=== PATIENT | male | born 1935 | race Caucasian/White ===

== ENCOUNTER 2016-07-22 18:12 | Inpatient (IN) | payer MEDICARE, OTHER ==
--- NOTE | 2016-07-22 18:18 | ED ---
Chest Pain HPI - General Stated Complaint: Stemi Time Seen by Provider: 07/22/16 18:15 Source: patient, EMS Limitations: no limitations - History of Present Illness Initial Comments: This patient is an 80-year-old man who presents to be evaluated for chest pain. The patient states a bit over an hour ago he was sitting and watching television when he started getting pain at the left substernal area. He describes it as heavy, constant, and severe. This was accompanied by dyspnea, diaphoresis, and feeling like he was going to pass out. Patient's family phoned EMS and they bring him here for arrival. The patient has had an IV, oxygen, and was given aspirin. EMS reports that initially his heart rate was in the 30s and he was hypotensive they gave a dose of atropine and report that his heart rate and blood pressure did improve. The patient states that the pain is a little better but continues. MD Complaint: chest pain Onset/Timin -: hour(s) Onset: during rest Pain Location: substernal Pain Radiation: none Severity: severe Quality: heaviness Consistency: constant Improves With: nothing Worsens With: nothing Anginal Symptoms: dyspnea Treatments Prior to Arrival: aspirin, other (Atropine) - Related Data Home Medications Medication Instructions Recorded Confirmed No Known Home Medications [No 07/22/16 07/22/16 Known Home Medications] Allergies Allergy/AdvReac Type Severity Reaction Status Date / Time No Known Allergies Allergy Verified 07/22/16 20:39 Review of Systems ROS Statement: Those systems with pertinent positive or pertinent negative responses have been documented in the HPI. ROS Other: All systems not noted in ROS Statement are negative. Constitutional: Denies: fever, chills Respiratory: Reports: dyspnea. Denies: cough, wheezes Cardiovascular: Reports: chest pain. Denies: palpitations, edema, syncope Gastrointestinal: Reports: nausea. Denies: abdominal pain, vomiting, melena, hematochezia Genitourinary: Denies: dysuria, hematuria Musculoskeletal: Denies: back pain Skin: Denies: rash Neurological: Denies: headache, weakness, numbness EKG Findings - EKG Comments: EKG Findings:: EKG shows a regular rhythm with a rate of 49 bpm the underlying rhythm appears to be atrial fibrillation. There are ST elevations in leads II, III, and aVF and V6, with reciprocal changes in 1, aVL, V1 through V4. - TX, Pacemaker, Normal: Myocardial infarction: inferior TX (acute or recent) Past Medical History - Past Family History Mother Family Medical History: Cancer Additional Family Medical History / Comment(s): from Lung CA, was a smoker Father Additional Family Medical History / Comment(s): from alcoholism General Exam General appearance: alert, in distress Head exam: Present: atraumatic, normocephalic Eye exam: Present: normal appearance. Absent: scleral icterus, conjunctival injection Neck exam: Present: normal inspection, full ROM Respiratory exam: Present: normal lung sounds bilaterally. Absent: respiratory distress, wheezes, rales, rhonchi, stridor Cardiovascular Exam: Present: normal rhythm, tachycardia, systolic murmur. Absent: diastolic murmur, rubs, gallop GI/Abdominal exam: Present: soft. Absent: distended, tenderness, guarding, rebound, mass Extremities exam: Present: normal inspection, normal capillary refill. Absent: pedal edema, calf tenderness Back exam: Present: normal inspection. Absent: CVA tenderness (R), CVA tenderness (L) Neurological exam: Present: alert Skin exam: Present: dry, intact, cyanosis. Absent: rash, diaphoretic, erythema , petechiae, pallor, mottled Course Vital Signs 07/22/16 07/22/16 07/22/16 18:12 18:30 18:36 Temperature 95.5 F L Pulse Rate 128 H 48 L 130 H Respiratory 24 22 22 Rate Blood Pressure 147/92 107/60 O2 Sat by Pulse 87 L 78 L Oximetry 07/22/16 18:38 Temperature Pulse Rate 89 Respiratory 22 Rate Blood Pressure 218/136 O2 Sat by Pulse 78 L Oximetry Critical Care Time Critical Care Time: Yes (25 minutes) Disposition Clinical Impression: ST elevation myocardial infarction (STEMI) Disposition: ADMITTED IP TO THIS HOSP Condition: Critical
[2016-07-22 18:26] LABS: CHCM 32.4; HCT 37.3 % (39.0-53.0); HDW 2.45; HGB 11.9 gm/dL (13.0-17.5); MCH 30.8 pg (25.0-35.0); MCV 96.1 fL (80.0-100.0); Mean Platelet Volume 7.7; RBC 3.88 m/uL (4.30-5.90); RDW 13.1 % (11.5-15.5); WBC 11.9 k/uL (3.8-10.6)
[2016-07-22] MEDS ORDERED: HEPARIN SODIUM,PORCINE 5,000 UNIT/ML 1 ML VIAL IV PRN (18:28)
[2016-07-22] MEDS ORDERED: HEPARIN SODIUM,PORCINE 5,000 UNIT/ML 1 ML VIAL IV ONE (18:28)
[2016-07-22] MEDS ORDERED: HEPARIN SODIUM,PORCINE/D5W PMX 25,000 UNIT in DEXTROSE/WATER 1 500ML.BAG IV SCH (18:30)
--- NOTE | 2016-07-22 18:30 | XR ---
EXAMINATION TYPE: XR chest 1V portable DATE OF EXAM: 07/22/2016 6:26 PM COMPARISON: NONE HISTORY: Chest pain TECHNIQUE: Single frontal view of the chest is obtained. FINDINGS: There is coarsening of interstitial markings. There are no hilar masses. Costophrenic angl es are clear. There are chest leads. Thoracic aorta is atheromatous. IMPRESSION: No active cardiac pulmonary disease. Normal heart.
[2016-07-22] MEDS ORDERED: MORPHINE SULFATE 4 MG/ML SYRINGE IV STA (18:32)
[2016-07-22 18:34] LABS: ALT 35 U/L (21-72); AST 52 U/L (17-59); Alkaline Phosphatase 74 U/L (38-126); Anion Gap 14 mmol/L; Blood Urea Nitrogen 19 mg/dL (9-20); Calcium 8.8 mg/dL (8.4-10.2); Carbon Dioxide 20 mmol/L (22-30); Chloride 106 mmol/L (98-107); Glucose 176 mg/dL (74-99); Non-African American GFR(MDRD) 51 (>60 ml/min/1.73 sqM); Potassium 4.6 mmol/L (3.5-5.1); Sodium 140 mmol/L (137-145); Total Bilirubin 0.7 mg/dL (0.2-1.3); Total Protein 7.1 g/dL (6.3-8.2)
[2016-07-22] MEDS: DILTIAZEM 5 MG/ML 5 ML VIAL IVP STA ×2 (18:36→18:39)
[2016-07-22] MEDS ORDERED: LIDOCAINE 2% INJ 20 MG/ML SQ ONE (18:53)
[2016-07-22 18:57] LABS: Prothrombin Time 10.4 sec (9.0-12.0)
[2016-07-22] MEDS ORDERED: DOPamine DRIP 800 MG in DEXTROSE/WATER 1 500ML.BAG IV ONE (18:58)
[2016-07-22] MEDS ORDERED: NOREPINEPHRINE 4 MG in SODIUM CHLORIDE 0.9% 250 ML IV ONE (18:58)
[2016-07-22] MEDS ORDERED: IV FLUID CONTINUATION 1,000 ML IV ONE (18:58)
[2016-07-22 19:00] LABS: Creatine Kinase MB 4.8 ng/mL (0.0-2.4); Partial Thromboplastin Time 21.1 sec (22.0-30.0); Troponin I 2.49 ng/mL (0.000-0.034)
[2016-07-22] MEDS ORDERED: ONDANSETRON 4 MG/2 ML VIAL IVP ONE (19:00)
[2016-07-22] MEDS ORDERED: ONDANSETRON 4 MG/2 ML VIAL ONE (19:01)
[2016-07-22] MEDS ORDERED: BIVALIRUDIN 250 MG in SODIUM CHLORIDE 0.9% 50 ML IV ONE (19:16)
[2016-07-22] MEDS ORDERED: DEXTROSE 5% IN WATER 100 ML with AMIODARONE 150 MG IV ONE (19:17)
[2016-07-22] MEDS ORDERED: NITROGLYCERIN 1000MCG/10ML SYRINGE INTRACORON ONE (19:18)
[2016-07-22] MEDS ORDERED: CLOPIDOGREL 75 MG TAB ONE (19:24)
[2016-07-22] MEDS ORDERED: CLOPIDOGREL 75 MG TAB PO ONE (19:33)
[2016-07-22] MEDS ORDERED: IODIXANOL 320 MG/ML 100 ML INTRAARTER ONE (19:44)
[2016-07-22] MEDS ORDERED: RX INFO: IV CONTRAST WAS GIVEN 1 EACH MISC MISCELLANE PRN (19:47)
[2016-07-22] MEDS ORDERED: ATROPINE SULFATE 0.1 MG/ML 10ML SYRINGE IV PRN (19:47)
[2016-07-22] MEDS ORDERED: NITROGLYCERIN SL TABS 0.4 MG TAB SUBLINGUAL PRN (19:47)
[2016-07-22] MEDS ORDERED: ZOLPIDEM 5 MG TAB PO PRN (19:47)
[2016-07-22] MEDS ORDERED: MAG HYDROX/AL HYDROX/SIMETH 30 ML CUP PO PRN (19:47)
--- NOTE | 2016-07-22 19:56 | P.CRDCN ---
History of Present Illness Consult date: 07/22/16 Chief complaint: Chest discomfort History of present illness: This is a pleasant 80-year-old gentleman with a past medical history significant for history of TIA/CVA without any history of coronary artery disease or hypertension or dyslipidemia or diabetes but significant history of smoking presented to the emergency room complaining of chest discomfort. The patient was in his usual state of health until earlier today when he started experiencing chest discomfort as a pressure across the chest. In the emergency room the EKG showed sinus rhythm with ST elevation inferiorly. The patient at that point was hemodynamically stable. He underwent an emergent heart catheterization which showed the occlusion of the mid right coronary artery which was a large caliber vessel and a dominant vessel. The left coronary system angiogram showed an intermediate disease in the proximal LAD and severe disease in the mid to distal LAD but the LAD at that point becomes small to medium caliber vessel. The patient underwent successful angioplasty and stenting of the mid right coronary artery using drug-eluting stent with a good angiographic results. During the procedure he was unstable and I started the patient on Levophed. Also he was bradycardic and I started him on dopamine then his heart rate got better and I stopped the dobutamine. Also during the procedure he developed multiple episodes of nonsustained VT with long episodes and I started the patient on amiodarone with a bolus and drip. Currently the patient continues to be hemodynamically unstable and requires Levophed. Also he continues to be on amiodarone IV. I am going to start him on dual antiplatelet therapy with aspirin and Plavix and also with a statin and hold any beta pawan or SHIVANI inhibitor in view of the hemodynamic instability. Also I will obtain an echocardiogram was Doppler. Past Medical History Past Medical History: Coronary Artery Disease (CAD), CVA/TIA, Myocardial Infarction (AR) History of Any Multi-Drug Resistant Organisms: None Reported Past Surgical History: Unable to Obtain Past Psychological History: No Psychological Hx Reported Smoking Status: Current every day smoker Past Alcohol Use History: None Reported Past Drug Use History: None Reported Medications and Allergies Allergies Allergy/AdvReac Type Severity Reaction Status Date / Time No Known Allergies Allergy Verified 07/22/16 18:23 Physical Exam Vitals: Intake and Output 07/22/16 07/22/16 07/22/16 06:59 14:59 22:59 Intake Total 103 Balance 103 Intake: IV 103 - Constitutional General appearance: mild distress - Respiratory Respiratory: bilateral: diminished - Cardiovascular Rhythm: regular Heart sounds: normal: S1, S2 Abnormal Heart Sounds: systolic murmur Results 07/22/16 18:15 07/22/16 18:15 Current Medications Generic Name Dose Route Start Last Admin Trade Name Freq PRN Reason Stop Dose Admin Al Hydroxide/Mg Hydroxide 30 ml 07/22/16 19:47 Maalox PO Q4HR PRN Heartburn Aspirin 325 mg 07/23/16 09:00 Aspirin PO DAILY [facility] Atorvastatin Calcium 80 mg 07/22/16 21:00 Lipitor PO HS [facility] Atropine Sulfate 0.5 mg 07/22/16 19:47 Atropine IV ONCE PRN Symptomatic Bradycardia Clopidogrel Bisulfate 75 mg 07/23/16 19:49 Plavix PO DAILY [facility] Heparin Sodium (Porcine) 0 unit 07/22/16 18:28 Heparin IV PER PROTOCOL PRN Low PTT Protocol Heparin Sodium/Dextrose 25,000 500 mls @ 13.93 mls/hr 07/22/16 18:30 18:30 unit/ IV Solution IV 12 units/kg/hr .Q24H BRODERICK 13.93 mls/hr Protocol Administration 12 UNITS/KG/HR Amiodarone HCl 450 mg/ 259 mls @ 34.53 mls/hr 07/22/16 19:30 Dextrose/Water IV 07/23/16 19:27 .Q7H31M [facility] Protocol 1 MG/MIN Sodium Chloride 1,000 mls @ 100 mls/hr 07/22/16 20:00 Saline 0.9% IV 07/23/16 02:01 .Q10H [facility] Miscellaneous Information 1 each 07/22/16 19:47 Rx Info: Iv Contrast Was Given MISCELLANE 07/24/16 19:47 DAILY PRN Per Protocol Nitroglycerin 0.4 mg 07/22/16 19:47 Nitrostat SUBLINGUAL Q5M PRN Chest Pain Zolpidem Tartrate 5 mg 07/22/16 19:47 Ambien PO HS PRN Insomnia Intake and Output 07/22/16 07/22/16 07/22/16 06:59 14:59 22:59 Intake Total 103 Balance 103 Intake: IV 103 Assessment and Plan Plan: Assessment #[address] elevation myocardial infarction #2 status post a stenting of the mid RCA #3 cardiogenic shock #4 cardiac arrhythmia in terms off nonsustained VT #5 significant history of smoking Plan #1 dual antiplatelet therapy and statin #2 continue hemodynamic support with Levophed #3 continue the amiodarone IV #4 obtain an echocardiogram was Doppler #5 follow-up with the patient
[2016-07-22] MEDS ORDERED: AMIODARONE 450 MG in DEXTROSE 5% IN WATER 250 ML IV ONE ×2 (19:59)
[2016-07-22] MEDS: AMIODARONE 450 MG in DEXTROSE 5% IN WATER 250 ML IV SCH ×2 (20:00)
[2016-07-22] MEDS ORDERED: SODIUM CHLORIDE 0.9% 1,000 ML IV SCH (20:00)
[2016-07-22] MEDS: NOREPINEPHRINE 4 MG in SODIUM CHLORIDE 0.9% 250 ML IV SCH (20:00)
[2016-07-22 20:18] LABS: Glucose,Whole Blood 204 mg/dL (75-99)
[2016-07-22] MEDS: ATORVASTATIN 80 MG TAB PO SCH (20:33)
[2016-07-22 21:34] LABS: Glucose,Whole Blood 180 mg/dL (75-99)
[2016-07-22] MEDS: INSULIN LISPRO (humaLOG) 300 UNIT/3 ML VIAL SQ SCH (21:34)
[2016-07-22] MEDS ORDERED: NALOXONE 0.4 MG/ML 1 ML VIAL IV PRN (22:23)
[2016-07-22] MEDS ORDERED: Magnesium Replacement Protocol 1 EACH MISC MISCELLANE PRN (22:26)
[2016-07-22] MEDS ORDERED: Potassium Replacement Protocol 1 EACH MISC MISCELLANE PRN (22:26)
[2016-07-22] MEDS ORDERED: Phosphorus Replacement Protoco 1 EACH MISC MISCELLANE PRN (22:26)
[2016-07-23 00:15] LABS: Magnesium 1.9 mg/dL (1.6-2.3); Phosphorous 3.6 mg/dL (2.5-4.5); Potassium 4.7 mmol/L (3.5-5.1)
[2016-07-23 00:27] LABS: Hemoglobin A1C 5.7 % (4.2-6.1)
[2016-07-23] MEDS: MAGNESIUM SULFATE-D5W PMX 1 GM in DEXTROSE/WATER 1 100ML.BAG IVPB SCH ×2 (01:05→02:06)
[2016-07-23 04:51] LABS: Appearance,Urine Clear (Clear); Bilirubin,Urine Negative (Negative); Glucose,Urine (UA) Negative (Negative); Ketones,Urine Negative (Negative); Leukocyte Esterase,Urine Negative (Negative); Nitrite,Urine Negative (Negative); PH, Urine 5.5 (5.0-8.0); Particle Count 6524; Protein,Urine 1+ (Negative); RBC,Urine 4 /hpf (0-5); Squamous Epithelial Cell,Urine <1 /hpf (0-4); UA Billing (MACRO vs. MICRO) MICRO; Urobilinogen,Urine <2.0 mg/dL (<2.0); WBC,Urine 3 /hpf (0-5)
[2016-07-23 04:54] LABS: Specific Gravity,Urine >1.050 (1.001-1.035)
[2016-07-23] MEDS: AMIODARONE 450 MG in DEXTROSE 5% IN WATER 250 ML IV SCH ×2 (05:02)
[2016-07-23 05:04] LABS: Basophils % (A) 0 %; CH 30.9; CHCM 32.8; Eosinophils % (A) 0 %; HCT 38.1 % (39.0-53.0); HGB 12.4 gm/dL (13.0-17.5); Luc # (Auto) 0.13; Luc % (Auto) 1; Lymphocytes % (A) 7 %; MCH 30.7 pg (25.0-35.0); MCHC 32.5 g/dL (31.0-37.0); MCV 94.7 fL (80.0-100.0); Mean Platelet Volume 6.8; Monocytes # (A) 0.6 k/uL (0-1.0); Monocytes % (A) 4 %; Neutrophils # (A) 12.4 k/uL (1.3-7.7); Neutrophils % (A) 88 %; RBC 4.03 m/uL (4.30-5.90); RDW 13.2 % (11.5-15.5); WBC 14.2 k/uL (3.8-10.6); WBC (Perox) 14.49
[2016-07-23 05:14] LABS: Anion Gap 10 mmol/L; Blood Urea Nitrogen 19 mg/dL (9-20); Calcium 8.4 mg/dL (8.4-10.2); Carbon Dioxide 22 mmol/L (22-30); Chloride 104 mmol/L (98-107); Glucose 169 mg/dL (74-99); Magnesium 2.5 mg/dL (1.6-2.3); Non-African American GFR(MDRD) 53 (>60 ml/min/1.73 sqM); Potassium 4.5 mmol/L (3.5-5.1); Sodium 136 mmol/L (137-145)
[2016-07-23] MEDS: INSULIN LISPRO (humaLOG) 300 UNIT/3 ML VIAL SQ SCH ×4 (08:48→21:05)
[2016-07-23] MEDS: PANTOPRAZOLE 40 MG TABLET PO SCH (08:50)
[2016-07-23] MEDS: ASPIRIN 325 MG TAB PO SCH (08:50)
[2016-07-23] MEDS: SODIUM CHLORIDE 0.9% 1,000 ML IV SCH ×2 (11:50→19:15)
[2016-07-23 11:54] LABS: Glucose,Whole Blood 113 mg/dL (75-99)
--- NOTE | 2016-07-23 12:05 | CC ---
DATE OF SERVICE: 07/22/2016 PERFORMING PHYSICIAN: Jose Juan Brock M.D., commercial finance manager. PROCEDURE PERFORMED: 1. Selective right and left coronary angiogram. 2. Successful stenting of the mid RCA using 3.25 x 15 mm Xience SHERYL which was postdilated using 3.5 noncompliant balloon with a good angiographic results. INDICATION: This is a pleasant 80-year-old gentleman with significant history of smoking who presented to the hospital with chest discomfort and was diagnosed with acute inferior ST elevation MN. The decision was made toward an emergent heart catheterization with possible coronary intervention. APPROACH: Right common femoral artery. COMPLICATIONS: None. LEVEL OF SEDATION: Moderate. PROCEDURE DESCRIPTION: After obtaining informed consent, the patient was brought to the cardiac laborer brush clearing. Right common femoral artery was cannulated using micropuncture technique under ultrasound guidance. The micropuncture wire passed easily, then I placed a 6 Kinyarwanda sheath in the right common femoral artery. Subsequently, I did selective right and left coronary angiogram using JR 3.5 and JL 3.5 catheters. After that, I did intervene on the right coronary artery. Please see separate paragraph for that. SELECTIVE CORONARY ANGIOGRAM: 1. The right coronary artery is a large-caliber vessel and it is a dominant vessel. The proximal RCA right after the ostium has a plaque that appeared to be in the range 40%. The mid RCA besides being calcified seems to be subtotally occluded during diagnostic injection and it was occluded when I engaged the RCA the guiding catheter. The RCA distally appeared to be angiographically normal and bifurcates into PDA and PLV branches; both are angiographically normal. 2. The left main is a medium caliber vessel and seems to be angiographically normal. It bifurcates into the left circumflex, ramus intermedius, and left anterior descending artery. 3. The left circumflex is a medium caliber vessel. It is a nondominant vessel. The proximal left circumflex appeared to have disease in the range of 20% to 30%. The mid left circumflex is normal and the left circumflex distally is normal as well. 4. The ramus intermedius is a medium caliber vessel with mild disease in the proximal portion. 5. Left anterior descending artery: The proximal LAD appeared to have a long tubular lesion in the range of 30 to 40%. The mid LAD is a medium caliber vessel and seems to be angiographically normal and gives rises into 2 diagonal branches; both are angiographically normally. The LAD after the second diagonal appeared to have a long tubular lesion in the range of 70% to 80% but the LAD becomes small caliber vessel by that segment. PCI OF THE RCA: Anticoagulation was initiated using Angiomax. Subsequently, I did engage the RCA using a Kemal right guiding catheter. The RCA was wired using a whisper wire. Subsequently, I did PTCA ballooning of the lesion in the mid RCA using 2.0 x 12 mm balloon and after that, I did deploy 3.25 x 15 mm Xience SHERYL, where the stent was positioned under fluoroscopy guidance and deployed under 12 atmospheres for 20 seconds. After that, I post dilate using 3.5 x 12 mm NC balloon which was inflated under 14 atmospheres for 20 seconds. The following angiogram showed good angiographic result without perforation and without dissection with a good flow. There was a plaque in the proximal RCA and seems to be in the range of 30% to 40% and seems to be stable and non- flow-limiting. CONCLUSION: 1. Acute inferior ST elevation myocardial infarction. 2. Plaque rupture and thrombus formation in the mid right coronary artery. 3. Intermediate disease involving the proximal LAD. 4. Severe disease involving the mid to distal LAD but the LAD becomes small caliber vessel by that segment. 5. Successful stenting of the mid RCA using 3.25 x 15 mm Xience SHERYL with a good angiographic results. 6. Cardiogenic shock, where the patient is on Levophed at this point. 7. Cardiac arrhythmia in the term of nonsustained VT and the patient is on amiodarone as well. POSTPROCEDURE MANAGEMENT: 1. Dual antiplatelet therapy and statin. 2. Try to wean the patient from the Levophed. 3. Obtain an echocardiogram to assess the LV function. 4. Follow up with the patient.
[2016-07-23] MEDS ORDERED: SODIUM CHLORIDE 0.9% 250 ML IV ONE (12:27)
--- NOTE | 2016-07-23 12:31 | ECHOF ---
Referral Reason:stemi MEASUREMENTS -------- HEIGHT: 152.4 cm WEIGHT: 57.1 kg BP: 98/46 RVIDd: 4.9 cm (< 3.3) IVSd: 1.2 cm (0.6 - 1.1) LVIDd: 4.5 cm (3.9 - 5.3) LVPWd: 1.3 cm (0.6 - 1.1) IVSs: 1.6 cm LVIDs: 3.6 cm LVPWs: 1.1 cm LA Diam: 3.8 cm (2.7 - 3.8) LAESV Index (A-L): 31.90 ml/m Ao Diam: 3.7 cm (2.0 - 3.7) AV Cusp: 1.4 cm (1.5 - 2.6) LA Diam: 2.6 cm (2.7 - 3.8) MV EXCURSION: 17.918 mm (> 18.000) MV EF SLOPE: 97 mm/s (70 - 150) EPSS: 1.5 cm MV E Tima: 0.75 m/s MV DecT: 172 ms MV A Tima: 0.63 m/s MV E/A Ratio: 1.19 RAP: 5.00 mmHg RVSP: 28.65 mmHg FINDINGS -------- Sinus rhythm. This was a technically adequate study. There is mild concentric left ventricular hypertrophy. Overall left ventricular systolic function is severely impaired with, an EF between 25 - 30 %. Mitral Doppler inflow pattern suggests diastolic filling abnormality 20.60. Anterseptal Hypokinesis Inferior Hypokinesis Anterior is hypokinetic [place] Hypokinesis. Basal inferolateral hypokinesis. The right ventricle is moderate to severely enlarged. LA is midly dilated 29-33ml/m2. The right atrial size is normal. There is mild aortic valve sclerosis. There is no evidence of aortic regurgitation. Mild mitral annular calcification present. Mild mitral regurgitation is present. Mild tricuspid regurgitation present. There is no evidence of pulmonary hypertension. The right ventricular systolic pressure, as measured by Doppler, is 28.65mmHg. There is no pulmonic regurgitation present. The aortic root size is normal. There is no pericardial effusion. CONCLUSIONS -------- 1. There is mild concentric left ventricular hypertrophy. 2. LA is midly dilated 29-33ml/m2. 3. There is mild aortic valve sclerosis. 4. Mild mitral annular calcification present. 5. Mild mitral regurgitation is present. 6. Mild tricuspid regurgitation present. 7. There is no evidence of pulmonary hypertension. 8. The right ventricular systolic pressure, as measured by Doppler, is 28.65mmHg. 9. Overall left ventricular systolic function is severely impaired with, an EF between 25 - 30 %. 10. Mitral Doppler inflow pattern suggest diastolic filling abnormality 20.60. 11. Anterseptal Hypokinesis 12. Inferior Hypokinesis 13. Anterior is hypokinetic 14. [place] Hypokinesis. 15. Basal inferolateral hypokinesis. 16. The right ventricle is moderate to severely enlarged. RESIDENTIAL REAL ESTATE ASSISTANT: Audrey Mcginnis RDCS
--- NOTE | 2016-07-23 12:55 | PN ---
Mr. Zapata is an 80-year-old male who presented with no prior documented cardiac history, who presented to the emergency room with an acute inferior myocardial infarction complicated by ventricular fibrillation. He underwent stenting of his right coronary artery. He is doing well this morning. He denies chest pain. Denies any dizziness or palpitation. Denies any nausea. He off the Levophed. His medications includes aspirin, Lipitor 80 mg daily, Plavix 75 mg daily. PHYSICAL EXAMINATION: Blood pressure running in the 90s with the heart rate in the 60s. LUNGS: Clear. HEART: Regular rate rhythm. S1, S2, no S3, no rub with a systolic murmur. ABDOMEN: Soft, nontender. EXTREMITIES: No edema. RIGHT GROIN: No hematoma. Lab data revealed a BUN and creatinine 19 and 1.3. Potassium 4.5. Hemoglobin of 12.4. His troponin yesterday was 2.49. IMPRESSION: 1. Status post inferior myocardial infarction with stenting of the right coronary artery. 2. Episode of cardiogenic shock with hypotension and ventricular fibrillation. 3. Abnormal renal function. RECOMMENDATIONS: From the cardiac standpoint at this time, I will stop the IV and amiodarone. I will give him IV fluids. We will review his echocardiogram, follow his renal function. Depending on his blood pressure, then a decision can be made regarding the addition of beta pawan. Will follow his urine output. The prognosis remains guarded.
[2016-07-23] MEDS: NICOTINE 14MG/24HR PATCH TRANSDERM SCH (15:22)
--- NOTE | 2016-07-23 17:45 | HP ---
DATE OF ADMISSION: 07/23/2016 PRESENTING COMPLAINT: Chest pain. HISTORY OF PRESENTING ILLNESS: This is a very pleasant 80-year-old patient who [facility], had a previous MA in and a stroke. Patient does smoke about 10 cigars a day, but does not inhale. Yesterday developed central chest pressure started shaking like to leaf, sweating, short of breath, pain did radiate to the neck and arms. Patient's found to have an acute ST elevation myocardial infarction and taken to the cardiac builder's labourer. Emergent stent was placed to the RCA. Patient in the ICU. Daughter and son-in-law at the bedside. Does feel very tired. REVIEW OF SYSTEMS: CONSTITUTIONAL: Tired. HEENT: Decreased hearing. RESPIRATORY: As above. CARDIOVASCULAR: As above. GASTROINTESTINAL: None. GENITOURINARY: None. MUSCULOSKELETAL: None. DERMATOLOGIC: None. HEMATOLOGIC: None. LYMPHATICS: None. PSYCHIATRY: None. NEUROLOGICAL: None. PAST MEDICAL HISTORY: MA in 1978, stroke in 1998. Skin cancer. PAST SURGICAL HISTORY: Left cataract surgery. SOCIAL HISTORY: Smoking about 10 cigars a day. Living with his daughter. Retired. Family history of lung cancer. HOME MEDICATIONS: None. ALLERGIES: None. On examination vital signs on presentation: Temperature 98.5, pulse 128, repeat 48, respirations 22, blood pressure 107/60, pulse ox 87% on nonrebreather. GENERAL APPEARANCE: Thin build, lying in bed, awake. EYES: Pupils equal. Conjunctiva pale. HEENT: Oral cavity normal. NECK: JVD not raised. Mass not palpable. RESPIRATORY: Effort normal. LUNGS: Diminished breath sounds. CARDIOVASCULAR: First and second sounds normal. No edema. ABDOMEN: Soft, nontender. Liver and spleen not palpable. LYMPHATIC: No lymph nodes palpable in neck or axillae. PSYCHIATRY: Alert and oriented x3. Mood and affect normal. NEUROLOGICAL: Pupils equal. Cranial nerves grossly intact. Power and sensation grossly intact. INVESTIGATIONS: Admission labs of white count 11.9, hemoglobin 11.9. Potassium 4.6, BUN 19, creatinine 1.33. Troponin 2.4. EKG shows ST elevation in inferior leads. Repeat troponin went up to 1.192. 2-D echo shows EF of 25 to 30% multiple wall hypokinetic. ASSESSMENT: 1. Acute ST elevation myocardial infarction, present on admission affecting the inferior wall. 2. Emergent cardiac cath with stent to the right coronary artery. 3. Acute ischemic cardiomyopathy with an ejection fraction around 30%. 4. Chronic nicotine dependence. Patient is a smoker. 5. Emphysema on clinical examination, is a smoker. PLAN: Care was discussed with the patient and family at the bedside. Patient is on aspirin, Lipitor, Plavix, nicotine patch, Protonix. Will add Spiriva and patient was given a nicotine patch. Care was discussed with the patient's family. Blood pressure is running on the lower side. Will keep a close eye. The patient is to be established with family doctor when he gets discharged.
[2016-07-23] MEDS: ATORVASTATIN 80 MG TAB PO SCH (20:09)
[2016-07-23] MEDS: CLOPIDOGREL 75 MG TAB PO SCH (20:10)
[2016-07-23 20:14] LABS: Glucose,Whole Blood 97 mg/dL (75-99)
[2016-07-24 04:37] LABS: Basophils % (A) 0 %; CH 31.4; Eosinophils % (A) 0 %; HCT 33.3 % (39.0-53.0); Luc % (Auto) 1; Lymphocytes # (A) 0.8 k/uL (1.0-4.8); Lymphocytes % (A) 6 %; MCH 31.7 pg (25.0-35.0); MCHC 33.2 g/dL (31.0-37.0); MCV 95.5 fL (80.0-100.0); Mean Platelet Volume 8.1; Monocytes # (A) 0.5 k/uL (0-1.0); Monocytes % (A) 4 %; Neutrophils # (A) 10.7 k/uL (1.3-7.7); Neutrophils % (A) 88 %; RBC 3.48 m/uL (4.30-5.90); RDW 13.6 % (11.5-15.5); WBC 12.1 k/uL (3.8-10.6); WBC (Perox) 12.54
[2016-07-24 04:50] LABS: Anion Gap 7 mmol/L; Blood Urea Nitrogen 19 mg/dL (9-20); Calcium 8.1 mg/dL (8.4-10.2); Carbon Dioxide 20 mmol/L (22-30); Chloride 110 mmol/L (98-107); Glucose 110 mg/dL (74-99); Magnesium 2.2 mg/dL (1.6-2.3); Non-African American GFR(MDRD) 53 (>60 ml/min/1.73 sqM); Phosphorous 2.8 mg/dL (2.5-4.5); Potassium 4.3 mmol/L (3.5-5.1); Sodium 137 mmol/L (137-145)
[2016-07-24] MEDS: SODIUM CHLORIDE 0.9% 1,000 ML IV SCH ×2 (07:13→15:07)
[2016-07-24 07:36] LABS: Glucose,Whole Blood 117 mg/dL (75-99)
[2016-07-24] MEDS: INSULIN LISPRO (humaLOG) 300 UNIT/3 ML VIAL SQ SCH ×4 (08:07→21:15)
[2016-07-24] MEDS: ASPIRIN 325 MG TAB PO SCH (08:08)
[2016-07-24] MEDS: PANTOPRAZOLE 40 MG TABLET PO SCH (08:08)
[2016-07-24] MEDS: NICOTINE 14MG/24HR PATCH TRANSDERM SCH (08:08)
[2016-07-24] MEDS: TIOTROPIUM 18 MCG/PUFF INHALER INHALATION SCH ×2 (10:10→11:11)
--- NOTE | 2016-07-24 10:23 | CDI ---
In responding to this query, please exercise your independent professional judgment. The [facility] Coding Staff and Clinical Documentation Specialists appreciate your assistance in clarifying documentation, maintaining compliance with coding guidelines, accurately documenting patients condition and capturing severity of illness. The fact that a question is asked does not imply that any particular answer is desired or expected. Communication forms are a method of clarifying documentation and are not made part of the Legal Health Record. Thank you in advance for your clarification. Last Revision, August 2015 Milad Kwon [address] [place] [address] Documentation Clarification Form Date: 07/24/2016 10:08:00 AM From: Radha Saba RN, CCDS Admit Date: 07/22/2016 6:47:00 PM Patient Name: Emigdio Zapata Visit Number: [id number] Dr. Patricia History/Risk Factors: Emphysema, Acute inferior wall TN, Acute ischemic cardiomyopathy, cardiogenic shock per cardiology, Tobacco use: Current smoker Clinical Indicators: Chief C/O: CP with dyspnea, diaphoresis and feeling like pt was going to pass out - HR 30's w hypotension upon EMS arrival Vital signs/Pulse oximetry: Temp 95.5, HR 128, RR 22-24, B/P147/92, Spo2 87% 100 % NRB, 78% NRB Lung/Breathing assessment: bilateral diminished per cardiology consult Treatment: Breathing tx: non ordered Continuous Pulse ox:78-86, improved to 96% s/p cath O2: 100% NRB weaned to 4l NC NO Pulmonary Consult In your professional opinion, can you please clarify if these findings signify one of the following conditions? Acuity: o Acute o Chronic o Acute on Chronic Respiratory Status: o Respiratory failure o Respiratory failure with hypercapnia o Respiratory failure with hypoxia o Acute Respiratory Distress o Other Diagnosis, please specify o Unable to determine Please document in your progress notes and discharge summary in order to capture severity of illness and risk of mortality. Include clinical findings that support your diagnosis. FYI: Press F11 to launch patient chart. Place X here if this finding has no clinical significance, is not applicable or if you are not able to provide any additional documentation. MARQUEZ
[2016-07-24 10:26] LABS: CH 30.8; CHCM 32.6; HCT 32.9 % (39.0-53.0); HDW 2.35; HGB 10.7 gm/dL (13.0-17.5); MCH 30.9 pg (25.0-35.0); MCHC 32.5 g/dL (31.0-37.0); MCV 95.1 fL (80.0-100.0); Mean Platelet Volume 7.3; RBC 3.45 m/uL (4.30-5.90); RDW 13.3 % (11.5-15.5); WBC 12.5 k/uL (3.8-10.6)
[2016-07-24 12:23] LABS: Glucose,Whole Blood 84 mg/dL (75-99)
--- NOTE | 2016-07-24 13:05 | PN ---
Mr. Zapata is an 80-year-old male who presented with an acute inferior myocardial infarction, complicated by atrial fibrillation and ventricular tachycardia. He underwent stenting of the right coronary artery. He is doing well this morning. He has no symptoms of chest pain. He still has episode of low blood pressure, but no evidence of tachy or bradyarrhythmia. He is feeling well. His breathing is stable. He denies any dizziness. No palpitation. He denies any nausea. He continues on aspirin once a day, Plavix 75 mg daily, Lipitor 80 mg daily. PHYSICAL EXAMINATION: His blood pressure is running in the low 100 and high 90s with a heart rate in the 60s and 70s. LUNGS: Mild decrease in breath sounds. No wheezes. HEART: Regular rate and rhythm. S1, S2, no S3, no rub. ABDOMEN: Soft, nontender. EXTREMITIES: No edema. Lab data revealed BUN and creatinine of 19 and 1.3. His peak troponin is 192. His hemoglobin is 10.7. His echocardiogram showed a severely impaired left ventricle systolic function. Ejection fraction of 25% to 30%. IMPRESSION: 1. Status post inferior myocardial infarction complicated by ventricle tachycardia and atrial fibrillation, status post stenting. 2. Hypotension, probably with an element of right ventricle infarct. 3. Severely impaired left ventricular systolic function with ischemic cardiomyopathy. 4. Prior history of smoking. RECOMMENDATION: Will continue on the present therapy. Patient should be transferred to the telemetry floor. His level of activity will be increased if his pressure stabilizes, then will start adding beta pawan and subsequently SHIVANI inhibitor to his regimen. In the meantime, will continue present therapy. Depending on his progress, further recommendation will be made.
[2016-07-24] MEDS ORDERED: NICOTINE POLACRILEX 2 MG GUM BUCCAL PRN (13:18)
[2016-07-24] MEDS: PRAMIPEXOLE 0.25 MG TAB PO SCH ×2 (15:06→21:15)
[2016-07-24 17:17] LABS: Glucose,Whole Blood 114 mg/dL (75-99)
[2016-07-24] MEDS: CLOPIDOGREL 75 MG TAB PO SCH (19:59)
[2016-07-24] MEDS: ATORVASTATIN 80 MG TAB PO SCH (19:59)
[2016-07-24 21:16] LABS: Glucose,Whole Blood 137 mg/dL (75-99)
[2016-07-25] MEDS: SODIUM CHLORIDE 0.9% 1,000 ML IV SCH (00:23)
[2016-07-25] MEDS ORDERED: FUROSEMIDE 10 MG/ML 2 ML VIAL IV ONE (05:14)
[2016-07-25] MEDS: IPRATROPIUM-ALBUTEROL 3 ML NEB INHALATION PRN ×2 (05:37→07:35)
[2016-07-25] MEDS ORDERED: FUROSEMIDE 10 MG/ML 4 ML VIAL ONE (05:40)
[2016-07-25] MEDS: ALPRAZolam 0.25 MG TAB PO PRN ×2 (05:48→12:45)
[2016-07-25 05:56] LABS: Basophils % (A) 0 %; CH 30.2; CHCM 31.2; Eosinophils % (A) 0 %; HCT 39.2 % (39.0-53.0); HDW 2.36; HGB 12.4 gm/dL (13.0-17.5); Luc # (Auto) 0.17; Luc % (Auto) 1; Lymphocytes # (A) 1.3 k/uL (1.0-4.8); Lymphocytes % (A) 7 %; MCH 30.8 pg (25.0-35.0); MCHC 31.7 g/dL (31.0-37.0); MCV 97.4 fL (80.0-100.0); Mean Platelet Volume 7.8; Monocytes # (A) 0.8 k/uL (0-1.0); Monocytes % (A) 5 %; Neutrophils % (A) 87 %; RBC 4.03 m/uL (4.30-5.90); RDW 13.3 % (11.5-15.5); WBC 17.3 k/uL (3.8-10.6)
[2016-07-25 06:26] LABS: Anion Gap 14 mmol/L; Blood Urea Nitrogen 24 mg/dL (9-20); Calcium 8.3 mg/dL (8.4-10.2); Carbon Dioxide 16 mmol/L (22-30); Chloride 109 mmol/L (98-107); Glucose 207 mg/dL (74-99); Magnesium 2.3 mg/dL (1.6-2.3); Non-African American GFR(MDRD) 58 (>60 ml/min/1.73 sqM); Phosphorous 4.1 mg/dL (2.5-4.5); Sodium 139 mmol/L (137-145)
[2016-07-25] MEDS ORDERED: METOPROLOL TARTRATE 5 MG/5 ML VIAL IVP ONE (06:29)
[2016-07-25] MEDS ORDERED: METOPROLOL TARTRATE 5 MG/5 ML VIAL IVP STA (06:29)
[2016-07-25] MEDS ORDERED: FUROSEMIDE 10 MG/ML 4 ML VIAL IV STA ×2 (06:30→07:18)
--- NOTE | 2016-07-25 06:46 | XR ---
EXAMINATION TYPE: XR chest 1V portable DATE OF EXAM: 07/25/2016 6:36 AM HISTORY: resp distress. REFERENCE: Previous study dated 07/22/2016. FINDINGS: There has been a marked worsening in the appearance of the chest was battling edema. Heart size is normal. I suspect small, bilateral effusions. IMPRESSION: MARKED WORSENING IN THE APPEARANCE OF THE CHEST WITH BATWING EDEMA SUGGESTIVE OF CONGESTIVE HEART TORI GEOVANY.
--- NOTE | 2016-07-25 07:10 | PN ---
DATE OF SERVICE: 07/24/2016 PRESENTING COMPLAINT: Chest pain. INTERVAL HISTORY: This is a patient who presented with ST elevation myocardial infarction, doing better. Sitting up in a chair. Family is at the bedside. Saw the patient in the ICU today. Blood pressure is running a bit on the low side. The patient does state that he is always fidgety, legs always jumpy. Patient is not missing his cigarettes/cigars. Review of systems done for constitutional, cardiovascular, GI, pulmonary; relevant findings as above. Current medications are reviewed. On examination, temperature 97.2, pulse 68, respirations 21, blood pressure 88/51, pulse ox 95% on 3 L. GENERAL APPEARANCE: Sitting up in a chair, fidgety. EYES: Pupils equal. Conjunctivae pale. NECK: JVD not raised. Mass not palpable. RESPIRATORY: Effort ( ) LUNGS: Slightly decreased breath sounds. CARDIOVASCULAR: First and second sounds normal. No edema. ABDOMEN: Soft, nontender. Liver and spleen not palpable. PSYCHIATRY: Alert and oriented x3. Mood and affect slightly anxious. NEUROLOGICAL: Legs are a bit jumpy. INVESTIGATIONS: White count 12.5, hemoglobin 10.7. Accu-Cheks are noted. ASSESSMENT: 1. Acute ST elevation myocardial infarction, present on admission, affecting the inferior wall. 2. Acute hypoxic respiratory failure, present on admission. 3. Emergent cardiac catheterization with stent to the right coronary artery. 4. Acute ischemic cardiomyopathy with ejection fraction around 30%. 5. Chronic nicotine dependence. Patient is a smoker. 6. Emphysema on clinical examination in a smoker. 7. Restless leg syndrome, uncontrolled. PLAN: Care was discussed with the patient. Will follow with Cardiology. Patient will be started on Mirapex. Care was discussed with the patient and family at the bedside. Questions were answered.
[2016-07-25 07:52] LABS: Glucose,Whole Blood 183 mg/dL (75-99)
[2016-07-25] MEDS ORDERED: FUROSEMIDE 10 MG/ML 10 ML VIAL IV SCH (08:00)
[2016-07-25 08:01] LABS: Appearance,Urine Clear (Clear); Bacteria,Urine Rare /hpf; Bilirubin,Urine Negative (Negative); Glucose,Urine (UA) Negative (Negative); Ketones,Urine Negative (Negative); Leukocyte Esterase,Urine Negative (Negative); Nitrite,Urine Negative (Negative); Particle Count 6231; Protein,Urine 1+ (Negative); RBC,Urine 2 /hpf (0-5); Specific Gravity,Urine 1.015 (1.001-1.035); UA Billing (MACRO vs. MICRO) MICRO; Urobilinogen,Urine <2.0 mg/dL (<2.0); WBC,Urine 3 /hpf (0-5)
[2016-07-25] MEDS: PANTOPRAZOLE 40 MG TABLET PO SCH (08:32)
[2016-07-25] MEDS: NITROGLYCERIN OINT 1 INCH/GM PACKET TOPICAL SCH ×2 (08:33→16:10)
[2016-07-25] MEDS: NICOTINE 14MG/24HR PATCH TRANSDERM SCH (08:54)
[2016-07-25] MEDS: MORPHINE SULFATE 2 MG/ML SYRINGE IVP PRN ×3 (08:56→16:10)
--- NOTE | 2016-07-25 09:19 | PN ---
Mr. Zapata is an 80-year-old male with a known history of chronic tobacco use who presented with an acute inferior myocardial infarction, underwent emergent coronary angioplasty and stenting of the right coronary artery. His initial presentation was complicated by ventricular tachycardia and atrial fibrillation. The patient was doing well yesterday without any symptoms. A few hours ago he became dyspneic and tachycardic. On examination this morning, he is quite tachypneic. He continued to be in sinus mechanism. His rate is better at this time. He denies any chest pain. He will continue on the aspirin, Plavix and the Lipitor. PHYSICAL EXAMINATION: Blood pressure running in the 120s to 130s with the heart rate in the 90s, quite tachypneic. LUNGS: With diffuse rales bilaterally. HEART: S1, S2, no S3, I am unable to appreciate a murmur. ABDOMEN: Soft, nontender. EXTREMITIES: No edema. Chest x-ray revealed significant pulmonary edema which is new for the patient. Patient's EKG revealed the evidence of inferior myocardial infarction. IMPRESSION: 1. Acute pulmonary edema. The concern will be mechanical complication of his myocardial infarction including acute mitral regurgitation and rupture of the papillary muscle, although I cannot appreciate a heart murmur. 2. Status post recent inferior myocardial infarction. 3. Severe cardiomyopathy. RECOMMENDATIONS: Patient will receive intravenous diuretics. I will obtain echocardiogram with Doppler. The patient has elected to be NO CODE. Will give him intravenous diuretics. Depending on his progress, further recommendation will be made. The prognosis is quite guarded.
[2016-07-25] MEDS: FUROSEMIDE 250 MG in SODIUM CHLORIDE 0.9% 225 ML IVP SCH (09:28)
[2016-07-25] MEDS: PRAMIPEXOLE 0.25 MG TAB PO SCH ×3 (09:55→20:12)
[2016-07-25] MEDS: ASPIRIN 325 MG TAB PO SCH (09:55)
[2016-07-25] MEDS: INSULIN LISPRO (humaLOG) 300 UNIT/3 ML VIAL SQ SCH ×4 (10:18→21:30)
--- NOTE | 2016-07-25 10:47 | ECHOF ---
Referral Reason:shortness of breath, tachycardia MEASUREMENTS -------- HEIGHT: 152.4 cm WEIGHT: 59.0 kg BP: FINDINGS -------- Complete Echo 07/23/16: Limited Study PT became hypotensive, R/0 MV Chorad Rupture. Overall left ventricular systolic function is severely impaired with, an EF between 25 - 30 %. Large Pleural Effusion. No MV Chorad Rupture noted. CONCLUSIONS -------- 1. Complete Echo 07/23/16: Limited Study PT became hypotensive, R/0 MV Chorad Rupture. 2. Overall left ventricular systolic function is severely impaired with, an EF between 25 - 30 %. 3. Large Pleural Effusion. 4. No MV Chorad Rupture noted. POWDER BLENDER: Audrey Mcginnis RDCS
[2016-07-25] MEDS ORDERED: IPRATROPIUM-ALBUTEROL 3 ML NEB INHALATION SCH (11:00)
[2016-07-25 11:05] LABS: ABG Base Excess -9.9 mmol/L; ABG HCO3 18 mmol/L (21-25); ABG PCO2 56 mmHg (35-45); ABG PH 7.13 (7.35-7.45); ABG PO2 70 mmHg (83-108); ABG TCO2 19 mmol/L (19-24)
[2016-07-25] MEDS: IPRATROPIUM-ALBUTEROL 3 ML NEB INHALATION SCH ×2 (11:39→20:35)
[2016-07-25 12:02] LABS: Glucose,Whole Blood 168 mg/dL (75-99)
--- NOTE | 2016-07-25 15:15 | P.CNPUL ---
History of Present Illness Consult date: 07/25/16 Reason for consult: dyspnea History of present illness: This is an 80-year-old male patient who got transferred to the intensive care unit this morning and I was asked to consult on this patient because of acute respiratory distress and cardiogenic shock. This patient presented to the hospital on 07/22/2016 and apparently was in his usual state of health prior to that. He presented with chest pain and EKG in the emergency department showed ST segment elevation in the inferior leads. At that point the patient was hemodynamically stable. The patient underwent emergent cardiac catheterization that showed occlusion of the mid right coronary artery with a large caliber disease. The left coronary system angiogram showed an intermediate disease in the proximal LAD and severe disease in the mid and distal LAD. The patient underwent successful angioplasty and stenting of the right mid coronary artery disease stenosis with a drug-eluting stent with good results. During the procedure, the patient experienced hypotension and the patient was resuscitated with IV fluids and pressors and he was briefly given levo fed. Noted the patient also had an episode of a nonsustained V. tach and he was given amiodarone bolus. The patient was started on DuoNeb antiplatelet agents including aspirin and Plavix. His beta blockers and nilesh inhibitors were placed on hold. Earlier this morning the patient became acutely short of breath and his chest x-ray showed acute pulmonary edema. He was in significant respiratory distress and he did not want to get intubated and he declares himself is a DNR/DNI CODE STATUS. Nevertheless, we will put the patient on BiPAP respiratory support and currently is in a letter pressure of 10 over 5 cm of water and FiO2 of 100%. His blood gases prior to initiation of BiPAP showed a pH of 7.13 with a pCO2 of 56 and pO2 of 70. A stat echocardiogram was done to make sure there is no mechanical disruption postpneumonic and echo showed severely impaired systolic dysfunction with an ejection fraction of 25% and there was no evidence of any valvular disruption or mitral regurgitation. A pleural effusion was visualized in the left lung. The patient at a time of my evaluation was quite short of breath. He was able to tolerate the BiPAP. His extremities were cold and clammy and pulses were diminished in all 4 extremities. His urine output was minimal. The patient been given a total of 160 mg IV Lasix and following that he was switched to a Lasix drip. Discussed the case with cardiology. Discussed the case with the family at the bedside. Review of Systems Further review of system was done and the positive finds almost above the history of present illness Past Medical History Past Medical History: Coronary Artery Disease (CAD), Cancer, CVA/TIA, Myocardial Infarction (NH) Additional Past Medical History / Comment(s): Patient reports remote history of myocardial infarction back in 1978 and since then he has not seen or followed up with cardiology, CVA back in 1998, skin cancer resected, Last Myocardial Infarction Date:: 07/22/2016 History of Any Multi-Drug Resistant Organisms: None Reported Past Surgical History: Unable to Obtain Additional Past Surgical History / Comment(s): 1998 left carotid Past Anesthesia/Blood Transfusion Reactions: No Reported Reaction Past Psychological History: No Psychological Hx Reported Smoking Status: Current every day smoker Past Alcohol Use History: None Reported Past Drug Use History: None Reported - Past Family History Mother Family Medical History: Cancer Additional Family Medical History / Comment(s): from Lung CA, was a smoker Father Additional Family Medical History / Comment(s): from alcoholism Medications and Allergies Home Medications Medication Instructions Recorded Confirmed Type No Known Home Medications [No 07/22/16 07/22/16 History Known Home Medications] Allergies Allergy/AdvReac Type Severity Reaction Status Date / Time No Known Allergies Allergy Verified 07/22/16 20:39 Physical Exam Vitals: Vital Signs Temp Pulse Resp BP Pulse Ox 07/25/16 12:00 97.5 F L 85 23 100/60 90 L 07/25/16 11:55 82 07/25/16 11:41 88 07/25/16 11:00 92 24 99/64 96 07/25/16 10:00 103 H 57 H 101/67 96 07/25/16 09:00 106 H 33 H 122/83 93 L 07/25/16 08:30 110 H 36 H 122/83 84 L 07/25/16 08:00 111 H 33 H 121/76 80 L 07/25/16 07:57 104 H 07/25/16 07:38 107 H 07/25/16 07:30 118 H 36 H 121/76 86 L 07/25/16 07:00 92 34 H 115/71 83 L 07/25/16 06:30 158 H 32 H 135/71 97 07/25/16 06:00 101 H 36 H 126/100 89 L 07/25/16 05:40 106 H 07/25/16 05:30 104 H 32 H 126/100 92 L 07/25/16 05:28 118 H 07/25/16 05:00 95 24 135/77 96 07/25/16 04:00 97.9 F 112 H 26 H 99/71 98 07/25/16 02:00 84 24 115/73 93 L 07/25/16 00:00 98.5 F 71 21 102/60 95 07/24/16 22:00 78 22 142/78 94 L 07/24/16 20:00 98.5 F 78 15 91/53 92 L 07/24/16 16:00 67 22 103/64 94 L Intake and Output 07/25/16 07/25/16 07/25/16 06:59 14:59 22:59 Intake Total 300 70 Output Total 1100 605 Balance -800 -535 Intake: IV 40 0.9 NS @ 10 40 Intake, IV Titration 30 Amount Furosemide 250 mg In 30 Sodium Chloride 0.9% 225 ml @ 10 MG/HR 10 mls/hr IVP .Q24H [facility] Rx#: [id number] Oral 300 Output: Urine 1100 605 Other: Voiding Method Toilet Indwelling Catheter # Voids 1 # Bowel Movements 1 Weight 59 kg 59 kg Patient Weight 07/26/16 06:59 Weight 59 kg Patient is apprehensive. He is anxious. He is tolerating a full face BiPAP mask. He is a mild degree of respiratory distress. My normal had neck is supple. There is positive JVDs and there is no goiter or neck masses at this point. Lung sounds are diminished and there is crackles in the mid and lower lung mark bilaterally. No rhonchi and there is some few scattered expiratory wheeze. Heart sounds are distant, regular, positive S1-S2, there is an S3 gallop. No significant murmurs appreciated. Abdomen is soft nontender no organomegaly. Extremities are cold and clammy and all 4 extremities and the patient has diminished pulses typical of an underlying cardiogenic shock. Neurologically awake and following commands and answering questions appropriately. Results - Laboratory Findings CBC and BMP: 07/25/16 04:56 07/25/16 04:56 ABG ABG pH 7.13 (7.35-7.45) L* 07/25/16 07:20 ABG pCO2 56 mmHg (35-45) H 07/25/16 07:20 ABG pO2 70 mmHg (83-108) L 07/25/16 07:20 ABG O2 Saturation 87.0 % (94-97) L 07/25/16 07:20 PT/INR, D-dimer PT 10.4 sec (9.0-12.0) 07/22/16 18:15 INR 1.0 (<1.1) 07/22/16 18:15 Abnormal lab findings: Abnormal Labs 07/22/16 07/22/16 07/23/16 20:15 21:33 03:20 WBC RBC Hgb Hct Plt Count Neutrophils # Lymphocytes # ABG pH ABG pCO2 ABG pO2 ABG HCO3 ABG O2 Saturation Sodium Chloride Carbon Dioxide BUN Creatinine Glucose POC Glucose (mg/dL) 204 H 180 H Calcium Magnesium Troponin I Ur Specific [place] >1.050 H Urine Protein 1+ H Urine Blood Moderate H Urine Bacteria 07/23/16 07/23/16 07/23/16 04:31 04:31 10:33 WBC 14.2 H RBC 4.03 L Hgb 12.4 L Hct 38.1 L Plt Count Neutrophils # 12.4 H Lymphocytes # ABG pH ABG pCO2 ABG pO2 ABG HCO3 ABG O2 Saturation Sodium 136 L Chloride Carbon Dioxide BUN Creatinine 1.30 H Glucose 169 H POC Glucose (mg/dL) Calcium Magnesium 2.5 H Troponin I 192.000 H* Ur Specific [place] Urine Protein Urine Blood Urine Bacteria 07/23/16 07/23/16 07/24/16 11:52 15:56 04:03 WBC 12.1 H RBC 3.48 L Hgb 11.0 L Hct 33.3 L Plt Count 135 L Neutrophils # 10.7 H Lymphocytes # 0.8 L ABG pH ABG pCO2 ABG pO2 ABG HCO3 ABG O2 Saturation Sodium Chloride Carbon Dioxide BUN Creatinine Glucose POC Glucose (mg/dL) 113 H Calcium Magnesium Troponin I 155.000 H* Ur Specific [place] Urine Protein Urine Blood Urine Bacteria 07/24/16 07/24/16 07/24/16 04:03 07:34 10:07 WBC 12.5 H RBC 3.45 L Hgb 10.7 L Hct 32.9 L Plt Count Neutrophils # Lymphocytes # ABG pH ABG pCO2 ABG pO2 ABG HCO3 ABG O2 Saturation Sodium Chloride 110 H Carbon Dioxide 20 L BUN Creatinine 1.30 H Glucose 110 H POC Glucose (mg/dL) 117 H Calcium 8.1 L Magnesium Troponin I Ur Specific [place] Urine Protein Urine Blood Urine Bacteria 07/24/16 07/24/16 07/25/16 17:14 21:14 04:56 WBC 17.3 H RBC 4.03 L Hgb 12.4 L Hct Plt Count Neutrophils # 15.0 H Lymphocytes # ABG pH ABG pCO2 ABG pO2 ABG HCO3 ABG O2 Saturation Sodium Chloride Carbon Dioxide BUN Creatinine Glucose POC Glucose (mg/dL) 114 H 137 H Calcium Magnesium Troponin I Ur Specific [place] Urine Protein Urine Blood Urine Bacteria 07/25/16 07/25/16 07/25/16 04:56 07:10 07:20 WBC RBC Hgb Hct Plt Count Neutrophils # Lymphocytes # ABG pH 7.13 L* ABG pCO2 56 H ABG pO2 70 L ABG HCO3 18 L ABG O2 Saturation 87.0 L Sodium Chloride 109 H Carbon Dioxide 16 L BUN 24 H Creatinine Glucose 207 H POC Glucose (mg/dL) Calcium 8.3 L Magnesium Troponin I Ur Specific [place] Urine Protein 1+ H Urine Blood Small H Urine Bacteria Rare H 07/25/16 07/25/16 07:51 12:00 WBC RBC Hgb Hct Plt Count Neutrophils # Lymphocytes # ABG pH ABG pCO2 ABG pO2 ABG HCO3 ABG O2 Saturation Sodium Chloride Carbon Dioxide BUN Creatinine Glucose POC Glucose (mg/dL) 183 H 168 H Calcium Magnesium Troponin I Ur Specific [place] Urine Protein Urine Blood Urine Bacteria - Diagnostic Findings Chest x-ray: image reviewed Assessment and Plan Plan: Assessment 1 cardiogenic shock 2 acute pulmonary edema with secondary acute hypoxic respiratory failure. The patient is currently BiPAP dependent at a pressure of 10 over 5 cm of water with an FiO2 of 100% 3 acute respiratory acidosis/metabolic acidosis secondary to above [address] segment elevation myocardial infarctions involving the inferior wall and the patient is status post successful angioplasty and stenting of RCA 5 severe cardiomyopathy with ejection fraction of 25%. Most recent echocardiogram has without any mechanical disruptions of the valves 6 oligoria with diminished urine output and suspected developing an acute kidney injury secondary to cardiogenic shock, currently on Lasix drip 7 CVA, history of 8 poor medical follow-up Plan Continue BiPAP support. Unfortunately under ideal circumstances the patient will need a intubation and mechanical ventilation and a balloon pump support for his hemodynamics. The patient declines all of these and he does not want any invasive measures. As such our options are limited. Possibility of inotropes were discussed with cardiology. We'll continue the Lasix drip. Continue BiPAP support. Continue monitor urine output. Continue aspirin and Plavix. Hold beta blockers and Nilesh inhibitors. Consider comfort care if his condition deteriorates further. Condition is obviously critical.
[2016-07-25 17:52] LABS: Glucose,Whole Blood 122 mg/dL (75-99)
[2016-07-25] MEDS: ATORVASTATIN 80 MG TAB PO SCH (20:12)
[2016-07-25] MEDS: CLOPIDOGREL 75 MG TAB PO SCH (20:12)
--- NOTE | 2016-07-25 20:20 | PN ---
DATE OF SERVICE: 07/25/2016 PRESENTING COMPLAINT: Short of breath. INTERVAL HISTORY: This patient presented with acute ST elevation myocardial infarction, status post coronary intervention, became short of breath overnight and this morning. Patient declined to be intubated and was put on a BiPAP, given IV Lasix. Found to have a large pleural effusion. Stat 2-D echo ruled out mitral valve chordae tendineae rupture. Family is at the bedside. The patient is lethargic from the BiPAP. Review of systems could not be done. Patient is rather lethargic. Current medications include a Lasix drip. On examination, pulse 80, respirations 21, blood pressure 80/65, pulse ox 97% on BiPAP. GENERAL: Lying in bed, tired -appearing, BiPAP in place. EYES: Pupils equal. Conjunctivae pale. NECK: JVD unable to assess, mass not palpable. RESPIRATORY: Effort increased. LUNGS: Decreased breath sounds. CARDIOVASCULAR: Heart sounds irregular. No edema. ABDOMEN: Soft, nontender. Liver and spleen not palpable. PSYCHIATRY: Patient rather lethargic. INVESTIGATIONS: Blood gas shows pH 7.13, pCO2 of 56. Chest x-ray shows bilateral pulmonary edema. ASSESSMENT: 1. Acute ST elevation myocardial infarction, present on admission, of inferior wall. 2. Acute hypoxic respiratory failure, present on admission. 3. Emergent cardiac catheterization with stent of the right coronary artery. 4. Acute flash pulmonary edema from systolic dysfunction. 5. Acute congestive heart failure with ejection fraction of 30% from ischemic cardiomyopathy. 6. Chronic nicotine dependence in a smoker. 7. Emphysema, in a smoker. 8. Restless leg syndrome. 9. Acute metabolic encephalopathy from above. 10. Acute respiratory metabolic acidosis, multifactorial. PLAN: Care was discussed at bedside, prognosis guarded. Continue supportive care. The patient does not want to extend this admission, including intubation. Keep a close eye.
[2016-07-25 21:30] LABS: Glucose,Whole Blood 196 mg/dL (75-99)
[2016-07-25] MEDS ORDERED: HEPARIN SODIUM,PORCINE 5,000 UNIT/ML 1 ML VIAL IV ONE (22:35)
[2016-07-25] MEDS ORDERED: HEPARIN SODIUM,PORCINE 5,000 UNIT/ML 1 ML VIAL IV PRN (22:35)
[2016-07-25] MEDS ORDERED: ATENOLOL 25 MG TAB PO STA (22:37)
[2016-07-25] MEDS: HEPARIN SODIUM,PORCINE/D5W PMX 25,000 UNIT in DEXTROSE/WATER 1 500ML.BAG IV SCH (23:06)
[2016-07-25 23:52] LABS: INR 1.1 (<1.1); Partial Thromboplastin Time 24.4 sec (22.0-30.0); Prothrombin Time 10.7 sec (9.0-12.0)
[2016-07-26] MEDS: NITROGLYCERIN OINT 1 INCH/GM PACKET TOPICAL SCH (01:19)
[2016-07-26 04:22] LABS: CHCM 33.9; Lymphocytes % (A) 6 %; MCH 31.3 pg (25.0-35.0); Monocytes % (A) 5 %
[2016-07-26 04:33] LABS: Basophils % (A) 0 %; CH 31.1; Eosinophils % (A) 0 %; HCT 35.5 % (39.0-53.0); Luc # (Auto) 0.15; Luc % (Auto) 1; Lymphocytes # (A) 0.7 k/uL (1.0-4.8); Mean Platelet Volume 8.8; Monocytes # (A) 0.6 k/uL (0-1.0); Neutrophils # (A) 11.4 k/uL (1.3-7.7); Neutrophils % (A) 88 %; RBC 3.84 m/uL (4.30-5.90); RDW 13.5 % (11.5-15.5); WBC 12.9 k/uL (3.8-10.6); WBC (Perox) 14.05
[2016-07-26 04:41] LABS: MCV 92.3 fL (80.0-100.0)
[2016-07-26 05:16] LABS: Calcium 8.3 mg/dL (8.4-10.2); Potassium 3.9 mmol/L (3.5-5.1)
[2016-07-26] MEDS ORDERED: Potassium Replacement Protocol 1 EACH MISC MISCELLANE PRN ×2 (05:24→19:12)
[2016-07-26] MEDS ORDERED: POTASSIUM CHLORIDE ER 20 MEQ TAB.ER PO SCH (06:00)
[2016-07-26] MEDS: PANTOPRAZOLE 40 MG TABLET PO SCH (06:38)
[2016-07-26] MEDS: FUROSEMIDE 250 MG in SODIUM CHLORIDE 0.9% 225 ML IVP SCH (07:07)
[2016-07-26] MEDS: IPRATROPIUM-ALBUTEROL 3 ML NEB INHALATION SCH ×3 (07:12→19:46)
[2016-07-26 07:55] LABS: Glucose,Whole Blood 142 mg/dL (75-99)
--- NOTE | 2016-07-26 08:15 | XR ---
EXAMINATION TYPE: XR chest 1V portable DATE OF EXAM: 07/26/2016 6:57 AM Comparison: 07/25/2016 Clinical History: 80-year-old male with shortness of breath Findings: Heart is normal size. Atherosclerotic arch calcifications. Emphysematous cystic lucencies within the lungs and hyperinflation. Improving perihilar and multifocal airspace opacities with residual bilater al densities particularly on the right. There is interval increase in a small right pleural effusion with adjacent opacity. Impression: COPD with superimposed CHF. There is persistent but improving pulmonary edema as compared to prior ex am. Also, there is now a small right pleural effusion with adjacent atelectasis and/or consolidation.
[2016-07-26] MEDS: INSULIN LISPRO (humaLOG) 300 UNIT/3 ML VIAL SQ SCH ×4 (08:44→20:12)
[2016-07-26] MEDS: ALPRAZolam 0.25 MG TAB PO PRN (08:45)
[2016-07-26] MEDS: ASPIRIN 325 MG TAB PO SCH (08:45)
[2016-07-26] MEDS: NICOTINE 14MG/24HR PATCH TRANSDERM SCH (08:45)
[2016-07-26] MEDS: FUROSEMIDE 10 MG/ML 4 ML VIAL IV SCH ×3 (08:46→20:12)
[2016-07-26] MEDS: SPIRONOLACTONE 25 MG TAB PO SCH (08:48)
[2016-07-26] MEDS: PRAMIPEXOLE 0.25 MG TAB PO SCH ×3 (08:48→22:49)
--- NOTE | 2016-07-26 09:25 | PN ---
Mr. Zapata is an 80-year-old male who presented with an acute inferior myocardial infarction complicated by ventricular tachycardia and atrial fibrillation. He underwent stenting of his right coronary artery. Yesterday chipper he became quite unstable, went into acute pulmonary edema and hemodynamically quite unstable with severe respiratory distress. He was started on IV Lasix drip as well as BiPAP. He has responded nicely and he is feeling quite well this morning. He has no symptoms of chest pain. His breathing is much improved. He has good urine output. During the night, he had an episode of atrial fibrillation converted back to sinus mechanism. He is on no pressor. He denies any dizziness or palpitation. He denies any nausea. His appetite is good. He continues to be on aspirin once a day, Lipitor 80 mg daily, Plavix 75 mg daily. He is on the IV Lasix drip, IV heparin that was started last night. PHYSICAL EXAMINATION: His blood pressure is running in the low hundreds with heart rate in the 80s. LUNGS: Few crackles at the bases. No wheezes. HEART: Regular rate and rhythm. S1, S2, no S3, no rub. ABDOMEN: Soft, nontender. EXTREMITIES: No edema. Lab data revealed creatinine 34 and 1.38. Potassium 3.9. Hemoglobin of 12.0. His magnesium is 2.0. His chest x-ray shows improvement in the pulmonary congestion. He is negative in diuresis over the last 24 hours. IMPRESSION: 1. Severe ischemic cardiomyopathy with recent flash pulmonary edema, much improved. 2. History of coronary artery disease, status post stenting of the right coronary artery in the setting of acute myocardial infarction. 3. Paroxysmal atrial fibrillation. 4. Prior history of smoking. 5. Renal failure. RECOMMENDATION: From the cardiac standpoint, I will stop the IV Lasix drip switch him to ( ) Lasix. I will try a low dose beta pawan as well as Aldactone and follow his renal function. I will continue IV heparin for 24 hours. If he has no further episode of atrial fibrillation, then that would be stopped. Otherwise he may require triple anticoagulation. The prognosis remains guarded. Depending on his progress, further recommendation will be made.
--- NOTE | 2016-07-26 10:17 | P.PN ---
Subjective This is an 80-year-old male patient who got transferred to the intensive care unit this morning and I was asked to consult on this patient because of acute respiratory distress and cardiogenic shock. This patient presented to the hospital on 07/22/2016 and apparently was in his usual state of health prior to that. He presented with chest pain and EKG in the emergency department showed ST segment elevation in the inferior leads. At that point the patient was hemodynamically stable. The patient underwent emergent cardiac catheterization that showed occlusion of the mid right coronary artery with a large caliber disease. The left coronary system angiogram showed an intermediate disease in the proximal LAD and severe disease in the mid and distal LAD. The patient underwent successful angioplasty and stenting of the right mid coronary artery disease stenosis with a drug-eluting stent with good results. During the procedure, the patient experienced hypotension and the patient was resuscitated with IV fluids and pressors and he was briefly given levo fed. Noted the patient also had an episode of a nonsustained V. tach and he was given amiodarone bolus. The patient was started on DuoNeb antiplatelet agents including aspirin and Plavix. His beta blockers and kamala inhibitors were placed on hold. Earlier this morning the patient became acutely short of breath and his chest x-ray showed acute pulmonary edema. He was in significant respiratory distress and he did not want to get intubated and he declares himself is a DNR/DNI CODE STATUS. Nevertheless, we will put the patient on BiPAP respiratory support and currently is in a letter pressure of 10 over 5 cm of water and FiO2 of 100%. His blood gases prior to initiation of BiPAP showed a pH of 7.13 with a pCO2 of 56 and pO2 of 70. A stat echocardiogram was done to make sure there is no mechanical disruption postpneumonic and echo showed severely impaired systolic dysfunction with an ejection fraction of 25% and there was no evidence of any valvular disruption or mitral regurgitation. A pleural effusion was visualized in the left lung. The patient at a time of my evaluation was quite short of breath. He was able to tolerate the BiPAP. His extremities were cold and clammy and pulses were diminished in all 4 extremities. His urine output was minimal. The patient been given a total of 160 mg IV Lasix and following that he was switched to a Lasix drip. Discussed the case with cardiology. Discussed the case with the family at the bedside. On 07/26/2016, the patient is being seen in follow-up. Noted the patient was in acute pulmonary edema and cardiogenic shock on yesterday's evaluation. As mentioned earlier, the patient was started on a Lasix drip and he was supported with a BiPAP. Fortunately, his condition stabilized and he started producing adequate amount of urine output and diuresis appropriately. Over the past 24 hours, his fluid balance is -5 L at least and today's chest x-ray shows improvement in the pulmonary edema. In fact the patient was taken off the BiPAP last night and he was placed on high flow oxygen at 6 L per minute nasal cannula. The less, today's chest x-ray still showing heart failure/pulmonary edema picture. The patient needs to go on his BiPAP on and off during the day to support his breathing and cardiac status. He briefly went into atrial fibrillation and rapid ventricular response and he converted back to normal sinus rhythm. He is on IV heparin. Earlier this morning, I noted that the patient's systolic blood pressure dropped down to the mid 70s. I will support him with levo fed knowing that along with hypotension his urine output also dropped. Neurologically is awake and alert. He is not having any chest pain. No bleeding complications. No mental status change. No other complaints otherwise. Objective - Vital Signs Vital signs: Vital Signs Temp 97.8 F 07/26/16 08:00 Pulse 72 07/26/16 09:00 Resp 22 07/26/16 09:00 BP 74/46 07/26/16 09:00 Pulse Ox 98 07/26/16 09:00 Intake & Output 07/25/16 07/26/16 07/26/16 18:59 06:59 18:59 Intake Total 210 409.356 266.5 Output Total 3005 2800 435 Balance -2795 -2390.644 -168.5 Weight 59 kg 54.9 kg Intake: IV 110 190 50 0.9 NS @ 10 110 190 50 Intake, IV Titration 100 99.356 216.5 Amount Furosemide 250 mg In 100 216.5 Sodium Chloride 0.9% 225 ml @ 10 MG/HR 10 mls/hr IVP .Q24H [facility] Rx#: [id number] Heparin Sodium,Porcine/ 99.356 D5w Pmx 25,000 unit In Dextrose/Water 1 500ml. bag @ 12 UNITS/KG/HR 14. 16 mls/hr IV .Q24H [facility] Rx #:[id number] Oral 120 Output: Urine 3005 2800 435 Other: Voiding Method Indwelling Catheter Indwelling Catheter Indwelling Catheter ABP, PAP, CO, CI - Last Documented Arterial Blood Pressure 117/51 - Exam Head exam was generally normal. There was no scleral icterus or corneal arcus. Mucous membranes were moist. Neck is supple and there is mild JVDs is no goiter or neck masses. Lungs sounds are diminished and there is some bibasilar crackles in lung bases bilaterally. Heart sounds are regular, S3 gallop, no cervical murmurs appreciated.Abdominal exam revealed normal bowel sounds. The abdomen was soft, non-tender, and without masses, organomegaly, or appreciable enlargement of the abdominal aorta. Extremities are still cold with diminished pulses bilaterally. - Labs CBC & Chem 7: 07/26/16 04:11 07/26/16 04:11 Labs: Abnormal Lab Results - Last 24 Hours (Table) 07/25/16 07/25/16 07/25/16 Range/Units 07:20 12:00 17:50 WBC (3.8-10.6) k/uL RBC (4.30-5.90) m/uL Hgb (13.0-17.5) gm/dL Hct (39.0-53.0) % Neutrophils # (1.3-7.7) k/uL Lymphocytes # (1.0-4.8) k/uL APTT (22.0-30.0) sec ABG pH 7.13 L* (7.35-7.45) ABG pCO2 56 H (35-45) mmHg ABG pO2 70 L (83-108) mmHg ABG HCO3 18 L (21-25) mmol/L ABG O2 Saturation 87.0 L (94-97) % BUN (9-20) mg/dL Creatinine (0.66-1.25) mg/dL Glucose (74-99) mg/dL POC Glucose (mg/dL) 168 H 122 H (75-99) mg/dL Calcium (8.4-10.2) mg/dL 07/25/16 07/26/16 07/26/16 Range/Units 21:28 04:11 04:11 WBC 12.9 H (3.8-10.6) k/uL RBC 3.84 L (4.30-5.90) m/uL Hgb 12.0 L (13.0-17.5) gm/dL Hct 35.5 L (39.0-53.0) % Neutrophils # 11.4 H (1.3-7.7) k/uL Lymphocytes # 0.7 L (1.0-4.8) k/uL APTT (22.0-30.0) sec ABG pH (7.35-7.45) ABG pCO2 (35-45) mmHg ABG pO2 (83-108) mmHg ABG HCO3 (21-25) mmol/L ABG O2 Saturation (94-97) % BUN 34 H (9-20) mg/dL Creatinine 1.38 H (0.66-1.25) mg/dL Glucose 128 H (74-99) mg/dL POC Glucose (mg/dL) 196 H (75-99) mg/dL Calcium 8.3 L (8.4-10.2) mg/dL 07/26/16 07/26/16 Range/Units 04:11 07:37 WBC (3.8-10.6) k/uL RBC (4.30-5.90) m/uL Hgb (13.0-17.5) gm/dL Hct (39.0-53.0) % Neutrophils # (1.3-7.7) k/uL Lymphocytes # (1.0-4.8) k/uL APTT 35.8 H (22.0-30.0) sec ABG pH (7.35-7.45) ABG pCO2 (35-45) mmHg ABG pO2 (83-108) mmHg ABG HCO3 (21-25) mmol/L ABG O2 Saturation (94-97) % BUN (9-20) mg/dL Creatinine (0.66-1.25) mg/dL Glucose (74-99) mg/dL POC Glucose (mg/dL) 142 H (75-99) mg/dL Calcium (8.4-10.2) mg/dL Microbiology - Last 24 Hours (Table) 07/25/16 07:10 Urine Culture - Preliminary Urine,Catheterized Assessment and Plan Plan: Assessment 1 cardiogenic shock, improving. The patient responded nicely to respiratory support to BiPAP and diuresis. This morning his blood pressure dropped into the mid 70s and he'll be started on norepinephrine infusion to augment his cardiac output and blood pressure and this will hopefully help him with diuresis. 2 acute pulmonary edema with secondary acute hypoxic respiratory failure. The patient is currently BiPAP dependent at a pressure of 10 over 5 cm of water with an FiO2 of 100%. The patient will continue his BiPAP therapy on and off during the day which will reduce afterload, reduce venous return, improved his cardiac output and reduce his work of breathing. His chest x-ray still showing pulmonary edema, less worse than yesterday. 3 acute respiratory acidosis/metabolic acidosis secondary to above [address] segment elevation myocardial infarctions involving the inferior wall and the patient is status post successful angioplasty and stenting of RCA 5 severe cardiomyopathy with ejection fraction of 25%. Most recent echocardiogram has without any mechanical disruptions of the valves 6 o acute kidney injury, improving and it creatinine stable at 1.38. The patient is producing good urine output with diuresis. 7 CVA, history of 8 poor medical follow-up Plan Continue BiPAP support. Add norepinephrine infusion to bring a mean arterial pressure above 65. Monitor the urine output. Hold on the Lasix for now and restart the Lasix pushes once the patient's blood pressure stabilizes. Hold on the Lopressor for now. Repeat echocardiogram was done. Monitor the patient here in the intensive care unit. His condition remains critical and obviously the long-term prognosis poor based on the poor cardiac status
[2016-07-26] MEDS: NOREPINEPHRINE 4 MG in SODIUM CHLORIDE 0.9% 250 ML IV SCH ×2 (10:25→23:08)
[2016-07-26 12:35] LABS: Glucose,Whole Blood 94 mg/dL (75-99)
[2016-07-26] MEDS: METOPROLOL TARTRATE 25 MG TAB PO SCH ×2 (16:59→20:12)
[2016-07-26 17:35] LABS: Glucose,Whole Blood 116 mg/dL (75-99)
--- NOTE | 2016-07-26 18:26 | PN ---
DATE OF SERVICE: 07/26/2016 PRESENTING COMPLAINT: Short of breath. INTERVAL HISTORY: This is a patient who presented with acute ST-elevation myocardial infarction, status post coronary intervention. Then went into acute pulmonary edema; had to be supported on BiPAP. Patient does not want to be intubated. Given Lasix. Patient is doing somewhat better now. Sitting up on a chair on nasal cannula. Blood pressure is running on the low side. Patient did go into atrial fibrillation last night, in and out of it. Review of systems done for constitutional, cardiovascular, GI, pulmonary; relevant findings as above. Patient feels less "jumpy" today. Current medications are reviewed that include IV heparin and switched to IV bolus Lasix. On examination, temperature 97.5, pulse 56, respiration 23, blood pressure 95/61, pulse ox 100%. GENERAL APPEARANCE: Sitting up in a chair, tired-appearing. EYES: Pupils equal. Conjunctivae normal. NECK: JVD raised. Mass not palpable. RESPIRATORY: Effort increased. LUNGS: Diminished breath sounds and crackles. CARDIOVASCULAR: Heart sounds irregular. No edema. ABDOMEN: Soft, nontender. Liver and spleen not palpable. PSYCHIATRY: Awake. Answering questions. More relaxed. INVESTIGATIONS: White count 12.9, hemoglobin 12, potassium 3.9, BUN 34, creatinine 1.38. Chest x-ray shows some pulmonary edema. ASSESSMENT: 1. Acute ST-elevation myocardial infarction, present on admission, of the inferior wall. 2. Acute hypoxic respiratory failure, present on admission, from congestive heart failure. 3. Emergent cardiac catheterization with stent to the right coronary artery. 4. Acute flash pulmonary edema from systolic dysfunction, acute; ejection fraction 30%, from ischemic cardiomyopathy. 5. Chronic nicotine dependence in a smoker. 6. Paroxysmal atrial fibrillation. 7. Emphysema in a smoker. 8. Restless leg syndrome. 9. Acute metabolic encephalopathy from above, improved. 10. Acute respiratory and metabolic acidosis, multifactorial. 11. Cardiogenic shock from low ejection fraction and pulmonary edema with some clinical improvement. PLAN: Prognosis remains guarded. Patient is still hypotensive. Keep the patient on IV Lasix. Care was discussed with the patient. Prognosis guarded.
[2016-07-26 20:04] LABS: Glucose,Whole Blood 153 mg/dL (75-99)
[2016-07-26] MEDS: POTASSIUM CHLORIDE ER 20 MEQ TAB.ER PO SCH ×2 (20:12→20:55)
[2016-07-26] MEDS: CLOPIDOGREL 75 MG TAB PO SCH (20:12)
[2016-07-26] MEDS: ATORVASTATIN 80 MG TAB PO SCH (20:12)
[2016-07-27] MEDS: HEPARIN SODIUM,PORCINE/D5W PMX 25,000 UNIT in DEXTROSE/WATER 1 500ML.BAG IV SCH (00:28)
[2016-07-27 04:56] LABS: Basophils % (A) 0 %; CHCM 34.1; Eosinophils # (A) 0.3 k/uL (0-0.7); Eosinophils % (A) 3 %; HCT 33.2 % (39.0-53.0); Luc # (Auto) 0.11; Luc % (Auto) 1; Lymphocytes # (A) 1.4 k/uL (1.0-4.8); Lymphocytes % (A) 14 %; MCH 30.3 pg (25.0-35.0); MCHC 33.2 g/dL (31.0-37.0); MCV 91.2 fL (80.0-100.0); Mean Platelet Volume 8.6; Monocytes # (A) 0.5 k/uL (0-1.0); Monocytes % (A) 5 %; Neutrophils # (A) 7.3 k/uL (1.3-7.7); Neutrophils % (A) 77 %; RBC 3.64 m/uL (4.30-5.90); RDW 13.4 % (11.5-15.5); WBC 9.6 k/uL (3.8-10.6); WBC (Perox) 10.14
[2016-07-27 05:18] LABS: Anion Gap 7 mmol/L; Blood Urea Nitrogen 36 mg/dL (9-20); Calcium 8.2 mg/dL (8.4-10.2); Carbon Dioxide 33 mmol/L (22-30); Chloride 99 mmol/L (98-107); Glucose 142 mg/dL (74-99); Magnesium 2.1 mg/dL (1.6-2.3); Non-African American GFR(MDRD) 53 (>60 ml/min/1.73 sqM); Phosphorous 2.5 mg/dL (2.5-4.5); Sodium 139 mmol/L (137-145)
[2016-07-27 07:34] LABS: Glucose,Whole Blood 124 mg/dL (75-99)
[2016-07-27] MEDS: IPRATROPIUM-ALBUTEROL 3 ML NEB INHALATION SCH ×3 (07:38→19:50)
[2016-07-27] MEDS: INSULIN LISPRO (humaLOG) 300 UNIT/3 ML VIAL SQ SCH ×4 (08:14→21:09)
[2016-07-27] MEDS: PANTOPRAZOLE 40 MG TABLET PO SCH (08:18)
[2016-07-27] MEDS: NICOTINE 14MG/24HR PATCH TRANSDERM SCH (08:18)
[2016-07-27] MEDS: PRAMIPEXOLE 0.25 MG TAB PO SCH ×3 (08:19→22:01)
[2016-07-27] MEDS: ASPIRIN 325 MG TAB PO SCH (08:19)
[2016-07-27] MEDS: FUROSEMIDE 10 MG/ML 2 ML VIAL IV SCH ×2 (08:19→20:09)
--- NOTE | 2016-07-27 08:59 | PN ---
Mr. Zapata is an 80-year-old male who presented with an acute inferior myocardial infarction complicated by ventricular fibrillation and atrial fibrillation. He had an episode of pulmonary edema that improved with BiPAP and diuresis. He is feeling better today. His breathing is better. He is denying any chest pain. Hemodynamically, he is stable. He is on a low dose of Levothroid. He is in sinus mechanism. He had no further episode of atrial fibrillation. He has no dizziness or palpitation. He denies any nausea. He is tolerating oral intake without difficulty. He continues to be on Lasix 40 mg IV q.12 hours, Lipitor 80 mg daily, aspirin once a day, Plavix 75 mg daily, metoprolol tartrate 25 mg twice a day, Aldactone 25 mg daily. PHYSICAL EXAMINATION: Blood pressure running in the high 90s and low 100s with the heart rate in the 60s and 70s. LUNGS: With a few crackles and rales at the base. HEART: Regular rate and rhythm. S1, S2, no S3, with systolic murmur. No diastolic murmur. ABDOMEN: Soft, nontender. EXTREMITIES: No edema. Lab data revealed BUN and creatinine 36 and 1.3. Potassium 4.0. Hemoglobin of 11. IMPRESSION: 1. Status post inferior myocardial infarction with stenting of the right coronary artery complicated by ventricular tachycardia and atrial fibrillation. 2. Severe ischemic cardiomyopathy. 3. Pulmonary edema, improved. 4. Prior history of smoking. 5. Abnormal renal function. 6. Episode of hypotension. RECOMMENDATIONS: From the cardiac standpoint, I will stop the IV heparin. I will cut down the dose of his diuretics. Follow his blood pressure. I am hoping that we can wean his IV Levophed to off completely. Depending on his progress, further recommendation will be made.
[2016-07-27] MEDS: METOPROLOL TARTRATE 25 MG TAB PO SCH ×2 (09:52→20:10)
[2016-07-27] MEDS: SPIRONOLACTONE 25 MG TAB PO SCH (09:53)
[2016-07-27] MEDS: NOREPINEPHRINE 4 MG in SODIUM CHLORIDE 0.9% 250 ML IV SCH (10:34)
--- NOTE | 2016-07-27 10:36 | XR ---
EXAMINATION TYPE: XR chest 1V DATE OF EXAM: 07/27/2016 10:18 AM COMPARISON: 07/26/2016 HISTORY: 80-year-old male [place] 5 days ago, evaluate for CHF TECHNIQUE: Single frontal view of the chest is obtained. FINDINGS: Heart is normal size. Hyperinflation with a interstitial densities. Some improvement in airspace opac ity within the right midlung. Persistent small right pleural effusion with adjacent density area trac e left pleural effusion also noted. IMPRESSION: 1. COPD with continued improving CHF, now interstitial pulmonary edema. 2. Small right and trace left pleural effusions. Prominent adjacent atelectasis or infiltrate at the right base is unchanged.
[2016-07-27 12:01] LABS: Glucose,Whole Blood 131 mg/dL (75-99)
[2016-07-27 17:37] LABS: Glucose,Whole Blood 123 mg/dL (75-99)
--- NOTE | 2016-07-27 18:28 | PN ---
DATE OF SERVICE: 07/27/2016 PRESENTING COMPLAINT: Short of breath. INTERVAL HISTORY: This is a patient who presented with acute ST elevation myocardial infarction status post coronary artery intervention. Had been in pulmonary edema. Has been on and off BiPAP. Currently sitting up in bed. Did eat some lunch and was on nasal cannula. Still getting Lasix. Patient needed some Levophed for pressure support. Tired. FAMILY: At the bedside. The patient has been in and out of atrial fibrillation. Review systems done for constitutional, cardiovascular, GI, pulmonary; relevant findings as above. Current medications are reviewed that include IV Lasix 20 mg and a small dose of Levophed. On examination, temperature 97.9, pulse 69, respiration 13, blood pressure 96/58, pulse ox 97% on 4 liters. GENERAL APPEARANCE: Sitting up in bed, awake, tired appearing. EYES: Pupils equal, conjunctivae normal. NECK: JVD raised. Mass not palpable. RESPIRATORY: Effort increased. LUNGS: Diminished breath sounds. CARDIOVASCULAR: Heart sounds irregular. No edema. ABDOMEN: Soft, nontender. Liver and spleen not palpable. PSYCHIATRY: Alert and oriented x3. Mood and affect normal. INVESTIGATIONS: White count 9.6, hemoglobin 11, potassium 4. BUN 36, creatinine 1.30. Accu-Cheks noted. Chest x-ray showed some venous prominence. ASSESSMENT: 1. Acute ST elevation myocardial infarction present on admission of the inferior wall. 2. Acute hypoxic respiratory failure, present on admission from congestive heart failure. 3. Emergent cardiac catheterization with stent to the right coronary artery. 4. Acute flash pulmonary edema from systolic dysfunction acute; ejection fraction 30% from ischemic cardiomyopathy. 5. Chronic nicotine dependence in a smoker. 6. Paroxysmal atrial fibrillation recurrent. 7. Emphysema, in a smoker. 8. Restless leg syndrome. 9. Acute metabolic encephalopathy from above, improved. 10. Acute respiratory and metabolic acidosis, multifactorial. 11. Cardiogenic shock from low ejection fraction and pulmonary edema with clinical improvement. PLAN: Continue current medication and treatment plan. Prognosis remains guarded. Care was discussed with the patient and family at the bedside. Patient is slow to respond.
--- NOTE | 2016-07-27 18:40 | P.PN ---
Subjective This is an 80-year-old male patient who got transferred to the intensive care unit this morning and I was asked to consult on this patient because of acute respiratory distress and cardiogenic shock. This patient presented to the hospital on 07/22/2016 and apparently was in his usual state of health prior to that. He presented with chest pain and EKG in the emergency department showed ST segment elevation in the inferior leads. At that point the patient was hemodynamically stable. The patient underwent emergent cardiac catheterization that showed occlusion of the mid right coronary artery with a large caliber disease. The left coronary system angiogram showed an intermediate disease in the proximal LAD and severe disease in the mid and distal LAD. The patient underwent successful angioplasty and stenting of the right mid coronary artery disease stenosis with a drug-eluting stent with good results. During the procedure, the patient experienced hypotension and the patient was resuscitated with IV fluids and pressors and he was briefly given levo fed. Noted the patient also had an episode of a nonsustained V. tach and he was given amiodarone bolus. The patient was started on DuoNeb antiplatelet agents including aspirin and Plavix. His beta blockers and kamala inhibitors were placed on hold. Earlier this morning the patient became acutely short of breath and his chest x-ray showed acute pulmonary edema. He was in significant respiratory distress and he did not want to get intubated and he declares himself is a DNR/DNI CODE STATUS. Nevertheless, we will put the patient on BiPAP respiratory support and currently is in a letter pressure of 10 over 5 cm of water and FiO2 of 100%. His blood gases prior to initiation of BiPAP showed a pH of 7.13 with a pCO2 of 56 and pO2 of 70. A stat echocardiogram was done to make sure there is no mechanical disruption postpneumonic and echo showed severely impaired systolic dysfunction with an ejection fraction of 25% and there was no evidence of any valvular disruption or mitral regurgitation. A pleural effusion was visualized in the left lung. The patient at a time of my evaluation was quite short of breath. He was able to tolerate the BiPAP. His extremities were cold and clammy and pulses were diminished in all 4 extremities. His urine output was minimal. The patient been given a total of 160 mg IV Lasix and following that he was switched to a Lasix drip. Discussed the case with cardiology. Discussed the case with the family at the bedside. On 07/26/2016, the patient is being seen in follow-up. Noted the patient was in acute pulmonary edema and cardiogenic shock on yesterday's evaluation. As mentioned earlier, the patient was started on a Lasix drip and he was supported with a BiPAP. Fortunately, his condition stabilized and he started producing adequate amount of urine output and diuresis appropriately. Over the past 24 hours, his fluid balance is -5 L at least and today's chest x-ray shows improvement in the pulmonary edema. In fact the patient was taken off the BiPAP last night and he was placed on high flow oxygen at 6 L per minute nasal cannula. The less, today's chest x-ray still showing heart failure/pulmonary edema picture. The patient needs to go on his BiPAP on and off during the day to support his breathing and cardiac status. He briefly went into atrial fibrillation and rapid ventricular response and he converted back to normal sinus rhythm. He is on IV heparin. Earlier this morning, I noted that the patient's systolic blood pressure dropped down to the mid 70s. I will support him with levo fed knowing that along with hypotension his urine output also dropped. Neurologically is awake and alert. He is not having any chest pain. No bleeding complications. No mental status change. No other complaints otherwise. To 2016 the patient is being seen in follow-up. He is less short of breath. Still using BiPAP on and off during the day. Chest x-ray still showing pulmonary edema although it is gradually improving. As mentioned earlier the patient had developed some hypotension and based on that the patient was started on levo fed early earlier this morning the levo fed was running somewhere between 1-2 mics. The patient is still diuresing and is not fluid balance over the past 24 hours has been -2.3 L. Renal function for today is stable with a creatinine of 1.3. Hemoglobin is also stable at 11. No chest pain. No change in mental status. He is resting comfortably in bed and is able to wear the BiPAP without any major difficulties. Lasix has been cut down to 20 mg IV every 12 hours and the metoprolol is on hold as long as the patient is still pressor dependent. Objective - Vital Signs Vital signs: Vital Signs Temp 97.6 F 07/27/16 16:00 Pulse 73 07/27/16 18:00 Resp 13 07/27/16 18:00 BP 108/63 07/27/16 18:00 Pulse Ox 100 07/27/16 18:00 Intake & Output 07/26/16 07/27/16 07/27/16 18:59 06:59 18:59 Intake Total 571.912 776.494 531.122 Output Total 1090 2590 1110 Balance -518.088 -1813.506 -578.878 Weight 54.9 kg 52.9 kg Intake: IV 230 140 230 0.9 NS @ 10 230 140 230 Intake, IV Titration 341.912 636.494 301.122 Amount Furosemide 250 mg In 216.5 Sodium Chloride 0.9% 225 ml @ 10 MG/HR 10 mls/hr IVP .Q24H [facility] Rx#: [id number] Heparin Sodium,Porcine/ 507.906 56.011 D5w Pmx 25,000 unit In Dextrose/Water 1 500ml. bag @ 12 UNITS/KG/HR 14. 16 mls/hr IV .Q24H [facility] Rx #:[id number] Norepinephrine 4 mg In 125.412 128.588 245.111 Sodium Chloride 0.9% 250 ml @ Titrate IV .Q0M [facility] Rx#:[id number] Output: Urine 1090 2590 1110 Other: Voiding Method Indwelling Catheter Indwelling Catheter Indwelling Catheter # Voids 1 # Bowel Movements 1 ABP, PAP, CO, CI - Last Documented Arterial Blood Pressure 117/51 - Exam Head exam was generally normal. There was no scleral icterus or corneal arcus. Mucous membranes were moist. Neck is supple and there is mild JVDs is no goiter or neck masses. Lungs sounds are diminished and there is some bibasilar crackles in lung bases bilaterally. Heart sounds are regular, S3 gallop, no cervical murmurs appreciated.Abdominal exam revealed normal bowel sounds. The abdomen was soft, non-tender, and without masses, organomegaly, or appreciable enlargement of the abdominal aorta. Extremities are still cold with diminished pulses bilaterally. - Labs CBC & Chem 7: 07/27/16 04:36 07/27/16 04:36 Labs: Abnormal Lab Results - Last 24 Hours (Table) 07/26/16 07/27/16 07/27/16 Range/Units 20:02 04:36 04:36 RBC 3.64 L (4.30-5.90) m/uL Hgb 11.0 L (13.0-17.5) gm/dL Hct 33.2 L (39.0-53.0) % APTT (22.0-30.0) sec Carbon Dioxide 33 H (22-30) mmol/L BUN 36 H (9-20) mg/dL Creatinine 1.30 H (0.66-1.25) mg/dL Glucose 142 H (74-99) mg/dL POC Glucose (mg/dL) 153 H (75-99) mg/dL Calcium 8.2 L (8.4-10.2) mg/dL 07/27/16 07/27/16 07/27/16 Range/Units 04:36 07:33 11:14 RBC (4.30-5.90) m/uL Hgb (13.0-17.5) gm/dL Hct (39.0-53.0) % APTT 88.6 H 34.9 H (22.0-30.0) sec Carbon Dioxide (22-30) mmol/L BUN (9-20) mg/dL Creatinine (0.66-1.25) mg/dL Glucose (74-99) mg/dL POC Glucose (mg/dL) 124 H (75-99) mg/dL Calcium (8.4-10.2) mg/dL 07/27/16 07/27/16 Range/Units 11:59 17:35 RBC (4.30-5.90) m/uL Hgb (13.0-17.5) gm/dL Hct (39.0-53.0) % APTT (22.0-30.0) sec Carbon Dioxide (22-30) mmol/L BUN (9-20) mg/dL Creatinine (0.66-1.25) mg/dL Glucose (74-99) mg/dL POC Glucose (mg/dL) 131 H 123 H (75-99) mg/dL Calcium (8.4-10.2) mg/dL Assessment and Plan Plan: Assessment 1 cardiogenic shock, improving. The patient responded nicely to respiratory support to BiPAP and diuresis. This morning his blood pressure dropped into the mid 70s and he'll be started on norepinephrine infusion to augment his cardiac output and blood pressure and this will hopefully help him with diuresis. On 07/27/2016, the patient is improving. He is still on few mics of norepinephrine infusion for blood pressure support. We should be able to wean off the norepinephrine over the next 24 hours. Beta blockers has not been started yet. 2 acute pulmonary edema with secondary acute hypoxic respiratory failure. The patient is currently BiPAP dependent at a pressure of 10 over 5 cm of water with an FiO2 of 100%. The patient will continue his BiPAP therapy on and off during the day which will reduce afterload, reduce venous return, improved his cardiac output and reduce his work of breathing. His chest x-ray still showing pulmonary edema, less worse than yesterday. On 220 17, the Patient Is Tolerating Diuresis. He Is a Negative Fluid Balance. His Chest X-Ray Slowly Improving. He Still Using BiPAP on and off during the Day for Respiratory Support. 3 acute respiratory acidosis/metabolic acidosis secondary to above, improving [address] segment elevation myocardial infarctions involving the inferior wall and the patient is status post successful angioplasty and stenting of RCA 5 severe cardiomyopathy with ejection fraction of 25%. Most recent echocardiogram has without any mechanical disruptions of the valves 6 o acute kidney injury, improving and it creatinine stable at 1.38. The patient is producing good urine output with diuresis. 7 CVA, history of 8 poor medical follow-up Plan Continue BiPAP support. Enough norepinephrine infusion. Continue diuresis. Initiate beta blockers once the patient's blood pressure stabilizes. Keep the patient ICU for further monitoring. Closely monitor the renal function. We'll follow.
[2016-07-27] MEDS: ATORVASTATIN 80 MG TAB PO SCH (20:08)
[2016-07-27] MEDS: CLOPIDOGREL 75 MG TAB PO SCH (20:08)
[2016-07-27 20:20] LABS: Glucose,Whole Blood 175 mg/dL (75-99)
[2016-07-28 04:47] LABS: Basophils % (A) 0 %; CHCM 33.7; Eosinophils # (A) 0.4 k/uL (0-0.7); Eosinophils % (A) 5 %; HCT 31.5 % (39.0-53.0); HDW 2.63; HGB 10.5 gm/dL (13.0-17.5); Luc # (Auto) 0.13; Luc % (Auto) 2; Lymphocytes % (A) 13 %; MCHC 33.4 g/dL (31.0-37.0); MCV 92.7 fL (80.0-100.0); Mean Platelet Volume 8.6; Monocytes # (A) 0.5 k/uL (0-1.0); Monocytes % (A) 6 %; Neutrophils # (A) 5.7 k/uL (1.3-7.7); Neutrophils % (A) 75 %; RDW 13.4 % (11.5-15.5); WBC 7.6 k/uL (3.8-10.6); WBC (Perox) 8.57
[2016-07-28 04:58] LABS: Anion Gap 7 mmol/L; Blood Urea Nitrogen 34 mg/dL (9-20); Calcium 8.1 mg/dL (8.4-10.2); Carbon Dioxide 33 mmol/L (22-30); Chloride 99 mmol/L (98-107); Glucose 106 mg/dL (74-99); Non-African American GFR(MDRD) 58 (>60 ml/min/1.73 sqM); Potassium 3.4 mmol/L (3.5-5.1); Sodium 139 mmol/L (137-145)
[2016-07-28] MEDS ORDERED: Potassium Replacement Protocol 1 EACH MISC MISCELLANE PRN (05:26)
[2016-07-28] MEDS: POTASSIUM CHLORIDE ER 20 MEQ TAB.ER PO SCH ×2 (06:18→07:52)
--- NOTE | 2016-07-28 07:34 | XR ---
EXAMINATION TYPE: XR chest 1V portable DATE OF EXAM: 07/28/2016 6:41 AM Comparison: 07/27/2015 Clinical History: 80 year-old male shortness of breath Findings: Heart remains borderline enlarged. Aorta within normal limits. Hyperinflation with relative upper luis g lucencies with improving aeration within upper lungs though with residual interstitial lung disease . Small right greater than left pleural effusions with prominent adjacent opacities remain. Impression: 1. Persistent but continually improving CHF with interstitial pulmonary edema. 2. Continued small right greater than left pleural effusions with adjacent atelectasis and/or infiltr ate particularly at the right base.
[2016-07-28 07:38] LABS: Glucose,Whole Blood 110 mg/dL (75-99)
[2016-07-28] MEDS: INSULIN LISPRO (humaLOG) 300 UNIT/3 ML VIAL SQ SCH ×4 (07:41→21:17)
[2016-07-28] MEDS: ACETAMINOPHEN TAB 325 MG TAB PO PRN ×2 (07:46→11:04)
[2016-07-28] MEDS: PANTOPRAZOLE 40 MG TABLET PO SCH (07:52)
[2016-07-28] MEDS: NICOTINE 14MG/24HR PATCH TRANSDERM SCH (07:53)
[2016-07-28] MEDS: ASPIRIN 325 MG TAB PO SCH (07:53)
[2016-07-28] MEDS: PRAMIPEXOLE 0.25 MG TAB PO SCH ×3 (07:53→21:17)
[2016-07-28] MEDS: FUROSEMIDE 10 MG/ML 2 ML VIAL IV SCH ×2 (07:53→21:17)
[2016-07-28] MEDS: NOREPINEPHRINE 4 MG in SODIUM CHLORIDE 0.9% 250 ML IV SCH (08:47)
[2016-07-28] MEDS: METOPROLOL TARTRATE 25 MG TAB PO SCH (09:37)
[2016-07-28] MEDS: SPIRONOLACTONE 25 MG TAB PO SCH (09:50)
[2016-07-28] MEDS: IPRATROPIUM-ALBUTEROL 3 ML NEB INHALATION SCH ×3 (11:22→19:52)
[2016-07-28 12:31] LABS: Glucose,Whole Blood 142 mg/dL (75-99)
--- NOTE | 2016-07-28 12:45 | PN ---
Emigdio Zapata is an 80-year-old male who presented with an inferior wall myocardial infarction, underwent percutaneous revascularization, has a severely impaired left ventricular systolic function and post procedure had an episode of flash pulmonary edema. He is feeling much better and he continued to be on low dose Levophed. He is in sinus mechanism. He had no further episode of atrial fibrillation. He has no chest pain. No dizziness. His urine output is good. He denies any nausea, cough. He continues to be at this time on aspirin once a day, Lipitor 80 mg daily, Plavix 75 mg daily, Lasix 20 mg orally q.12 hours, metoprolol tartrate 25 mg twice a day and spironolactone 25 mg daily. PHYSICAL EXAMINATION: Blood pressure 107/59 on 3 mcg of Levophed. Heart rate in the 60s. LUNGS: With a few crackles. HEART: Regular rate rhythm, S1, S2, no S3, with a systolic murmur. No rub. ABDOMEN: Soft, nontender. EXTREMITIES: No edema. Chest x-ray revealed improvement of his congestive heart failure. Lab data revealed BUN and creatinine 34 and 1.2. His potassium 3.4. Hemoglobin 10.5. IMPRESSION: 1. Severe ischemic cardiomyopathy, status post inferior myocardial infarction. 2. ST segment elevation myocardial infarction status post stenting of right coronary artery complicated by ventricular tachycardia and atrial fibrillation. 3. Prior history of smoking. 4. Hypertension. RECOMMENDATIONS: From the cardiac standpoint, we will continue present therapy, try to increase his activity gradually, wean the Levophed. Follow his renal function and depending his progress, further recommendation will be made.
[2016-07-28] MEDS ORDERED: TERBUTALINE 1 MG/ML VIAL SQ ONE (16:22)
[2016-07-28 17:31] LABS: Glucose,Whole Blood 143 mg/dL (75-99)
--- NOTE | 2016-07-28 18:34 | P.PN ---
Subjective This is an 80-year-old male patient who got transferred to the intensive care unit this morning and I was asked to consult on this patient because of acute respiratory distress and cardiogenic shock. This patient presented to the hospital on 07/22/2016 and apparently was in his usual state of health prior to that. He presented with chest pain and EKG in the emergency department showed ST segment elevation in the inferior leads. At that point the patient was hemodynamically stable. The patient underwent emergent cardiac catheterization that showed occlusion of the mid right coronary artery with a large caliber disease. The left coronary system angiogram showed an intermediate disease in the proximal LAD and severe disease in the mid and distal LAD. The patient underwent successful angioplasty and stenting of the right mid coronary artery disease stenosis with a drug-eluting stent with good results. During the procedure, the patient experienced hypotension and the patient was resuscitated with IV fluids and pressors and he was briefly given levo fed. Noted the patient also had an episode of a nonsustained V. tach and he was given amiodarone bolus. The patient was started on DuoNeb antiplatelet agents including aspirin and Plavix. His beta blockers and kamala inhibitors were placed on hold. Earlier this morning the patient became acutely short of breath and his chest x-ray showed acute pulmonary edema. He was in significant respiratory distress and he did not want to get intubated and he declares himself is a DNR/DNI CODE STATUS. Nevertheless, we will put the patient on BiPAP respiratory support and currently is in a letter pressure of 10 over 5 cm of water and FiO2 of 100%. His blood gases prior to initiation of BiPAP showed a pH of 7.13 with a pCO2 of 56 and pO2 of 70. A stat echocardiogram was done to make sure there is no mechanical disruption postpneumonic and echo showed severely impaired systolic dysfunction with an ejection fraction of 25% and there was no evidence of any valvular disruption or mitral regurgitation. A pleural effusion was visualized in the left lung. The patient at a time of my evaluation was quite short of breath. He was able to tolerate the BiPAP. His extremities were cold and clammy and pulses were diminished in all 4 extremities. His urine output was minimal. The patient been given a total of 160 mg IV Lasix and following that he was switched to a Lasix drip. Discussed the case with cardiology. Discussed the case with the family at the bedside. On 07/26/2016, the patient is being seen in follow-up. Noted the patient was in acute pulmonary edema and cardiogenic shock on yesterday's evaluation. As mentioned earlier, the patient was started on a Lasix drip and he was supported with a BiPAP. Fortunately, his condition stabilized and he started producing adequate amount of urine output and diuresis appropriately. Over the past 24 hours, his fluid balance is -5 L at least and today's chest x-ray shows improvement in the pulmonary edema. In fact the patient was taken off the BiPAP last night and he was placed on high flow oxygen at 6 L per minute nasal cannula. The less, today's chest x-ray still showing heart failure/pulmonary edema picture. The patient needs to go on his BiPAP on and off during the day to support his breathing and cardiac status. He briefly went into atrial fibrillation and rapid ventricular response and he converted back to normal sinus rhythm. He is on IV heparin. Earlier this morning, I noted that the patient's systolic blood pressure dropped down to the mid 70s. I will support him with levo fed knowing that along with hypotension his urine output also dropped. Neurologically is awake and alert. He is not having any chest pain. No bleeding complications. No mental status change. No other complaints otherwise. 07 27 2016 the patient is being seen in follow-up. He is less short of breath. Still using BiPAP on and off during the day. Chest x-ray still showing pulmonary edema although it is gradually improving. As mentioned earlier the patient had developed some hypotension and based on that the patient was started on levo fed early earlier this morning the levo fed was running somewhere between 1-2 mics. The patient is still diuresing and is not fluid balance over the past 24 hours has been -2.3 L. Renal function for today is stable with a creatinine of 1.3. Hemoglobin is also stable at 11. No chest pain. No change in mental status. He is resting comfortably in bed and is able to wear the BiPAP without any major difficulties. Lasix has been cut down to 20 mg IV every 12 hours and the metoprolol is on hold as long as the patient is still pressor dependent. On 07/28/2016 the patient is being seen in follow-up. The patient is off BiPAP. Pulmonary edema is improving. The patient is on 2 mics of levo fed for blood pressure support. The patient is diuresing well and he remains in a negative fluid balance. No chest pain. No other complaints otherwise. There is improved perfusion in lower extremities and the patient has improved pulses. No nausea. No vomiting no chest pain. The renal function is stable with a creatinine of 1.2. Objective - Vital Signs Vital signs: Vital Signs Temp 97.9 F 07/28/16 16:00 Pulse 77 07/28/16 18:00 Resp 44 H 07/28/16 18:00 BP 112/62 07/28/16 18:00 Pulse Ox 95 07/28/16 18:00 Intake & Output 07/27/16 07/28/16 07/28/16 18:59 06:59 18:59 Intake Total 531.122 419.547 530.291 Output Total 1110 1620 915 Balance -578.878 -1200.453 -384.709 Weight 54 kg Intake: IV 230 121 230 0.9 NS @ 10 230 121 230 Intake, IV Titration 301.122 58.547 300.291 Amount Heparin Sodium,Porcine/ 56.011 D5w Pmx 25,000 unit In Dextrose/Water 1 500ml. bag @ 12 UNITS/KG/HR 14. 16 mls/hr IV .Q24H [facility] Rx #:[id number] Norepinephrine 4 mg In 245.111 58.547 300.291 Sodium Chloride 0.9% 250 ml @ Titrate IV .Q0M [facility] Rx#:[id number] Oral 240 Output: Urine 1110 1620 915 Other: Voiding Method Indwelling Catheter Indwelling Catheter Indwelling Catheter # Bowel Movements 1 0 ABP, PAP, CO, CI - Last Documented Arterial Blood Pressure 117/51 - Exam Head exam was generally normal. There was no scleral icterus or corneal arcus. Mucous membranes were moist. Neck is supple and there is mild JVDs is no goiter or neck masses. Lungs sounds are diminished and there is some bibasilar crackles in lung bases bilaterally. Heart sounds are regular, S3 gallop, no cervical murmurs appreciated.Abdominal exam revealed normal bowel sounds. The abdomen was soft, non-tender, and without masses, organomegaly, or appreciable enlargement of the abdominal aorta. Extremities are still cold with diminished pulses bilaterally. - Labs CBC & Chem 7: 07/28/16 04:26 07/28/16 04:26 Labs: Abnormal Lab Results - Last 24 Hours (Table) 07/27/16 07/28/16 07/28/16 Range/Units 20:17 04:26 04:26 RBC 3.40 L (4.30-5.90) m/uL Hgb 10.5 L (13.0-17.5) gm/dL Hct 31.5 L (39.0-53.0) % Potassium 3.4 L (3.5-5.1) mmol/L Carbon Dioxide 33 H (22-30) mmol/L BUN 34 H (9-20) mg/dL Glucose 106 H (74-99) mg/dL POC Glucose (mg/dL) 175 H (75-99) mg/dL Calcium 8.1 L (8.4-10.2) mg/dL 07/28/16 07/28/16 07/28/16 Range/Units 07:36 12:29 17:29 RBC (4.30-5.90) m/uL Hgb (13.0-17.5) gm/dL Hct (39.0-53.0) % Potassium (3.5-5.1) mmol/L Carbon Dioxide (22-30) mmol/L BUN (9-20) mg/dL Glucose (74-99) mg/dL POC Glucose (mg/dL) 110 H 142 H 143 H (75-99) mg/dL Calcium (8.4-10.2) mg/dL Assessment and Plan Plan: Assessment 1 cardiogenic shock, improving. The patient responded nicely to respiratory support to BiPAP and diuresis. This morning his blood pressure dropped into the mid 70s and he'll be started on norepinephrine infusion to augment his cardiac output and blood pressure and this will hopefully help him with diuresis. On 07/27/2016, the patient is improving. He is still on few mics of norepinephrine infusion for blood pressure support. We should be able to wean off the norepinephrine over the next 24 hours. Beta blockers has not been started yet. On 07/28/2016, the patient continues to improve. His still requiring low dose of levo fed for blood pressure support and this can be hopefully weaned off. Into gentle diuresis. Pulmonary edema is also improving. 2 acute pulmonary edema with secondary acute hypoxic respiratory failure. This is improving and the patient's chest x-ray today shows improvement in the acute pulmonary edema that resulted from cardiogenic shock. 3 acute respiratory acidosis/metabolic acidosis secondary to above, improving [address] segment elevation myocardial infarctions involving the inferior wall and the patient is status post successful angioplasty and stenting of RCA 5 severe cardiomyopathy with ejection fraction of 25%. Most recent echocardiogram has without any mechanical disruptions of the valves 6 acute kidney injury, improving. The patient is producing good urine output with diuresis. Renal function stable with a creatinine of 1.2 and the patient is producing adequate amount of urine output. 7 CVA, history of 8 poor medical follow-up Plan We'll continue the diuretics. Continue pressors. Continue monitoring renal function. Respiratory status is stable and the patient was taken off the BiPAP. Possibly reintroduce beta blockers once the patient's blood pressure stabilizes. We will continue to follow.
[2016-07-28 21:17] LABS: Glucose,Whole Blood 154 mg/dL (75-99)
[2016-07-28] MEDS: ATORVASTATIN 80 MG TAB PO SCH (21:17)
[2016-07-28] MEDS: CLOPIDOGREL 75 MG TAB PO SCH (21:17)
[2016-07-29 05:13] LABS: Basophils % (A) 0 %; CH 30.8; Eosinophils # (A) 0.6 k/uL (0-0.7); Eosinophils % (A) 7 %; HCT 34.1 % (39.0-53.0); HDW 2.62; Luc # (Auto) 0.19; Luc % (Auto) 2; Lymphocytes % (A) 10 %; MCH 30.4 pg (25.0-35.0); MCHC 32.3 g/dL (31.0-37.0); Mean Platelet Volume 8.6; Monocytes # (A) 0.5 k/uL (0-1.0); Monocytes % (A) 5 %; Neutrophils # (A) 7.1 k/uL (1.3-7.7); Neutrophils % (A) 76 %; RBC 3.63 m/uL (4.30-5.90); RDW 13.2 % (11.5-15.5); WBC 9.4 k/uL (3.8-10.6); WBC (Perox) 10.83
[2016-07-29 05:43] LABS: Anion Gap 10 mmol/L; Blood Urea Nitrogen 32 mg/dL (9-20); Calcium 8.8 mg/dL (8.4-10.2); Carbon Dioxide 31 mmol/L (22-30); Chloride 98 mmol/L (98-107); Glucose 102 mg/dL (74-99); Non-African American GFR(MDRD) >60 (>60 ml/min/1.73 sqM); Phosphorous 3.2 mg/dL (2.5-4.5); Potassium 4.1 mmol/L (3.5-5.1); Sodium 139 mmol/L (137-145)
[2016-07-29 07:28] LABS: Glucose,Whole Blood 107 mg/dL (75-99)
[2016-07-29] MEDS: INSULIN LISPRO (humaLOG) 300 UNIT/3 ML VIAL SQ SCH (07:38)
--- NOTE | 2016-07-29 07:48 | PN ---
DATE OF SERVICE: 07/28/2016 PRESENTING COMPLAINT: Short of breath. INTERVAL HISTORY: This is a patient who presented with acute ST elevation myocardial infarction status post coronary intervention, remains in pulmonary edema. Blood pressure is still running low on a small dose of Levophed and getting IV Lasix. Tolerating some diet. Tired, sitting up. Review of systems done for constitutional, cardiovascular, GI, pulmonary; relevant findings as above. Current medications are reviewed that include 20 mg IV Lasix q.12, Levophed. On examination, temperature 97.9, pulse 58, respirations 18, blood pressure 95/61, pulse ox 100% on 4 L. GENERAL APPEARANCE: Sitting up, tired appearing. EYES: Pupils equal. Conjunctivae normal. NECK: JVD raised. Mass not palpable. RESPIRATORY: Effort increased. LUNGS: Diminished breath sounds. CARDIOVASCULAR: Heart sounds irregular. No edema. ABDOMEN: Soft, nontender. Liver and spleen not palpable. PSYCHIATRY: Alert and oriented x3. Mood affect normal. INVESTIGATIONS: White count 7.6, hemoglobin 10.5. Potassium 3.4. BUN 34, creatinine 1.20. Chest x-ray shows pulmonary edema. ASSESSMENT: 1. Acute exacerbation of myocardial infarction present at admission of the inferior wall with emergent cardiac catheterization with stent to the right coronary artery. 2. Acute hypoxic respiratory failure, present on admission from congestive heart failure. 3. Acute flash pulmonary edema from systolic dysfunction acute, 30%, ischemic cardiomyopathy. 4. Chronic nicotine dependence in a smoker. 5. Paroxysmal atrial fibrillation, recurrent. 6. Emphysema, in a smoker. 7. Restless leg syndrome, controlled with new medication. 8. Acute metabolic encephalopathy from above much improved. 9. Acute respiratory and metabolic acidosis, multifactorial. 10. Cardiogenic shock from low ejection fraction and pulmonary edema with some clinical improvement though the patient is still requiring Levophed. PLAN: Overall prognosis guarded. Continue supportive care. Care was discussed with the patient. Will follow.
[2016-07-29] MEDS: METOPROLOL TARTRATE 25 MG TAB PO SCH ×2 (07:55→16:11)
[2016-07-29] MEDS: IPRATROPIUM-ALBUTEROL 3 ML NEB INHALATION SCH ×3 (07:57→20:42)
[2016-07-29] MEDS: FUROSEMIDE 10 MG/ML 2 ML VIAL IV SCH ×2 (08:23→19:56)
[2016-07-29] MEDS: PANTOPRAZOLE 40 MG TABLET PO SCH (08:23)
[2016-07-29] MEDS: ASPIRIN 325 MG TAB PO SCH (08:23)
[2016-07-29] MEDS: NICOTINE 14MG/24HR PATCH TRANSDERM SCH (08:24)
[2016-07-29] MEDS: PRAMIPEXOLE 0.25 MG TAB PO SCH ×3 (08:24→19:55)
[2016-07-29] MEDS: SPIRONOLACTONE 25 MG TAB PO SCH (08:24)
[2016-07-29] MEDS: ACETAMINOPHEN TAB 325 MG TAB PO PRN ×2 (08:27→17:41)
--- NOTE | 2016-07-29 08:32 | US ---
EXAMINATION TYPE: US chest DATE OF EXAM: 07/29/2016 7:56 AM COMPARISON: NONE CLINICAL HISTORY: rt pleural effusion. EXAM MEASUREMENTS: Right Pleural Effusion fluid pocket: 5.4 cm Right skin to fluid thickness: 2.0 cm Right side marked for possible thoracentesis outside the dept. Pulmonologists are able to review the images in the patient?s EMR. TECHNOLOGIST IMPRESSION: Right pleural effusion noted, lung persistent within all images, markings d one IMPRESSIONS: 1. Right pleural effusion
[2016-07-29 10:30] VITALS: BMI 17.6
[2016-07-29] MEDS: METOPROLOL TARTRATE 12.5 MG TAB PO SCH ×2 (10:37→19:55)
--- NOTE | 2016-07-29 14:24 | P.PN ---
Subjective Principal diagnosis: Acute congestive heart failure and cardiogenic shock This is an 80-year-old male patient who got transferred to the intensive care unit this morning and I was asked to consult on this patient because of acute respiratory distress and cardiogenic shock. This patient presented to the hospital on 07/22/2016 and apparently was in his usual state of health prior to that. He presented with chest pain and EKG in the emergency department showed ST segment elevation in the inferior leads. At that point the patient was hemodynamically stable. The patient underwent emergent cardiac catheterization that showed occlusion of the mid right coronary artery with a large caliber disease. The left coronary system angiogram showed an intermediate disease in the proximal LAD and severe disease in the mid and distal LAD. The patient underwent successful angioplasty and stenting of the right mid coronary artery disease stenosis with a drug-eluting stent with good results. During the procedure, the patient experienced hypotension and the patient was resuscitated with IV fluids and pressors and he was briefly given levo fed. Noted the patient also had an episode of a nonsustained V. tach and he was given amiodarone bolus. The patient was started on DuoNeb antiplatelet agents including aspirin and Plavix. His beta blockers and kamala inhibitors were placed on hold. Earlier this morning the patient became acutely short of breath and his chest x-ray showed acute pulmonary edema. He was in significant respiratory distress and he did not want to get intubated and he declares himself is a DNR/DNI CODE STATUS. Nevertheless, we will put the patient on BiPAP respiratory support and currently is in a letter pressure of 10 over 5 cm of water and FiO2 of 100%. His blood gases prior to initiation of BiPAP showed a pH of 7.13 with a pCO2 of 56 and pO2 of 70. A stat echocardiogram was done to make sure there is no mechanical disruption postpneumonic and echo showed severely impaired systolic dysfunction with an ejection fraction of 25% and there was no evidence of any valvular disruption or mitral regurgitation. A pleural effusion was visualized in the left lung. The patient at a time of my evaluation was quite short of breath. He was able to tolerate the BiPAP. His extremities were cold and clammy and pulses were diminished in all 4 extremities. His urine output was minimal. The patient been given a total of 160 mg IV Lasix and following that he was switched to a Lasix drip. Discussed the case with cardiology. Discussed the case with the family at the bedside. On 07/26/2016, the patient is being seen in follow-up. Noted the patient was in acute pulmonary edema and cardiogenic shock on yesterday's evaluation. As mentioned earlier, the patient was started on a Lasix drip and he was supported with a BiPAP. Fortunately, his condition stabilized and he started producing adequate amount of urine output and diuresis appropriately. Over the past 24 hours, his fluid balance is -5 L at least and today's chest x-ray shows improvement in the pulmonary edema. In fact the patient was taken off the BiPAP last night and he was placed on high flow oxygen at 6 L per minute nasal cannula. The less, today's chest x-ray still showing heart failure/pulmonary edema picture. The patient needs to go on his BiPAP on and off during the day to support his breathing and cardiac status. He briefly went into atrial fibrillation and rapid ventricular response and he converted back to normal sinus rhythm. He is on IV heparin. Earlier this morning, I noted that the patient's systolic blood pressure dropped down to the mid 70s. I will support him with levo fed knowing that along with hypotension his urine output also dropped. Neurologically is awake and alert. He is not having any chest pain. No bleeding complications. No mental status change. No other complaints otherwise. 07 27 2016 the patient is being seen in follow-up. He is less short of breath. Still using BiPAP on and off during the day. Chest x-ray still showing pulmonary edema although it is gradually improving. As mentioned earlier the patient had developed some hypotension and based on that the patient was started on levo fed early earlier this morning the levo fed was running somewhere between 1-2 mics. The patient is still diuresing and is not fluid balance over the past 24 hours has been -2.3 L. Renal function for today is stable with a creatinine of 1.3. Hemoglobin is also stable at 11. No chest pain. No change in mental status. He is resting comfortably in bed and is able to wear the BiPAP without any major difficulties. Lasix has been cut down to 20 mg IV every 12 hours and the metoprolol is on hold as long as the patient is still pressor dependent. On 07/28/2016 the patient is being seen in follow-up. The patient is off BiPAP. Pulmonary edema is improving. The patient is on 2 mics of levo fed for blood pressure support. The patient is diuresing well and he remains in a negative fluid balance. No chest pain. No other complaints otherwise. There is improved perfusion in lower extremities and the patient has improved pulses. No nausea. No vomiting no chest pain. The renal function is stable with a creatinine of 1.2. On 07/29/2016, patient continues to do well, ultrasound of the chest was reviewed , he does have a small right-sided pleural effusion, but clinically the patient is doing extremely well, hence I decided against thoracentesis at this point. Continues to diurese, and the patient is in a negative fluid balance. Labs including CBC and renal profile were reviewed. Clinically the patient is improving. Objective - Vital Signs Vital signs: Vital Signs Temp 97.9 F 07/29/16 12:00 Pulse 73 07/29/16 14:00 Resp 16 07/29/16 14:00 BP 86/53 07/29/16 14:00 Pulse Ox 100 07/29/16 14:00 Intake & Output 07/28/16 07/29/16 07/29/16 18:59 06:59 18:59 Intake Total 530.291 249.779 120 Output Total 915 1278 885 Balance -384.709 -1028.221 -765 Weight 56 kg 56 kg Intake: IV 230 240 120 0.9 NS @ 10 230 240 120 Intake, IV Titration 300.291 9.779 Amount Norepinephrine 4 mg In 300.291 9.779 Sodium Chloride 0.9% 250 ml @ Titrate IV .Q0M [facility] Rx#:[id number] Output: Urine 915 1278 885 Other: Voiding Method Indwelling Catheter Indwelling Catheter Indwelling Catheter ABP, PAP, CO, CI - Last Documented Arterial Blood Pressure 117/51 - Exam Physical Exam: Revealed an 80-year-old white male in no distress. HEENT:[Neck is supple.] [No neck masses.] [No thyromegaly.] [No JVD.] Chest: [Slightly diminished breath sounds at the bases, no rhonchi, no wheezes.] Cardiac Exam: [Normal S1 and S2, no S3 gallop, no murmur.] Abdomen: [Soft, nontender, no megaly, no rebound, no guarding, normal bowel sounds.] Extremities: [No clubbing, no edema, no cyanosis.] Neurological Exam: [No focal neurologic deficit.] - Labs CBC & Chem 7: 07/29/16 04:26 07/29/16 04:26 Labs: Abnormal Lab Results - Last 24 Hours (Table) 07/28/16 07/28/16 07/29/16 Range/Units 17:29 21:15 04:26 RBC (4.30-5.90) m/uL Hgb (13.0-17.5) gm/dL Hct (39.0-53.0) % Carbon Dioxide 31 H (22-30) mmol/L BUN 32 H (9-20) mg/dL Glucose 102 H (74-99) mg/dL POC Glucose (mg/dL) 143 H 154 H (75-99) mg/dL 07/29/16 07/29/16 Range/Units 04:26 07:26 RBC 3.63 L (4.30-5.90) m/uL Hgb 11.0 L (13.0-17.5) gm/dL Hct 34.1 L (39.0-53.0) % Carbon Dioxide (22-30) mmol/L BUN (9-20) mg/dL Glucose (74-99) mg/dL POC Glucose (mg/dL) 107 H (75-99) mg/dL Assessment and Plan Plan: 1 cardiogenic shock, improving. The patient responded nicely to respiratory support to BiPAP and diuresis. This morning his blood pressure dropped into the mid 70s and he'll be started on norepinephrine infusion to augment his cardiac output and blood pressure and this will hopefully help him with diuresis. On 07/27/2016, the patient is improving. He is still on few mics of norepinephrine infusion for blood pressure support. We should be able to wean off the norepinephrine over the next 24 hours. Beta blockers has not been started yet. On 07/28/2016, the patient continues to improve. His still requiring low dose of levo fed for blood pressure support and this can be hopefully weaned off. Into gentle diuresis. Pulmonary edema is also improving. 2 acute pulmonary edema with secondary acute hypoxic respiratory failure. This is improving and the patient's chest x-ray today shows improvement in the acute pulmonary edema that resulted from cardiogenic shock. 3 acute respiratory acidosis/metabolic acidosis secondary to above, improving [address] segment elevation myocardial infarctions involving the inferior wall and the patient is status post successful angioplasty and stenting of RCA 5 severe cardiomyopathy with ejection fraction of 25%. Most recent echocardiogram has without any mechanical disruptions of the valves 6 acute kidney injury, improving. The patient is producing good urine output with diuresis. Renal function stable with a creatinine of 1.2 and the patient is producing adequate amount of urine output. 7 CVA, history of 8 poor medical follow-up Recommendation: Continue present treatment plan, will continue to follow, consider transferring the patient out of the ICU to a cardiac floor. Again no plans to do thoracentesis at this point unless the fluid gets any larger or the patient gets more symptomatic Time with Patient: Less than 30
--- NOTE | 2016-07-29 15:31 | PN ---
Mr. Zapata is an 80-year-old male who presented with an acute inferior myocardial infarction complicated by ventricular tachycardia and atrial fibrillation. Underwent stenting of the right coronary artery. He is doing well at this morning. He is off his pressors now for 24 hours. His blood pressure is stable, he is denying any chest pain. No dizziness. No palpitation. Areas of breathing has been stable. He denies any nausea. He continues to be on intravenous diuretics 20 mg IV q.12 hours, aspirin once a day, Lipitor 80 mg daily, Aldactone 25 mg daily. He has not received his beta blockers as of yet. His blood pressure is running in the low 100s with a heart rate in the 80s. Lung mark a few crackles at the bases with decreased breath sounds at the right base. HEART: Regular rhythm, S1, S2, no S3, with a systolic murmur. ABDOMEN: Soft, nontender. EXTREMITIES: No edema. Lab data revealed BUN and creatinine 32 and 1.1. Potassium 4.1. Hemoglobin of 11. IMPRESSION: 1. Status post inferior myocardial infarction and stenting of the right coronary artery. 2. Severe ischemic cardiomyopathy. 3. Hypotension, improving. 4. Right pleural effusion. 5. Prior history of smoking. RECOMMENDATION: From the cardiac standpoint, I will try to start a beta pawan at 12.5 mg, metoprolol tartrate and if tolerated, continue. Will continue on IV diuretic for another 24 hours. If he is stable, will switch him to oral diuretics. Will monitor his blood pressure, If he is stable, I would expect he should be able to be transferred to the telemetry floor this afternoon and depending on his progress, further recommendation will be made.
[2016-07-29] MEDS: NITROGLYCERIN OINT 1 INCH/GM PACKET TOPICAL SCH (17:14)
[2016-07-29] MEDS: ATORVASTATIN 80 MG TAB PO SCH (19:54)
[2016-07-29] MEDS: CLOPIDOGREL 75 MG TAB PO SCH (19:54)
--- NOTE | 2016-07-29 21:42 | PN ---
DATE OF SERVICE: 07/29/2016 INTERVAL HISTORY: Shortness of breath. INTERVAL HISTORY: This is a patient seen in the ICU this morning, presented with acute ST elevation myocardial infarction, status post coronary intervention, then went into flash pulmonary edema. The patient has been off Levophed since last night. Getting IV Lasix bolus twice daily. Tolerating diet better. Sitting up in a chair. REVIEW OF SYSTEMS: Done for constitutional, cardiovascular, GI, pulmonary; relevant findings as above. Current medications are reviewed. On examination, temperature 97.9, pulse 69, respiration 15, blood pressure 105/63, 100% on 4 liters. GENERAL APPEARANCE: Sitting up, tired appearing. EYES: Pupils equal. Conjunctivae normal. NECK: JVD not raised. Mass not palpable. RESPIRATORY: Effort increased. LUNGS: Diminished breath sounds. CARDIOVASCULAR: Heart regular. No edema. ABDOMEN: Soft, nontender. Liver and spleen not palpable. PSYCHIATRY: Alert and oriented x3. Mood and affect normal. INVESTIGATIONS: White count 9.4, hemoglobin 11 potassium 4.1. ASSESSMENT: 1. Acute myocardial infarction present on admission, inferior wall, with emergent cardiac cath with stent of the RCA. 2. Acute hypoxic respiratory failure, present on admission from congestive heart failure. 3. Acute flash pulmonary edema from systolic dysfunction; ejection fraction 30%, from ischemic cardiomyopathy. 4. Chronic nicotine dependence, patient is a smoker. 5. Paroxysmal atrial fibrillation, recurrent, on anticoagulant as per cardiology. 6. Emphysema, in a smoker. 7. Restless leg syndrome, controlled. 8. Acute metabolic encephalopathy from above, improved. 9. Acute respiratory metabolic acidosis, multifactorial. 10. Cardiogenic shock from low ejection fraction. 11. Pulmonary edema with clinical improvement. PLAN: Overall, the patient is doing better. The prognosis remains guarded. This will be moved out of the ICU today.
[2016-07-29 21:55] LABS: Glucose,Whole Blood 139 mg/dL (75-99)
[2016-07-30] MEDS: ACETAMINOPHEN TAB 325 MG TAB PO PRN ×3 (02:14→16:44)
[2016-07-30] MEDS: PANTOPRAZOLE 40 MG TABLET PO SCH (06:24)
[2016-07-30 06:36] LABS: Anion Gap 9 mmol/L; Blood Urea Nitrogen 30 mg/dL (9-20); Calcium 8.8 mg/dL (8.4-10.2); Carbon Dioxide 31 mmol/L (22-30); Chloride 95 mmol/L (98-107); Glucose 106 mg/dL (74-99); Non-African American GFR(MDRD) 58 (>60 ml/min/1.73 sqM); Potassium 4.3 mmol/L (3.5-5.1); Sodium 135 mmol/L (137-145)
[2016-07-30] MEDS: ASPIRIN 325 MG TAB PO SCH (08:24)
[2016-07-30] MEDS: METOPROLOL TARTRATE 12.5 MG TAB PO SCH ×2 (08:24→20:37)
[2016-07-30] MEDS: SPIRONOLACTONE 25 MG TAB PO SCH (08:24)
[2016-07-30] MEDS: PRAMIPEXOLE 0.25 MG TAB PO SCH ×3 (08:30→20:37)
[2016-07-30] MEDS: NICOTINE 14MG/24HR PATCH TRANSDERM SCH (08:30)
[2016-07-30] MEDS: IPRATROPIUM-ALBUTEROL 3 ML NEB INHALATION SCH ×3 (09:02→20:03)
[2016-07-30] MEDS: FUROSEMIDE 10 MG/ML 2 ML VIAL IV SCH (11:39)
--- NOTE | 2016-07-30 11:58 | PN ---
Mr. Zapata is an 80-year-old male who presented with an inferior myocardial infarction complicated by ventricular tachycardia and atrial fibrillation. He underwent cardiac catheterization and stenting of the right coronary artery. His post procedure course was complicated with recurrent pulmonary edema and paroxysmal atrial fibrillation. He is feeling much better today. His blood pressure has been relatively stable. He is off any pressors. He denies chest pain. No dizziness. No palpitation. He denies any PND, orthopnea. No peripheral edema. He had burst of atrial fibrillation earlier. He continues to be on aspirin once a day, Plavix 75 mg daily, Lasix 20 mg IV q.12 hours, Aldactone 25 mg daily and Lipitor 80 mg daily. PHYSICAL EXAMINATION: Blood pressure 101/59 with a heart in the 60s. Lungs with mild decreased breath sounds at the right base. HEART: Regular rate and rhythm. S1, S2, no S3, no rub. ABDOMEN: Soft, nontender. EXTREMITIES: No edema. Lab data revealed a BUN and creatinine of 30 and 1.2. Potassium 4.3. IMPRESSION: 1. Status post inferior myocardial infarction and stenting of the right coronary artery. 2. Severe ischemic cardiomyopathy. 3. Paroxysmal atrial fibrillation. 4. Prior history of smoking. RECOMMENDATION: From the cardiac standpoint, I will switch him to oral diuretics. Because of the recurrent episode of atrial fibrillation, I will initiate treatment with Eliquis. Continue the rest of his medical regimen. Increase his level of activity. If he remains stable, I am hopeful that he should be able to be discharged home in the next 48 hours.
--- NOTE | 2016-07-30 14:41 | P.PN ---
Subjective Principal diagnosis: Acute congestive heart failure and cardiogenic shock This is an 80-year-old male patient who got transferred to the intensive care unit this morning and I was asked to consult on this patient because of acute respiratory distress and cardiogenic shock. This patient presented to the hospital on 07/22/2016 and apparently was in his usual state of health prior to that. He presented with chest pain and EKG in the emergency department showed ST segment elevation in the inferior leads. At that point the patient was hemodynamically stable. The patient underwent emergent cardiac catheterization that showed occlusion of the mid right coronary artery with a large caliber disease. The left coronary system angiogram showed an intermediate disease in the proximal LAD and severe disease in the mid and distal LAD. The patient underwent successful angioplasty and stenting of the right mid coronary artery disease stenosis with a drug-eluting stent with good results. During the procedure, the patient experienced hypotension and the patient was resuscitated with IV fluids and pressors and he was briefly given levo fed. Noted the patient also had an episode of a nonsustained V. tach and he was given amiodarone bolus. The patient was started on DuoNeb antiplatelet agents including aspirin and Plavix. His beta blockers and kamala inhibitors were placed on hold. Earlier this morning the patient became acutely short of breath and his chest x-ray showed acute pulmonary edema. He was in significant respiratory distress and he did not want to get intubated and he declares himself is a DNR/DNI CODE STATUS. Nevertheless, we will put the patient on BiPAP respiratory support and currently is in a letter pressure of 10 over 5 cm of water and FiO2 of 100%. His blood gases prior to initiation of BiPAP showed a pH of 7.13 with a pCO2 of 56 and pO2 of 70. A stat echocardiogram was done to make sure there is no mechanical disruption postpneumonic and echo showed severely impaired systolic dysfunction with an ejection fraction of 25% and there was no evidence of any valvular disruption or mitral regurgitation. A pleural effusion was visualized in the left lung. The patient at a time of my evaluation was quite short of breath. He was able to tolerate the BiPAP. His extremities were cold and clammy and pulses were diminished in all 4 extremities. His urine output was minimal. The patient been given a total of 160 mg IV Lasix and following that he was switched to a Lasix drip. Discussed the case with cardiology. Discussed the case with the family at the bedside. On 07/26/2016, the patient is being seen in follow-up. Noted the patient was in acute pulmonary edema and cardiogenic shock on yesterday's evaluation. As mentioned earlier, the patient was started on a Lasix drip and he was supported with a BiPAP. Fortunately, his condition stabilized and he started producing adequate amount of urine output and diuresis appropriately. Over the past 24 hours, his fluid balance is -5 L at least and today's chest x-ray shows improvement in the pulmonary edema. In fact the patient was taken off the BiPAP last night and he was placed on high flow oxygen at 6 L per minute nasal cannula. The less, today's chest x-ray still showing heart failure/pulmonary edema picture. The patient needs to go on his BiPAP on and off during the day to support his breathing and cardiac status. He briefly went into atrial fibrillation and rapid ventricular response and he converted back to normal sinus rhythm. He is on IV heparin. Earlier this morning, I noted that the patient's systolic blood pressure dropped down to the mid 70s. I will support him with levo fed knowing that along with hypotension his urine output also dropped. Neurologically is awake and alert. He is not having any chest pain. No bleeding complications. No mental status change. No other complaints otherwise. 07 27 2016 the patient is being seen in follow-up. He is less short of breath. Still using BiPAP on and off during the day. Chest x-ray still showing pulmonary edema although it is gradually improving. As mentioned earlier the patient had developed some hypotension and based on that the patient was started on levo fed early earlier this morning the levo fed was running somewhere between 1-2 mics. The patient is still diuresing and is not fluid balance over the past 24 hours has been -2.3 L. Renal function for today is stable with a creatinine of 1.3. Hemoglobin is also stable at 11. No chest pain. No change in mental status. He is resting comfortably in bed and is able to wear the BiPAP without any major difficulties. Lasix has been cut down to 20 mg IV every 12 hours and the metoprolol is on hold as long as the patient is still pressor dependent. On 07/28/2016 the patient is being seen in follow-up. The patient is off BiPAP. Pulmonary edema is improving. The patient is on 2 mics of levo fed for blood pressure support. The patient is diuresing well and he remains in a negative fluid balance. No chest pain. No other complaints otherwise. There is improved perfusion in lower extremities and the patient has improved pulses. No nausea. No vomiting no chest pain. The renal function is stable with a creatinine of 1.2. On 07/29/2016, patient continues to do well, ultrasound of the chest was reviewed , he does have a small right-sided pleural effusion, but clinically the patient is doing extremely well, hence I decided against thoracentesis at this point. Continues to diurese, and the patient is in a negative fluid balance. Labs including CBC and renal profile were reviewed. Clinically the patient is improving. On 07/30/2016, patient is feeling better, breathing a lot easier, less short of breath. No cough no wheezing no chest pain. Patient is still responding well to diuretics. Labs were reviewed, renal profile showed a BUN of 30 creatinine of 1.20. No chest x-ray was done today, Objective - Vital Signs Vital signs: Vital Signs Temp 97.0 F L 07/30/16 08:00 Pulse 68 07/30/16 14:10 Resp 16 07/30/16 11:35 BP 92/57 07/30/16 11:35 Pulse Ox 95 07/30/16 11:37 Intake & Output 07/29/16 07/30/16 07/30/16 18:59 06:59 18:59 Intake Total 366 260 120 Output Total 900 1250 500 Balance -534 -990 -380 Weight 56 kg 55.9 kg Intake: IV 130 160 0.9 NS @ 10 130 160 Oral 236 100 120 Output: Urine 900 1250 500 Other: Voiding Method Indwelling Catheter ABP, PAP, CO, CI - Last Documented Arterial Blood Pressure 117/51 - Exam Physical Exam: Revealed an 80-year-old white male in no distress. HEENT:[Neck is supple.] [No neck masses.] [No thyromegaly.] [No JVD.] Chest: [Slightly diminished breath sounds at the bases, no rhonchi, no wheezes.] Cardiac Exam: [Normal S1 and S2, no S3 gallop, no murmur.] Abdomen: [Soft, nontender, no megaly, no rebound, no guarding, normal bowel sounds.] Extremities: [No clubbing, no edema, no cyanosis.] Neurological Exam: [No focal neurologic deficit.] - Labs CBC & Chem 7: 07/29/16 04:26 07/30/16 05:30 Labs: Abnormal Lab Results - Last 24 Hours (Table) 07/29/16 07/30/16 Range/Units 21:54 05:30 Sodium 135 L (137-145) mmol/L Chloride 95 L (98-107) mmol/L Carbon Dioxide 31 H (22-30) mmol/L BUN 30 H (9-20) mg/dL Glucose 106 H (74-99) mg/dL POC Glucose (mg/dL) 139 H (75-99) mg/dL Assessment and Plan Plan: 1 cardiogenic shock, improving. The patient responded nicely to respiratory support to BiPAP and diuresis. This morning his blood pressure dropped into the mid 70s and he'll be started on norepinephrine infusion to augment his cardiac output and blood pressure and this will hopefully help him with diuresis. On 07/27/2016, the patient is improving. He is still on few mics of norepinephrine infusion for blood pressure support. We should be able to wean off the norepinephrine over the next 24 hours. Beta blockers has not been started yet. On 07/28/2016, the patient continues to improve. His still requiring low dose of levo fed for blood pressure support and this can be hopefully weaned off. Into gentle diuresis. Pulmonary edema is also improving. On 07/30/2016, patient continues to do well, responding well to diuresis. I will order a follow-up chest x-ray to be done in a.m. Again considering the size of the effusion, and considering the patient is responding well to treatment, no need for thoracentesis at this point. 2 acute pulmonary edema with secondary acute hypoxic respiratory failure. This is improving and the patient's chest x-ray today shows improvement in the acute pulmonary edema that resulted from cardiogenic shock. 3 acute respiratory acidosis/metabolic acidosis secondary to above, improving [address] segment elevation myocardial infarctions involving the inferior wall and the patient is status post successful angioplasty and stenting of RCA 5 severe cardiomyopathy with ejection fraction of 25%. Most recent echocardiogram has without any mechanical disruptions of the valves 6 acute kidney injury, improving. The patient is producing good urine output with diuresis. Renal function stable with a creatinine of 1.2 and the patient is producing adequate amount of urine output. 7 CVA, history of 8 poor medical follow-up Recommendation: Continue present treatment plan, will continue to follow, chest x-ray was ordered to be done in a.m., continue to monitor electrolytes and renal profile. Time with Patient: Less than 30
--- NOTE | 2016-07-30 20:31 | PN ---
DATE OF SERVICE: 07/30/2016 PRESENTING COMPLAINT: Tired. INTERVAL HISTORY: This patient presented with ST elevation myocardial infarction status post coronary intervention and pulmonary edema doing much better. Breathing is much better. Actually walked in the hallway. Tolerating a diet. Patient has been in sinus rhythm. Patient's family is at the bedside. Did eat his meals. Review of systems done for constitutional, cardiovascular, GI, pulmonary; relevant findings as above. Current medications are reviewed. Eliquis started by cardiology earlier today. Patient is on p.o. Lasix. On examination, temperature 97, pulse 68, respirations 16, blood pressure 95/58, pulse ox 98% on 3 liters. GENERAL APPEARANCE: Sitting up, looks more perky. EYES: Pupils equal. Conjunctivae normal. NECK: JVD not raised. Mass not palpable. RESPIRATORY: Effort increased. LUNGS: Improved air entry. CARDIOVASCULAR: Heart sounds irregular. No edema. ABDOMEN: Nontender. Liver and spleen not palpable. PSYCHIATRY: Alert and oriented x3. Mood and affect normal. INVESTIGATIONS: Potassium 4.3, BUN 30, creatinine 1.20. Telemetry sinus rhythm. ASSESSMENT: 1. Acute myocardial infarction present on admission inferior wall with emergent cardiac catheterization with stent to the RCA with acute ST elevation type. 2. Acute hypoxic respiratory failure, present on admission from congestive heart failure. 3. Acute flash pulmonary edema from systolic dysfunction; ejection fraction 30%, ischemic cardiomyopathy. 4. Chronic nicotine dependence. Patient is a smoker. 5. Paroxysmal atrial fibrillation, recurrent, started on Eliquis today. 6. Emphysema in a smoker. 7. Restless leg syndrome now controlled. 8. Acute metabolic encephalopathy from above, resolved. 9. Acute respiratory metabolic acidosis multifactorial, resolved. 10. Cardiogenic shock from low ejection fraction, improved. PLAN: Doing much better. Care was discussed with the family. Continued to ambulate looking at probably going home in the next 24 hours. Eliquis has been started per cardiology. Will follow.
[2016-07-30] MEDS: CLOPIDOGREL 75 MG TAB PO SCH (20:35)
[2016-07-30] MEDS: ATORVASTATIN 80 MG TAB PO SCH (20:36)
[2016-07-30] MEDS: FUROSEMIDE 20 MG TAB PO SCH (20:39)
[2016-07-30] MEDS: APIXABAN 2.5 MG TABLET PO SCH (20:39)
[2016-07-31] MEDS: PANTOPRAZOLE 40 MG TABLET PO SCH (06:21)
[2016-07-31 07:15] LABS: Anion Gap 11 mmol/L; Blood Urea Nitrogen 34 mg/dL (9-20); Carbon Dioxide 26 mmol/L (22-30); Chloride 98 mmol/L (98-107); Glucose 96 mg/dL (74-99); Non-African American GFR(MDRD) >60 (>60 ml/min/1.73 sqM); Phosphorous 4.4 mg/dL (2.5-4.5); Potassium 4.5 mmol/L (3.5-5.1); Sodium 135 mmol/L (137-145)
--- NOTE | 2016-07-31 08:40 | PN ---
Mr. Zapata is an 80-year-old male who presented with an acute inferior myocardial infarction complicated by ventricular tachycardia and atrial fibrillation. He had episode of pulmonary edema. He is feeling much better. He is ambulating, denying any symptoms of chest pain. He denies any dizziness or palpitation. He denies any nausea or vomiting. He continues to be in sinus mechanism. He is tolerating his beta pawan in the form of metoprolol tartrate 12.5 mg twice a day. He is on Plavix 75 mg daily, aspirin once a day, Lipitor 80 mg daily. He was started on Eliquis 2.5 mg twice a day and he is on furosemide 20 mg twice a day in addition to Aldactone 25 mg daily. PHYSICAL EXAMINATION: Blood pressure 105/48 with a heart rate in the 70s. LUNGS: No wheezes. HEART: Regular rate and rhythm. S1, S2, no S3, no rub. ABDOMEN: Soft, nontender. EXTREMITIES: No edema. Lab data revealed BUN and creatinine 34 and 1.15. Potassium 4.5. IMPRESSION: 1. Status post inferior myocardial infarction. 2. Severe ischemic cardiomyopathy. 3. Pulmonary edema, improved. 4. Paroxysmal atrial fibrillation. 5. Prior history of smoking. RECOMMENDATION: I will increase the dose of his beta pawan, increase his level of activity. If he remains stable, I would expect he should be able to be discharged home tomorrow and follow as an outpatient with Dr. Brock.
--- NOTE | 2016-07-31 08:48 | XR ---
EXAMINATION TYPE: XR chest 1V portable DATE OF EXAM: 07/31/2016 8:39 AM COMPARISON: 07/28/2016 HISTORY: Shortness of breath FINDINGS: There is persistent but improving pulmonary venous congestion as well as improve scattered infiltrate s. Persistent patchy density and small right basilar effusion. Continued mild cardiomegaly. IMPRESSION: Findings compatible with improving congestive failure. Infiltrates of other etiology are not exclude d. Clinical correlation and progress studies are recommended.
[2016-07-31] MEDS: IPRATROPIUM-ALBUTEROL 3 ML NEB INHALATION SCH ×3 (09:07→20:47)
[2016-07-31] MEDS: NICOTINE 14MG/24HR PATCH TRANSDERM SCH (09:33)
[2016-07-31] MEDS: APIXABAN 2.5 MG TABLET PO SCH ×2 (09:34→20:01)
[2016-07-31] MEDS: ASPIRIN 81 MG CHEW PO SCH (09:34)
[2016-07-31] MEDS: FUROSEMIDE 20 MG TAB PO SCH ×2 (09:34→20:01)
[2016-07-31] MEDS: PRAMIPEXOLE 0.25 MG TAB PO SCH ×3 (09:34→20:01)
[2016-07-31] MEDS: SPIRONOLACTONE 25 MG TAB PO SCH (09:35)
[2016-07-31] MEDS: METOPROLOL TARTRATE 25 MG TAB PO SCH ×2 (09:35→20:02)
[2016-07-31] MEDS: ACETAMINOPHEN TAB 325 MG TAB PO PRN (11:40)
--- NOTE | 2016-07-31 14:05 | P.PN ---
Subjective Principal diagnosis: Acute congestive heart failure and cardiogenic shock This is an 80-year-old male patient who got transferred to the intensive care unit this morning and I was asked to consult on this patient because of acute respiratory distress and cardiogenic shock. This patient presented to the hospital on 07/22/2016 and apparently was in his usual state of health prior to that. He presented with chest pain and EKG in the emergency department showed ST segment elevation in the inferior leads. At that point the patient was hemodynamically stable. The patient underwent emergent cardiac catheterization that showed occlusion of the mid right coronary artery with a large caliber disease. The left coronary system angiogram showed an intermediate disease in the proximal LAD and severe disease in the mid and distal LAD. The patient underwent successful angioplasty and stenting of the right mid coronary artery disease stenosis with a drug-eluting stent with good results. During the procedure, the patient experienced hypotension and the patient was resuscitated with IV fluids and pressors and he was briefly given levo fed. Noted the patient also had an episode of a nonsustained V. tach and he was given amiodarone bolus. The patient was started on DuoNeb antiplatelet agents including aspirin and Plavix. His beta blockers and kamala inhibitors were placed on hold. Earlier this morning the patient became acutely short of breath and his chest x-ray showed acute pulmonary edema. He was in significant respiratory distress and he did not want to get intubated and he declares himself is a DNR/DNI CODE STATUS. Nevertheless, we will put the patient on BiPAP respiratory support and currently is in a letter pressure of 10 over 5 cm of water and FiO2 of 100%. His blood gases prior to initiation of BiPAP showed a pH of 7.13 with a pCO2 of 56 and pO2 of 70. A stat echocardiogram was done to make sure there is no mechanical disruption postpneumonic and echo showed severely impaired systolic dysfunction with an ejection fraction of 25% and there was no evidence of any valvular disruption or mitral regurgitation. A pleural effusion was visualized in the left lung. The patient at a time of my evaluation was quite short of breath. He was able to tolerate the BiPAP. His extremities were cold and clammy and pulses were diminished in all 4 extremities. His urine output was minimal. The patient been given a total of 160 mg IV Lasix and following that he was switched to a Lasix drip. Discussed the case with cardiology. Discussed the case with the family at the bedside. On 07/26/2016, the patient is being seen in follow-up. Noted the patient was in acute pulmonary edema and cardiogenic shock on yesterday's evaluation. As mentioned earlier, the patient was started on a Lasix drip and he was supported with a BiPAP. Fortunately, his condition stabilized and he started producing adequate amount of urine output and diuresis appropriately. Over the past 24 hours, his fluid balance is -5 L at least and today's chest x-ray shows improvement in the pulmonary edema. In fact the patient was taken off the BiPAP last night and he was placed on high flow oxygen at 6 L per minute nasal cannula. The less, today's chest x-ray still showing heart failure/pulmonary edema picture. The patient needs to go on his BiPAP on and off during the day to support his breathing and cardiac status. He briefly went into atrial fibrillation and rapid ventricular response and he converted back to normal sinus rhythm. He is on IV heparin. Earlier this morning, I noted that the patient's systolic blood pressure dropped down to the mid 70s. I will support him with levo fed knowing that along with hypotension his urine output also dropped. Neurologically is awake and alert. He is not having any chest pain. No bleeding complications. No mental status change. No other complaints otherwise. 07 27 2016 the patient is being seen in follow-up. He is less short of breath. Still using BiPAP on and off during the day. Chest x-ray still showing pulmonary edema although it is gradually improving. As mentioned earlier the patient had developed some hypotension and based on that the patient was started on levo fed early earlier this morning the levo fed was running somewhere between 1-2 mics. The patient is still diuresing and is not fluid balance over the past 24 hours has been -2.3 L. Renal function for today is stable with a creatinine of 1.3. Hemoglobin is also stable at 11. No chest pain. No change in mental status. He is resting comfortably in bed and is able to wear the BiPAP without any major difficulties. Lasix has been cut down to 20 mg IV every 12 hours and the metoprolol is on hold as long as the patient is still pressor dependent. On 07/28/2016 the patient is being seen in follow-up. The patient is off BiPAP. Pulmonary edema is improving. The patient is on 2 mics of levo fed for blood pressure support. The patient is diuresing well and he remains in a negative fluid balance. No chest pain. No other complaints otherwise. There is improved perfusion in lower extremities and the patient has improved pulses. No nausea. No vomiting no chest pain. The renal function is stable with a creatinine of 1.2. On 07/29/2016, patient continues to do well, ultrasound of the chest was reviewed , he does have a small right-sided pleural effusion, but clinically the patient is doing extremely well, hence I decided against thoracentesis at this point. Continues to diurese, and the patient is in a negative fluid balance. Labs including CBC and renal profile were reviewed. Clinically the patient is improving. On 07/30/2016, patient is feeling better, breathing a lot easier, less short of breath. No cough no wheezing no chest pain. Patient is still responding well to diuretics. Labs were reviewed, renal profile showed a BUN of 30 creatinine of 1.20. No chest x-ray was done today, Reevaluated today on 07/31/2016, continues to do well, chest x-ray is significantly improved, continues to have a small right-sided pleural effusion. Clinically no cough no wheezing no shortness of breath. Electrolytes were reviewed, BUN is 34 creatinine is 1.15. Hence I believe the patient could be considered for discharge planning if cleared by cardiology. Objective - Vital Signs Vital signs: Vital Signs Temp 98.0 F 07/31/16 12:00 Pulse 61 07/31/16 12:00 Resp 18 07/31/16 12:00 BP 97/61 07/31/16 12:00 Pulse Ox 95 07/31/16 12:00 Intake & Output 07/30/16 07/31/16 07/31/16 18:59 06:59 18:59 Intake Total 560 165 Output Total 500 500 400 Balance 60 -335 -400 Weight 55.7 kg Intake: IV 165 0.9 NS @ 10 160 Saline Flush 5 Oral 560 Output: Urine 500 500 400 Other: Voiding Method Urinal Urinal # Voids 1 # Bowel Movements 0 ABP, PAP, CO, CI - Last Documented Arterial Blood Pressure 117/51 - Exam Physical Exam: Revealed an 80-year-old white male in no distress. HEENT:[Neck is supple.] [No neck masses.] [No thyromegaly.] [No JVD.] Chest: [Slightly diminished breath sounds at the bases, no rhonchi, no wheezes.] Cardiac Exam: [Normal S1 and S2, no S3 gallop, no murmur.] Abdomen: [Soft, nontender, no megaly, no rebound, no guarding, normal bowel sounds.] Extremities: [No clubbing, no edema, no cyanosis.] Neurological Exam: [No focal neurologic deficit.] - Labs CBC & Chem 7: 07/29/16 04:26 07/31/16 06:04 Labs: Abnormal Lab Results - Last 24 Hours (Table) 07/31/16 Range/Units 06:04 Sodium 135 L (137-145) mmol/L BUN 34 H (9-20) mg/dL Assessment and Plan Plan: 1 cardiogenic shock, improving. The patient responded nicely to respiratory support to BiPAP and diuresis. This morning his blood pressure dropped into the mid 70s and he'll be started on norepinephrine infusion to augment his cardiac output and blood pressure and this will hopefully help him with diuresis. On 07/27/2016, the patient is improving. He is still on few mics of norepinephrine infusion for blood pressure support. We should be able to wean off the norepinephrine over the next 24 hours. Beta blockers has not been started yet. On 07/28/2016, the patient continues to improve. His still requiring low dose of levo fed for blood pressure support and this can be hopefully weaned off. Into gentle diuresis. Pulmonary edema is also improving. On 07/30/2016, patient continues to do well, responding well to diuresis. I will order a follow-up chest x-ray to be done in a.m. Again considering the size of the effusion, and considering the patient is responding well to treatment, no need for thoracentesis at this point. On 07/31/2016, continues to improve, chest x-ray is showed significant improvement. Clinically the patient is better, hence consider discharge planning today or tomorrow. Patient must be cleared by cardiology for discharge planning. 2 acute pulmonary edema with secondary acute hypoxic respiratory failure. This is improving and the patient's chest x-ray today shows improvement in the acute pulmonary edema that resulted from cardiogenic shock. 3 acute respiratory acidosis/metabolic acidosis secondary to above, improving [address] segment elevation myocardial infarctions involving the inferior wall and the patient is status post successful angioplasty and stenting of RCA 5 severe cardiomyopathy with ejection fraction of 25%. Most recent echocardiogram has without any mechanical disruptions of the valves 6 acute kidney injury, improving. The patient is producing good urine output with diuresis. Renal function stable with a creatinine of 1.2 and the patient is producing adequate amount of urine output. 7 CVA, history of 8 poor medical follow-up Recommendation: Continue present treatment plan, consider discharge planning today or tomorrow. Long-term prognosis remains poor considering his severe cardiomyopathy and ejection fraction of 25%. Time with Patient: Less than 30
[2016-07-31] MEDS: CLOPIDOGREL 75 MG TAB PO SCH (20:01)
[2016-07-31] MEDS: ATORVASTATIN 80 MG TAB PO SCH (20:01)
--- NOTE | 2016-07-31 22:55 | PN ---
DATE OF SERVICE: 07/31/2016 PRESENTING COMPLAINT: Short of breath. INTERVAL HISTORY: This patient presented with ST elevation myocardial infarction, status post coronary intervention, pulmonary edema doing much better. The patient is walking better. Tolerating a diet. Review of systems done for constitutional, cardiovascular, GI, pulmonary; relevant findings as above. Current medications are reviewed. The patient is on Eliquis, p.o. Lasix and Aldactone. On examination, temperature 98.4, pulse 60, respiration 18, blood pressure 90/64, pulse ox 96% on room air. GENERAL APPEARANCE: Sitting up, comfortable. EYES: Pupils equal, conjunctivae normal. NECK: JVD not raised. Mass not palpable. RESPIRATORY: Effort normal. LUNGS: Diminished breath sounds. CARDIOVASCULAR: Heart sounds irregular. No edema. ABDOMEN: Soft, nontender. Liver and spleen not palpable. PSYCHIATRY: Alert and oriented x3. Mood and affect normal. INVESTIGATIONS: Potassium 4.5, BUN 34, creatinine 1.15. ASSESSMENT: 1. Acute myocardial infarction present on admission and inferior wall with emergent cardiac catheterization with stent to the right coronary artery/acute ST elevation type. 2. Acute hypoxic respiratory failure, present on admission, from congestive heart failure. 3. Acute flash pulmonary edema from systolic dysfunction; ejection fraction 30%, ischemic cardiomyopathy. 4. Chronic Coumadin dependence. Patient is a smoker. 5. Paroxysmal atrial fibrillation, recurrent, started on Eliquis. 6. Emphysema in a smoker. 7. Restless leg syndrome, now controlled. 8. Acute metabolic encephalopathy from above, resolved. 9. Acute respiratory metabolic acidosis multifactorial, resolved. 10. Cardiogenic shock from low ejection fraction ( ). PLAN: Patient overall doing much better. If okay with my colleagues, patient will be discharged tomorrow.
[2016-08-01] MEDS: ACETAMINOPHEN TAB 325 MG TAB PO PRN (04:54)
[2016-08-01 06:15] LABS: Anion Gap 9 mmol/L; Blood Urea Nitrogen 35 mg/dL (9-20); Calcium 9.1 mg/dL (8.4-10.2); Carbon Dioxide 30 mmol/L (22-30); Chloride 96 mmol/L (98-107); Glucose 111 mg/dL (74-99); Non-African American GFR(MDRD) 58 (>60 ml/min/1.73 sqM); Phosphorous 4.3 mg/dL (2.5-4.5); Potassium 4.5 mmol/L (3.5-5.1); Sodium 135 mmol/L (137-145)
[2016-08-01] MEDS: PANTOPRAZOLE 40 MG TABLET PO SCH (06:27)
[2016-08-01] MEDS: IPRATROPIUM-ALBUTEROL 3 ML NEB INHALATION SCH ×2 (07:42→13:18)
[2016-08-01] MEDS: FUROSEMIDE 20 MG TAB PO SCH (08:40)
[2016-08-01] MEDS: NICOTINE 14MG/24HR PATCH TRANSDERM SCH (08:40)
[2016-08-01] MEDS: ASPIRIN 81 MG CHEW PO SCH (08:40)
[2016-08-01] MEDS: APIXABAN 2.5 MG TABLET PO SCH (08:40)
[2016-08-01] MEDS: PRAMIPEXOLE 0.25 MG TAB PO SCH ×2 (08:41→15:16)
[2016-08-01] MEDS: SPIRONOLACTONE 25 MG TAB PO SCH (08:41)
[2016-08-01] MEDS: METOPROLOL TARTRATE 25 MG TAB PO SCH (08:41)
[2016-08-01 08:44] VITALS: TEMP 97.1
--- NOTE | 2016-08-01 14:50 | P.PN ---
Subjective Principal diagnosis: Acute congestive heart failure and cardiogenic shock This is an 80-year-old male patient who got transferred to the intensive care unit this morning and I was asked to consult on this patient because of acute respiratory distress and cardiogenic shock. This patient presented to the hospital on 07/22/2016 and apparently was in his usual state of health prior to that. He presented with chest pain and EKG in the emergency department showed ST segment elevation in the inferior leads. At that point the patient was hemodynamically stable. The patient underwent emergent cardiac catheterization that showed occlusion of the mid right coronary artery with a large caliber disease. The left coronary system angiogram showed an intermediate disease in the proximal LAD and severe disease in the mid and distal LAD. The patient underwent successful angioplasty and stenting of the right mid coronary artery disease stenosis with a drug-eluting stent with good results. During the procedure, the patient experienced hypotension and the patient was resuscitated with IV fluids and pressors and he was briefly given levo fed. Noted the patient also had an episode of a nonsustained V. tach and he was given amiodarone bolus. The patient was started on DuoNeb antiplatelet agents including aspirin and Plavix. His beta blockers and kamala inhibitors were placed on hold. Earlier this morning the patient became acutely short of breath and his chest x-ray showed acute pulmonary edema. He was in significant respiratory distress and he did not want to get intubated and he declares himself is a DNR/DNI CODE STATUS. Nevertheless, we will put the patient on BiPAP respiratory support and currently is in a letter pressure of 10 over 5 cm of water and FiO2 of 100%. His blood gases prior to initiation of BiPAP showed a pH of 7.13 with a pCO2 of 56 and pO2 of 70. A stat echocardiogram was done to make sure there is no mechanical disruption postpneumonic and echo showed severely impaired systolic dysfunction with an ejection fraction of 25% and there was no evidence of any valvular disruption or mitral regurgitation. A pleural effusion was visualized in the left lung. The patient at a time of my evaluation was quite short of breath. He was able to tolerate the BiPAP. His extremities were cold and clammy and pulses were diminished in all 4 extremities. His urine output was minimal. The patient been given a total of 160 mg IV Lasix and following that he was switched to a Lasix drip. Discussed the case with cardiology. Discussed the case with the family at the bedside. On 07/28/2016 the patient is being seen in follow-up. The patient is off BiPAP. Pulmonary edema is improving. The patient is on 2 mics of levo fed for blood pressure support. The patient is diuresing well and he remains in a negative fluid balance. No chest pain. No other complaints otherwise. There is improved perfusion in lower extremities and the patient has improved pulses. No nausea. No vomiting no chest pain. The renal function is stable with a creatinine of 1.2. On 07/29/2016, patient continues to do well, ultrasound of the chest was reviewed , he does have a small right-sided pleural effusion, but clinically the patient is doing extremely well, hence I decided against thoracentesis at this point. Continues to diurese, and the patient is in a negative fluid balance. Labs including CBC and renal profile were reviewed. Clinically the patient is improving. On 07/30/2016, patient is feeling better, breathing a lot easier, less short of breath. No cough no wheezing no chest pain. Patient is still responding well to diuretics. Labs were reviewed, renal profile showed a BUN of 30 creatinine of 1.20. No chest x-ray was done today, Reevaluated today on 07/31/2016, continues to do well, chest x-ray is significantly improved, continues to have a small right-sided pleural effusion. Clinically no cough no wheezing no shortness of breath. Electrolytes were reviewed, BUN is 34 creatinine is 1.15. Hence I believe the patient could be considered for discharge planning if cleared by cardiology. On 08/01/2016, patient continues to do well, and I plan to clear her for discharge today if cleared by cardiology. Labs were reviewed, renal profile was noted. Patient will be cleared for discharge planning today. Objective - Vital Signs Vital signs: Vital Signs Temp 97.1 F L 08/01/16 08:35 Pulse 68 08/01/16 13:29 Resp 16 08/01/16 12:35 BP 102/57 08/01/16 11:37 Pulse Ox 94 L 08/01/16 11:37 Intake & Output 07/31/16 08/01/16 08/01/16 18:59 06:59 18:59 Intake Total 120 10 480 Output Total 400 1000 Balance -280 -990 480 Weight 55.4 kg Intake: IV 10 Saline Flush 10 Oral 120 480 Output: Urine 400 1000 Other: Voiding Method Urinal Urinal Urinal # Voids 1 0 2 # Bowel Movements 0 ABP, PAP, CO, CI - Last Documented Arterial Blood Pressure 117/51 - Exam Physical Exam: Revealed an 80-year-old white male in no distress. HEENT:[Neck is supple.] [No neck masses.] [No thyromegaly.] [No JVD.] Chest: [Slightly diminished breath sounds at the bases, no rhonchi, no wheezes.] Cardiac Exam: [Normal S1 and S2, no S3 gallop, no murmur.] Abdomen: [Soft, nontender, no megaly, no rebound, no guarding, normal bowel sounds.] Extremities: [No clubbing, no edema, no cyanosis.] Neurological Exam: [No focal neurologic deficit.] - Labs CBC & Chem 7: 07/29/16 04:26 08/01/16 05:34 Labs: Abnormal Lab Results - Last 24 Hours (Table) 08/01/16 Range/Units 05:34 Sodium 135 L (137-145) mmol/L Chloride 96 L (98-107) mmol/L BUN 35 H (9-20) mg/dL Glucose 111 H (74-99) mg/dL Assessment and Plan Plan: 1 cardiogenic shock, improving. The patient responded nicely to respiratory support to BiPAP and diuresis. This morning his blood pressure dropped into the mid 70s and he'll be started on norepinephrine infusion to augment his cardiac output and blood pressure and this will hopefully help him with diuresis. On 07/27/2016, the patient is improving. He is still on few mics of norepinephrine infusion for blood pressure support. We should be able to wean off the norepinephrine over the next 24 hours. Beta blockers has not been started yet. On 07/28/2016, the patient continues to improve. His still requiring low dose of levo fed for blood pressure support and this can be hopefully weaned off. Into gentle diuresis. Pulmonary edema is also improving. On 07/30/2016, patient continues to do well, responding well to diuresis. I will order a follow-up chest x-ray to be done in a.m. Again considering the size of the effusion, and considering the patient is responding well to treatment, no need for thoracentesis at this point. On 07/31/2016, continues to improve, chest x-ray is showed significant improvement. Clinically the patient is better, hence consider discharge planning today or tomorrow. Patient must be cleared by cardiology for discharge planning. On 08/01/2016 continues to do well, will clear for discharge if cleared by cardiology. 2 acute pulmonary edema with secondary acute hypoxic respiratory failure. This is improving and the patient's chest x-ray today shows improvement in the acute pulmonary edema that resulted from cardiogenic shock. 3 acute respiratory acidosis/metabolic acidosis secondary to above, improving [address] segment elevation myocardial infarctions involving the inferior wall and the patient is status post successful angioplasty and stenting of RCA 5 severe cardiomyopathy with ejection fraction of 25%. Most recent echocardiogram has without any mechanical disruptions of the valves 6 acute kidney injury, improving. The patient is producing good urine output with diuresis. Renal function stable with a creatinine of 1.2 and the patient is producing adequate amount of urine output. 7 CVA, history of 8 poor medical follow-up Recommendation: Agree with discharge planning today, follow-up on outpatient basis. Time with Patient: Less than 30
[2016-08-01 15:19] VITALS: BP 105/55; PULSE 67; RESP 12
--- NOTE | 2016-08-01 15:48 | P.PN ---
Subjective Principal diagnosis: Acute inferior wall myocardial infarction This is an 80-year-old gentleman who presented to the hospital with an acute inferior wall myocardial infarction complicated by ventricular tachycardia and atrial fibrillation. He also had an episode of pulmonary edema. Patient has been progressively improving each day. He was seen and examined today, ambulating. Denies any chest discomfort dizziness or palpitations. He continues to be in a normal sinus rhythm. I pressure 106/60. Heart rate in the 60s. Sodium 135, potassium 4.5, chloride 96, CO2 30, BUN 35, creatinine 1.2. Plans are being made for the patient to be discharged home today. We will make him a follow-up appointment with Dr. Calhoun in the office post discharge. Objective - Vital Signs Vital signs: Vital Signs Temp 97.1 F L 08/01/16 08:35 Pulse 67 08/01/16 15:19 Resp 12 08/01/16 15:19 BP 105/55 08/01/16 15:18 Pulse Ox 97 08/01/16 15:18 Intake & Output 07/31/16 08/01/16 08/01/16 18:59 06:59 18:59 Intake Total 120 10 480 Output Total 400 1000 Balance -280 -990 480 Weight 55.4 kg Intake: IV 10 Saline Flush 10 Oral 120 480 Output: Urine 400 1000 Other: Voiding Method Urinal Urinal Urinal # Voids 1 0 2 # Bowel Movements 0 ABP, PAP, CO, CI - Last Documented Arterial Blood Pressure 117/51 - Exam PHYSICAL EXAMINATION: HEENT: Head is atraumatic, normocephalic. Pupils equal, round. Neck is supple. There is no elevated jugular venous pressure. HEART EXAMINATION: Heart S1, S2 normal. No murmur or gallop heard. CHEST EXAMINATION: Lungs are clear to auscultation and precussion. No chest wall tenderness is noted on palpation or with deep breathing. ABDOMEN: Soft, nontender. Bowel sounds are heard. No organomegaly noted. EXTREMITIES: 2+ peripheral pulses with no evidence of peripheral edema and no calf tenderness noted. NEUROLOGIC patient is awake, alert and oriented -3. . - Labs CBC & Chem 7: 07/29/16 04:26 08/01/16 05:34 Labs: Abnormal Lab Results - Last 24 Hours (Table) 08/01/16 Range/Units 05:34 Sodium 135 L (137-145) mmol/L Chloride 96 L (98-107) mmol/L BUN 35 H (9-20) mg/dL Glucose 111 H (74-99) mg/dL Assessment and Plan (1) ST elevation myocardial infarction (STEMI) of inferior wall Status: Acute (2) Ischemic cardiomyopathy Status: Acute (3) Systolic CHF, acute on chronic Status: Acute (4) Paroxysmal a-fib Status: Acute (5) Nicotine dependence Status: Acute Plan: From cardiology's perspective, patient may be able to be discharged home today. We will make him a follow-up appointment to see Dr. Calhoun in the office post discharge. He'll be discharged home on Eliquis 2-1/2 mg one tablet by mouth twice a day, aspirin 81 mg daily, Lipitor 80 mg daily, Plavix 75 mg daily, Lasix 20 mg by mouth twice a day, metoprolol tartrate 25 mg one tablet by mouth twice a day, nicotine patch daily, Aldactone 25 mg daily, and sublingual nitroglycerin as needed for chest pain. He has been provided prescription's and one month of medications has also been provided to him prior to discharge. DNP note has been reviewed, I agree with a documented findings and plan of care. Patient was seen and examined.
--- NOTE | 2016-08-02 10:22 | DS ---
DATE OF ADMISSION: 07/22/2016 DATE OF DISCHARGE: 08/01/2016 FINAL DIAGNOSES: 1. Acute ST elevation myocardial infarction inferior wall with emergent cardiac catheterization with stent to the right coronary artery. 2. Acute hypoxic respiratory failure, present on admission from congestive heart failure. 3. Acute flash pulmonary edema from systolic dysfunction; ejection fraction 30%/ischemic cardiomyopathy. 4. Paroxysmal atrial fibrillation. The patient is started on Eliquis. 5. Emphysema in a smoker. 6. Chronic nicotine dependence. Patient is a smoker. 7. Restless leg syndrome. 8. Acute metabolic encephalopathy from above, resolved. 9. Acute respiratory metabolic acidosis multifactorial. 10. Cardiogenic shock from acute myocardial infarction, congestive heart failure, present on admission. HOSPITAL COURSE: This patient presented with acute NC, CHF, COPD exacerbation, EF is as above. Ejection fraction is as above. Was in the ICU for quite some time. Breathing better by the time of discharge. ON EXAMINATION: LUNGS: Decreased breath sounds. CARDIOVASCULAR: First and second sounds are normal. CONSULTATIONS: Dr. Sarabia from pulmonary; Dr. Gibbons from cardiology. Care was discussed with the patient. Dr. Brock did the interventional cardiology part. DISCHARGE MEDICATIONS: 1. Xanax 0.25 p.o. t.i.d. p.r.n. 2. Eliquis 2.5 mg p.o. b.i.d. 3. Aspirin 81 mg daily. 4. Lipitor 80 mg q.h.s. 5. Plavix 75 mg p.o. daily. 6. Lasix 20 mg b.i.d. 7. DuoNeb t.i.d. 8. Lopressor 25 mg b.i.d. 9. Nicotine patch. 10. Nitrostat 0.4 sublingual q.5 p.r.n. 11. Protonix 40 mg with breakfast. 12. Mirapex 0.25 mg p.o. t.i.d. 13. Aldactone 25 mg a day. Follow up with Dr. Pruitt in one week. Follow up with Dr. Brock in one week.
== END 2016-08-01 17:17 | disposition home or self-care (01) | DRG 246 ==
LOC: EC 18:12 → 6ICU 18:47 → 6SEL 07-29 16:18
PROVIDERS: ADMIT Hospitalist; ATTEND Hospitalist
PROC: B2111ZZ Fluoroscopy of Multiple Coronary Arteries using Low Osmolar Contrast (ICD-10-PCS; 2016-07-22)
PROC: 027034Z Dilation of Coronary Artery, One Artery with Drug-eluting Intraluminal Device, Percutaneous Approach (ICD-10-PCS; principal; 2016-07-22 18:48)
PROC: 4A023N7 Measurement of Cardiac Sampling and Pressure, Left Heart, Percutaneous Approach (ICD-10-PCS; 2016-07-22 18:48)
PROC: 0T9B70Z Drainage of Bladder with Drainage Device, Via Natural or Artificial Opening (ICD-10-PCS; 2016-07-25)
DX: I21.19 ST elevation (STEMI) myocardial infarction involving other coronary artery of inferior wall (principal); G93.41 Metabolic encephalopathy; R57.0 Cardiogenic shock; J96.01 Acute respiratory failure with hypoxia; I50.23 Acute on chronic systolic (congestive) heart failure; R34 Anuria and oliguria; I47.2 Ventricular tachycardia; N17.9 Acute kidney failure, unspecified; J81.0 Acute pulmonary edema; I95.9 Hypotension, unspecified; I49.01 Ventricular fibrillation; E87.4 Mixed disorder of acid-base balance; I11.0 Hypertensive heart disease with heart failure; J44.9 Chronic obstructive pulmonary disease, unspecified; I48.0 Paroxysmal atrial fibrillation; I25.5 Ischemic cardiomyopathy; Z66 Do not resuscitate; I25.10 Atherosclerotic heart disease of native coronary artery without angina pectoris; I25.2 Old myocardial infarction; H91.90 Unspecified hearing loss, unspecified ear; F17.290 Nicotine dependence, other tobacco product, uncomplicated; G25.81 Restless legs syndrome; Z98.42 Cataract extraction status, left eye; Z86.73 Personal history of transient ischemic attack (TIA), and cerebral infarction without residual deficits; Z80.1 Family history of malignant neoplasm of trachea, bronchus and lung; Z85.828 Personal history of other malignant neoplasm of skin; Z71.3 Dietary counseling and surveillance; Z81.1 Family history of alcohol abuse and dependence
CPT/HCPCS: 36415; 36600; 71010; 76604; 80048; 80053; 81001; 82550; 82553; 82805; 83036; 83735; 84100; 84132; 84484; 85025; 85027; 85610; 85730; 87086; 93306; 93308; 93454; 94640; 94660; 94760; 96375; 96376; 99285

== ENCOUNTER 2017-03-20 14:32 | Inpatient (IN) | payer OTHER, MEDICARE ==
[2017-03-20] MEDS ORDERED: IPRATROPIUM-ALBUTEROL 3 ML NEB INHALATION STA (15:14)
[2017-03-20] MEDS ORDERED: SODIUM CHLORIDE 0.9% 1,000 ML IV STA (15:14)
--- NOTE | 2017-03-20 15:29 | ED ---
General Adult HPI - General Chief complaint: Shortness of Breath Stated complaint: SOB Time Seen by Provider: 03/20/17 14:46 Source: patient, RN notes reviewed, old records reviewed Mode of arrival: wheelchair - History of Present Illness Initial comments: This is a 81-year-old male to the ER for evaluation of severe shortness of breath. Significant fatigue and difficulty breathing with exertion. Patient has history of heart disease history of heart attack history of CHF history of COPD. Patient has not smoked since prior heart attack. Patient's last ER and hospital visit was back in July when he had a heart attack. Patient admits to increasing shortness of breath especially with exertion the last few days. Inability to laid out flat and breathe without difficulty. Patient denies fever , does have increased cough and congestion - Related Data Home Medications Medication Instructions Recorded Confirmed Calcium Carbonate/Vitamin D3 1 tab PO DAILY 03/20/17 03/20/17 [Calcium 600-Vit D3 400 Caplet] Clopidogrel [Plavix] 75 mg PO DAILY 03/20/17 03/20/17 Ferrous Sulfate [Slow Fe] 142 mg PO BID 03/20/17 03/20/17 Metoprolol Tartrate [Lopressor] 12.5 mg PO BID 03/20/17 03/20/17 Previous Rx's Medication Instructions Recorded Apixaban [Eliquis] 2.5 mg PO BID #60 tablet 08/01/16 Aspirin 81 mg PO DAILY #30 chew 08/01/16 Atorvastatin [Lipitor] 80 mg PO HS #30 tab 08/01/16 Furosemide [Lasix] 20 mg PO BID #60 tab 08/01/16 Ipratropium-Albuterol Nebulize 3 ml INHALATION RT-TID #90 08/01/16 [Duoneb 0.5 mg-3 mg/3 ml Soln] ampul.neb Nitroglycerin Sl Tabs [Nitrostat] 0.4 mg SUBLINGUAL Q5M PRN #25 tab 08/01/16 Pantoprazole [Protonix] 40 mg PO AC-BRKFST #30 tablet. 08/01/16 Spironolactone [Aldactone] 25 mg PO DAILY #30 tab 08/01/16 Allergies Allergy/AdvReac Type Severity Reaction Status Date / Time No Known Allergies Allergy Verified 03/20/17 15:53 Review of Systems ROS Statement: Those systems with pertinent positive or pertinent negative responses have been documented in the HPI. ROS Other: All systems not noted in ROS Statement are negative. Past Medical History Past Medical History: Coronary Artery Disease (CAD), Cancer, CVA/TIA, Myocardial Infarction ([place]) Additional Past Medical History / Comment(s): Patient reports remote history of myocardial infarction back in 1978 and since then he has not seen or followed up with cardiology, CVA back in 1998, skin cancer resected, Last Myocardial Infarction Date:: 07/22/2016 History of Any Multi-Drug Resistant Organisms: None Reported Past Surgical History: Unable to Obtain, Heart Catheterization With Stent Additional Past Surgical History / Comment(s): 1998 left carotid , Past Anesthesia/Blood Transfusion Reactions: No Reported Reaction Past Psychological History: No Psychological Hx Reported Smoking Status: Current every day smoker Past Alcohol Use History: None Reported Past Drug Use History: None Reported - Past Family History Mother Family Medical History: Cancer Additional Family Medical History / Comment(s): from Lung CA, was a smoker Father Additional Family Medical History / Comment(s): from alcoholism General Exam General appearance: alert, in no apparent distress, in distress, cachectic Head exam: Present: atraumatic, normocephalic, normal inspection Eye exam: Present: normal appearance, PERRL, EOMI. Absent: scleral icterus, conjunctival injection, periorbital swelling ENT exam: Present: normal exam, mucous membranes moist Neck exam: Present: normal inspection. Absent: tenderness, meningismus, lymphadenopathy Respiratory exam: Present: normal lung sounds bilaterally, wheezes, accessory muscle use, decreased breath sounds, prolonged expiratory. Absent: respiratory distress, rales, rhonchi, stridor Cardiovascular Exam: Present: regular rate, normal rhythm, normal heart sounds. Absent: systolic murmur, diastolic murmur, rubs, gallop, clicks GI/Abdominal exam: Present: soft, normal bowel sounds. Absent: distended, tenderness, guarding, rebound, rigid Extremities exam: Present: normal inspection, full ROM, normal capillary refill. Absent: tenderness, pedal edema, joint swelling, calf tenderness Back exam: Present: normal inspection Neurological exam: Present: alert, oriented X3, CN II-XII intact Psychiatric exam: Present: normal affect, normal mood Skin exam: Present: warm, dry, intact, normal color. Absent: rash Course Vital Signs 03/20/17 03/20/17 03/20/17 14:36 15:15 15:42 Temperature 97 F L Pulse Rate 68 75 66 Respiratory 20 24 16 Rate Blood Pressure 121/67 111/65 O2 Sat by Pulse 99 97 Oximetry 03/20/17 03/20/17 15:57 16:00 Temperature Pulse Rate 64 68 Respiratory 16 20 Rate Blood Pressure 103/56 O2 Sat by Pulse 99 Oximetry - Reevaluation(s) Reevaluation #1: 03/20/17 15:28 Patient is feeling better after breathing treatment, IV hydration Reevaluation #2: 03/20/17 16:17 Patient's breathing again remains significantly improved here in the emergency room, discussed the patient's findings of x-ray, CHF pneumonia COPD. Questions are answered EKG Findings - EKG Comments: EKG Findings:: EKG shows sinus rhythm at 71, CT 134, QRS 06, QTC 452 Medical Decision Making - Medical Decision Making 81 male in the ER prevarication significant shortness of breath exertional shortness of breath. Inability to lie down and breathe, waking up at night which was of breath, symptoms orthopnea or exertional dyspnea PND significant for CHF with underlying COPD. Patient be admitted for cardiology and pulmonology evaluation, cardiopulmonary support and hemodynamic monitoring - Lab Data Result diagrams: 03/20/17 15:00 03/20/17 15:00 Lab Results 03/20/17 03/20/17 03/20/17 Range/Units 15:00 15:00 15:00 WBC 7.3 (3.8-10.6) k/uL RBC 3.58 L (4.30-5.90) m/uL Hgb 10.6 L (13.0-17.5) gm/dL Hct 34.1 L (39.0-53.0) % MCV 95.3 (80.0-100.0) fL MCH 29.7 (25.0-35.0) pg MCHC 31.1 (31.0-37.0) g/dL RDW 15.1 (11.5-15.5) % Plt Count 273 (150-450) k/uL Neutrophils % 68 % Lymphocytes % 17 % Monocytes % 7 % Eosinophils % 6 % Basophils % 1 % Neutrophils # 4.9 (1.3-7.7) k/uL Lymphocytes # 1.2 (1.0-4.8) k/uL Monocytes # 0.5 (0-1.0) k/uL Eosinophils # 0.4 (0-0.7) k/uL Basophils # 0.1 (0-0.2) k/uL PT (9.0-12.0) sec INR (<1.2) APTT (22.0-30.0) sec Sodium 138 (137-145) mmol/L Potassium 4.2 (3.5-5.1) mmol/L Chloride 101 (98-107) mmol/L Carbon Dioxide 27 (22-30) mmol/L Anion Gap 10 mmol/L BUN 23 H (9-20) mg/dL Creatinine 1.09 (0.66-1.25) mg/dL Est GFR (MDRD) Af Amer >60 (>60 ml/min/1.73 sqM) Est GFR (MDRD) Non-Af >60 (>60 ml/min/1.73 sqM) Glucose 112 H (74-99) mg/dL Calcium 9.2 (8.4-10.2) mg/dL Magnesium 1.9 (1.6-2.3) mg/dL Total Bilirubin 0.5 (0.2-1.3) mg/dL AST 30 (17-59) U/L ALT 42 (21-72) U/L Alkaline Phosphatase 120 (38-126) U/L Total Creatine Kinase 49 L (55-170) U/L CK-MB (CK-2) 1.9 (0.0-2.4) ng/mL CK-MB (CK-2) Rel Index 3.9 Troponin I 0.013 (0.000-0.034) ng/mL NT-Pro-B Natriuret Pep pg/mL Total Protein 7.1 (6.3-8.2) g/dL Albumin 3.8 (3.5-5.0) g/dL 03/20/17 03/20/17 Range/Units 15:00 15:00 WBC (3.8-10.6) k/uL RBC (4.30-5.90) m/uL Hgb (13.0-17.5) gm/dL Hct (39.0-53.0) % MCV (80.0-100.0) fL MCH (25.0-35.0) pg MCHC (31.0-37.0) g/dL RDW (11.5-15.5) % Plt Count (150-450) k/uL Neutrophils % % Lymphocytes % % Monocytes % % Eosinophils % % Basophils % % Neutrophils # (1.3-7.7) k/uL Lymphocytes # (1.0-4.8) k/uL Monocytes # (0-1.0) k/uL Eosinophils # (0-0.7) k/uL Basophils # (0-0.2) k/uL PT 11.2 (9.0-12.0) sec INR 1.1 (<1.2) APTT 29.3 (22.0-30.0) sec Sodium (137-145) mmol/L Potassium (3.5-5.1) mmol/L Chloride (98-107) mmol/L Carbon Dioxide (22-30) mmol/L Anion Gap mmol/L BUN (9-20) mg/dL Creatinine (0.66-1.25) mg/dL Est GFR (MDRD) Af Amer (>60 ml/min/1.73 sqM) Est GFR (MDRD) Non-Af (>60 ml/min/1.73 sqM) Glucose (74-99) mg/dL Calcium (8.4-10.2) mg/dL Magnesium (1.6-2.3) mg/dL Total Bilirubin (0.2-1.3) mg/dL AST (17-59) U/L ALT (21-72) U/L Alkaline Phosphatase (38-126) U/L Total Creatine Kinase (55-170) U/L CK-MB (CK-2) (0.0-2.4) ng/mL CK-MB (CK-2) Rel Index Troponin I (0.000-0.034) ng/mL NT-Pro-B Natriuret Pep 7580 pg/mL Total Protein (6.3-8.2) g/dL Albumin (3.5-5.0) g/dL - Radiology Data Radiology results: report reviewed (Chest x-ray is consistent with CHF pleural effusions likely underlying pneumonia), image reviewed Disposition Clinical Impression: Acute exacerbation of chronic obstructive airways disease, Community acquired pneumonia, Acute pulmonary edema, Congestive heart failure Disposition: ADMITTED IP TO THIS HOSP Referrals: Gian Monzon DO [Primary Care Provider] - 1-2 days
[2017-03-20 15:34] LABS: Basophils # (A) 0.1 k/uL (0-0.2); Basophils % (A) 1 %; CH 30.1; CHCM 31.9; Eosinophils # (A) 0.4 k/uL (0-0.7); Eosinophils % (A) 6 %; HCT 34.1 % (39.0-53.0); HDW 2.62; HGB 10.6 gm/dL (13.0-17.5); Luc # (Auto) 0.12; Luc % (Auto) 2; Lymphocytes # (A) 1.2 k/uL (1.0-4.8); Lymphocytes % (A) 17 %; MCH 29.7 pg (25.0-35.0); MCHC 31.1 g/dL (31.0-37.0); MCV 95.3 fL (80.0-100.0); Mean Platelet Volume 6.9; Monocytes # (A) 0.5 k/uL (0-1.0); Monocytes % (A) 7 %; Neutrophils # (A) 4.9 k/uL (1.3-7.7); Neutrophils % (A) 68 %; RBC 3.58 m/uL (4.30-5.90); RDW 15.1 % (11.5-15.5); WBC 7.3 k/uL (3.8-10.6); WBC (Perox) 6.65
[2017-03-20 15:38] LABS: Partial Thromboplastin Time 29.3 sec (22.0-30.0)
[2017-03-20 15:41] LABS: ALT 42 U/L (21-72); AST 30 U/L (17-59); Alkaline Phosphatase 120 U/L (38-126); Anion Gap 10 mmol/L; Blood Urea Nitrogen 23 mg/dL (9-20); Calcium 9.2 mg/dL (8.4-10.2); Carbon Dioxide 27 mmol/L (22-30); Chloride 101 mmol/L (98-107); Glucose 112 mg/dL (74-99); INR 1.1 (<1.2); Magnesium 1.9 mg/dL (1.6-2.3); Non-African American GFR(MDRD) >60 (>60 ml/min/1.73 sqM); Potassium 4.2 mmol/L (3.5-5.1); Prothrombin Time 11.2 sec (9.0-12.0); Sodium 138 mmol/L (137-145); Total Bilirubin 0.5 mg/dL (0.2-1.3); Total Protein 7.1 g/dL (6.3-8.2)
--- NOTE | 2017-03-20 15:43 | XR ---
EXAMINATION TYPE: XR chest 2V DATE OF EXAM: 03/20/2017 COMPARISON: 07/31/2016 HISTORY: 81-year-old male difficulty breathing, shortness of breath for 3 days TECHNIQUE: PA and lateral views FINDINGS: Right heart margin obscured by adjacent pleural parenchymal disease. Mild atherosclerotic arch calcif ications. Diffuse interstitial and vascular prominence. There is a moderate right and small left pleu ral effusion with adjacent opacity, increased from prior exam. IMPRESSION: Diffuse interstitial densities with moderate right and small left pleural effusions with adjacent ate lectasis and/or consolidation. Correlate for moderate CHF.
[2017-03-20 16:08] LABS: Creatine Kinase MB 1.9 ng/mL (0.0-2.4); Troponin I 0.013 ng/mL (0.000-0.034)
[2017-03-20] MEDS ORDERED: PNEUMONIA PROTOCOL UTILIZED 1 EACH MISC PO PRN (16:13)
[2017-03-20] MEDS ORDERED: LEVOFLOXACIN 750MG-D5W PMX 750 MG in DEXTROSE/WATER 1 150ML.BAG IVPB STA (16:13)
[2017-03-20] MEDS ORDERED: FUROSEMIDE 10 MG/ML 4 ML VIAL IV SCH (16:15)
[2017-03-20] MEDS: SODIUM CHLORIDE 0.9% 1,000 ML IV SCH (16:30)
[2017-03-20] MEDS ORDERED: NITROGLYCERIN SL TABS 0.4 MG TAB SUBLINGUAL PRN (19:30)
[2017-03-20] MEDS: IPRATROPIUM-ALBUTEROL 3 ML NEB INHALATION SCH (19:42)
[2017-03-20] MEDS ORDERED: IPRATROPIUM-ALBUTEROL 3 ML NEB INHALATION SCH (20:00)
[2017-03-20] MEDS: METOPROLOL TARTRATE 12.5 MG TAB PO SCH (20:27)
[2017-03-20] MEDS: ATORVASTATIN 80 MG TAB PO SCH (20:27)
[2017-03-20] MEDS: FERROUS SULFATE 325 MG TAB PO SCH (20:28)
[2017-03-20] MEDS: APIXABAN 2.5 MG TABLET PO SCH (20:28)
--- NOTE | 2017-03-20 21:15 | US ---
EXAMINATION TYPE: US chest DATE OF EXAM: 03/20/2017 COMPARISON: Exams dating back to 07/22/2016. CLINICAL HISTORY: rt pleural effusion. EXAM MEASUREMENTS: Right Pleural Effusion fluid pocket: 12.7 cm Right skin to fluid thickness: 1.9 cm Left Pleural Effusion fluid pocket: 7.4 cm Left skin to fluid thickness: 1.7 cm Right side marked for possible thoracentesis outside the dept. Pulmonologists are able to review the images in the patient?s EMR. Bilateral pleural effusion seen right side marked for possible thoracentesis IMPRESSIONS: Recurrent pleural effusions
--- NOTE | 2017-03-20 23:06 | P.HPIM ---
History of Present Illness H&P Date: 03/20/17 Chief Complaint: shortness of breath This is a 81-year-old maleith a known history of [place] 2 initially in 1978 and recently in July 2016,cardiomyopathywith ejection fraction 30% atrial fibrillation on anticoagulation with eliquis presentedto the ER for evaluation of severe shortness of breath worsening for the past 2 days. Significant fatigue and difficulty breathing with exertion. patient does have history ofCOPDand chronic smoking quit in July 2016. Patient has not smoked since prior heart attack. Patient's last ER and hospital visit was back in July when he had a heart attack. Pt has orthopnea. Inability to laid out flat and breathe without difficulty. Patient denies fever, does have increased cough and congestion. whitish sputum production. patient is not on home oxygen. patient was givenLasix and breathing treatments while in the ERand also antibioticsin the form levofloxacin. eKG showedsinus rhythm PVCs Chest x-ray showeddiffuse interstitial densities with moderate right and small left pleural effusion.correlate for moderateCHF bNP 7580 Troponin 2negative Review of Systems Constitutional: Patient denies any fever or chills . No generalized weakness or weight loss. Abdomen: Patient denied nausea vomiting and diarrhea and abdominal pain. Cardiovascular: Patient denies any chest pain. pt does have shortness of breand orthopnea. Minimal leg swelling Respiratory: patient ad a cough with whitish sputum.. shortness of breath Neurologic: Patient denied any numbness or tingling headache. Musculoskeletal: Patient denies any complaints of joint swelling or deformity. Skin: Negative Psychiatric: Negative Endocrine: No heat or cold intolerance. No recent weight gain. Genitourinary: No dysuria or hematuria. All other 14 point ROS negative except the above Past Medical History Past Medical History: Coronary Artery Disease (CAD), Cancer, Heart Failure, COPD , CVA/TIA, Myocardial Infarction ([place]) Additional Past Medical History / Comment(s): pt is rt hand dominant. Patient reports remote history of myocardial infarction back in 1978 and since then he had not seen or followed up with cardiology. then 07-22-16.had 2nd mi -heart cath w/stent, "slight stroke 1998 no residual", skin cancer resected. Last Myocardial Infarction Date:: 07/22/2016 History of Any Multi-Drug Resistant Organisms: None Reported Past Surgical History: Heart Catheterization With Stent Additional Past Surgical History / Comment(s): 1998 left carotid , 07-22-16 heart cath w/ stent rca Past Anesthesia/Blood Transfusion Reactions: No Reported Reaction Date of Last Stent Placement:: 07-22-16 Smoking Status: Former smoker - Past Family History Mother Family Medical History: Cancer Additional Family Medical History / Comment(s): from Lung CA, was a smoker Father Additional Family Medical History / Comment(s): from alcoholism Medications and Allergies Home Medications Medication Instructions Recorded Confirmed Type Apixaban [Eliquis] 2.5 mg PO BID #60 tablet 08/01/16 03/20/17 Rx Aspirin 81 mg PO DAILY #30 chew 08/01/16 03/20/17 Rx Atorvastatin [Lipitor] 80 mg PO HS #30 tab 08/01/16 03/20/17 Rx Furosemide [Lasix] 20 mg PO BID #60 tab 08/01/16 03/20/17 Rx Ipratropium-Albuterol Nebulize 3 ml INHALATION RT-TID #90 08/01/16 03/20/17 Rx [Duoneb 0.5 mg-3 mg/3 ml Soln] ampul.neb Nitroglycerin Sl Tabs [Nitrostat] 0.4 mg SUBLINGUAL Q5M PRN #25 tab 08/01/16 Rx Pantoprazole [Protonix] 40 mg PO AC-BRKFST #30 tablet.dr 08/01/16 03/20/17 Rx Spironolactone [Aldactone] 25 mg PO DAILY #30 tab 08/01/16 03/20/17 Rx Calcium Carbonate/Vitamin D3 1 tab PO DAILY 03/20/17 03/20/17 History [Calcium 600-Vit D3 400 Caplet] Clopidogrel [Plavix] 75 mg PO DAILY 03/20/17 03/20/17 History Ferrous Sulfate [Slow Fe] 142 mg PO BID 03/20/17 03/20/17 History Metoprolol Tartrate [Lopressor] 12.5 mg PO BID 03/20/17 03/20/17 History Allergies Allergy/AdvReac Type Severity Reaction Status Date / Time No Known Allergies Allergy Verified 03/20/17 15:53 Physical Exam Vitals: Vital Signs Temp Pulse Resp BP Pulse Ox 03/20/17 19:51 88 03/20/17 19:44 84 03/20/17 16:56 98.0 F 83 20 108/56 98 03/20/17 16:30 71 20 107/60 99 03/20/17 16:00 68 20 103/56 99 03/20/17 15:57 64 16 03/20/17 15:42 66 16 03/20/17 15:15 75 24 111/65 97 03/20/17 14:36 97 F L 68 20 121/67 99 Intake and Output 03/20/17 03/20/17 03/20/17 06:59 14:59 22:59 Output Total 600 Balance -600 Output: Urine 600 Other: Weight 54.431 kg Patient Weight 03/21/17 06:59 Weight 54.431 kg PHYSICAL EXAMINATION: Patient is lying in the bed comfortably, no acute distress, awake alert and oriented.. HEENT: Normocephalic. Neck is supple. Pupils reactive. Nostrils clear. Oral cavity is moist. Ears reveal no drainage. Neck reveals no JVD, carotid bruits, or thyromegaly. CHEST EXAMINATION: Trachea is central. Symmetrical expansion.diffuse rhonchiand basilar crackles positive. CARDIAC: Normal S1, S2 with no gallops. No murmurs ABDOMEN: Soft. Bowel sounds normal. No organomegaly. No abdominal bruits. Extremities:1+ edema. No clubbing or cyanosis Neurologically awake, alert, oriented x3 with well-coordinated movements. No focal deficits noted Skin: No rash or skin lesions. Psychiatric: Operative. Nonsuicidal Musculoskeletal: No joint swelling or deformity. Normal range of motion. Results CBC & Chem 7: 03/20/17 15:00 03/20/17 15:00 Labs: Abnormal Lab Results - Last 24 Hours (Table) 03/20/17 03/20/17 03/20/17 Range/Units 15:00 15:00 15:00 RBC 3.58 L (4.30-5.90) m/uL Hgb 10.6 L (13.0-17.5) gm/dL Hct 34.1 L (39.0-53.0) % BUN 23 H (9-20) mg/dL Glucose 112 H (74-99) mg/dL Total Creatine Kinase 49 L (55-170) U/L Assessment and Plan Assessment: #1 acute on chronic CHF withsystolic dysfunction. #2 ischemic cardiomyopathy ejection fraction 30% #3 COPD with mild exacerbation #4 history of smokingquit in July 2016 #5 history of MIx2 1978 and another in July 2016 #6 paroxysmalatrial fibrillation. On anticoagulation #7coronary artery diseasestatus post stent placementrecently. plan: Patient will be continued on IV diuresis as well as breathing treatments. Breathing status improving now. Cardiology was consulted. We'll continue the telemetry monitoringand follow closely. Further recommendations based on the clinical course. Time with Patient: Greater than 30
[2017-03-21] MEDS: FUROSEMIDE 10 MG/ML 4 ML VIAL IV SCH ×3 (00:03→16:10)
[2017-03-21] MEDS: IPRATROPIUM-ALBUTEROL 3 ML NEB INHALATION SCH ×4 (06:58→19:20)
[2017-03-21] MEDS: METOPROLOL TARTRATE 12.5 MG TAB PO SCH ×2 (08:46→21:32)
[2017-03-21] MEDS: FERROUS SULFATE 325 MG TAB PO SCH ×2 (08:47→21:32)
[2017-03-21] MEDS: SPIRONOLACTONE 25 MG TAB PO SCH (08:47)
[2017-03-21] MEDS: PANTOPRAZOLE 40 MG TABLET PO SCH (08:48)
[2017-03-21] MEDS: CALCIUM CARB-VIT D 500MG-200UN 1 EACH TAB PO SCH (08:48)
[2017-03-21] MEDS: CLOPIDOGREL 75 MG TAB PO SCH (08:48)
[2017-03-21] MEDS: APIXABAN 2.5 MG TABLET PO SCH ×2 (08:48→21:32)
[2017-03-21] MEDS ORDERED: ENOXAPARIN 40 MG/0.4 ML SYRINGE SQ SCH (09:00)
--- NOTE | 2017-03-21 09:40 | XR ---
EXAMINATION TYPE: XR chest 2V DATE OF EXAM: 03/21/2017 COMPARISON: 03/20/2017 INDICATION: Pneumonia, previous abnormal chest TECHNIQUE: Frontal and lateral views of the chest are obtained. FINDINGS: The heart size is normal. The pulmonary vasculature is prominent. There is a small left pleural effusion. A moderate right pleural effusion is present.. Some thickeni ng at the right apex is not excluded. This appears less well visualized than the comparison previous day. IMPRESSION: 1. Moderate right and small left pleural effusions. 2. Prominent pulmonary vascular markings.
[2017-03-21 10:28] VITALS: BMI 16.2
--- NOTE | 2017-03-21 11:36 | ECHOF ---
Referral Reason:congestive heart failure MEASUREMENTS -------- HEIGHT: 182.9 cm WEIGHT: 51.3 kg BP: 96/58 IVSd: 1.0 cm (0.6 - 1.1) LVIDd: 5.3 cm (3.9 - 5.3) LVPWd: 0.9 cm (0.6 - 1.1) IVSs: 1.2 cm LVIDs: 5.1 cm LVPWs: 0.9 cm Ao Diam: 3.1 cm (2.0 - 3.7) AV Cusp: 1.5 cm (1.5 - 2.6) LA Diam: 3.2 cm (2.7 - 3.8) MV EXCURSION: 9.371 mm (> 18.000) MV EF SLOPE: 82 mm/s (70 - 150) EPSS: 1.5 cm MV E Tima: 0.64 m/s MV DecT: 251 ms MV A Tima: 0.42 m/s MV E/A Ratio: 1.54 RAP: 5.00 mmHg RVSP: 10.31 mmHg FINDINGS -------- Sinus rhythm. This was a technically good study. The left ventricular size is normal. Left ventricular wall thickness is normal. There is severe global hypokinesis of LV . Overall left ventricular systolic function is severely impaired with, an EF < 20%. The right ventricle is normal in size and function. The left atrium is normal in size. The right atrium is normal in size. Aortic valve is trileaflet and is mildly thickened. The mitral valve leaflets are mildly thickened. Mild mitral annular calcification present. Mild mitral regurgitation is present. Trace tricuspid regurgitation present. The right ventricular systolic pressure, as measured by Doppler, is 10.31mmHg. Pulmonic valve appears structurally normal. The aortic root size is normal. Normal inferior vena cava with normal inspiratory collapse consistent with estimated right atrial pressure of 5 mmHg. There is a trivial pericardial effusion present. CONCLUSIONS -------- 1. Sinus rhythm. 2. Aortic valve is trileaflet and is mildly thickened. 3. The mitral valve leaflets are mildly thickened. 4. Mild mitral annular calcification present. 5. Mild mitral regurgitation is present. 6. Trace tricuspid regurgitation present. 7. The right ventricular systolic pressure, as measured by Doppler, is 10.31mmHg. 8. Pulmonic valve appears structurally normal. 9. The aortic root size is normal. 10. Normal inferior vena cava with normal inspiratory collapse consistent with estimated right atrial pressure of 5 mmHg. 11. There is a trivial pericardial effusion present. 12. This was a technically good study. 13. The left ventricular size is normal. 14. Left ventricular wall thickness is normal. 15. There is severe global hypokinesis of LV . 16. Overall left ventricular systolic function is severely impaired with, an EF < 20%. 17. The right ventricle is normal in size and function. 18. The left atrium is normal in size. 19. The right atrium is normal in size. COMBINER: Vivienne Goldstein RDCS
[2017-03-21 12:59] LABS: Basophils % (A) 1 %; CH 31.3; CHCM 32.8; Eosinophils # (A) 0.1 k/uL (0-0.7); Eosinophils % (A) 2 %; HCT 34.4 % (39.0-53.0); HDW 2.57; HGB 10.6 gm/dL (13.0-17.5); Luc # (Auto) 0.13; Luc % (Auto) 2; Lymphocytes # (A) 0.7 k/uL (1.0-4.8); Lymphocytes % (A) 10 %; MCH 29.8 pg (25.0-35.0); MCHC 30.9 g/dL (31.0-37.0); MCV 96.3 fL (80.0-100.0); Mean Platelet Volume 7.5; Monocytes # (A) 0.4 k/uL (0-1.0); Monocytes % (A) 5 %; Neutrophils # (A) 5.9 k/uL (1.3-7.7); Neutrophils % (A) 81 %; RBC 3.57 m/uL (4.30-5.90); RDW 15.9 % (11.5-15.5); WBC 7.2 k/uL (3.8-10.6); WBC (Perox) 7.92
[2017-03-21 13:00] LABS: Anion Gap 11 mmol/L; Blood Urea Nitrogen 25 mg/dL (9-20); Calcium 9.5 mg/dL (8.4-10.2); Carbon Dioxide 27 mmol/L (22-30); Chloride 98 mmol/L (98-107); Glucose 97 mg/dL (74-99); Non-African American GFR(MDRD) 55 (>60 ml/min/1.73 sqM); Potassium 4.2 mmol/L (3.5-5.1); Sodium 136 mmol/L (137-145)
--- NOTE | 2017-03-21 14:16 | P.CRDCN ---
History of Present Illness Consult date: 03/21/17 History of present illness: This is a very pleasant 81-year-old male who follows regularly with Dr. Brock in the office. He presented to the hospital last night with complaints of increasing shortness of breath on exertion, weight gain and orthopnea. He has past medical history significant for known CAD with prior stenting of RCA and LAD with ischemic cardiomyopathy with ejection fraction 30%, paroxysmal a- fib and COPD. AICD has been discussed as an outpatient and he is not a candidate. His home medications include eliquis 2.5 BID, atorvastatin 80, plavix 75 mg, lasix 20 BID, aldactone 25 mg lopressor 12.5 mg BID and aspirin 81 mg. Upon exam today he is seen sitting up in bed in no acute distress. He states his breathing feels much better although he hasn't really been up out of bed much. He denies chest pain, dizziness, nausea or vomiting. EKG revealed sinus mechanism with occasional PVCs. Poor R-wave progression with evidence of old [place]. Chest x-ray reveals diffuse interstitial densities with moderate right and small left pleural effusions with adjacent atelectasis and/or consolidation. Correlate for moderate CHF. Repeat this morning shows moderate right and small left pleural effusion with prominent pulmonary vascular markings. Ultrasound of the chest reveals right pleural effusion pocket 12.7 cm left pleural effusion pocket 7.4 cm. Repeat echocardiogram today reveals severely impaired left ventricular systolic function with ejection fraction of less than 20%. Hemoglobin 10.6, platelets 273, potassium 4.2, magnesium 1.9, BUN and 25, creatinine 1.26, BNP 7580, troponin 0.013, 0.024 and 0.038. Review of Systems CONSTITUTIONAL: Denies fever. Denies chills. EYES: Denies blurred vision. Denies vision changes. Denies eye pain. EARS, NOSE, MOUTH & THROAT: Denies headache. Denies sore throat. Denies ear pain. CARDIOVASCULAR: Denies chest pain. Complains of shortness of breath with minimal exertion and orthopnea. Denies PND. Denies palpitations. RESPIRATORY: Denies cough. GASTROINTESTINAL: Denies abdominal pain. Denies diarrhea. Denies constipation. Denies nausea. Denies vomiting. MUSCULOSKELETAL: Denies myalgias. INTEGUMENTARY: Denies pruitis. Denies rash. NEUROLOGIC: Denies numbness. Denies tingling. Denies weakness. PSYCHIATRIC: Denies anxiety. Denies depression. ENDOCRINE: Denies fatigue. Denies weight change. Denies polydipsia. Denies polyurina. GENITOURINARY: Denies burning, hematuria or urgency with micturation. HEMATOLOGIC: Denies history of anemia. Denies bleeding. Past Medical History Past Medical History: Coronary Artery Disease (CAD), Cancer, Heart Failure, COPD , CVA/TIA, Myocardial Infarction ([place]) Additional Past Medical History / Comment(s): pt is rt hand dominant. Patient reports remote history of myocardial infarction back in 1978 and since then he had not seen or followed up with cardiology. then 07-22-16.had 2nd mi -heart cath w/stent, "slight stroke 1998 no residual", skin cancer resected. Last Myocardial Infarction Date:: 07/22/2016 History of Any Multi-Drug Resistant Organisms: None Reported Past Surgical History: Heart Catheterization With Stent Additional Past Surgical History / Comment(s): 1998 left carotid , 07-22-16 heart cath w/ stent rca Past Anesthesia/Blood Transfusion Reactions: No Reported Reaction Date of Last Stent Placement:: 07-22-16 Smoking Status: Former smoker - Past Family History Mother Family Medical History: Cancer Additional Family Medical History / Comment(s): from Lung CA, was a smoker Father Additional Family Medical History / Comment(s): from alcoholism Medications and Allergies Home Medications Medication Instructions Recorded Confirmed Type Apixaban [Eliquis] 2.5 mg PO BID #60 tablet 08/01/16 03/20/17 Rx Aspirin 81 mg PO DAILY #30 chew 08/01/16 03/20/17 Rx Atorvastatin [Lipitor] 80 mg PO HS #30 tab 08/01/16 03/20/17 Rx Furosemide [Lasix] 20 mg PO BID #60 tab 08/01/16 03/20/17 Rx Ipratropium-Albuterol Nebulize 3 ml INHALATION RT-TID #90 08/01/16 03/20/17 Rx [Duoneb 0.5 mg-3 mg/3 ml Soln] ampul.neb Nitroglycerin Sl Tabs [Nitrostat] 0.4 mg SUBLINGUAL Q5M PRN #25 tab 08/01/16 Rx Pantoprazole [Protonix] 40 mg PO AC-BRKFST #30 tablet. 08/01/16 03/20/17 Rx Spironolactone [Aldactone] 25 mg PO DAILY #30 tab 08/01/16 03/20/17 Rx Calcium Carbonate/Vitamin D3 1 tab PO DAILY 03/20/17 03/20/17 History [Calcium 600-Vit D3 400 Caplet] Clopidogrel [Plavix] 75 mg PO DAILY 03/20/17 03/20/17 History Ferrous Sulfate [Slow Fe] 142 mg PO BID 03/20/17 03/20/17 History Metoprolol Tartrate [Lopressor] 12.5 mg PO BID 03/20/17 03/20/17 History Allergies Allergy/AdvReac Type Severity Reaction Status Date / Time No Known Allergies Allergy Verified 03/20/17 15:53 Physical Exam Vitals: Vital Signs Temp Pulse Pulse Resp BP BP Pulse Ox 03/21/17 13:01 80 03/21/17 12:46 82 03/21/17 07:09 76 03/21/17 07:00 98.1 F 71 16 96/52 96 03/21/17 06:59 76 03/20/17 23:00 97.9 F 67 16 96/58 96 03/20/17 19:51 88 03/20/17 19:44 84 03/20/17 16:56 98.0 F 83 20 108/56 98 03/20/17 16:30 71 20 107/60 99 03/20/17 16:00 68 20 103/56 99 03/20/17 15:57 64 16 03/20/17 15:42 66 16 03/20/17 15:15 75 24 111/65 97 03/20/17 14:36 97 F L 68 20 121/67 99 Intake and Output 03/20/17 03/21/17 03/21/17 22:59 06:59 14:59 Intake Total 590 Output Total 1125 800 Balance -1125 -210 Intake: Oral 590 Output: Urine 1125 800 Other: Voiding Method Urinal Urinal Weight 51.5 kg 51.5 kg Patient Weight 03/22/17 06:59 Weight 51.5 kg GENERAL: This is a 81-year-old male in no apparent distress at the time of my examination. Cachectic. HEENT: Head is atraumatic, normocephalic. Pupils are equal, round. Sclerae anicteric. Conjunctivae are clear. Mucous membranes of the mouth are moist. Neck is supple. There is no jugular venous distention. No carotid bruit is heard. LUNGS: Fine bibasilar rales. No rhonchi or wheezing. No chest wall tenderness is noted on palpation or with deep breathing. HEART: Regular rate and rhythm without murmurs, rubs or gallops. S1 and S2 heard. ABDOMEN: Soft, nontender. Bowel sounds are heard. No organomegaly noted. EXTREMITIES: 2+ peripheral pulses with no evidence of peripheral edema and no calf tenderness noted. NEUROLOGIC: Patient is awake, alert and oriented x3. Results 03/20/17 15:00 03/21/17 12:19 Cardiac Enzymes 03/20/17 03/20/17 03/20/17 Range/Units 15:00 15:00 21:13 AST 30 (17-59) U/L CK-MB (CK-2) 1.9 (0.0-2.4) ng/mL Troponin I 0.013 0.024 (0.000-0.034) ng/mL 03/21/17 Range/Units 02:55 AST (17-59) U/L CK-MB (CK-2) (0.0-2.4) ng/mL Troponin I 0.038 H* (0.000-0.034) ng/mL Coagulation 03/20/17 Range/Units 15:00 PT 11.2 (9.0-12.0) sec APTT 29.3 (22.0-30.0) sec CBC 03/20/17 Range/Units 15:00 WBC 7.3 (3.8-10.6) k/uL RBC 3.58 L (4.30-5.90) m/uL Hgb 10.6 L (13.0-17.5) gm/dL Hct 34.1 L (39.0-53.0) % Plt Count 273 (150-450) k/uL Comprehensive Metabolic Panel 03/20/17 03/21/17 Range/Units 15:00 12:19 Sodium 138 136 L (137-145) mmol/L Potassium 4.2 4.2 (3.5-5.1) mmol/L Chloride 101 98 (98-107) mmol/L Carbon Dioxide 27 27 (22-30) mmol/L BUN 23 H 25 H (9-20) mg/dL Creatinine 1.09 1.26 H (0.66-1.25) mg/dL Glucose 112 H 97 (74-99) mg/dL Calcium 9.2 9.5 (8.4-10.2) mg/dL AST 30 (17-59) U/L ALT 42 (21-72) U/L Alkaline Phosphatase 120 (38-126) U/L Total Protein 7.1 (6.3-8.2) g/dL Albumin 3.8 (3.5-5.0) g/dL Current Medications Generic Name Dose Route Start Last Admin Trade Name Freq PRN Reason Stop Dose Admin Albuterol/Ipratropium 3 ml 03/20/17 20:00 03/21/17 12:46 Duoneb 0.5 Mg-3 Mg/3 Ml Soln INHALATION 3 ml RT-QID BRODERICK Administration Apixaban 2.5 mg 03/20/17 21:00 03/21/17 08:48 Eliquis PO 2.5 mg BID BRODERICK Administration Atorvastatin Calcium 80 mg 03/20/17 21:00 03/20/17 20:27 Lipitor PO 80 mg HS BRODERICK Administration Calcium Carbonate 1 each 03/21/17 09:00 03/21/17 08:48 Oscal 500+D PO 1 each DAILY BRODERICK Administration Clopidogrel Bisulfate 75 mg 03/21/17 09:00 03/21/17 08:48 Plavix PO 75 mg DAILY BRODERICK Administration Ferrous Sulfate 325 mg 03/20/17 21:00 03/21/17 08:47 Feosol PO 325 mg BID BRODERICK Administration Furosemide 40 mg 03/21/17 13:30 Lasix IV DAILY BRODERICK Sodium Chloride 1,000 mls @ 20 mls/hr 03/20/17 16:15 03/20/17 16:30 Saline 0.9% IV 20 mls/hr .Q24H BRODERICK Administration Levofloxacin 750 mg/ IV 150 mls @ 100 mls/hr 03/22/17 16:00 Solution IVPB 03/31/17 16:01 Q48H BRODERICK Metoprolol Tartrate 12.5 mg 03/20/17 21:00 03/21/17 08:46 Lopressor PO Not Given BID [facility] Miscellaneous Information 1 each 03/20/17 16:13 Pneumonia Protocol Utilized PO ONCE PRN Per Protocol Nitroglycerin 0.4 mg 03/20/17 19:30 Nitrostat SUBLINGUAL Q5M PRN Chest Pain Pantoprazole Sodium 40 mg 03/21/17 07:30 03/21/17 08:48 Protonix PO 40 mg AC-BRKFST BRODERICK Administration Spironolactone 25 mg 03/21/17 09:00 03/21/17 08:47 Aldactone PO 25 mg DAILY BRODERICK Administration Intake and Output 03/20/17 03/21/17 03/21/17 22:59 06:59 14:59 Intake Total 590 Output Total 1125 800 Balance -1125 -210 Intake: Oral 590 Output: Urine 1125 800 Other: Voiding Method Urinal Urinal Weight 51.5 kg 51.5 kg Patient Weight 03/22/17 06:59 Weight 51.5 kg 03/20/17 15:00 03/21/17 12:19 Assessment and Plan Assessment: ASSESSMENT 1. Acute on chronic systolic heart failure with worsening ejection fraction, less than 20% 2. Ischemic cardiomyopathy 3. Paroxysmal atrial fibrillation and chronic long-term anticoagulation 4. Coronary artery disease with recent stent to the RCA 07/19 with intermediate disease involving proximal LAD 5. Elevated troponin PLAN Decrease lasix to 40 mg IV daily, continue current medications as previously ordered. He should continue on IV lasix for another 24 hours and be re- evaluated tomorrow. He is not a candidate for AICD placement to advanced age and cachectic state. He is aware of his prognosis. Nurse Practitioner note has been reviewed, I agree with a documented findings and plan of care. Patient was seen and examined.
--- NOTE | 2017-03-21 14:38 | P.CNPUL ---
History of Present Illness Consult date: 03/21/17 Reason for consult: dyspnea, abnormal CXR/CT Chief complaint: Shortness of breath History of present illness: This is a 81-year-old white male patient who presented to the emergency department on 03/20/2017 at 2204 increased shortness of breath of 3-4 day duration with ambulation. Patient denies having any chest discomfort but he states that shortness of breath was brought on by activity after which it would take him 15-20 minutes to recover. He had a mild weight gain of 3-4 pounds since his symptoms started. He denies any fever or chills, chest congestion, chest wall pain, or hemoptysis. He has a history of myocardial infarction in 1978, and most recently he had a inferior wall GA in July 2016 with placement of 2 coronary stents to mid RCA. Echocardiogram from 03/21/2017 shows EF of less than 20%, with severe global hypokinesis of the left ventricle. Chest x-ray from 03/21/2017 was positive for moderate right and small left pleural effusions which was followed up with a chest ultrasound. Chest ultrasound showed right pleural effusion fluid pocket of 12.7 cm and a left pleural effusion of 7.4 cm. Patient has an extensive smoking history of 2 packs per day for over 70 years, quit in July 2016. He states he was never diagnosed with COPD, and his not seen a lung specialist. 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 Patient is currently on albuterol and Atrovent nebulized treatments 3 times a day at home since July of this year. No maintenance inhalers for his suspected COPD. On examination patient is calm and comfortable, resting in bed. No signs of acute respiratory distress, he denies chest discomfort or pressure. Lungs sounds are clear to auscultation with diminished sounds over posterior bases and dullness. No wheezes, no rhonchi, no signs of chest congestion. No peripheral edema noted. No JVD. Patient is on room air with O2 sat at 96%. He is being diuresed with Lasix use and -1300 fluid balance over the last 24 hours. Review of Systems All systems: negative Constitutional: Denies chills, Denies fever Eyes: denies blurred vision, denies pain Ears, nose, mouth and throat: Denies headache, Denies sore throat Cardiovascular: Denies chest pain, Denies shortness of breath Respiratory: Denies cough Gastrointestinal: Denies abdominal pain, Denies diarrhea, Denies nausea, Denies vomiting Musculoskeletal: Denies myalgias Integumentary: Denies pruritus, Denies rash Neurological: Denies numbness, Denies weakness Psychiatric: Denies anxiety, Denies depression Endocrine: Denies fatigue, Denies weight change Past Medical History Past Medical History: Coronary Artery Disease (CAD), Cancer, Heart Failure, COPD , CVA/TIA, Myocardial Infarction ([place]) Additional Past Medical History / Comment(s): pt is rt hand dominant. Patient reports remote history of myocardial infarction back in 1978 and since then he had not seen or followed up with cardiology. then 07-22-16.had 2nd mi -heart cath w/stent, "slight stroke 1998 no residual", skin cancer resected. Last Myocardial Infarction Date:: 07/22/2016 History of Any Multi-Drug Resistant Organisms: None Reported Past Surgical History: Heart Catheterization With Stent Additional Past Surgical History / Comment(s): 1998 left carotid , 07-22-16 heart cath w/ stent rca Past Anesthesia/Blood Transfusion Reactions: No Reported Reaction Date of Last Stent Placement:: 07-22-16 Smoking Status: Former smoker - Past Family History Mother Family Medical History: Cancer Additional Family Medical History / Comment(s): from Lung CA, was a smoker Father Additional Family Medical History / Comment(s): from alcoholism Medications and Allergies Home Medications Medication Instructions Recorded Confirmed Type Apixaban [Eliquis] 2.5 mg PO BID #60 tablet 08/01/16 03/20/17 Rx Aspirin 81 mg PO DAILY #30 chew 08/01/16 03/20/17 Rx Atorvastatin [Lipitor] 80 mg PO HS #30 tab 08/01/16 03/20/17 Rx Furosemide [Lasix] 20 mg PO BID #60 tab 08/01/16 03/20/17 Rx Ipratropium-Albuterol Nebulize 3 ml INHALATION RT-TID #90 08/01/16 03/20/17 Rx [Duoneb 0.5 mg-3 mg/3 ml Soln] ampul.neb Nitroglycerin Sl Tabs [Nitrostat] 0.4 mg SUBLINGUAL Q5M PRN #25 tab 08/01/16 Rx Pantoprazole [Protonix] 40 mg PO AC-NIDIAFST #30 tablet. 08/01/16 03/20/17 Rx Spironolactone [Aldactone] 25 mg PO DAILY #30 tab 08/01/16 03/20/17 Rx Calcium Carbonate/Vitamin D3 1 tab PO DAILY 03/20/17 03/20/17 History [Calcium 600-Vit D3 400 Caplet] Clopidogrel [Plavix] 75 mg PO DAILY 03/20/17 03/20/17 History Ferrous Sulfate [Slow Fe] 142 mg PO BID 03/20/17 03/20/17 History Metoprolol Tartrate [Lopressor] 12.5 mg PO BID 03/20/17 03/20/17 History Allergies Allergy/AdvReac Type Severity Reaction Status Date / Time No Known Allergies Allergy Verified 03/20/17 15:53 Physical Exam Vitals: Vital Signs Temp Pulse Pulse Resp BP BP Pulse Ox 03/21/17 13:01 80 03/21/17 12:46 82 03/21/17 07:09 76 03/21/17 07:00 98.1 F 71 16 96/52 96 03/21/17 06:59 76 03/20/17 23:00 97.9 F 67 16 96/58 96 03/20/17 19:51 88 03/20/17 19:44 84 03/20/17 16:56 98.0 F 83 20 108/56 98 03/20/17 16:30 71 20 107/60 99 03/20/17 16:00 68 20 103/56 99 03/20/17 15:57 64 16 03/20/17 15:42 66 16 03/20/17 15:15 75 24 111/65 97 03/20/17 14:36 97 F L 68 20 121/67 99 Intake and Output 03/20/17 03/21/17 03/21/17 22:59 06:59 14:59 Intake Total 590 Output Total 1125 800 Balance -1125 -210 Intake: Oral 590 Output: Urine 1125 800 Other: Voiding Method Urinal Urinal Weight 51.5 kg 51.5 kg Patient Weight 03/22/17 06:59 Weight 51.5 kg - Constitutional General appearance: thin - EENT Eyes: PERRLA ENT: NA/AT Ears: bilateral: normal - Neck Neck: no lymphadenopathy, normal ROM Thyroid: bilateral: normal size - Respiratory Respiratory: bilateral: diminished, dullness - Cardiovascular Rhythm: regular Heart sounds: normal: S1, S2 ankle Peripheral Edema: bilateral: None dorsalis pedis Peripheral Pulses: bilateral: Normal radial pulse Peripheral Pulses: bilateral: Normal - Gastrointestinal General gastrointestinal: no organomegaly, soft, no tenderness - Integumentary Integumentary: normal turgor - Neurologic Neurologic: CNII-XII intact - Psychiatric Psychiatric: A&O x's 3, appropriate affect, intact judgment & insight Results Assessment: #1. Acute on chronic systolic CHF with EF less than 20% #2. Ischemic cardiomyopathy #3. History of myocardial infarction 2, in 1978 and in July 2016 #4. Bilateral pleural effusion of systolic congestive heart failure unless otherwise proven #5. COPD #6. Nicotine dependence, in remission #7. Paroxysmal atrial fibrillation on Eliquis #8. Coronary artery disease, stent placement 2 to RCA in July 2016 #9. Carotid artery disease, status post left carotid endarterectomy in 1998 #10. 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 History of skin cancer with resection Plan: We will continue with IV Lasix at 40 every 8 hours. Chest x-rays from 2016 and 03/21/2017 have been reviewed. Chest ultrasound shows moderate size right pleural effusion and small left pleural effusion. Patient is on Plavix for coronary stents and Eliquis with a history of paroxysmal A. fib. For that reason we will continue medical treatments with IV diuretics. Continue IV Levaquin and DuoNeb nebulizer treatments. Patient will have to be off Plavix for 5 days for the thoracentesis. Closely follow with you. I performed a history & physical examination of the patient and discussed their management with my nurse practitioner, Chrissy Brown. I reviewed the nurse practitioner's note and agree with the documented findings and plan of care. Patient's lung sounds are diminished at the bases with dullness. Remains on room air, does not appear to be in any significant amount of distress. Continue medical treatments with IV diuretics for the pleural effusions of congestive heart failure. I attest the documentation by the nurse practitioner - Laboratory Findings CBC and BMP: 03/21/17 12:19 03/21/17 12:19 PT/INR, D-dimer PT 11.2 sec (9.0-12.0) 03/20/17 15:00 INR 1.1 (<1.2) 03/20/17 15:00 Abnormal lab findings: Abnormal Labs 03/20/17 03/20/17 03/20/17 15:00 15:00 15:00 RBC 3.58 L Hgb 10.6 L Hct 34.1 L MCHC RDW Lymphocytes # Sodium BUN 23 H Creatinine Glucose 112 H Total Creatine Kinase 49 L Troponin I 03/21/17 03/21/17 03/21/17 02:55 12:19 12:19 RBC 3.57 L Hgb 10.6 L Hct 34.4 L MCHC 30.9 L RDW 15.9 H Lymphocytes # 0.7 L Sodium 136 L BUN 25 H Creatinine 1.26 H Glucose Total Creatine Kinase Troponin I 0.038 H* - Diagnostic Findings Chest x-ray: report reviewed
[2017-03-21] MEDS ORDERED: LEVOFLOXACIN 750MG-D5W PMX 750 MG in DEXTROSE/WATER 1 150ML.BAG IVPB SCH (16:00)
[2017-03-21] MEDS: ATORVASTATIN 80 MG TAB PO SCH (21:32)
--- NOTE | 2017-03-22 00:54 | P.PN ---
Subjective Progress Note Date: 03/21/17 Principal diagnosis: CHF exacerbation This is a 81-year-old maleith a known history of MS 2 initially in 1978 and recently in July 2016,cardiomyopathywith ejection fraction 30% atrial fibrillation on anticoagulation with eliquis presentedto the ER for evaluation of severe shortness of breath worsening for the past 2 days. Significant fatigue and difficulty breathing with exertion. patient does have history ofCOPDand chronic smoking quit in July 2016. Patient has not smoked since prior heart attack. Patient's last ER and hospital visit was back in July when he had a heart attack. Pt has orthopnea. Inability to laid out flat and breathe without difficulty. Patient denies fever, does have increased cough and congestion. whitish sputum production. patient is not on home oxygen. patient was givenLasix and breathing treatments while in the ERand also antibioticsin the form levofloxacin. eKG showedsinus rhythm PVCs Chest x-ray showeddiffuse interstitial densities with moderate right and small left pleural effusion.correlate for moderateCHF bNP 7580 Troponin 2negative TTE showed severely impaired left ventricular systolic function with ejection fraction of less than 20%. 03/21/2017 Patient says that his breathing is better. No complaints of chest pain. No other acute overnight issues. All other review of systems negative except the above Current medications reviewed. Objective - Vital Signs Vital signs: Vital Signs Temp 98.0 F 03/21/17 15:00 Pulse 76 03/21/17 19:32 Resp 18 03/21/17 15:00 BP 105/63 03/21/17 15:00 Pulse Ox 98 03/21/17 16:13 Intake & Output 03/21/17 03/21/17 03/22/17 06:59 18:59 06:59 Intake Total 590 160 Output Total 1925 400 400 Balance -3725 -240 400 Weight 52 kg Intake: Intake, IV Titration 160 Amount Sodium Chloride 0.9% 1, 160 000 ml @ 20 mls/hr IV . Q24H [facility] Rx#:[id number] Oral 590 Output: Urine 1925 400 400 Other: Voiding Method Urinal Urinal - Exam PHYSICAL EXAMINATION: Patient is lying in the bed comfortably, no acute distress, awake alert and oriented.. HEENT: Normocephalic. Neck is supple. Pupils reactive. Nostrils clear. Oral cavity is moist. Ears reveal no drainage. Neck reveals no JVD, carotid bruits, or thyromegaly. CHEST EXAMINATION: Trachea is central. Symmetrical expansion. Lung mark clear to auscultation and percussion. CARDIAC: Normal S1, S2 with no gallops. No murmurs ABDOMEN: Soft. Bowel sounds normal. No organomegaly. No abdominal bruits. Extremities: reveal no edema. No clubbing or cyanosis Neurologically awake, alert, oriented x3 with well-coordinated movements. No focal deficits noted Skin: No rash or skin lesions. Psychiatric: Operative. Nonsuicidal Musculoskeletal: No joint swelling or deformity. Normal range of motion. - Labs CBC & Chem 7: 03/21/17 12:19 03/21/17 12:19 Labs: Abnormal Lab Results - Last 24 Hours (Table) 03/21/17 03/21/17 03/21/17 Range/Units 02:55 12:19 12:19 RBC 3.57 L (4.30-5.90) m/uL Hgb 10.6 L (13.0-17.5) gm/dL Hct 34.4 L (39.0-53.0) % MCHC 30.9 L (31.0-37.0) g/dL RDW 15.9 H (11.5-15.5) % Lymphocytes # 0.7 L (1.0-4.8) k/uL Sodium 136 L (137-145) mmol/L BUN 25 H (9-20) mg/dL Creatinine 1.26 H (0.66-1.25) mg/dL Troponin I 0.038 H* (0.000-0.034) ng/mL Microbiology - Last 24 Hours (Table) 03/20/17 15:00 Blood Culture - Preliminary Blood No Growth after 24 hours Assessment and Plan Assessment: #1 acute on chronic CHF with systolic dysfunction. Ejection fraction 20% #2 ischemic cardiomyopathy ejection fraction 30%. Reduced to 20% this admission #3 COPD with mild exacerbation #4 history of smoking quit in July 2016 #5 history of MIx2 1978 and another in July 2016 #6 paroxysmal atrial fibrillation. On anticoagulation #7coronary artery disease status post stent placement recently. #8 mild protein calorie malnutrition #9 acute kidney injury likely due to diuresis plan: Patient will be continued on IV diuresis as well as breathing treatments. Lasix dose decreased to 40 mg IV daily. Breathing status improving now. Cardiology and pulmonary is following. Will follow renal function. We'll continue the telemetry monitoringand follow closely. Further recommendations based on the clinical course. Time with Patient: Greater than 30
[2017-03-22] MEDS: SODIUM CHLORIDE 0.9% 1,000 ML IV SCH (04:07)
[2017-03-22 07:15] LABS: Basophils # (A) 0.1 k/uL (0-0.2); Basophils % (A) 1 %; CH 31.1; CHCM 33.1; Eosinophils # (A) 0.4 k/uL (0-0.7); Eosinophils % (A) 6 %; HCT 33.3 % (39.0-53.0); HDW 2.56; HGB 10.7 gm/dL (13.0-17.5); Luc # (Auto) 0.16; Luc % (Auto) 3; Lymphocytes # (A) 1.1 k/uL (1.0-4.8); Lymphocytes % (A) 18 %; MCH 30.6 pg (25.0-35.0); MCHC 32.2 g/dL (31.0-37.0); MCV 94.9 fL (80.0-100.0); Mean Platelet Volume 7.4; Monocytes # (A) 0.5 k/uL (0-1.0); Monocytes % (A) 7 %; Neutrophils # (A) 4.1 k/uL (1.3-7.7); Neutrophils % (A) 66 %; RBC 3.51 m/uL (4.30-5.90); RDW 15.9 % (11.5-15.5); WBC 6.2 k/uL (3.8-10.6); WBC (Perox) 5.68
[2017-03-22 07:27] LABS: Anion Gap 12 mmol/L; Blood Urea Nitrogen 29 mg/dL (9-20); Calcium 9.3 mg/dL (8.4-10.2); Carbon Dioxide 24 mmol/L (22-30); Chloride 101 mmol/L (98-107); Glucose 99 mg/dL (74-99); Non-African American GFR(MDRD) >60 (>60 ml/min/1.73 sqM); Potassium 4.1 mmol/L (3.5-5.1); Sodium 137 mmol/L (137-145)
[2017-03-22] MEDS: IPRATROPIUM-ALBUTEROL 3 ML NEB INHALATION SCH ×3 (07:32→16:06)
[2017-03-22] MEDS: PANTOPRAZOLE 40 MG TABLET PO SCH (08:26)
[2017-03-22] MEDS: SPIRONOLACTONE 25 MG TAB PO SCH (08:51)
[2017-03-22] MEDS: FUROSEMIDE 10 MG/ML 4 ML VIAL IV SCH (08:51)
[2017-03-22] MEDS: APIXABAN 2.5 MG TABLET PO SCH (08:52)
[2017-03-22] MEDS: METOPROLOL TARTRATE 12.5 MG TAB PO SCH (08:52)
[2017-03-22] MEDS: FERROUS SULFATE 325 MG TAB PO SCH (08:52)
[2017-03-22] MEDS: CLOPIDOGREL 75 MG TAB PO SCH (08:52)
[2017-03-22] MEDS: CALCIUM CARB-VIT D 500MG-200UN 1 EACH TAB PO SCH (08:53)
--- NOTE | 2017-03-22 12:51 | P.PN ---
Subjective Progress Note Date: 03/22/17 Principal diagnosis: Acute on chronic systolic CHF with EF less than 20% This is a 81-year-old white male patient who presented to the emergency department on 03/20/2017 at 2204 increased shortness of breath of 3-4 day duration with ambulation. Patient denies having any chest discomfort but he states that shortness of breath was brought on by activity after which it would take him 15-20 minutes to recover. He had a mild weight gain of 3-4 pounds since his symptoms started. He denies any fever or chills, chest congestion, chest wall pain, or hemoptysis. He has a history of myocardial infarction in 1978, and most recently he had a inferior wall LA in July 2016 with placement of 2 coronary stents to mid RCA. Echocardiogram from 03/21/2017 shows EF of less than 20%, with severe global hypokinesis of the left ventricle. Chest x-ray from 03/21/2017 was positive for moderate right and small left pleural effusions which was followed up with a chest ultrasound. Chest ultrasound showed right pleural effusion fluid pocket of 12.7 cm and a left pleural effusion of 7.4 cm. Patient has an extensive smoking history of 2 packs per day for over 70 years, quit in July 2016. He states he was never diagnosed with COPD, and his not seen a lung specialist. 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 Patient is currently on albuterol and Atrovent nebulized treatments 3 times a day at home since July of this year. No maintenance inhalers for his suspected COPD. On examination patient is calm and comfortable, resting in bed. No signs of acute respiratory distress, he denies chest discomfort or pressure. Lungs sounds are clear to auscultation with diminished sounds over posterior bases and dullness. No wheezes, no rhonchi, no signs of chest congestion. No peripheral edema noted. No JVD. Patient is on room air with O2 sat at 96%. He is being diuresed with Lasix use and -1300 fluid balance over the last 24 hours. On 03/22/2017 patient states his dyspnea is improved, he is able to tolerate ambulation in the room without significant respiratory distress. He is diuresing well, he is in -1350 mL fluid balance over the last 24 hours. He is on room air with O2 sat at 98%, he is afebrile, no significant sputum production. No signs of chest congestion, no wheezing no rales. Lung sounds are clear with diminished sounds over posterior bases and dullness to percussion right base greater than the left. Objective - Vital Signs Vital signs: Vital Signs Temp 96.1 F L 03/22/17 08:16 Pulse 76 03/22/17 11:25 Resp 16 03/22/17 09:19 BP 115/55 03/22/17 08:16 Pulse Ox 98 03/21/17 21:35 Intake & Output 03/21/17 03/22/17 03/22/17 18:59 06:59 18:59 Intake Total 160 590 Output Total 400 1700 Balance -240 -1110 Weight 52 kg Intake: Intake, IV Titration 160 Amount Sodium Chloride 0.9% 1, 160 000 ml @ 20 mls/hr IV . Q24H [facility] Rx#:[id number] Oral 590 Output: Urine 400 1700 Other: Voiding Method Urinal Urinal Urinal - Exam Constitutional General appearance: thin - EENT Eyes: PERRLA ENT: NA/AT Ears: bilateral: normal - Neck Neck: no lymphadenopathy, normal ROM Thyroid: bilateral: normal size - Respiratory Respiratory: bilateral: diminished, dullness to percussion greater on the right - Cardiovascular Rhythm: regular Heart sounds: normal: S1, S2 ankle Peripheral Edema: bilateral: None dorsalis pedis Peripheral Pulses: bilateral: Normal radial pulse Peripheral Pulses: bilateral: Normal - Gastrointestinal General gastrointestinal: no organomegaly, soft, no tenderness - Integumentary Integumentary: normal turgor - Neurologic Neurologic: CNII-XII intact - Psychiatric Psychiatric: A&O x's 3, appropriate affect, intact judgment & insight - Labs CBC & Chem 7: 03/22/17 06:26 03/22/17 06:26 Labs: Abnormal Lab Results - Last 24 Hours (Table) 03/21/17 03/21/17 03/22/17 Range/Units 12:19 12:19 06:26 RBC 3.57 L 3.51 L (4.30-5.90) m/uL Hgb 10.6 L 10.7 L (13.0-17.5) gm/dL Hct 34.4 L 33.3 L (39.0-53.0) % MCHC 30.9 L (31.0-37.0) g/dL RDW 15.9 H 15.9 H (11.5-15.5) % Lymphocytes # 0.7 L (1.0-4.8) k/uL Sodium 136 L (137-145) mmol/L BUN 25 H (9-20) mg/dL Creatinine 1.26 H (0.66-1.25) mg/dL 03/22/17 Range/Units 06:26 RBC (4.30-5.90) m/uL Hgb (13.0-17.5) gm/dL Hct (39.0-53.0) % MCHC (31.0-37.0) g/dL RDW (11.5-15.5) % Lymphocytes # (1.0-4.8) k/uL Sodium (137-145) mmol/L BUN 29 H (9-20) mg/dL Creatinine (0.66-1.25) mg/dL Microbiology - Last 24 Hours (Table) 03/20/17 15:00 Blood Culture - Preliminary Blood No Growth after 24 hours Assessment and Plan Plan: Assessment: #1. Acute on chronic systolic CHF with EF less than 20% #2. Ischemic cardiomyopathy #3. History of myocardial infarction 2, in 1978 and in July 2016 #4. Bilateral pleural effusion of systolic congestive heart failure unless otherwise proven #5. COPD #6. Nicotine dependence, in remission #7. Paroxysmal atrial fibrillation on Eliquis #8. Coronary artery disease, stent placement 2 to RCA in July 2016 #9. Carotid artery disease, status post left carotid endarterectomy in 1998 #10. 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 History of skin cancer with resection Plan: We will continue with IV Lasix, patient responded well to diuretics. His dyspnea has significantly improved. This was decreased to Lasix 40 mg once daily per cardiology. Continue treating bilateral pleural effusions medically as the patient is on Eliquis for paroxysmal A. fib and Plavix for coronary artery disease. Seems to responding well to diuretics. I performed a history & physical examination of the patient and discussed their management with my nurse practitioner, Chrissy Brown. I reviewed the nurse practitioner's note and agree with the documented findings and plan of care. Patient's lung sounds are diminished at the bases with dullness to percussion greater on the right. Remains on room air, does not appear to be in any significant amount of distress. Continue medical treatments with IV diuretics for the pleural effusions of congestive heart failure. I attest the documentation by the nurse practitioner
[2017-03-22] MEDS ORDERED: LEVOFLOXACIN 750MG-D5W PMX 750 MG in DEXTROSE/WATER 1 150ML.BAG IVPB SCH (16:00)
[2017-03-22 16:49] VITALS: BP 105/68; PULSE 91; RESP 18; TEMP 98.8
--- NOTE | 2017-03-23 01:44 | P.DS ---
Providers Date of admission: 03/20/17 16:13 Expected date of discharge: 03/22/17 Attending physician: Emily Werner Consults: 03/20/17 16:13 Consult Physician Routine Consulting Provider: Fatoumata Betancourt Consult Reason/Comments: known Do you want consulting provider notified?: Yes Consult Physician Routine Consulting Provider: Jose Juan Brock Consult Reason/Comments: chf Do you want consulting provider notified?: Yes [facility] Course: Discharge diagnosis #1 acute on chronic CHF with systolic dysfunction. Ejection fraction 20%. Improved with IV Lasix #2 ischemic cardiomyopathy ejection fraction 30%. Reduced to 20% this admission #3 COPD with mild exacerbation #4 history of smoking quit in July 2016 #5 history of MIx2 1978 and another in July 2016 #6 paroxysmal atrial fibrillation. On anticoagulation #7coronary artery disease status post stent placement recently. #8 mild protein calorie malnutrition #9 acute kidney injury likely due to diuresis Hospital course This is a 81-year-old maleith a known history of [place] 2 initially in 1978 and recently in July 2016,cardiomyopathywith ejection fraction 30% atrial fibrillation on anticoagulation with eliquis presentedto the ER for evaluation of severe shortness of breath worsening for the past 2 days. Significant fatigue and difficulty breathing with exertion. patient does have history ofCOPDand chronic smoking quit in July 2016. Patient has not smoked since prior heart attack. Patient's last ER and hospital visit was back in July when he had a heart attack. Pt has orthopnea. Inability to laid out flat and breathe without difficulty. Patient denies fever, does have increased cough and congestion. whitish sputum production. patient is not on home oxygen. patient was givenLasix and breathing treatments while in the ERand also antibioticsin the form levofloxacin. eKG showedsinus rhythm PVCs Chest x-ray showeddiffuse interstitial densities with moderate right and small left pleural effusion.correlate for moderateCHF bNP 7580 Troponin 2negative TTE showed severely impaired left ventricular systolic function with ejection fraction of less than 20%. 03/21/2017 Patient says that his breathing is better. No complaints of chest pain. No other acute overnight issues. All other review of systems negative except the above Current medications reviewed. 03/22/2017 Patient did improve clinically. Denied any shortness of breath with ambulation. Patient wants to be discharged home today. Otherwise no acute overnight issues. Pulmonary recommends continue diuresis per pleural effusion. Lasix dose will be increased to 40 mg twice a day at home for next 4-5 days and recommended to follow with his primary care physician. Discharge physical examination was done. Patient Condition at Discharge: Stable Plan - Discharge Summary Discharge Rx Participant: No New Discharge Prescriptions: New Levofloxacin [Levaquin] 500 mg PO DAILY #5 tab Continue Apixaban [Eliquis] 2.5 mg PO BID #60 tablet Aspirin 81 mg PO DAILY #30 chew Atorvastatin [Lipitor] 80 mg PO HS #30 tab Nitroglycerin Sl Tabs [Nitrostat] 0.4 mg SUBLINGUAL Q5M PRN #25 tab PRN Reason: Chest Pain Pantoprazole [Protonix] 40 mg PO AC-BRKFST #30 tablet. Spironolactone [Aldactone] 25 mg PO DAILY #30 tab Ipratropium-Albuterol Nebulize [Duoneb 0.5 mg-3 mg/3 ml Soln] 3 ml INHALATION RT-TID #90 ampul.neb Metoprolol Tartrate [Lopressor] 12.5 mg PO BID Clopidogrel [Plavix] 75 mg PO DAILY Ferrous Sulfate [Slow Fe] 142 mg PO BID Calcium Carbonate/Vitamin D3 [Calcium 600-Vit D3 400 Caplet] 1 tab PO DAILY Changed Furosemide [Lasix] 40 mg PO BID #60 tab Discharge Medication List Apixaban [Eliquis] 2.5 mg PO BID #60 tablet 08/01/16 [Rx] Aspirin 81 mg PO DAILY #30 chew 08/01/16 [Rx] Atorvastatin [Lipitor] 80 mg PO HS #30 tab 08/01/16 [Rx] Ipratropium-Albuterol Nebulize [Duoneb 0.5 mg-3 mg/3 ml Soln] 3 ml INHALATION RT -TID #90 ampul.neb 08/01/16 [Rx] Nitroglycerin Sl Tabs [Nitrostat] 0.4 mg SUBLINGUAL Q5M PRN #25 tab 08/01/16 [Rx ] Pantoprazole [Protonix] 40 mg PO AC-BRKFST #30 tablet. 08/01/16 [Rx] Spironolactone [Aldactone] 25 mg PO DAILY #30 tab 08/01/16 [Rx] Calcium Carbonate/Vitamin D3 [Calcium 600-Vit D3 400 Caplet] 1 tab PO DAILY [History] Clopidogrel [Plavix] 75 mg PO DAILY 03/20/17 [History] Ferrous Sulfate [Slow Fe] 142 mg PO BID 03/20/17 [History] Metoprolol Tartrate [Lopressor] 12.5 mg PO BID 03/20/17 [History] Furosemide [Lasix] 40 mg PO BID #60 tab 03/22/17 [Rx] Levofloxacin [Levaquin] 500 mg PO DAILY #5 tab 03/22/17 [Rx] Follow up Appointment(s)/Referral(s): Gian Monzon DO [Primary Care Provider] - 1-2 days Patient Instructions/Handouts: Heart Failure (ED), Pulmonary Edema (DC), COPD ( Chronic Obstructive Pulmonary Disease) (DC), Pneumonia (DC), Energy Conservation Techniques (DC) Discharge Disposition: HOME SELF-CARE
== END 2017-03-22 17:07 | disposition home or self-care (01) | DRG 292 ==
LOC: SUPCPDRO 14:32 → EC 14:32 → 5MS5E 16:13
PROVIDERS: ADMIT Hospitalist; ATTEND Hospitalist
DX: I50.23 Acute on chronic systolic (congestive) heart failure (principal); E44.1 Mild protein-calorie malnutrition; N17.9 Acute kidney failure, unspecified; J44.1 Chronic obstructive pulmonary disease with (acute) exacerbation; J98.11 Atelectasis; I48.0 Paroxysmal atrial fibrillation; F17.201 Nicotine dependence, unspecified, in remission; I25.10 Atherosclerotic heart disease of native coronary artery without angina pectoris; I25.2 Old myocardial infarction; I25.5 Ischemic cardiomyopathy; I49.3 Ventricular premature depolarization; T50.2X5A Adverse effect of carbonic-anhydrase inhibitors, benzothiadiazides and other diuretics, initial encounter; R74.8 Abnormal levels of other serum enzymes; Z68.1 Body mass index [BMI] 19.9 or less, adult; Z79.01 Long term (current) use of anticoagulants; Z79.02 Long term (current) use of antithrombotics/antiplatelets; Z79.82 Long term (current) use of aspirin; Z79.899 Other long term (current) drug therapy; Z95.5 Presence of coronary angioplasty implant and graft; Z85.828 Personal history of other malignant neoplasm of skin
CPT/HCPCS: 36415; 71020; 76604; 80048; 80053; 82550; 82553; 83735; 83880; 84484; 85025; 85610; 85730; 87040; 93005; 93306; 94640; 96365; 96375; 99285

== ENCOUNTER → 2017-05-21 | Outpatient (CLI) | payer OTHER ==
--- NOTE | 2017-05-28 10:47 | P.ARTDOP ---
Arterial Doppler LOWER EXTREMITY ARTERIAL DOPPLER: DATE OF SERVICE: 05/21/2017 Reason for study: No new lower extremity occlusive disease. Doppler waveforms: Multiphasic to the popliteal on the right and throughout on the left.. Pulse volume recording: []. Pressure gradients: Above the thigh level bilaterally. Ankle-brachial indices: 0.51 on the right and 0.78 on the left.. Toe pressures: 32 on the right, 22 on the left Impression: Significant calcific wall disease bilaterally in a diffuse fashion. At least moderate right iliofemoral occlusive disease. Mild to moderate left iliofemoral disease. Clinical correlation recommended..
== END ==
LOC: RADUSWWP 10:18
PROVIDERS: ATTEND Podiatrist Foot & Ankle Surgery
DX: I65.23 Occlusion and stenosis of bilateral carotid arteries (principal)
CPT/HCPCS: 93923

== ENCOUNTER 2018-09-20 15:12 | Inpatient (IN) | payer MEDICARE ==
[2018-09-20] MEDS ORDERED: ALBUTEROL NEBULIZED 2.5 MG/3 ML INHALATION STA ×2 (15:38→16:46)
[2018-09-20] MEDS ORDERED: IPRATROPIUM 0.5 MG/2.5 ML NEBU INHALATION STA ×2 (15:38→16:46)
--- NOTE | 2018-09-20 15:43 | ED ---
General Adult HPI - General Chief complaint: Dizziness Stated complaint: SOB/lightheaded Time Seen by Provider: 09/20/18 15:30 Source: patient Mode of arrival: wheelchair Limitations: no limitations - History of Present Illness Initial comments: Dictation was produced using [employer] dictation software. please excuse any grammatical, word or spelling errors. Chief Complaint: 83-year-old male with multiple comorbidities presents with chief complaint of shortness of breath or dizziness. History of Present Illness: Patient is a 83-year-old male who has past medical history coronary artery disease, cancer, heart failure, COPD, CVA presents chief complaint of dizziness and shortness of breath. Patient states he woke up fe eling well. It wasn't until around after breakfast he began having acute onset shortness of breath and dizziness. Patient was recently admitted and discharge this hospital for multifocal pneumonia. Patient has known history of pleural fluid. Chart review shows that patient was discharged approximately 2 days ago for bibasilar pneumonia. Patient has multiple cardiac comorbidities. Denies any pain complaints at this time. Patient feels well at rest. He states that her shortness of breath with exertion. Of note, patient's past medical history of COPD and CHF. Patient is on multiple medications and beta pawan, Lasix, antihypertensives. The ROS documented in this emergency department record has been reviewed and confirmed by me. Those systems with pertinent positive or negative responses have been documented in the HPI. All other systems are other negative and/or noncontributory. PHYSICAL EXAM: General Impression: Alert and oriented x3, distress secondary to dyspnea HEENT: Normocephalic atraumatic, extra-ocular movements intact, pupils equal and reactive to light bilaterally, mucous membranes moist. Cardiovascular: Heart regular rate and rhythm, S1&S2 audible, no murmurs, rubs or gallops Chest: Diminished lung sounds to the right lung mark Abdomen: Bowel sounds present, abdomen soft, non-tender, non-distended, no organomegaly Musculoskeletal: Pulses present and equal in all extremities, no peripheral edema Motor: no focal deficits noted Neurological: CN II-XII grossly intact, no focal motor or sensory deficits noted Skin: Intact with no visualized rashes Psych: Normal affect and mood ED course: 83-year-old male presents with chief complaint of shortness of breath and dizziness. Vital signs upon arrival shows blood pressure 61/39. Patient has normally low blood pressure however is blood pressure is normally a systolic in the 90s. Patient otherwise feels well. He is showing some signs of respiratory distress. Patient given a total of 1250 mL of intravenous fluids with improvement of blood pressure. Discussed patient case with Dr. Jones cardiology recommends administration of intravenous fluids. He also recommends that patient be given IV pressors if his blood pressure does not improve. Serial blood pressures were performed with improvement after intravenous fluids. She continues to be well. He is showing some signs of respiratory distress likely secondary to COPD versus CHF. Patient reports improvement with breathing treatment. Laboratory evaluation obtained. CBC unremarkable. Hemoglobin stable at 10.4 which is at around his baseline. Coag panel unremarkable. Blood gases are unremarkable. Patient does have mild acidosis. Lactic acid level II.2. Prematurity peptide is 4000. Troponin is negative. Patient given intravenous fluids with improvement. Patient clinically appears well. He does report improvement with breathing treatments. Patient treated for COPD exacerbation. At this point given patient's traumatic improvement after intravenous fluids and breathing treatment patient stable for cardiac telemetry floor. Multiple attempts were made to contact Dr. Lottie Werner's group for admission however he did not call back. We will proceed to having patient admitted to cardiac telemetry floor. EKG interpretation: Ventricular rate 73, normal sinus rhythm, TN interval 164, QRS 108, QTc 451. No TN prolongation, no QTC prolongation, no ST or T-wave changes noted. EKG compared to 08/26/2018 showing no changes. Overall, this EKG is unremarkable - Related Data Home Medications Medication Instructions Recorded Confirmed Budesonide/Formoterol Fumarate 2 puff INHALATION RT-BID 08/26/18 09/20/18 [Symbicort 80-4.5 Mcg Inhaler] Furosemide [Lasix] 20 mg PO BID 08/26/18 09/20/18 Albuterol Nebulized [Ventolin 2.5 mg INHALATION RT-TID 09/20/18 09/20/18 Nebulized] Aspirin EC [Ecotrin Low Dose] 81 mg PO DAILY 09/20/18 09/20/18 Calcium Carbonate [Calcium] 1,200 mg PO DAILY 09/20/18 09/20/18 Ensure 1 can PO BID 09/20/18 09/20/18 Ferrous Sulfate [Iron (65 MG 325 mg PO BID 09/20/18 09/20/18 Elemental)] Sacubitril/Valsartan [Entresto 24 1 tab PO BID 09/20/18 09/20/18 mg-26 mg Tablet] Sennosides-Docusate Sodium 1 tab PO BID 09/20/18 09/20/18 [Senokot-S] Spironolactone [Aldactone] 25 mg PO BID 09/20/18 09/20/18 Previous Rx's Medication Instructions Recorded Apixaban [Eliquis] 2.5 mg PO BID #60 tablet 08/01/16 Atorvastatin [Lipitor] 80 mg PO HS #30 tab 08/01/16 Nitroglycerin Sl Tabs [Nitrostat] 0.4 mg SUBLINGUAL Q5M PRN #25 tab 08/01/16 Pantoprazole [Protonix] 40 mg PO AC-BRKFST #30 tablet. 08/01/16 Fluconazole [Diflucan] 100 mg PO DAILY #5 tab 08/31/18 Allergies Allergy/AdvReac Type Severity Reaction Status Date / Time No Known Allergies Allergy Verified 09/20/18 16:21 Review of Systems ROS Statement: Those systems with pertinent positive or pertinent negative responses have been documented in the HPI. ROS Other: All systems not noted in ROS Statement are negative. Past Medical History Past Medical History: Coronary Artery Disease (CAD), Cancer, Heart Failure, COPD, CVA/TIA, Myocardial Infarction ([place]) Additional Past Medical History / Comment(s): pt is rt hand dominant. Patient reports remote history of myocardial infarction back in 1978 and since then he had not seen or followed up with cardiology. then 07-22-16.had 2nd mi -heart cath w/stent, "slight stroke 1998 no residual", skin cancer resected. Last Myocardial Infarction Date:: 07/22/2016 History of Any Multi-Drug Resistant Organisms: None Reported Past Surgical History: Heart Catheterization With Stent Additional Past Surgical History / Comment(s): 1998 left carotid , 07-22-16 heart cath w/ stent rca Past Anesthesia/Blood Transfusion Reactions: No Reported Reaction Date of Last Stent Placement:: 07-22-16 Past Psychological History: No Psychological Hx Reported Smoking Status: Former smoker Past Alcohol Use History: None Reported Past Drug Use History: None Reported - Past Family History Mother Family Medical History: Cancer Additional Family Medical History / Comment(s): from Lung CA, was a smoker Father Additional Family Medical History / Comment(s): from alcoholism General Exam Limitations: no limitations Course Vital Signs 09/20/18 09/20/18 09/20/18 15:25 15:36 15:40 Pulse Rate 77 68 Respiratory 18 30 H Rate Blood Pressure 61/39 79/52 79/52 O2 Sat by Pulse 99 98 Oximetry 09/20/18 09/20/18 09/20/18 15:45 15:50 16:00 Pulse Rate 72 85 84 Respiratory 22 22 Rate Blood Pressure 88/55 68/56 O2 Sat by Pulse 51 L 81 L Oximetry 09/20/18 09/20/18 09/20/18 16:02 16:10 16:15 Pulse Rate 75 87 67 Respiratory 20 Rate Blood Pressure 66/48 O2 Sat by Pulse 95 Oximetry 09/20/18 09/20/18 09/20/18 16:20 16:30 16:40 Pulse Rate 81 82 77 Respiratory 24 28 H 26 H Rate Blood Pressure 93/50 79/69 83/51 O2 Sat by Pulse 98 93 L 94 L Oximetry 09/20/18 09/20/18 09/20/18 16:50 17:00 17:08 Pulse Rate 67 84 79 Respiratory 31 H 19 26 H Rate Blood Pressure 82/49 91/54 101/50 O2 Sat by Pulse 95 95 96 Oximetry 09/20/18 09/20/18 09/20/18 17:10 17:20 17:30 Pulse Rate 80 74 75 Respiratory 28 H 30 H 18 Rate Blood Pressure 101/50 92/55 92/53 O2 Sat by Pulse 94 L 98 96 Oximetry Medical Decision Making - Lab Data Result diagrams: 09/20/18 15:40 09/20/18 15:40 Lab Results 09/20/18 09/20/18 09/20/18 Range/Units 15:40 15:40 15:40 WBC 7.2 (3.8-10.6) k/uL RBC 3.55 L (4.30-5.90) m/uL Hgb 10.4 L (13.0-17.5) gm/dL Hct 31.9 L (39.0-53.0) % MCV 89.6 (80.0-100.0) fL MCH 29.1 (25.0-35.0) pg MCHC 32.5 (31.0-37.0) g/dL RDW 15.3 (11.5-15.5) % Plt Count 395 (150-450) k/uL Neutrophils % 79 % Lymphocytes % 8 % Monocytes % 8 % Eosinophils % 2 % Basophils % 1 % Neutrophils # 5.7 (1.3-7.7) k/uL Lymphocytes # 0.6 L (1.0-4.8) k/uL Monocytes # 0.6 (0-1.0) k/uL Eosinophils # 0.1 (0-0.7) k/uL Basophils # 0.1 (0-0.2) k/uL PT (9.0-12.0) sec INR (<1.2) VBG pH (7.31-7.41) VBG pCO2 (37-51) mmHg VBG HCO3 (24-28) mmol/L Sodium 136 L (137-145) mmol/L Potassium 5.1 (3.5-5.1) mmol/L Chloride 102 (98-107) mmol/L Carbon Dioxide 20 L (22-30) mmol/L Anion Gap 14 mmol/L BUN 34 H (9-20) mg/dL Creatinine 1.61 H (0.66-1.25) mg/dL Est GFR (CKD-EPI)AfAm 45 (>60 ml/min/1.73 sqM) Est GFR (CKD-EPI)NonAf 39 (>60 ml/min/1.73 sqM) Glucose 147 H (74-99) mg/dL Plasma Lactic Acid David 2.2 H* (0.7-2.0) mmol/L Calcium 9.5 (8.4-10.2) mg/dL Magnesium 2.2 (1.6-2.3) mg/dL Total Bilirubin 0.7 (0.2-1.3) mg/dL AST 25 (17-59) U/L ALT 30 (21-72) U/L Alkaline Phosphatase 126 (38-126) U/L Troponin I (0.000-0.034) ng/mL NT-Pro-B Natriuret Pep pg/mL Total Protein 8.0 (6.3-8.2) g/dL Albumin 4.0 (3.5-5.0) g/dL 09/20/18 09/20/18 09/20/18 Range/Units 15:40 15:40 15:40 WBC (3.8-10.6) k/uL RBC (4.30-5.90) m/uL Hgb (13.0-17.5) gm/dL Hct (39.0-53.0) % MCV (80.0-100.0) fL MCH (25.0-35.0) pg MCHC (31.0-37.0) g/dL RDW (11.5-15.5) % Plt Count (150-450) k/uL Neutrophils % % Lymphocytes % % Monocytes % % Eosinophils % % Basophils % % Neutrophils # (1.3-7.7) k/uL Lymphocytes # (1.0-4.8) k/uL Monocytes # (0-1.0) k/uL Eosinophils # (0-0.7) k/uL Basophils # (0-0.2) k/uL PT 11.1 (9.0-12.0) sec INR 1.0 (<1.2) VBG pH (7.31-7.41) VBG pCO2 (37-51) mmHg VBG HCO3 (24-28) mmol/L Sodium (137-145) mmol/L Potassium (3.5-5.1) mmol/L Chloride (98-107) mmol/L Carbon Dioxide (22-30) mmol/L Anion Gap mmol/L BUN (9-20) mg/dL Creatinine (0.66-1.25) mg/dL Est GFR (CKD-EPI)AfAm (>60 ml/min/1.73 sqM) Est GFR (CKD-EPI)NonAf (>60 ml/min/1.73 sqM) Glucose (74-99) mg/dL Plasma Lactic Acid David (0.7-2.0) mmol/L Calcium (8.4-10.2) mg/dL Magnesium (1.6-2.3) mg/dL Total Bilirubin (0.2-1.3) mg/dL AST (17-59) U/L ALT (21-72) U/L Alkaline Phosphatase (38-126) U/L Troponin I <0.012 (0.000-0.034) ng/mL NT-Pro-B Natriuret Pep 4010 pg/mL Total Protein (6.3-8.2) g/dL Albumin (3.5-5.0) g/dL 09/20/18 Range/Units 15:40 WBC (3.8-10.6) k/uL RBC (4.30-5.90) m/uL Hgb (13.0-17.5) gm/dL Hct (39.0-53.0) % MCV (80.0-100.0) fL MCH (25.0-35.0) pg MCHC (31.0-37.0) g/dL RDW (11.5-15.5) % Plt Count (150-450) k/uL Neutrophils % % Lymphocytes % % Monocytes % % Eosinophils % % Basophils % % Neutrophils # (1.3-7.7) k/uL Lymphocytes # (1.0-4.8) k/uL Monocytes # (0-1.0) k/uL Eosinophils # (0-0.7) k/uL Basophils # (0-0.2) k/uL PT (9.0-12.0) sec INR (<1.2) VBG pH 7.33 (7.31-7.41) VBG pCO2 42 (37-51) mmHg VBG HCO3 21 L (24-28) mmol/L Sodium (137-145) mmol/L Potassium (3.5-5.1) mmol/L Chloride (98-107) mmol/L Carbon Dioxide (22-30) mmol/L Anion Gap mmol/L BUN (9-20) mg/dL Creatinine (0.66-1.25) mg/dL Est GFR (CKD-EPI)AfAm (>60 ml/min/1.73 sqM) Est GFR (CKD-EPI)NonAf (>60 ml/min/1.73 sqM) Glucose (74-99) mg/dL Plasma Lactic Acid David (0.7-2.0) mmol/L Calcium (8.4-10.2) mg/dL Magnesium (1.6-2.3) mg/dL Total Bilirubin (0.2-1.3) mg/dL AST (17-59) U/L ALT (21-72) U/L Alkaline Phosphatase (38-126) U/L Troponin I (0.000-0.034) ng/mL NT-Pro-B Natriuret Pep pg/mL Total Protein (6.3-8.2) g/dL Albumin (3.5-5.0) g/dL Disposition Clinical Impression: Hypotension, COPD exacerbation, Dehydration Disposition: ADMITTED IP TO THIS HOSP Condition: Fair Referrals: [facility],Clinic [Primary Care Provider] - 1-2 days Decision Time: 17:44
[2018-09-20 15:55] LABS: Basophils # (A) 0.1 k/uL (0-0.2); Basophils % (A) 1 %; Eosinophils # (A) 0.1 k/uL (0-0.7); Eosinophils % (A) 2 %; HCT 31.9 % (39.0-53.0); HGB 10.4 gm/dL (13.0-17.5); Lymphocytes # (A) 0.6 k/uL (1.0-4.8); Lymphocytes % (A) 8 %; MCH 29.1 pg (25.0-35.0); MCHC 32.5 g/dL (31.0-37.0); MCV 89.6 fL (80.0-100.0); Mean Platelet Volume 7.1; Monocytes # (A) 0.6 k/uL (0-1.0); Monocytes % (A) 8 %; Neutrophils # (A) 5.7 k/uL (1.3-7.7); Neutrophils % (A) 79 %; Platelet Count 395 k/uL (150-450); RBC 3.55 m/uL (4.30-5.90); RDW 15.3 % (11.5-15.5); VBG PH 7.33 (7.31-7.41); WBC 7.2 k/uL (3.8-10.6)
--- NOTE | 2018-09-20 16:04 | XR ---
EXAMINATION TYPE: XR chest 1V portable DATE OF EXAM: 09/20/2018 COMPARISON: 08/30/2018 HISTORY: Short of breath TECHNIQUE: Single frontal view of the chest is obtained. FINDINGS: There is blunting of costophrenic angles. There is very vascular congestion. Heart is prob ably enlarged. There are chest leads. IMPRESSION: Congestive heart failure with pleural effusions. Pulmonary congestion is improved slight ly compared to last exam.
[2018-09-20 16:05] LABS: Prothrombin Time 11.1 sec (9.0-12.0)
[2018-09-20 16:06] LABS: Calcium 9.5 mg/dL (8.4-10.2); Magnesium 2.2 mg/dL (1.6-2.3); Potassium 5.1 mmol/L (3.5-5.1); Total Bilirubin 0.7 mg/dL (0.2-1.3)
[2018-09-20] MEDS ORDERED: ACETAMINOPHEN TAB 325 MG TAB PO PRN (17:40)
[2018-09-20] MEDS ORDERED: NALOXONE 0.4 MG/ML 1 ML VIAL IV PRN (17:40)
[2018-09-20] MEDS ORDERED: ONDANSETRON 4 MG/2 ML VIAL IVP PRN (17:40)
[2018-09-20] MEDS ORDERED: DEXAMETHASONE SOD PHOSPHATE 10 MG/ML 1 ML VIAL IV STA (17:42)
[2018-09-20] MEDS: SODIUM CHLORIDE 0.9% 1,000 ML IV SCH (18:11)
[2018-09-20] MEDS: ALBUTEROL NEBULIZED 2.5 MG/3 ML INHALATION SCH (20:08)
[2018-09-20] MEDS: SYMBICORT 80-4.5 MCG INHALER INHALATION SCH (20:08)
[2018-09-20] MEDS ORDERED: NON-FORMULARY DRUG (Ensure 1 CAN) PO SCH (21:00)
[2018-09-20] MEDS: APIXABAN 2.5 MG TABLET PO SCH (21:24)
[2018-09-20] MEDS: ATORVASTATIN 80 MG TAB PO SCH (21:24)
[2018-09-21] MEDS: SODIUM CHLORIDE 0.9% 1,000 ML IV SCH (06:25)
[2018-09-21] MEDS ORDERED: PANTOPRAZOLE 40 MG TABLET PO SCH (07:30)
[2018-09-21] MEDS: SYMBICORT 80-4.5 MCG INHALER INHALATION SCH ×2 (07:39→20:41)
[2018-09-21] MEDS: ALBUTEROL NEBULIZED 2.5 MG/3 ML INHALATION SCH ×2 (07:39→12:37)
--- NOTE | 2018-09-21 08:39 | P.HPIM ---
History of Present Illness This is a pleasant 83 years old male with past medical history of coronary artery disease,systolic heart failure severe ischemic cardiomyopathy with ejection fraction less than 20%, status post stenting, atrial fibrillation on Eliquis, COPD, CVA/TIA, hyperlipidemia. He was recently discharged from the hospital for bilateral pleural effusion with acute systolic CHF. He follow[facility]up in the [facility]. He presents because of lightheadedness and vomiting once with no blood in it. Patient denies syncope. He feels better now while he was lying down. Denies chest pain. However patient says that he has exertional dyspnea. Patient Is seen in select units, his blood pressure 92/55 heart rate 58. Afebrile. Saturating 100% on 4 L via nasal cannula. Hemoglobin 10.4. Lactic acid is mildly elevated at 2.3. Acute kidney injury with creatinine 1.6. Liver enzymes within normal limits. Chest x-ray showing congestive heart failure with pleural effusion. EKG showing normal sinus rhythm at 73. Patient was a started with normal saline at 80 mL per hour in the emergency room, which we are holding. Review of Systems CONSTITUTIONAL: No fever, no malaise, no fatigue. HEENT: No recent visual problems or hearing problems. Denied any sore throat. CARDIOVASCULAR: No orthopnea, PND, no palpitations, no syncope. PULMONARY: No shortness of breath, no cough, no hemoptysis. GASTROINTESTINAL: No diarrhea, no nausea, no vomiting, no abdominal pain. Normoactive bowel sounds. NEUROLOGICAL: No headaches, no weakness, no numbness. HEMATOLOGICAL: Denies any bleeding or petechiae. GENITOURINARY: Denies any burning micturition, frequency, or urgency. MUSCULOSKELETAL/RHEUMATOLOGICAL: Denies any joint pain, swelling, or any muscle pain. ENDOCRINE: Denies any polyuria or polydipsia. Past Medical History Past Medical History: Coronary Artery Disease (CAD), Cancer, Heart Failure, COPD, CVA/TIA, Myocardial Infarction ([place]) Additional Past Medical History / Comment(s): pt is rt hand dominant. Patient reports remote history of myocardial infarction back in 1978 and since then he had not seen or followed up with cardiology. then 07-22-16.had 2nd mi -heart cath w/stent, "slight stroke 1998 no residual", skin cancer resected. Last Myocardial Infarction Date:: 07/22/2016 History of Any Multi-Drug Resistant Organisms: None Reported Past Surgical History: Heart Catheterization With Stent Additional Past Surgical History / Comment(s): 1998 left carotid , 07-22-16 heart cath w/ stent rca Past Anesthesia/Blood Transfusion Reactions: No Reported Reaction Date of Last Stent Placement:: 07-22-16 Past Psychological History: No Psychological Hx Reported Additional Psychological History / Comment(s): pt lives with his adopted rey friedman Smoking Status: Former smoker Past Alcohol Use History: None Reported Additional Past Alcohol Use History / Comment(s): started smoking cigaretts in 1944 -smoked 2 ppd. quit cigaretts in 1983 and started to smoke cigars(10) per day (did'nt inhale) and quit those 07-22-16. used to heavy beer drinker but quit 1983. Past Drug Use History: None Reported - Past Family History Mother Family Medical History: Cancer Additional Family Medical History / Comment(s): from Lung CA, was a smoker Father Additional Family Medical History / Comment(s): from alcoholism Medications and Allergies Home Medications Medication Instructions Recorded Confirmed Type Apixaban [Eliquis] 2.5 mg PO BID #60 tablet 08/01/16 09/20/18 Rx Atorvastatin [Lipitor] 80 mg PO HS #30 tab 08/01/16 09/20/18 Rx Nitroglycerin Sl Tabs [Nitrostat] 0.4 mg SUBLINGUAL Q5M PRN #25 tab 08/01/16 09/20/18 Rx Pantoprazole [Protonix] 40 mg PO AC-BRKFST #30 tablet. 08/01/16 09/20/18 Rx Budesonide/Formoterol Fumarate 2 puff INHALATION RT-BID 08/26/18 09/20/18 History [Symbicort 80-4.5 Mcg Inhaler] Furosemide [Lasix] 20 mg PO BID 08/26/18 09/20/18 History Fluconazole [Diflucan] 100 mg PO DAILY #5 tab 08/31/18 09/20/18 Rx Albuterol Nebulized [Ventolin 2.5 mg INHALATION RT-TID 09/20/18 09/20/18 History Nebulized] Aspirin EC [Ecotrin Low Dose] 81 mg PO DAILY 09/20/18 09/20/18 History Calcium Carbonate [Calcium] 1,200 mg PO DAILY 09/20/18 09/20/18 History Ensure 1 can PO BID 09/20/18 09/20/18 History Ferrous Sulfate [Iron (65 MG 325 mg PO BID 09/20/18 09/20/18 History Elemental)] Sacubitril/Valsartan [Entresto 24 1 tab PO BID 09/20/18 09/20/18 History mg-26 mg Tablet] Sennosides-Docusate Sodium 1 tab PO BID 09/20/18 09/20/18 History [Senokot-S] Spironolactone [Aldactone] 25 mg PO BID 09/20/18 09/20/18 History Allergies Allergy/AdvReac Type Severity Reaction Status Date / Time No Known Allergies Allergy Verified 09/20/18 16:21 Physical Exam Vitals: Vital Signs Temp Pulse Pulse Resp BP BP Pulse Ox 09/21/18 07:55 72 09/21/18 07:40 72 09/21/18 06:19 92/55 09/21/18 05:37 58 L 09/21/18 05:36 97.5 F L 58 L 18 86/49 100 09/21/18 00:34 80 09/21/18 00:31 97.2 F L 80 20 93/55 100 09/20/18 21:01 97 F L 80 22 92/56 100 09/20/18 20:15 74 09/20/18 20:11 70 09/20/18 20:00 97 F L 70 80 22 91/52 92/56 100 09/20/18 19:30 67 13 94/50 95 09/20/18 19:10 73 30 H 100/58 98 09/20/18 19:00 94 17 94/47 99 09/20/18 18:50 82 38 H 103/51 92 L 09/20/18 18:40 80 28 H 89/60 91 L 09/20/18 18:30 89 25 H 93/58 89 L 09/20/18 18:25 75 09/20/18 18:20 73 25 H 97/52 99 09/20/18 18:11 67 09/20/18 18:10 68 25 H 100/58 100 09/20/18 18:00 66 25 H 87/58 99 09/20/18 17:56 80 09/20/18 17:50 64 25 H 91/57 99 09/20/18 17:42 80 09/20/18 17:40 78 26 H 95/54 95 09/20/18 17:30 75 18 92/53 96 09/20/18 17:20 74 30 H 92/55 98 09/20/18 17:10 80 28 H 101/50 94 L 09/20/18 17:08 79 26 H 101/50 96 09/20/18 17:00 84 19 91/54 95 09/20/18 16:50 67 31 H 82/49 95 09/20/18 16:40 77 26 H 83/51 94 L 09/20/18 16:30 82 28 H 79/69 93 L 09/20/18 16:20 81 24 93/50 98 09/20/18 16:15 67 09/20/18 16:10 87 20 66/48 95 09/20/18 16:02 75 09/20/18 16:00 84 22 68/56 81 L 09/20/18 15:50 85 22 88/55 51 L 09/20/18 15:45 72 09/20/18 15:40 68 30 H 79/52 98 09/20/18 15:36 79/52 09/20/18 15:25 77 18 61/39 99 Intake and Output 09/20/18 09/21/18 09/21/18 22:59 06:59 14:59 Intake Total 150 Balance 150 Intake: Amount of Fluid Infused ( 150 ml) Other: Voiding Method Urinal Urinal # Voids 0 Weight 49.895 kg GENERAL: The patient is alert and oriented x3, not in any acute distress. Well developed, well nourished. HEENT: Pupils are round and equally reacting to light. EOMI. No scleral icterus. No conjunctival pallor. Normocephalic, atraumatic. No pharyngeal erythema. No thyromegaly. CARDIOVASCULAR: S1 and S2 present. No murmurs, rubs, or gallops. PULMONARY: Chest is clear to auscultation, no wheezing or crackles. ABDOMEN: Soft, nontender, nondistended, normoactive bowel sounds. No palpable organomegaly. MUSCULOSKELETAL: No joint swelling or deformity. EXTREMITIES: No cyanosis, clubbing, or pedal edema. NEUROLOGICAL: Gross neurological examination did not reveal any focal deficits. SKIN: No rashes. Results CBC & Chem 7: 09/20/18 15:40 09/20/18 15:40 Labs: Abnormal Lab Results - Last 24 Hours (Table) 09/20/18 09/20/18 09/20/18 Range/Units 15:40 15:40 15:40 RBC 3.55 L (4.30-5.90) m/uL Hgb 10.4 L (13.0-17.5) gm/dL Hct 31.9 L (39.0-53.0) % Lymphocytes # 0.6 L (1.0-4.8) k/uL VBG HCO3 (24-28) mmol/L Sodium 136 L (137-145) mmol/L Carbon Dioxide 20 L (22-30) mmol/L BUN 34 H (9-20) mg/dL Creatinine 1.61 H (0.66-1.25) mg/dL Glucose 147 H (74-99) mg/dL Plasma Lactic Acid David 2.2 H* (0.7-2.0) mmol/L 09/20/18 09/20/18 Range/Units 15:40 19:59 RBC (4.30-5.90) m/uL Hgb (13.0-17.5) gm/dL Hct (39.0-53.0) % Lymphocytes # (1.0-4.8) k/uL VBG HCO3 21 L (24-28) mmol/L Sodium (137-145) mmol/L Carbon Dioxide (22-30) mmol/L BUN (9-20) mg/dL Creatinine (0.66-1.25) mg/dL Glucose (74-99) mg/dL Plasma Lactic Acid David 2.3 H* (0.7-2.0) mmol/L Thrombosis Risk Factor Assmnt - Choose All That Apply Each Factor Represents 1 point: Abnormal pulmonary function (COPD) Other Risk Factors: Yes Each Risk Factor Represents 3 Points: Age 75 years or older Other congenital or acquired thrombophilia - If yes, enter type in comment: No Thrombosis Risk Factor Assessment Total Risk Factor Score: 4 Thrombosis Risk Factor Assessment Level: Moderate Risk Assessment and Plan Assessment: Lightheadedness and vomiting, could be related to low blood pressure versus cardiac causes. Acute on chronic systolic congestive heart failure Acute kidney injury High Lactic acid History of severe ischemic cardiomyopathy with ejection fraction less than 20% History of coronary artery disease status post stenting History of atrial fibrillation, on Eliquis COPD, not an active issue History of CVA/TIA Hyperlipidemia Plan: This is a pleasant 83 years old male who presents with acute CHF and renal failure. Cardiology consult. Pulmonary has been consulted also by the emergency room team. Monitor renal function and vitals. Patient was started on IV fluids, will hold that. Labs and medication were reviewed.. Continue same treatment. Continue with s ymptomatic treatment. Resume home medication. Monitor lytes and vitals. DVT and GI prophylaxis. Further recommendations of the clinical course of the patient DVT prophylaxis: Eliquis GI Prophylaxis: Ppi PT/OT: Pending Prognosis is guarded
[2018-09-21] MEDS ORDERED: PANTOPRAZOLE 40 MG/10 ML VIAL IV SCH (09:00)
[2018-09-21 09:25] LABS: Basophils % (A) 0 %; Eosinophils % (A) 0 %; HCT 27.1 % (39.0-53.0); Hypochromasia Slight; Lymphocytes # (A) 0.3 k/uL (1.0-4.8); Lymphocytes % (A) 4 %; MCH 29.7 pg (25.0-35.0); MCHC 32.1 g/dL (31.0-37.0); MCV 92.4 fL (80.0-100.0); Mean Platelet Volume 7.5; Monocytes # (A) 0.2 k/uL (0-1.0); Monocytes % (A) 3 %; Neutrophils # (A) 6.9 k/uL (1.3-7.7); Neutrophils % (A) 92 %; Platelet Count 303 k/uL (150-450); RBC 2.94 m/uL (4.30-5.90); RDW 14.9 % (11.5-15.5); WBC 7.4 k/uL (3.8-10.6)
[2018-09-21] MEDS: CALCIUM CARBONATE 500 MG CHEWABLE PO SCH (09:31)
[2018-09-21] MEDS: APIXABAN 2.5 MG TABLET PO SCH ×2 (09:31→20:55)
[2018-09-21] MEDS: ASPIRIN 81 MG PO SCH (09:31)
[2018-09-21 09:32] LABS: HGB 8.7 gm/dL (13.0-17.5)
[2018-09-21 09:53] LABS: Calcium 8.8 mg/dL (8.4-10.2); Potassium 4.7 mmol/L (3.5-5.1)
[2018-09-21 11:29] VITALS: BMI 16.2
--- NOTE | 2018-09-21 11:36 | XR ---
EXAMINATION TYPE: XR chest 1V DATE OF EXAM: 09/21/2018 HISTORY: Shortness of breath. COMPARISON: 09/20/2018 TECHNIQUE: Single view of the chest is submitted. FINDINGS: Demonstrated are scattered senescent parenchymal change. Patchy basilar infiltrates and/or atelectasis with small effusions remain stable. The heart is stable. Hilar and mediastinal structures are within normal limits. Degenerative changes are seen of the dorsal spine. IMPRESSION: 1. Patchy basilar infiltrates and/or atelectasis with small effusions remain stable.
--- NOTE | 2018-09-21 12:37 | CONS ---
CONSULTATION CHIEF COMPLAINT: Dizziness. Emigdio is an 83-year-old gentleman with history of coronary artery disease, ischemic cardiomyopathy with severe LV dysfunction, atrial fibrillation, hyperlipidemia, chronic systolic heart failure, who presents to the hospital complaining of lightheadedness and vomiting. The patient did not have any syncope. Did not have chest pain. Does not have shortness of breath, leg edema, paroxysmal nocturnal dyspnea or orthopnea. On his initial presentation, the blood pressure was somewhat low and he is admitted to hospital with the same. At the time of my evaluation, he appears comfortable at rest and states that some of his symptoms have improved. The patient received IV fluids in the emergency room. The patient is chronically running a low blood pressure. This morning he is 92/55. The patient is on multiple medications that would lower her blood pressure including Aldactone, Entresto, Lasix. We will hold these medications and once the blood pressure improves we will introduce one at a time. We are going to start with Lasix first then if he tolerates it move to Entresto and Aldactone will be the last one to reintroduce. PAST MEDICAL HISTORY: Past medical history is significant for coronary artery disease, ischemic cardiomyopathy, chronic systolic heart failure, chronic atrial fibrillation. His ejection fraction is around 20%. MEDICATIONS: Medications at home include Aldactone 25 b.i.d., Entresto, Protonix, Lasix, Ensure, Lipitor, aspirin, Eliquis and albuterol. ALLERGIES: There are no known drug allergies. FAMILY HISTORY: Family history is negative for premature coronary artery disease. SOCIAL HISTORY: Social history is negative for current smoking, EtOH abuse or drug abuse. REVIEW OF SYSTEMS: HEENT is unremarkable. CARDIAC: As described above. RESPIRATORY: As described above. GI: Negative. GENITOURINARY: Negative. ALLERGY/IMMUNOLOGY: Negative. MUSCULOSKELETAL: Negative. PSYCHOSOCIAL: Negative. ENDOCRINE: Negative. DERM: Negative. CONSTITUTIONAL: Negative. ONCOLOGICAL: Negative. Rest of the system review is not relevant. PHYSICAL EXAMINATION: On exam, patient is comfortable at rest. Blood pressure is 92/55. Respiratory rate is 18. Chest exam reveals diminished air entry at the bases. Heart exam reveals first and second heart sounds. Systolic murmur at . ABDOMEN: Soft. Examination of extremities did not reveal any edema. LABS: Labs have been reviewed. Hemoglobin is 8.7, potassium is 4.7, creatinine is 1.2. ASSESSMENT: 1. Dizziness secondary to hypertension. 2. Chronic systolic heart failure. 3. Ischemic cardiomyopathy with severe left ventricular dysfunction. 4. Chronic atrial fibrillation. PLAN: As described in my history of presenting illness. MMODL / IJN: [id number] /
[2018-09-21] MEDS ORDERED: IPRATROPIUM-ALBUTEROL 3 ML NEB INHALATION PRN (15:03)
[2018-09-21 16:42] LABS: Appearance,Urine Clear (Clear); Bilirubin,Urine Negative (Negative); Blood,Urine Negative (Negative); Color,Urine Light Yellow; Glucose,Urine (UA) Negative (Negative); Ketones,Urine Negative (Negative); Leukocyte Esterase,Urine Negative (Negative); Nitrite,Urine Negative (Negative); Protein,Urine Negative (Negative); Specific Gravity,Urine 1.007 (1.001-1.035); Urobilinogen,Urine <2.0 mg/dL (<2.0)
--- NOTE | 2018-09-21 18:34 | CONS ---
CONSULTATION This is an 83-year-old male who apparently sees either a nurse practitioner or one of the PAs over at the [facility]. He apparently presented to the emergency room complaining primarily of being lightheaded with nausea and vomiting. He denies any chest pain or chest discomfort. Denies any shortness of breath or difficulty breathing. Denies coughing or producing any phlegm. He does have a past medical history positive for coronary artery disease, heart failure, CVA, and some other medical problems. He states that he is feeling wonderful now. He apparently was recently in the hospital for an episode of pneumonia. He was discharged after that admission. He had been doing well up until this admission as well. Currently he denies any nausea or vomiting. Denies any lightheadedness. The patient apparently was admitted with a diagnosis of hypotension, COPD exacerbation and dehydration. Interestingly though, the patient is very specific about the fact that he was not having any respiratory issues whatsoever. He also denies any chest pain or chest discomfort. No fever or chills. His home medications apparently included: 1. Symbicort. 2. Lasix. 3. Ventolin. 4. Aspirin. 5. Calcium. 6. Ensure. 7. Ferrous sulfate. 8. Entresto. 9. Senokot. 10.Aldactone. 11.Eliquis. 12.Lipitor. 13.Nitrostat. 14.Protonix. 15.Diflucan. ALLERGIES: DENIED. MEDICAL PROBLEM LIST: His medical problem list included: 1. Coronary artery disease. 2. Heart failure. 3. COPD. 4. CVA. 5. Myocardial infarction. 6. Skin cancer. SURGICAL HISTORY: Surgical history includes: 1. Heart catheterization with stent. 2. Left carotid surgery. 3. Other surgeries are remote and relatively minor. SOCIAL HISTORY: Positive for previous tobacco use. He has not smoked in many years. Denies any alcohol use or illicit drug use. FAMILY HISTORY: Positive for lung cancer and alcohol abuse. REVIEW OF SYSTEMS: CONSTITUTIONAL: Negative. NEUROLOGIC: Lightheadedness. HEENT: Negative. CARDIOVASCULAR: Negative. PULMONARY: Negative. GI: Nausea and vomiting. : Negative. RHEUMATOLOGIC: Negative. IMMUNOLOGIC: Negative. ENDOCRINOLOGIC: Negative. DERMATOLOGIC: Negative. PHYSICAL EXAMINATION: Vital signs are reviewed. Temperature 97.5, heart rate 68, respiratory rate 18, blood pressure 92/55, and 4-liter saturation is 100%. He appears in no acute distress and looks back to baseline. He feels back to baseline. He would like to be discharged home. HEENT examination is grossly unremarkable. Mucous membranes are a bit dry. No oral lesions. NECK: Supple. Full range of motion. No adenopathy. Neck veins are flat. Cardiovascular examination reveals regular rhythm and rate. S1, S2 normal. No S3, S4 or murmur. Lungs reveal relatively clear breath sounds. No wheezes, rhonchi or crackles. Breath sounds equal bilaterally. ABDOMEN: Soft. Bowel sounds are heard. No masses or tenderness. Extremities are intact. No cyanosis, clubbing or edema. Skin without rash. Neurologic examination is brief but appears to be nonfocal. IMAGING/LABS: Patient had a chest x-ray on 09/20 which shows some changes of congestive heart failure. A repeat x-ray shows some patchy basilar infiltrates and small effusions. Labs are reviewed. White count 7.4, hemoglobin 8.7, hematocrit 27.1, platelet count normal. PT/INR normal. Sodium 136, potassium 4.7, chloride 105, CO2 20. Anion gap was 14. BUN and creatinine were 35 and 1.23. Lactic acid was 2.3, then 2.1. Glucose 201. Liver enzymes were normal. Troponin was less than 0.012. N-terminal proBNP 4010. Albumin 4. ASSESSMENT: 1. Lightheadedness with nausea and vomiting, of unclear etiology. This may relate to medications the patient currently takes and/or a viral syndrome. 2. Possible mild heart failure. 3. Recent episode of pneumonia. 4. History of severe ischemic cardiomyopathy with an ejection fraction of less than 20%. 5. Lactic acidosis; doubt sepsis. 6. History of coronary artery disease, status post stenting. 7. History of atrial fibrillation. 8. Chronic obstructive pulmonary disease. 9. History of cerebrovascular accident. 10.Hyperlipidemia by history. PLAN: Currently, the patient appears to be relatively stable. Labs are reviewed. Medications are reviewed. Problem list is reviewed. The patient adamantly denies any respiratory issues at this time. They may have been transient, or his memory may be failing him. His primary complaints included lightheadedness with nausea and vomiting. These have also dissipated. We will continue to follow. No additional recommendations are made. Med list is reviewed. Doubt significant infection at this time. MMODL / IJN: [id number] /
[2018-09-21] MEDS: IPRATROPIUM-ALBUTEROL 3 ML NEB INHALATION SCH (20:41)
[2018-09-21] MEDS: ATORVASTATIN 80 MG TAB PO SCH (20:55)
[2018-09-22] MEDS: PANTOPRAZOLE 40 MG TABLET PO SCH (06:23)
[2018-09-22 07:19] LABS: Calcium 8.9 mg/dL (8.4-10.2); Potassium 4.9 mmol/L (3.5-5.1)
[2018-09-22 07:49] LABS: Basophils % (A) 0 %; Eosinophils # (A) 0.1 k/uL (0-0.7); Eosinophils % (A) 1 %; HCT 25.8 % (39.0-53.0); HGB 8.3 gm/dL (13.0-17.5); Lymphocytes # (A) 0.8 k/uL (1.0-4.8); Lymphocytes % (A) 9 %; MCH 28.9 pg (25.0-35.0); MCHC 32.2 g/dL (31.0-37.0); Mean Platelet Volume 7.5; Monocytes # (A) 0.7 k/uL (0-1.0); Monocytes % (A) 7 %; Neutrophils # (A) 7.5 k/uL (1.3-7.7); Neutrophils % (A) 82 %; Platelet Count 309 k/uL (150-450); RBC 2.87 m/uL (4.30-5.90); RDW 15.5 % (11.5-15.5); WBC 9.2 k/uL (3.8-10.6)
[2018-09-22] MEDS: IPRATROPIUM-ALBUTEROL 3 ML NEB INHALATION SCH ×3 (08:20→20:01)
[2018-09-22] MEDS: SYMBICORT 80-4.5 MCG INHALER INHALATION SCH ×2 (08:20→20:01)
[2018-09-22] MEDS: APIXABAN 2.5 MG TABLET PO SCH ×2 (08:46→19:48)
[2018-09-22] MEDS: ASPIRIN 81 MG PO SCH (08:46)
[2018-09-22] MEDS: CALCIUM CARBONATE 500 MG CHEWABLE PO SCH (08:46)
--- NOTE | 2018-09-22 12:35 | PN ---
PROGRESS NOTE DATE OF SERVICE: September 22, 2018 This is an 83-year-old male who I saw yesterday in consultation. My impression at that time was that he had lightheadedness and nausea with vomiting of unclear etiology. I thought this might relate to some medications the patient was taking and/or a viral syndrome. Anyway, when we saw the patient yesterday in consultation by that time he had been doing relatively well. He was pretty much back to normal. He really denied any complaints that brought him into the hospital. The patient is still doing well. Yesterday we mentioned that if he was still doing well, he could likely be discharged unless there was a specific reason for keeping him. Again, he was not having any complaints whatsoever. He denies any chest pain, chest discomfort, nausea, vomiting, diarrhea, shortness of breath, phlegm production, coughing, wheezing, urinary complaints, etc. He does have a history of he does have a history of recent episode of pneumonia, severe ischemic cardiomyopathy with ejection fraction of less than 20%, mild lactic acidemia, CAD, status post stenting, chronic atrial fibrillation, COPD, CVA, and hyperlipidemia. Current vital signs are reviewed. Temperature is 97.1, heart rate 67, respiratory rate 16, blood pressure 107/54, mean 71, room air saturation 96%. He appears in no acute distress. Not having any complaints at the current time. HEENT: Examination is grossly unremarkable. He is not requiring any supplemental oxygen. Mucous membranes are moist. NECK: Supple. Full range of motion. No adenopathy or thyromegaly. Neck veins are flat. CARDIOVASCULAR: Examination reveals regular rhythm and rate. S1, S2 normal. Heart rate about 70 beats per minute. No distinct murmur noted. LUNGS: Are clear. Breath sounds equal. No wheezes, rhonchi, or crackles. ABDOMEN: Soft. Bowel sounds are heard. EXTREMITIES: Are intact. No cyanosis, clubbing, or edema. SKIN: Without rash. NEUROLOGIC: Examination is brief but nonfocal. Labs are reviewed. White count 9.2, hemoglobin 8.3, hematocrit 25.8, platelet count normal. Sodium 138, potassium 4.9, chloride 108, CO2 of 22, anion gap is 8. BUN and creatinine were 33 and 1.01. Urine was negative. Lactic acid was 3.1, came down to 2.1. Microbiologic studies including blood and urine were negative. A chest x-ray from the shows patchy basilar infiltrates and/or atelectasis. ASSESSMENT: 1. Lightheadedness with nausea and vomiting, of unclear etiology. We thought this might relate to some drug effect and/or a viral syndrome. 2. Possible mild heart failure and/or mild pneumonia. 3. Recent episode of pneumonia. 4. History of severe ischemic cardiomyopathy with ejection fraction of less than 20%. 5. Mild lactic acidosis, resolved. 6. History of coronary artery disease, status post stenting. 7. History of atrial fibrillation. 8. Chronic obstructive pulmonary disease. 9. History of cerebrovascular accident. 10.Hyperlipidemia by history. PLAN: The patient seems to be doing relatively well. Again, when we saw him yesterday he was completely over any of his complaints. He is on his usual medications including DuoNeb and Symbicort. He is currently not receiving any antibiotic at this time. We do not feel like he needs anything at this time. The patient would like to be discharged home. His blood and urine cultures were negative. We will continue to follow. We will allow the primary to decide about discharge. MMODL / IJN: [id number] /
--- NOTE | 2018-09-22 12:56 | P.PN ---
Subjective This is a pleasant 83 years old male with past medical history of coronary artery disease,systolic heart failure severe ischemic cardiomyopathy with ejection fraction less than 20%, status post stenting, atrial fibrillation on Eliquis, COPD, CVA/TIA, hyperlipidemia. He was recently discharged from the hospital for bilateral pleural effusion with acute systolic CHF. He follow-up in the [place] clinic. He presents because of lightheadedness and vomiting once with no blood in it. Patient denies syncope. He feels better now while he was lying down. Denies chest pain. However patient says that he has exertional dyspnea. Patient Is seen in select units, his blood pressure 92/55 heart rate 58. Afebrile. Saturating 100% on 4 L via nasal cannula. Hemoglobin 10.4. Lactic acid is mildly elevated at 2.3. Acute kidney injury with creatinine 1.6. Liver enzymes within normal limits. Chest x-ray showing congestive heart failure with pleural effusion. EKG showing normal sinus rhythm at 73. Patient was a started with normal saline at 80 mL per hour in the emergency room, which we are holding. 09/22/2018 Patient lying in bed comfortable, no more dizziness. No chest pain or dyspnea. Patient states his back to his baseline. I discussed the case with towboat engineer. We stopped his diuretic and other antihypertensive and we are put them back gradually in order Objective - Vital Signs Vital signs: Vital Signs Temp 97.1 F L 09/22/18 07:59 Pulse 66 09/22/18 12:00 Resp 16 09/22/18 12:00 BP 111/58 09/22/18 12:00 Pulse Ox 100 09/22/18 12:00 Intake & Output 09/21/18 09/22/18 09/22/18 18:59 06:59 18:59 Intake Total 380 480 Output Total 1475 750 401 Balance -1095 -750 79 Weight 49.895 kg 51.3 kg Intake: Oral 380 480 Output: Urine 1475 750 400 Stool 1 Other: Voiding Method Urinal Urinal # Voids 0 - Exam GENERAL: The patient is alert and oriented x3, not in any acute distress. Well developed, well nourished. HEENT: Pupils are round and equally reacting to light. EOMI. No scleral icterus. No conjunctival pallor. Normocephalic, atraumatic. No pharyngeal erythema. No thyromegaly. CARDIOVASCULAR: S1 and S2 present. No murmurs, rubs, or gallops. PULMONARY: Chest is clear to auscultation, no wheezing or crackles. ABDOMEN: Soft, nontender, nondistended, normoactive bowel sounds. No palpable organomegaly. MUSCULOSKELETAL: No joint swelling or deformity. EXTREMITIES: No cyanosis, clubbing, or pedal edema. NEUROLOGICAL: Gross neurological examination did not reveal any focal deficits. SKIN: No rashes. - Labs CBC & Chem 7: 09/22/18 06:11 09/22/18 06:11 Labs: Abnormal Lab Results - Last 24 Hours (Table) 09/21/18 09/22/18 09/22/18 Range/Units 13:25 06:11 06:11 RBC 2.87 L (4.30-5.90) m/uL Hgb 8.3 L (13.0-17.5) gm/dL Hct 25.8 L (39.0-53.0) % Lymphocytes # 0.8 L (1.0-4.8) k/uL Chloride 108 H (98-107) mmol/L BUN 33 H (9-20) mg/dL Glucose 107 H (74-99) mg/dL Plasma Lactic Acid David 2.1 H* (0.7-2.0) mmol/L Microbiology - Last 24 Hours (Table) 09/21/18 16:38 Urine Culture - Preliminary Urine,Clean Catch 09/20/18 17:30 Blood Culture - Preliminary Blood No Growth after 24 hours Assessment and Plan Assessment: Lightheadedness and vomiting, could be related to low blood pressure versus cardiac causes. Acute on chronic systolic congestive heart failure Acute kidney injury High Lactic acid History of severe ischemic cardiomyopathy with ejection fraction less than 20% History of coronary artery disease status post stenting History of atrial fibrillation, on Eliquis COPD, not an active issue History of CVA/TIA Hyperlipidemia Plan: This is a pleasant 83 years old male who presents with acute CHF and renal failure. Cardiology consult. Pulmonary has been consulted also by the emergen cy room team. Monitor renal function and vitals. Patient was started on IV fluids, will hold that. Labs and medication were reviewed.. Continue same treatment. Continue with symptomatic treatment. Resume home medication. Monitor lytes and vitals. DVT and GI prophylaxis. Further recommendations of the clinical course of the patient DVT prophylaxis: Eliquis GI Prophylaxis: Ppi PT/OT: Pending Prognosis is guarded
--- NOTE | 2018-09-22 13:24 | P.PN ---
Subjective Progress Note Date: 09/22/18 This is an 83-year-old gentleman with history of coronary artery disease, ischemic cardio myopathy with severe LV dysfunction, atrial fibrillation, hyperlipidemia, chronic systolic heart failure, who presents to the hospital on this admission with symptoms of lightheadedness and vomiting. He did not have any syncope. Did not have any chest discomfort or shortness of breath. Patient had been seen in consultation by Dr. Jones yesterday, he had received IV fluids in the emergency room. Patient was quite hypotensive on arrival here, several of his medications were held on admission here. This morning patient is feeling overall much better, his blood pressure today is 108/54. Objective - Vital Signs Vital signs: Vital Signs Temp 97.1 F L 09/22/18 07:59 Pulse 68 09/22/18 13:10 Resp 16 09/22/18 12:00 BP 111/58 09/22/18 12:00 Pulse Ox 100 09/22/18 12:00 Intake & Output 09/21/18 09/22/18 09/22/18 18:59 06:59 18:59 Intake Total 380 480 Output Total 1475 750 401 Balance -1095 -750 79 Weight 49.895 kg 51.3 kg Intake: Oral 380 480 Output: Urine 1475 750 400 Stool 1 Other: Voiding Method Urinal Urinal # Voids 0 - Exam PHYSICAL EXAMINATION: GENERAL: She 3-year-old gentleman, comfortable, in no acute distress. HEENT: Head is atraumatic, normocephalic. Pupils equal, round. Sclera anicteric. Conjunctiva are clear. Mucous membranes of the mouth are moist. Neck is supple. There is no elevated jugular venous pressure. No carotid bruit is heard. HEART EXAMINATION: S1 and S2 1 systolic murmur is heard CHEST EXAMINATION: On circumflex clear with mild diminished air entry to the bases ABDOMEN: Soft, nontender. Bowel sounds are heard. No organomegaly noted. EXTREMITIES: 2+ peripheral pulses with no evidence of peripheral edema and no calf tenderness noted. NEUROLOGIC patient is awake, alert and oriented 3 . . - Labs CBC & Chem 7: 09/22/18 06:11 09/22/18 06:11 Labs: Abnormal Lab Results - Last 24 Hours (Table) 09/21/18 09/22/18 09/22/18 Range/Units 13:25 06:11 06:11 RBC 2.87 L (4.30-5.90) m/uL Hgb 8.3 L (13.0-17.5) gm/dL Hct 25.8 L (39.0-53.0) % Lymphocytes # 0.8 L (1.0-4.8) k/uL Chloride 108 H (98-107) mmol/L BUN 33 H (9-20) mg/dL Glucose 107 H (74-99) mg/dL Plasma Lactic Acid David 2.1 H* (0.7-2.0) mmol/L Microbiology - Last 24 Hours (Table) 09/21/18 16:38 Urine Culture - Preliminary Urine,Clean Catch 09/20/18 17:30 Blood Culture - Preliminary Blood No Growth after 24 hours Assessment and Plan Plan: Assessment and plan #1 dizziness secondary to hypotension #2 chronic systolic congestive heart failure #3 ischemic cardiomyopathy with severe left ventricular dysfunction #4 chronic persistent atrial fibrillation Plan We will resume the patient's Lasix today, if the blood pressure tolerates then from tomorrow we will resume theEntresto. DNP note has been reviewed, I agree with a documented findings and plan of care. Patient was seen and examined.
[2018-09-22] MEDS: FUROSEMIDE 20 MG TAB PO SCH (16:49)
[2018-09-22] MEDS: ATORVASTATIN 80 MG TAB PO SCH (19:48)
[2018-09-23] MEDS: PANTOPRAZOLE 40 MG TABLET PO SCH (06:09)
[2018-09-23 07:08] LABS: Potassium 5.1 mmol/L (3.5-5.1)
[2018-09-23] MEDS: SYMBICORT 80-4.5 MCG INHALER INHALATION SCH ×2 (08:19→19:14)
[2018-09-23] MEDS: IPRATROPIUM-ALBUTEROL 3 ML NEB INHALATION SCH ×3 (08:19→19:13)
--- NOTE | 2018-09-23 09:40 | P.PN ---
Subjective This is a pleasant 83 years old male with past medical history of coronary artery disease,systolic heart failure severe ischemic cardiomyopathy with ejection fraction less than 20%, status post stenting, atrial fibrillation on Eliquis, COPD, CVA/TIA, hyperlipidemia. He was recently discharged from the hospital for bilateral pleural effusion with acute systolic CHF. He follow-up in the [place] clinic. He presents because of lightheadedness and vomiting once with no blood in it. Patient denies syncope. He feels better now while he was lying down. Denies chest pain. However patient says that he has exertional dyspnea. Patient Is seen in select units, his blood pressure 92/55 heart rate 58. Afebrile. Saturating 100% on 4 L via nasal cannula. Hemoglobin 10.4. Lactic acid is mildly elevated at 2.3. Acute kidney injury with creatinine 1.6. Liver enzymes within normal limits. Chest x-ray showing congestive heart failure with pleural effusion. EKG showing normal sinus rhythm at 73. Patient was a started with normal saline at 80 mL per hour in the emergency room, which we are holding. 09/22/2018 Patient lying in bed comfortable, no more dizziness. No chest pain or dyspnea. Patient states his back to his baseline. I discussed the case with manager sales and marketing. We stopped his diuretic and other antihypertensive and we are put them back gradually in order 09/23/2018 Patient with no dyspnea or chest pain. Cardiology team are following the patient and Lasix was started yesterday. Entresto will retry today and see how patient Tolerated. No Chest Pain or Dyspnea. No Urinary Complaints. No Nausea Vomiting. No Fever Objective - Vital Signs Vital signs: Vital Signs Temp 97.9 F 09/23/18 08:00 Pulse 64 09/23/18 08:32 Resp 18 09/23/18 08:00 BP 112/58 09/23/18 08:00 Pulse Ox 100 09/23/18 08:00 Intake & Output 09/22/18 09/23/18 09/23/18 18:59 06:59 18:59 Intake Total 720 240 Output Total 401 Balance 319 240 Weight 50.2 kg Intake: Oral 720 240 Output: Urine 400 Stool 1 Other: # Voids 1 - Exam GENERAL: The patient is alert and oriented x3, not in any acute distress. Well developed, well nourished. HEENT: Pupils are round and equally reacting to light. EOMI. No scleral icterus. No conjunctival pallor. Normocephalic, atraumatic. No pharyngeal erythema. No thyromegaly. CARDIOVASCULAR: S1 and S2 present. No murmurs, rubs, or gallops. PULMONARY: Chest is clear to auscultation, no wheezing or crackles. ABDOMEN: Soft, nontender, nondistended, normoactive bowel sounds. No palpable organomegaly. MUSCULOSKELETAL: No joint swelling or deformity. EXTREMITIES: No cyanosis, clubbing, or pedal edema. NEUROLOGICAL: Gross neurological examination did not reveal any focal deficits. SKIN: No rashes. - Labs CBC & Chem 7: 09/22/18 06:11 09/23/18 05:57 Labs: Abnormal Lab Results - Last 24 Hours (Table) 09/23/18 Range/Units 05:57 Sodium 136 L (137-145) mmol/L BUN 33 H (9-20) mg/dL Microbiology - Last 24 Hours (Table) 09/21/18 16:38 Urine Culture - Final Urine,Clean Catch 09/20/18 17:30 Blood Culture - Preliminary Blood No Growth after 48 hours Assessment and Plan Assessment: Lightheadedness and vomiting, could be related to low blood pressure versus c ardiac causes. Acute on chronic systolic congestive heart failure Acute kidney injury High Lactic acid History of severe ischemic cardiomyopathy with ejection fraction less than 20% History of coronary artery disease status post stenting History of atrial fibrillation, on Eliquis COPD, not an active issue History of CVA/TIA Hyperlipidemia Plan: This is a pleasant 83 years old male who presents with acute CHF and renal failure. Cardiology consult. Pulmonary has been consulted also by the emergency room team. Monitor renal function and vitals. Patient was started on IV fluids, will hold that. Labs and medication were reviewed.. Continue same treatment. Continue with symptomatic treatment. Resume home medication. Monitor lytes and vitals. DVT and GI prophylaxis. Further recommendations of the clinical course of the patient DVT prophylaxis: Eliquis GI Prophylaxis: Ppi PT/OT: Pending Prognosis is guarded
[2018-09-23] MEDS: ASPIRIN 81 MG PO SCH (10:06)
[2018-09-23] MEDS: APIXABAN 2.5 MG TABLET PO SCH ×2 (10:06→20:41)
[2018-09-23] MEDS: CALCIUM CARBONATE 500 MG CHEWABLE PO SCH (10:07)
[2018-09-23] MEDS: SACUBITRIL/VALSARTAN 24 MG-26 MG TABLET PO SCH ×2 (10:07→20:41)
[2018-09-23] MEDS: FUROSEMIDE 20 MG TAB PO SCH ×2 (10:07→15:34)
--- NOTE | 2018-09-23 11:44 | P.PN ---
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 He did not have any syncope. Did not have any chest discomfort or shortness of breath. Patient had been seen in consultation by Dr. Jones yesterday, he had received IV fluids in the emergency room. Patient was quite hypotensive on arrival here, several of his medications were held on admission here. This morning patient is feeling overall much better, his blood pressure today is 108/54. 09/23/2018 Patient was seen and examined this morning, overall feeling well. Blood pressure this morning 112/58, heart rate in the 60s, 100% on room air. We did resume his Lasix yesterday and from today we will resume his Entresto. He may be able to be discharged home once cleared by primary and we will make him a follow-up appointment in the office post discharge. Objective - Vital Signs Vital signs: Vital Signs Temp 97.9 F 09/23/18 08:00 Pulse 64 09/23/18 08:32 Resp 18 09/23/18 08:00 BP 112/58 09/23/18 08:00 Pulse Ox 100 09/23/18 08:00 Intake & Output 09/22/18 09/23/18 09/23/18 18:59 06:59 18:59 Intake Total 720 240 Output Total 401 Balance 319 240 Weight 50.2 kg Intake: Oral 720 240 Output: Urine 400 Stool 1 Other: # Voids 1 - Labs CBC & Chem 7: 09/22/18 06:11 09/23/18 05:57 Labs: Abnormal Lab Results - Last 24 Hours (Table) 09/23/18 Range/Units 05:57 Sodium 136 L (137-145) mmol/L BUN 33 H (9-20) mg/dL Microbiology - Last 24 Hours (Table) 09/21/18 16:38 Urine Culture - Final Urine,Clean Catch 09/20/18 17:30 Blood Culture - Preliminary Blood No Growth after 48 hours
[2018-09-23] MEDS: ATORVASTATIN 80 MG TAB PO SCH (20:41)
[2018-09-24] MEDS: PANTOPRAZOLE 40 MG TABLET PO SCH (06:19)
[2018-09-24] MEDS: IPRATROPIUM-ALBUTEROL 3 ML NEB INHALATION SCH ×3 (08:14→20:29)
[2018-09-24] MEDS: SYMBICORT 80-4.5 MCG INHALER INHALATION SCH ×2 (08:16→20:29)
[2018-09-24] MEDS: SACUBITRIL/VALSARTAN 24 MG-26 MG TABLET PO SCH ×2 (08:32→21:11)
[2018-09-24] MEDS: ASPIRIN 81 MG PO SCH (08:32)
[2018-09-24] MEDS: FUROSEMIDE 20 MG TAB PO SCH (08:32)
[2018-09-24] MEDS: APIXABAN 2.5 MG TABLET PO SCH ×2 (08:32→21:11)
[2018-09-24] MEDS: CALCIUM CARBONATE 500 MG CHEWABLE PO SCH (08:32)
--- NOTE | 2018-09-24 13:12 | P.PN ---
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 He did not have any syncope. Did not have any chest discomfort or shortness of breath. Patient had been seen in consultation by Dr. Jones yesterday, he had received IV fluids in the emergency room. Patient was quite hypotensive on arrival here, several of his medications were held on admission here. This morning patient is feeling overall much better, his blood pressure today is 108/54. 09/23/2018 Patient was seen and examined this morning, overall feeling well. Blood pressure this morning 112/58, heart rate in the 60s, 100% on room air. We did resume his Lasix yesterday and from today we will resume his Entresto. He may be able to be discharged home once cleared by primary and we will make him a follow-up appointment in the office post discharge. 09 24 2018 Patient seen and examined this morning, overall feeling well. Blood pressure 100/56 this morning. Anticipating discharge home today. Objective - Vital Signs Vital signs: Vital Signs Temp 97.7 F 09/24/18 10:47 Pulse 68 09/24/18 10:47 Resp 20 09/24/18 10:47 BP 89/50 09/24/18 13:08 Pulse Ox 98 09/24/18 10:47 Intake & Output 09/23/18 09/24/18 09/24/18 18:59 06:59 18:59 Intake Total 960 340 Output Total 400 Balance 560 340 Weight 49.3 kg Intake: Oral 960 340 Output: Urine 400 Other: # Voids 1 - Exam PHYSICAL EXAMINATION: GENERAL: She 3-year-old gentleman, comfortable, in no acute distress. HEENT: Head is atraumatic, normocephalic. Pupils equal, round. Sclera anicteric. Conjunctiva are clear. Mucous membranes of the mouth are moist. Neck is supple. There is no elevated jugular venous pressure. No carotid bruit is heard. HEART EXAMINATION: S1 and S2 1 systolic murmur is heard CHEST EXAMINATION: On circumflex clear with mild diminished air entry to the bases ABDOMEN: Soft, nontender. Bowel sounds are heard. No organomegaly noted. EXTREMITIES: 2+ peripheral pulses with no evidence of peripheral edema and no calf tenderness noted. NEUROLOGIC patient is awake, alert and oriented 3 . . - Labs CBC & Chem 7: 09/22/18 06:11 09/23/18 05:57 Labs: Microbiology - Last 24 Hours (Table) 09/20/18 17:30 Blood Culture - Preliminary Blood No Growth after 72 hours Assessment and Plan Plan: Assessment and plan #1 dizziness secondary to hypotension #2 chronic systolic congestive heart failure #3 ischemic cardiomyopathy with severe left ventricular dysfunction #4 chronic persistent atrial fibrillation Plan Patient may be able to be discharged home today from cardiology's perspective, we'll continue with current medications. No Aldactone at this time. Follow-up appointment in the office DNP note has been reviewed, I agree with a documented findings and plan of care. Patient was seen and examined.
[2018-09-24] MEDS: ATORVASTATIN 80 MG TAB PO SCH (21:11)
[2018-09-25 07:33] VITALS: RESP 16
[2018-09-25] MEDS: IPRATROPIUM-ALBUTEROL 3 ML NEB INHALATION SCH ×2 (08:14→13:40)
[2018-09-25] MEDS: SYMBICORT 80-4.5 MCG INHALER INHALATION SCH (08:14)
[2018-09-25] MEDS: SACUBITRIL/VALSARTAN 24 MG-26 MG TABLET PO SCH (08:15)
[2018-09-25] MEDS: PANTOPRAZOLE 40 MG TABLET PO SCH (08:36)
[2018-09-25] MEDS: CALCIUM CARBONATE 500 MG CHEWABLE PO SCH (08:36)
[2018-09-25] MEDS: APIXABAN 2.5 MG TABLET PO SCH (08:36)
[2018-09-25] MEDS: ASPIRIN 81 MG PO SCH (08:36)
[2018-09-25] MEDS ORDERED: FUROSEMIDE 20 MG TAB PO SCH (09:00)
--- NOTE | 2018-09-25 10:13 | XR ---
EXAMINATION TYPE: XR chest 2V DATE OF EXAM: 09/25/2018 COMPARISON: 09/21/2018 HISTORY: Shortness of breath TECHNIQUE: Frontal and lateral views of the chest are obtained. FINDINGS: Scattered senescent parenchymal changes noted. Hyperinflation compatible with COPD. Pulmonary venous congestion with cardiomegaly and basilar atelectasis and/or pleural effusions felt t o reflect congestive failure. Overall appearance is stable. Mediastinal structures are stable and grossly unremarkable. No evidence for hilar prominence. Degenerative changes dorsal spine. IMPRESSION: 1. Features of congestive failure.
[2018-09-25 10:20] LABS: Basophils % (A) 1 %; Eosinophils # (A) 0.5 k/uL (0-0.7); Eosinophils % (A) 7 %; HCT 29.6 % (39.0-53.0); HGB 9.4 gm/dL (13.0-17.5); Lymphocytes # (A) 0.7 k/uL (1.0-4.8); Lymphocytes % (A) 11 %; MCH 29.1 pg (25.0-35.0); MCHC 31.9 g/dL (31.0-37.0); MCV 91.3 fL (80.0-100.0); Mean Platelet Volume 6.7; Monocytes # (A) 0.5 k/uL (0-1.0); Monocytes % (A) 8 %; Neutrophils # (A) 4.8 k/uL (1.3-7.7); Neutrophils % (A) 72 %; Platelet Count 310 k/uL (150-450); RBC 3.24 m/uL (4.30-5.90); RDW 15.5 % (11.5-15.5); WBC 6.8 k/uL (3.8-10.6)
[2018-09-25 10:31] LABS: Calcium 9.1 mg/dL (8.4-10.2); Potassium 4.4 mmol/L (3.5-5.1)
--- NOTE | 2018-09-25 11:45 | P.PN ---
Subjective This is a pleasant 83-year-old male past medical history significant for chronic systolic heart failure, ischemic cardiomyopathy, COPD, former nicotine dependence, atrial fibrillation on [facility] anticoagulation and carotid artery disease. He follows in the office with Dr. Brock. We are following him during this admission for hypotension. He was supposed to be discharged home yesterday however he was kept for ongoing hypotension. Prior to arrival he was on aldactone 25 mg BID, lasix 20 mg BID and entresto 24/26 mg BID. He states he checks his blood pressure at home daily and he typically runs in the low 90-low 100 systolic. Overnight and this morning he is running in the 80's systolic. Currently 81/43 with heart rate of 71. He is seen and examined resting comfortably sitting up in bed in no acute distress. He denies chest eliazar n, shortness of breath, dizziness, palpitations, nausea or vomiting. He states he has been up and walking to the bathroom with no dizziness at all. Laboratory data reviewed, WBC 6.8, hemoglobin 9.4, platelets 310, sodium 135, potassium 4.4, creatinine 1.01, lactic acid is down from 2.1 on the to 1.0. Chest x- ray obtained reveals pulmonary venous congestion with cardiomegaly as well as hyperinflation. Clinically the patient is euvolemic. GENERAL: Well-appearing, well-nourished and in no acute distress. NECK: Supple without JVD or thyromegaly. LUNGS: Breath sounds clear to auscultation bilaterally. Respiration equal and unlabored. No wheezes, rales or rhonchi. Diminished bilaterally. HEART: Regular rate and rhythm with systolic ejection murmur at the left sternal border, no rubs or gallops. S1 and S2 heard. EXTREMITIES: Normal range of motion, no edema. No clubbing or cyanosis. Peripheral pulses intact. ASSESSMENT Hypotension, asymptomatic Chronic systolic heart failure, currently euvolemic Ischemic cardiomyopathy Paroxysmal atrial fibrillation on long-term anticoagulation PLAN Discontinue PO lasix, he may be being over diuresed causing hypotension. Continue entresto for his systolic heart failure. He is clinically euvolemic and asymptomatic with current blood pressures. Overall stable and may be discharged home. Advised him to continue checking his blood pressures daily at home and call the office if he develops dizziness. Follow up with Dr. Brock in 1-2 weeks. Nurse Practitioner note has been reviewed, I agree with a documented findings and plan of care. Patient was seen and examined. Objective - Vital Signs Vital signs: Vital Signs Temp 98.3 F 09/25/18 07:00 Pulse 71 09/25/18 09:42 Resp 16 09/25/18 07:00 BP 81/43 09/25/18 09:42 Pulse Ox 99 09/25/18 07:00 Intake & Output 09/24/18 09/25/18 09/25/18 18:59 06:59 18:59 Intake Total 900 600 Balance 900 600 Weight 49.9 kg Intake: Oral 900 600 Other: Voiding Method Urinal Urinal # Voids 3 1 - Labs CBC & Chem 7: 09/25/18 09:45 09/25/18 09:45 Labs: Abnormal Lab Results - Last 24 Hours (Table) 09/25/18 09/25/18 Range/Units 09:45 09:45 RBC 3.24 L (4.30-5.90) m/uL Hgb 9.4 L (13.0-17.5) gm/dL Hct 29.6 L (39.0-53.0) % Lymphocytes # 0.7 L (1.0-4.8) k/uL Sodium 135 L (137-145) mmol/L Chloride 97 L (98-107) mmol/L BUN 44 H (9-20) mg/dL Glucose 101 H (74-99) mg/dL Microbiology - Last 24 Hours (Table) 09/20/18 17:30 Blood Culture - Preliminary Blood No Growth after 96 hours
[2018-09-25 12:46] VITALS: BP 96/55; TEMP 98.1
[2018-09-25 13:51] VITALS: PULSE 68
--- NOTE | 2018-09-25 17:44 | P.DS ---
Providers Date of admission: 09/20/18 17:40 Attending physician: Sammy Tafoya Consults: 09/20/18 17:18 Consult Physician Routine Consulting Provider: Linus Jones Consult Reason/Comments: chf Do you want consulting provider notified?: Already Contacted 09/20/18 17:44 Consult Physician Routine Consulting Provider: Hector Sarabia Reason/Comments: dyspnea Do you want consulting provider notified?: Yes Primary care physician: [facility] Hospital Course: Diagnoses: Lightheadedness and vomiting, could be related to low blood pressure versus cardiac causes. Acute on chronic systolic congestive heart failure Acute kidney injury, present on admission, resolved High Lactic acid History of severe ischemic cardiomyopathy with ejection fraction less than 20% History of coronary artery disease status post stenting History of atrial fibrillation, on Eliquis COPD, not an active issue History of CVA/TIA Hyperlipidemia Hospital course: This is a pleasant 83 years old male with past medical history of coronary artery disease,systolic heart failure severe ischemic cardiomyopathy with ejection fraction less than 20%, status post stenting, atrial fibrillation on Eliquis, COPD, CVA/TIA, hyperlipidemia. He was recently discharged from the hospital for bilateral pleural effusion with acute systolic CHF. He follow-up in the [place] clinic. He presents because of lightheadedness and vomiting secondary to hypertension. Patient has been evaluated by cardiology team and As per cardiology recommendation His blood pressure medications were held including Aldactone. However his Lasix and Entresto resumed gradually and patient tolerated them well. He remains asymptomatic with no more dizziness or chest pain or dyspnea or others. Blood pressure today is 92/55. Patient has been cleared for discharge by cardiology team Patient has been eager for going home Problems and management plan were discussed with the patient and he verbalized understanding and acceptance Patient was found stable and can be discharged home guarded prognosis however he needs follow-up as an outpatient. Patient was instructed to follow up with his PCP in one week as well as with his cardiology team and he agrees. Gen: patient is a AAOx3, no distress CVS: S1-S2, RRR, no murmur Lungs: B/L CTA, no wheezing Abdomen: soft, no distention, no tenderness, positive bowel sounds Extremity: no leg edema or induration Time spent more than 35 minutes Patient Condition at Discharge: Fair Plan - Discharge Summary Discharge Rx Participant: Yes New Discharge Prescriptions: No Action Apixaban [Eliquis] 2.5 mg PO BID #60 tablet Atorvastatin [Lipitor] 80 mg PO HS #30 tab Nitroglycerin Sl Tabs [Nitrostat] 0.4 mg SUBLINGUAL Q5M PRN #25 tab PRN Reason: Chest Pain Pantoprazole [Protonix] 40 mg PO AC-BRKFST #30 tablet. Budesonide/Formoterol Fumarate [Symbicort 80-4.5 Mcg Inhaler] 2 puff INHALATION RT-BID Furosemide [Lasix] 20 mg PO BID Fluconazole [Diflucan] 100 mg PO DAILY #5 tab Sennosides-Docusate Sodium [Senokot-S] 1 tab PO BID Spironolactone [Aldactone] 25 mg PO BID Ensure 1 can PO BID Aspirin EC [Ecotrin Low Dose] 81 mg PO DAILY Albuterol Nebulized [Ventolin Nebulized] 2.5 mg INHALATION RT-TID Calcium Carbonate [Calcium] 1,200 mg PO DAILY Sacubitril/Valsartan [Entresto 24 mg-26 mg Tablet] 1 tab PO BID Ferrous Sulfate [Iron (65 MG Elemental)] 325 mg PO BID Discharge Medication List Apixaban [Eliquis] 2.5 mg PO BID #60 tablet 08/01/16 [Rx] Atorvastatin [Lipitor] 80 mg PO HS #30 tab 08/01/16 [Rx] Nitroglycerin Sl Tabs [Nitrostat] 0.4 mg SUBLINGUAL Q5M PRN #25 tab 08/01/16 [Rx] Pantoprazole [Protonix] 40 mg PO AC-BRKFST #30 tablet. 08/01/16 [Rx] Budesonide/Formoterol Fumarate [Symbicort 80-4.5 Mcg Inhaler] 2 puff INHALATION RT-BID 08/26/18 [History] Furosemide [Lasix] 20 mg PO BID 08/26/18 [History] Fluconazole [Diflucan] 100 mg PO DAILY #5 tab 08/31/18 [Rx] Albuterol Nebulized [Ventolin Nebulized] 2.5 mg INHALATION RT-TID 09/20/18 [History] Aspirin EC [Ecotrin Low Dose] 81 mg PO DAILY 09/20/18 [History] Calcium Carbonate [Calcium] 1,200 mg PO DAILY 09/20/18 [History] Ensure 1 can PO BID 09/20/18 [History] Ferrous Sulfate [Iron (65 MG Elemental)] 325 mg PO BID 09/20/18 [History] Sacubitril/Valsartan [Entresto 24 mg-26 mg Tablet] 1 tab PO BID 09/20/18 [History] Sennosides-Docusate Sodium [Senokot-S] 1 tab PO BID 09/20/18 [History] Spironolactone [Aldactone] 25 mg PO BID 09/20/18 [History] Follow up Appointment(s)/Referral(s): Jose Juan Brock MD [STAFF PHYSICIAN] - 10/13/18 3:30 pm (Friday) [facility],Clinic [Primary Care Provider] - 1-2 days (Office will call with follow up appointment.) Patient Instructions/Handouts: Dehydration (DC), Hypotension (DC) Activity/Diet/Wound Care/Special Instructions: home-may need indigent funds
--- NOTE | 2018-09-25 17:45 | P.DS ---
Providers Date of admission: 09/20/18 17:40 Attending physician: Sammy Tafoya Consults: 09/20/18 17:18 Consult Physician Routine Consulting Provider: Liuns Jones Consult Reason/Comments: chf Do you want consulting provider notified?: Already Contacted 09/20/18 17:44 Consult Physician Routine Consulting Provider: Hector Sarabia Reason/Comments: dyspnea Do you want consulting provider notified?: Yes Primary care physician: [facility] Hospital Course: Diagnoses: Lightheadedness and vomiting, could be related to low blood pressure versus cardiac causes. Acute on chronic systolic congestive heart failure Acute kidney injury, present on admission, resolved High Lactic acid History of severe ischemic cardiomyopathy with ejection fraction less than 20% History of coronary artery disease status post stenting History of atrial fibrillation, on Eliquis COPD, not an active issue History of CVA/TIA Hyperlipidemia Hospital course: This is a pleasant 83 years old male with past medical history of coronary artery disease,systolic heart failure severe ischemic cardiomyopathy with ejection fraction less than 20%, status post stenting, atrial fibrillation on Eliquis, COPD, CVA/TIA, hyperlipidemia. He was recently discharged from the hospital for bilateral pleural effusion with acute systolic CHF. He follow-up in the [place] clinic. He presents because of lightheadedness and vomiting secondary to hypertension. Patient has been evaluated by cardiology team and As per cadiology recommendation His blood pressure medications were held including Aldactone and Lasix. However his Entresto resumed gradually and patient tolerated it well. He remains asymptomatic with no more dizziness or chest pain or dyspnea or others. Blood pressure today is 96/55. Patient has been cleared for discharge by cardiology team Patient has been eager for going home Problems and management plan were discussed with the patient and he verbalized understanding and acceptance Patient was found stable and can be discharged home guarded prognosis however he needs follow-up as an outpatient. Patient was instructed to follow up with his PCP in one week as well as with his cardiology team and he agrees. Gen: patient is a AAOx3, no distress CVS: S1-S2, RRR, no murmur Lungs: B/L CTA, no wheezing Abdomen: soft, no distention, no tenderness, positive bowel sounds Extremity: no leg edema or induration Time spent more than 35 minutes Patient Condition at Discharge: Fair Plan - Discharge Summary Discharge Rx Participant: Yes New Discharge Prescriptions: Continue Apixaban [Eliquis] 2.5 mg PO BID #60 tablet Atorvastatin [Lipitor] 80 mg PO HS #30 tab Nitroglycerin Sl Tabs [Nitrostat] 0.4 mg SUBLINGUAL Q5M PRN #25 tab PRN Reason: Chest Pain Pantoprazole [Protonix] 40 mg PO AC-BRKFST #30 tablet. Budesonide/Formoterol Fumarate [Symbicort 80-4.5 Mcg Inhaler] 2 puff INHALATION RT-BID Fluconazole [Diflucan] 100 mg PO DAILY #5 tab Sennosides-Docusate Sodium [Senokot-S] 1 tab PO BID Ensure 1 can PO BID Aspirin EC [Ecotrin Low Dose] 81 mg PO DAILY Albuterol Nebulized [Ventolin Nebulized] 2.5 mg INHALATION RT-TID Calcium Carbonate [Calcium] 1,200 mg PO DAILY Sacubitril/Valsartan [Entresto 24 mg-26 mg Tablet] 1 tab PO BID Ferrous Sulfate [Iron (65 MG Elemental)] 325 mg PO BID Discontinued Furosemide [Lasix] 20 mg PO BID Spironolactone [Aldactone] 25 mg PO BID Discharge Medication List Apixaban [Eliquis] 2.5 mg PO BID #60 tablet 08/01/16 [Rx] Atorvastatin [Lipitor] 80 mg PO HS #30 tab 08/01/16 [Rx] Nitroglycerin Sl Tabs [Nitrostat] 0.4 mg SUBLINGUAL Q5M PRN #25 tab 08/01/16 [Rx] Pantoprazole [Protonix] 40 mg PO AC-BRKFST #30 tablet. 08/01/16 [Rx] Budesonide/Formoterol Fumarate [Symbicort 80-4.5 Mcg Inhaler] 2 puff INHALATION RT-BID 08/26/18 [History] Fluconazole [Diflucan] 100 mg PO DAILY #5 tab 08/31/18 [Rx] Albuterol Nebulized [Ventolin Nebulized] 2.5 mg INHALATION RT-TID 09/20/18 [History] Aspirin EC [Ecotrin Low Dose] 81 mg PO DAILY 09/20/18 [History] Calcium Carbonate [Calcium] 1,200 mg PO DAILY 09/20/18 [History] Ensure 1 can PO BID 09/20/18 [History] Ferrous Sulfate [Iron (65 MG Elemental)] 325 mg PO BID 09/20/18 [History] Sacubitril/Valsartan [Entresto 24 mg-26 mg Tablet] 1 tab PO BID 09/20/18 [History] Sennosides-Docusate Sodium [Senokot-S] 1 tab PO BID 09/20/18 [History] Follow up Appointment(s)/Referral(s): Hector Sarabia MD [STAFF PHYSICIAN] - 1-2 Days Jose Juan Brock MD [STAFF PHYSICIAN] - 10/13/18 3:30 pm (Friday) [facility],Clinic [Primary Care Provider] - 1-2 days (Office will call with follow up appointment.) Patient Instructions/Handouts: Dehydration (DC), Heart Healthy Diet (DC), Hypotension (DC) Activity/Diet/Wound Care/Special Instructions: cardiac diet activity is limited till you see your doctor Discharge Disposition: HOME SELF-CARE
== END 2018-09-25 14:40 | disposition home or self-care (01) | DRG 292 ==
LOC: EC 15:12 → 3SCARD 17:40 → 3NMEDONC 09-25 06:05
PROVIDERS: ADMIT Internal Medicine; ATTEND Internal Medicine
DX: I11.0 Hypertensive heart disease with heart failure (principal); E87.2 Acidosis; I48.1 Persistent atrial fibrillation; N17.9 Acute kidney failure, unspecified; E78.5 Hyperlipidemia, unspecified; E86.0 Dehydration; I25.10 Atherosclerotic heart disease of native coronary artery without angina pectoris; I25.2 Old myocardial infarction; I25.5 Ischemic cardiomyopathy; I48.2 Chronic atrial fibrillation; I50.23 Acute on chronic systolic (congestive) heart failure; Z79.01 Long term (current) use of anticoagulants; Z79.51 Long term (current) use of inhaled steroids; Z79.82 Long term (current) use of aspirin; Z79.899 Other long term (current) drug therapy; Z80.1 Family history of malignant neoplasm of trachea, bronchus and lung; Z86.73 Personal history of transient ischemic attack (TIA), and cerebral infarction without residual deficits; Z87.891 Personal history of nicotine dependence; Z95.5 Presence of coronary angioplasty implant and graft; Z87.01 Personal history of pneumonia (recurrent); J44.9 Chronic obstructive pulmonary disease, unspecified; I95.9 Hypotension, unspecified
CPT/HCPCS: 36415; 71045; 71046; 80048; 80053; 81003; 82803; 83605; 83735; 83880; 84484; 85025; 85610; 86850; 86900; 86901; 87040; 87086; 93005; 94640; 94644; 94645; 94760; 96374; 99285

== ENCOUNTER 2018-10-03 13:46 | Emergency (ER) | payer MEDICARE ==
[2018-10-03 13:49] VITALS: TEMP 97.6
--- NOTE | 2018-10-03 14:22 | ED ---
General Adult HPI - General Chief complaint: Recheck/Abnormal Lab/Rx Stated complaint: Edema Time Seen by Provider: 10/03/18 13:52 Source: patient, family, RN notes reviewed Mode of arrival: ambulatory Limitations: no limitations - History of Present Illness Initial comments: 83-year-old male history of congestive heart failure presents for evaluation of 5 pound weight gain in one week. Patient was recently admitted with congestive heart failure, he did have hypotension and low blood pressure. He was taken off his diuretics. He is currently not on any diuretics. He reports mild dyspnea with exertion. Denies chest pain. Denies abdominal pain nausea vomiting. Denies cough or fever. He reports a 5 pound weight gain over the past one week. - Related Data Home Medications Medication Instructions Recorded Confirmed Budesonide/Formoterol Fumarate 2 puff INHALATION RT-BID 08/26/18 10/03/18 [Symbicort 80-4.5 Mcg Inhaler] Albuterol Nebulized [Ventolin 2.5 mg INHALATION RT-TID 09/20/18 10/03/18 Nebulized] Aspirin EC [Ecotrin Low Dose] 81 mg PO DAILY 09/20/18 10/03/18 Calcium Carbonate [Calcium] 1,200 mg PO DAILY 09/20/18 10/03/18 Ensure 1 can PO BID 09/20/18 10/03/18 Ferrous Sulfate [Iron (65 MG 325 mg PO BID 09/20/18 10/03/18 Elemental)] Sacubitril/Valsartan [Entresto 24 1 tab PO BID 09/20/18 10/03/18 mg-26 mg Tablet] Sennosides-Docusate Sodium 1 tab PO BID 09/20/18 10/03/18 [Senokot-S] Previous Rx's Medication Instructions Recorded Apixaban [Eliquis] 2.5 mg PO BID #60 tablet 08/01/16 Atorvastatin [Lipitor] 80 mg PO HS #30 tab 08/01/16 Nitroglycerin Sl Tabs [Nitrostat] 0.4 mg SUBLINGUAL Q5M PRN #25 tab 08/01/16 Pantoprazole [Protonix] 40 mg PO AC-BRKFST #30 tablet. 08/01/16 Allergies Allergy/AdvReac Type Severity Reaction Status Date / Time No Known Allergies Allergy Verified 10/03/18 14:02 Review of Systems ROS Statement: Those systems with pertinent positive or pertinent negative responses have been documented in the HPI. ROS Other: All systems not noted in ROS Statement are negative. Past Medical History Past Medical History: Coronary Artery Disease (CAD), Cancer, Heart Failure, COPD, CVA/TIA, Myocardial Infarction ([place]) Additional Past Medical History / Comment(s): pt is rt hand dominant. Patient reports remote history of myocardial infarction back in 1978 and since then he had not seen or followed up with cardiology. then 07-22-16.had 2nd mi -heart cath w/stent, "slight stroke 1998 no residual", skin cancer resected. Last Myocardial Infarction Date:: 07/22/2016 History of Any Multi-Drug Resistant Organisms: None Reported Past Surgical History: Heart Catheterization With Stent Additional Past Surgical History / Comment(s): 1998 left carotid , 07-22-16 heart cath w/ stent rca Past Anesthesia/Blood Transfusion Reactions: No Reported Reaction Date of Last Stent Placement:: 07-22-16 Past Psychological History: No Psychological Hx Reported Smoking Status: Former smoker Past Alcohol Use History: None Reported Past Drug Use History: None Reported - Past Family History Mother Family Medical History: Cancer Additional Family Medical History / Comment(s): from Lung CA, was a smoker Father Additional Family Medical History / Comment(s): from alcoholism General Exam Limitations: no limitations General appearance: alert, in no apparent distress Head exam: Present: atraumatic, normocephalic Eye exam: Present: normal appearance, PERRL, EOMI ENT exam: Present: normal exam Neck exam: Present: normal inspection. Absent: tenderness, meningismus Respiratory exam: Present: rales, decreased breath sounds. Absent: respiratory distress, wheezes Cardiovascular Exam: Present: regular rate, normal rhythm GI/Abdominal exam: Present: soft. Absent: distended, tenderness, guarding Extremities exam: Present: pedal edema (trace) Neurological exam: Present: alert, oriented X3, CN II-XII intact. Absent: motor sensory deficit Psychiatric exam: Present: normal affect, normal mood Skin exam: Present: warm, dry, intact. Absent: cyanosis, diaphoretic Course Vital Signs 10/03/18 13:48 Temperature 97.6 F Pulse Rate 75 Respiratory 18 Rate Blood Pressure 104/60 O2 Sat by Pulse 100 Oximetry EKG Findings - EKG Comments: EKG Findings:: EKG: Normal sinus rhythm no ST segment elevation, there is baseline artifact T-wave inversions in V5 and V6. No 72, MD interval 190, QRS duration 108, QTC 438 Medical Decision Making - Medical Decision Making 83-year-old male presenting with chief complaint weight gain. Patient has been off his diuretics secondary to low blood pressure and dehydration he was admitted with low blood pressure dehydration one week ago. He said 5 pound weight gain since discharge. He does have dyspnea but states his dyspnea is at baseline with history of CHF and COPD. Chest x-rays obtained, shows mild v ascular congestion unchanged from previous x-ray. He has normal white blood cell count, stable hemoglobin mild elevation in BNP which appears stable from previous. Patient's given 20 mg Lasix in the emergency prompt. He is offered admission for treatment of congestive heart failure diuretics. He declines he will initiate Lasix at home. He will return with worsening or changing symptoms. Patient will start Lasix 20 mg every other day, crack weight closely. Return with worsening dyspnea - Lab Data Result diagrams: 10/03/18 14:25 10/03/18 14:25 Lab Results 10/03/18 10/03/18 10/03/18 Range/Units 14:25 14:25 14:25 WBC 7.4 (3.8-10.6) k/uL RBC 3.18 L (4.30-5.90) m/uL Hgb 9.2 L (13.0-17.5) gm/dL Hct 29.0 L (39.0-53.0) % MCV 91.0 (80.0-100.0) fL MCH 29.0 (25.0-35.0) pg MCHC 31.8 (31.0-37.0) g/dL RDW 15.5 (11.5-15.5) % Plt Count 319 (150-450) k/uL Neutrophils % 77 % Lymphocytes % 8 % Monocytes % 6 % Eosinophils % 6 % Basophils % 0 % Neutrophils # 5.7 (1.3-7.7) k/uL Lymphocytes # 0.6 L (1.0-4.8) k/uL Monocytes # 0.4 (0-1.0) k/uL Eosinophils # 0.5 (0-0.7) k/uL Basophils # 0.0 (0-0.2) k/uL PT (9.0-12.0) sec INR (<1.2) APTT (22.0-30.0) sec Sodium 139 (137-145) mmol/L Potassium 5.4 H (3.5-5.1) mmol/L Chloride 106 (98-107) mmol/L Carbon Dioxide 24 (22-30) mmol/L Anion Gap 9 mmol/L BUN 17 (9-20) mg/dL Creatinine 0.93 (0.66-1.25) mg/dL Est GFR (CKD-EPI)AfAm 87 (>60 ml/min/1.73 sqM) Est GFR (CKD-EPI)NonAf 75 (>60 ml/min/1.73 sqM) Glucose 86 (74-99) mg/dL Calcium 9.2 (8.4-10.2) mg/dL Magnesium 2.4 H (1.6-2.3) mg/dL Total Bilirubin 0.8 (0.2-1.3) mg/dL AST 30 (17-59) U/L ALT 39 (21-72) U/L Alkaline Phosphatase 118 (38-126) U/L NT-Pro-B Natriuret Pep 4120 pg/mL Total Protein 7.0 (6.3-8.2) g/dL Albumin 3.5 (3.5-5.0) g/dL 10/03/18 Range/Units 14:25 WBC (3.8-10.6) k/uL RBC (4.30-5.90) m/uL Hgb (13.0-17.5) gm/dL Hct (39.0-53.0) % MCV (80.0-100.0) fL MCH (25.0-35.0) pg MCHC (31.0-37.0) g/dL RDW (11.5-15.5) % Plt Count (150-450) k/uL Neutrophils % % Lymphocytes % % Monocytes % % Eosinophils % % Basophils % % Neutrophils # (1.3-7.7) k/uL Lymphocytes # (1.0-4.8) k/uL Monocytes # (0-1.0) k/uL Eosinophils # (0-0.7) k/uL Basophils # (0-0.2) k/uL PT 11.0 (9.0-12.0) sec INR 1.0 (<1.2) APTT 30.9 H (22.0-30.0) sec Sodium (137-145) mmol/L Potassium (3.5-5.1) mmol/L Chloride (98-107) mmol/L Carbon Dioxide (22-30) mmol/L Anion Gap mmol/L BUN (9-20) mg/dL Creatinine (0.66-1.25) mg/dL Est GFR (CKD-EPI)AfAm (>60 ml/min/1.73 sqM) Est GFR (CKD-EPI)NonAf (>60 ml/min/1.73 sqM) Glucose (74-99) mg/dL Calcium (8.4-10.2) mg/dL Magnesium (1.6-2.3) mg/dL Total Bilirubin (0.2-1.3) mg/dL AST (17-59) U/L ALT (21-72) U/L Alkaline Phosphatase (38-126) U/L NT-Pro-B Natriuret Pep pg/mL Total Protein (6.3-8.2) g/dL Albumin (3.5-5.0) g/dL Disposition Clinical Impression: Congestive heart failure Disposition: HOME SELF-CARE Condition: Fair Instructions (If sedation given, give patient instructions): Heart Failure (ER) Is patient prescribed a controlled substance at d/c from ED?: No Referrals: [facility],Clinic [Primary Care Provider] - 1-2 days Time of Disposition: 16:19
[2018-10-03 14:36] LABS: Basophils % (A) 0 %; Eosinophils # (A) 0.5 k/uL (0-0.7); Eosinophils % (A) 6 %; HGB 9.2 gm/dL (13.0-17.5); Lymphocytes # (A) 0.6 k/uL (1.0-4.8); Lymphocytes % (A) 8 %; MCHC 31.8 g/dL (31.0-37.0); Mean Platelet Volume 6.7; Monocytes # (A) 0.4 k/uL (0-1.0); Monocytes % (A) 6 %; Neutrophils # (A) 5.7 k/uL (1.3-7.7); Neutrophils % (A) 77 %; Platelet Count 319 k/uL (150-450); RBC 3.18 m/uL (4.30-5.90); RDW 15.5 % (11.5-15.5); WBC 7.4 k/uL (3.8-10.6)
--- NOTE | 2018-10-03 14:44 | XR ---
EXAMINATION TYPE: XR chest 2V DATE OF EXAM: 10/03/2018 COMPARISON: 09/25/2018 HISTORY: Short of breath TECHNIQUE: Frontal and lateral views of the chest are obtained. FINDINGS: There is blunting of the costophrenic angles. Heart is enlarged. There is mild congestion. There are chest leads. There is osteopenia. IMPRESSION: There is mild heart failure with chronic bilateral pleural effusions. No significant belkys nge compared to last exam.
[2018-10-03 14:48] LABS: Albumin 3.5 g/dL (3.5-5.0); Calcium 9.2 mg/dL (8.4-10.2); Magnesium 2.4 mg/dL (1.6-2.3); Potassium 5.4 mmol/L (3.5-5.1); Total Bilirubin 0.8 mg/dL (0.2-1.3)
[2018-10-03 14:53] LABS: Partial Thromboplastin Time 30.9 sec (22.0-30.0)
[2018-10-03] MEDS ORDERED: FUROSEMIDE 10 MG/ML 2 ML VIAL IV STA (15:10)
[2018-10-03 16:18] VITALS: BP 121/62; PULSE 71; RESP 22
== END 2018-10-03 16:21 | disposition home or self-care (01) ==
LOC: EC 13:46
DX: I50.9 Heart failure, unspecified (principal); R79.89 Other specified abnormal findings of blood chemistry; J44.9 Chronic obstructive pulmonary disease, unspecified; I25.10 Atherosclerotic heart disease of native coronary artery without angina pectoris; I25.2 Old myocardial infarction; Z85.828 Personal history of other malignant neoplasm of skin; Z86.73 Personal history of transient ischemic attack (TIA), and cerebral infarction without residual deficits; Z95.5 Presence of coronary angioplasty implant and graft; Z87.891 Personal history of nicotine dependence; Z53.29 Procedure and treatment not carried out because of patient's decision for other reasons; Z79.51 Long term (current) use of inhaled steroids; Z79.82 Long term (current) use of aspirin; Z79.899 Other long term (current) drug therapy
CPT/HCPCS: 99285; 96374; 36415; 93005; 83880; 80053; 83735; 85025; 85610; 85730; 71046; J1940

== ENCOUNTER 2018-10-07 13:21 | Emergency (ER) | payer OTHER, MEDICARE ==
[2018-10-07] MEDS ORDERED: FUROSEMIDE 10 MG/ML 2 ML VIAL IV ONE (14:08)
--- NOTE | 2018-10-07 14:28 | ED ---
General Adult HPI - General Chief complaint: Recheck/Abnormal Lab/Rx Stated complaint: FLUID RETENTION Time Seen by Provider: 10/07/18 13:35 Source: patient, RN notes reviewed Mode of arrival: ambulatory Limitations: no limitations - History of Present Illness Initial comments: This is an 83-year-old male who presents emergency department because he has gained 6 pounds in the last week. Patient states he has a little more swelling of the legs. Patient states she has some shortness of breath when he walks but he always does but he thinks lately he has been a little bit worse. Patient denies any chest pain or palpitations. Patient states currently lying in bed he has no shortness of breath. Patient denies any calf pain. Patient denies any headache patient denies numbness or weakness. Patient denies any lightheadedness dizziness or syncopal episode. - Related Data Home Medications Medication Instructions Recorded Confirmed Budesonide/Formoterol Fumarate 2 puff INHALATION RT-BID 08/26/18 10/07/18 [Symbicort 80-4.5 Mcg Inhaler] Albuterol Nebulized [Ventolin 2.5 mg INHALATION RT-TID 09/20/18 10/07/18 Nebulized] Aspirin EC [Ecotrin Low Dose] 81 mg PO DAILY 09/20/18 10/07/18 Calcium Carbonate [Calcium] 1,200 mg PO DAILY 09/20/18 10/07/18 Ensure 1 can PO BID 09/20/18 10/07/18 Ferrous Sulfate [Iron (65 MG 325 mg PO BID 09/20/18 10/07/18 Elemental)] Sacubitril/Valsartan [Entresto 24 1 tab PO BID 09/20/18 10/07/18 mg-26 mg Tablet] Sennosides-Docusate Sodium 1 tab PO BID 09/20/18 10/07/18 [Senokot-S] Previous Rx's Medication Instructions Recorded Apixaban [Eliquis] 2.5 mg PO BID #60 tablet 08/01/16 Atorvastatin [Lipitor] 80 mg PO HS #30 tab 08/01/16 Nitroglycerin Sl Tabs [Nitrostat] 0.4 mg SUBLINGUAL Q5M PRN #25 tab 08/01/16 Pantoprazole [Protonix] 40 mg PO AC-BRKFST #30 tablet. 08/01/16 Furosemide [Lasix] 10 mg PO Q48H #10 dose 10/07/18 Allergies Allergy/AdvReac Type Severity Reaction Status Date / Time No Known Allergies Allergy Verified 10/07/18 13:44 Review of Systems ROS Statement: Those systems with pertinent positive or pertinent negative responses have been documented in the HPI. ROS Other: All systems not noted in ROS Statement are negative. Past Medical History Past Medical History: Coronary Artery Disease (CAD), Cancer, Heart Failure, COPD, CVA/TIA, Myocardial Infarction ([place]) Additional Past Medical History / Comment(s): pt is rt hand dominant. Patient reports remote history of myocardial infarction back in 1978 and since then he had not seen or followed up with cardiology. then 07-22-16.had 2nd mi -heart cath w/stent, "slight stroke 1998 no residual", skin cancer resected. Last Myocardial Infarction Date:: 07/22/2016 History of Any Multi-Drug Resistant Organisms: None Reported Past Surgical History: Heart Catheterization With Stent Additional Past Surgical History / Comment(s): 1998 left carotid , 07-22-16 heart cath w/ stent rca Past Anesthesia/Blood Transfusion Reactions: No Reported Reaction Date of Last Stent Placement:: 07-22-16 Past Psychological History: No Psychological Hx Reported Smoking Status: Former smoker Past Alcohol Use History: None Reported Past Drug Use History: None Reported - Past Family History Mother Family Medical History: Cancer Additional Family Medical History / Comment(s): from Lung CA, was a smoker Father Additional Family Medical History / Comment(s): from alcoholism General Exam - General Exam Comments Initial Comments: GENERAL: Patient is well-developed and well-nourished. Patient is nontoxic and well- hydrated and is in no acute distress. ENT: Neck is soft and supple. No significant lymphadenopathy is noted. Oropharynx is clear. Moist mucous membranes. Neck has full range of motion without eliciting any pain. EYES: The sclera were anicteric and conjunctiva were pink and moist. Extraocular movements were intact and pupils were equal round and reactive to light. Eyelids were unremarkable. PULMONARY: Unlabored respirations. Good breath sounds bilaterally. No audible rales rhonchi or wheezing was noted. CARDIOVASCULAR: There is a regular rate and rhythm without any murmurs gallops or rubs. ABDOMEN: Soft and nontender with normal bowel sounds. SKIN: Skin is clear with no lesions or rashes and otherwise unremarkable. NEUROLOGIC: Patient is alert and oriented x3. Cranial nerves II through XII are grossly intact. Motor and sensory are also intact. Normal speech, volume and content. Symmetrical smile. MUSCULOSKELETAL: Normal extremities with adequate strength and full range of motion. 1+ edema bilateral LYMPHATICS: No significant lymphadenopathy is noted PSYCHIATRIC: Normal psychiatric evaluation. Limitations: no limitations Course Vital Signs 10/07/18 13:31 Temperature 97.5 F L Pulse Rate 75 Respiratory 16 Rate Blood Pressure 100/58 O2 Sat by Pulse 100 Oximetry Medical Decision Making - Medical Decision Making EKG shows normal sinus rhythm at 74 bpm OR interval 182 QRS is 106 QT interval 408 QTC is 452. Patient's EKG shows no ST segment elevation or depression or T wave abnormalities are noted. Patient was given Lasix in the emergency department. Patient was not short of breath while in the emergency department felt c omfortable going home and daughter also felt comfortable taking him home. Patient will be instructed to take 20 mg every other day and on the opposite days take 10. - Lab Data Result diagrams: 10/07/18 14:05 10/07/18 14:05 Lab Results 10/07/18 10/07/18 10/07/18 Range/Units 14:05 14:05 14:05 WBC 6.6 (3.8-10.6) k/uL RBC 3.23 L (4.30-5.90) m/uL Hgb 9.6 L (13.0-17.5) gm/dL Hct 30.0 L (39.0-53.0) % MCV 93.0 (80.0-100.0) fL MCH 29.8 (25.0-35.0) pg MCHC 32.0 (31.0-37.0) g/dL RDW 15.7 H (11.5-15.5) % Plt Count 351 (150-450) k/uL Neutrophils % 76 % Lymphocytes % 9 % Monocytes % 7 % Eosinophils % 5 % Basophils % 1 % Neutrophils # 5.0 (1.3-7.7) k/uL Lymphocytes # 0.6 L (1.0-4.8) k/uL Monocytes # 0.5 (0-1.0) k/uL Eosinophils # 0.3 (0-0.7) k/uL Basophils # 0.0 (0-0.2) k/uL Hypochromasia Slight PT (9.0-12.0) sec INR (<1.2) APTT (22.0-30.0) sec Sodium 137 (137-145) mmol/L Potassium 4.5 (3.5-5.1) mmol/L Chloride 105 (98-107) mmol/L Carbon Dioxide 24 (22-30) mmol/L Anion Gap 8 mmol/L BUN 15 (9-20) mg/dL Creatinine 0.80 (0.66-1.25) mg/dL Est GFR (CKD-EPI)AfAm >90 (>60 ml/min/1.73 sqM) Est GFR (CKD-EPI)NonAf 82 (>60 ml/min/1.73 sqM) Glucose 82 (74-99) mg/dL Calcium 9.6 (8.4-10.2) mg/dL Magnesium 2.1 (1.6-2.3) mg/dL Total Bilirubin 0.8 (0.2-1.3) mg/dL AST 32 (17-59) U/L ALT 40 (21-72) U/L Alkaline Phosphatase 151 H (38-126) U/L Troponin I (0.000-0.034) ng/mL NT-Pro-B Natriuret Pep 5230 pg/mL Total Protein 7.9 (6.3-8.2) g/dL Albumin 4.0 (3.5-5.0) g/dL 10/07/18 10/07/18 Range/Units 14:05 14:05 WBC (3.8-10.6) k/uL RBC (4.30-5.90) m/uL Hgb (13.0-17.5) gm/dL Hct (39.0-53.0) % MCV (80.0-100.0) fL MCH (25.0-35.0) pg MCHC (31.0-37.0) g/dL RDW (11.5-15.5) % Plt Count (150-450) k/uL Neutrophils % % Lymphocytes % % Monocytes % % Eosinophils % % Basophils % % Neutrophils # (1.3-7.7) k/uL Lymphocytes # (1.0-4.8) k/uL Monocytes # (0-1.0) k/uL Eosinophils # (0-0.7) k/uL Basophils # (0-0.2) k/uL Hypochromasia PT 10.6 (9.0-12.0) sec INR 1.0 (<1.2) APTT 32.0 H (22.0-30.0) sec Sodium (137-145) mmol/L Potassium (3.5-5.1) mmol/L Chloride (98-107) mmol/L Carbon Dioxide (22-30) mmol/L Anion Gap mmol/L BUN (9-20) mg/dL Creatinine (0.66-1.25) mg/dL Est GFR (CKD-EPI)AfAm (>60 ml/min/1.73 sqM) Est GFR (CKD-EPI)NonAf (>60 ml/min/1.73 sqM) Glucose (74-99) mg/dL Calcium (8.4-10.2) mg/dL Magnesium (1.6-2.3) mg/dL Total Bilirubin (0.2-1.3) mg/dL AST (17-59) U/L ALT (21-72) U/L Alkaline Phosphatase (38-126) U/L Troponin I <0.012 (0.000-0.034) ng/mL NT-Pro-B Natriuret Pep pg/mL Total Protein (6.3-8.2) g/dL Albumin (3.5-5.0) g/dL Disposition Clinical Impression: Pedal edema Disposition: HOME SELF-CARE Instructions (If sedation given, give patient instructions): Leg Edema (ED) Additional Instructions: Patient should take Lasix 20 mg every other day and on the other days take 10 mg. Prescriptions: Furosemide [Lasix] 10 mg PO Q48H #10 dose Is patient prescribed a controlled substance at d/c from ED?: No Referrals: [facility],Clinic [Primary Care Provider] - 1-2 days Time of Disposition: 15:50
--- NOTE | 2018-10-07 14:36 | XR ---
EXAMINATION TYPE: XR chest 2V DATE OF EXAM: 10/07/2018 COMPARISON: October 03, 2018 HISTORY: Shortness of breath TECHNIQUE: Frontal and lateral views of the chest are obtained. FINDINGS: Scattered senescent parenchymal changes noted. Hyperinflation compatible with COPD. Patchy perihilar and basilar infiltrates with pleural effusions. Right upper lobe density noted as we ll. Overall stable appearance of the chest. Heart size is stable. Mediastinal structures are stable and grossly unremarkable. No evidence for hilar prominence. Degenerative changes dorsal spine. IMPRESSION: 1. Patchy perihilar and basilar infiltrates with pleural effusions. Right upper lobe density noted as well. Overall stable appearance of the chest.
[2018-10-07 14:43] LABS: Basophils % (A) 1 %; Eosinophils # (A) 0.3 k/uL (0-0.7); Eosinophils % (A) 5 %; HGB 9.6 gm/dL (13.0-17.5); Hypochromasia Slight; Lymphocytes # (A) 0.6 k/uL (1.0-4.8); Lymphocytes % (A) 9 %; MCH 29.8 pg (25.0-35.0); Mean Platelet Volume 6.9; Monocytes # (A) 0.5 k/uL (0-1.0); Monocytes % (A) 7 %; Neutrophils % (A) 76 %; Platelet Count 351 k/uL (150-450); RBC 3.23 m/uL (4.30-5.90); RDW 15.7 % (11.5-15.5); WBC 6.6 k/uL (3.8-10.6)
[2018-10-07 14:51] LABS: ALT 40 U/L (21-72); AST 32 U/L (17-59); Alkaline Phosphatase 151 U/L (38-126); Anion Gap 8 mmol/L; Blood Urea Nitrogen 15 mg/dL (9-20); Calcium 9.6 mg/dL (8.4-10.2); Carbon Dioxide 24 mmol/L (22-30); Chloride 105 mmol/L (98-107); Glucose 82 mg/dL (74-99); Magnesium 2.1 mg/dL (1.6-2.3); Potassium 4.5 mmol/L (3.5-5.1); Sodium 137 mmol/L (137-145); Total Bilirubin 0.8 mg/dL (0.2-1.3); Total Protein 7.9 g/dL (6.3-8.2)
[2018-10-07 15:15] LABS: Prothrombin Time 10.6 sec (9.0-12.0)
[2018-10-07 16:22] VITALS: BP 113/62
[2018-10-07 16:25] VITALS: PULSE 73; RESP 16; TEMP 98.7
== END 2018-10-07 16:24 | disposition home or self-care (01) ==
LOC: EC 13:21
DX: R60.0 Localized edema (principal); I25.10 Atherosclerotic heart disease of native coronary artery without angina pectoris; J44.9 Chronic obstructive pulmonary disease, unspecified; I25.2 Old myocardial infarction; Z87.891 Personal history of nicotine dependence; Z79.51 Long term (current) use of inhaled steroids; Z79.82 Long term (current) use of aspirin; Z79.899 Other long term (current) drug therapy; Z85.828 Personal history of other malignant neoplasm of skin; Z86.73 Personal history of transient ischemic attack (TIA), and cerebral infarction without residual deficits; Z95.5 Presence of coronary angioplasty implant and graft; Z98.890 Other specified postprocedural states
CPT/HCPCS: 36415; 93005; 83880; 80053; 83735; 84484; 85025; 85610; 85730; 71046; 99285; 96374; J1940

== ENCOUNTER → 2018-10-19 | Outpatient (CLI) | payer MEDICARE, OTHER ==
--- NOTE | 2018-10-19 20:03 | CT ---
EXAMINATION TYPE: CT abdomen w con DATE OF EXAM: 10/19/2018 COMPARISON: CT chest 08/26/2018 HISTORY: Abnormal lung findings CT DLP: 547 mGycm Automated exposure control for dose reduction was used. TECHNIQUE: Helical acquisition of images was performed from the lung bases through the top of iliac crest to include entire abdomen. CONTRAST: Performed with Oral Contrast and with IV Contrast, patient injected with 100 mL of Isovue 300. FINDINGS: LUNG BASES: The heart is enlarged. There are bilateral diffuse pleural effusions and basilar consolid ation. There is a calcification of the anterior margin of the left ventricular wall. Coronary artery calcification are noted. Calcified lymph node in the right hilum likely in the basis of previous gran ulomatous disease. LIVER/GB: Lobulated contour to the liver is stable likely related to eventration of the hemidiaphragm . No gallstones. PANCREAS: No significant abnormality is seen. SPLEEN: No significant abnormality is seen. ADRENALS: No significant abnormality is seen. KIDNEYS: No hydronephrosis or nephrolithiasis. There is a 2.4 cm cyst lower pole right kidney measuri ng 13 Hounsfield units suggestive of simple cyst.. Tiny hypodensity upper pole left kidney as well as additional sub-5 mm hypodensities in the left kid alma delia are too small to characterize but also likely related to simple cysts. BOWEL: No significant abnormality is seen. LYMPH NODES: No significant abnormality is seen. OSSEOUS STRUCTURES: Hypertrophic and degenerative changes spine. FREE AIR: No free air is visualized. OTHER: Atherosclerotic change to the aorta with involvement of its branch vessels noted. Severe ather osclerotic change of the iliac proximal vasculature. IMPRESSION: 1. Simple appearing lower pole right renal cyst. 2. Bilateral lower lobe consolidation and pleural effusion with global cardiomegaly. 3. There is coronary artery calcification as well as calcification of the anterior wall of the left v entricle which is stable from the prior exam. This can be associated with myocardial calcinosis. Amira elate for previous myocardial infarction. Left ventricular aneurysm felt less likely.
== END | disposition home or self-care (01) ==
LOC: RADCTMAIN 15:30
PROVIDERS: ATTEND Physician Assistant Medical
DX: J90 Pleural effusion, not elsewhere classified (principal); I51.7 Cardiomegaly; I25.10 Atherosclerotic heart disease of native coronary artery without angina pectoris
CPT/HCPCS: 82565; 84520; 74160; 36415; Q9967

== ENCOUNTER → 2019-07-07 | Outpatient (CLI) | payer OTHER ==
--- NOTE | 2019-07-07 16:09 | CT ---
EXAMINATION TYPE: CT ChestAbdPelvis w con DATE OF EXAM: 07/07/2019 COMPARISON: 10/19/2018 HISTORY: Head and neck CA CT DLP: 730 mGycm CONTRAST: CT scan of the chest, abdomen and pelvis is performed with Oral Contrast and with IV Contrast, patien t injected with 100 mL of Isovue 300. CT Chest: LUNGS: Spiculated nodule right upper lobe posteriorly measuring 7 mm. pleural-based nodular density l eft lower lobe measuring 1.2 cm. Biapical scarring noted with calcified component right upper lobe. S cattered areas of pleural thickening. Small bilateral pleural effusions right greater than left have diminished in size since prior study. Associated basilar compressive atelectasis. MEDIASTINUM: Thoracic aorta is of normal caliber. The heart is enlarged. No evidence for mediastin al mass or adenopathy. HILAR STRUCTURES: No evidence for mass. No hilar adenopathy is appreciated. OTHER: No significant abnormality. CONTRAST CT ABDOMEN AND PELVIS FINDINGS: LIVER/GB: No calcified gallstones. No space occupying hepatic lesion. Biliary tree is of normal ca liber. PANCREAS: No inflammation. No distinct mass. SPLEEN: No splenic enlargement. No lesion seen. ADRENALS: No nodule. No thickening. KIDNEYS/BLADDER: No hydronephrosis. No nephrolithiasis. Simple cyst lower pole right kidney. BOWEL: Nonvisualization of the appendix. Normal bowel caliber. No inflammation. Moderately severe fe josep stasis rectosigmoid region. GENITAL ORGANS: No gross abnormality. LYMPH NODES: No greater than 1cm abdominal or pelvic lymph nodes are appreciated. AORTA: Atheromatous and ectatic change abdominal aorta without aneurysm. OSSEOUS STRUCTURES: No significant abnormality is seen. OTHER: No significant additional abnormality is seen. IMPRESSION: 1. Spiculated nodule right upper lobe as well as pleural-based nodule left lower lobe. Metastatic dis ease is difficult to exclude. Correlate with PET/CT. 2. Basilar atelectasis with diminishing but persistent pleural effusions. 3. 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 4. Moderately severe rectosigmoid fecal stasis.
== END | disposition home or self-care (01) ==
LOC: RADCTMAIN 13:34
PROVIDERS: ATTEND Internal Medicine Hematology & Oncology
DX: R91.1 Solitary pulmonary nodule (principal); J90 Pleural effusion, not elsewhere classified; J43.9 Emphysema, unspecified; J98.4 Other disorders of lung; K56.41 Fecal impaction; C76.0 Malignant neoplasm of head, face and neck
CPT/HCPCS: 71260; 74177; Q9967

== ENCOUNTER 2019-08-01 12:23 | Inpatient (IN) | payer OTHER, MEDICARE ==
[2019-08-01] MEDS ORDERED: SODIUM CHLORIDE 0.9% 1,000 ML IV STA ×2 (12:53→15:18)
--- NOTE | 2019-08-01 12:59 | ED ---
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 Hallucinations started yesterday and had some today. Patient does see people in the room that he knows are not there. Patient also feels a little bit dizzy. Patient has had 21 radiation treatments. Patient also just started ktruda A couple weeks ago. Patient is having some oral intake however decreased from normal. No isolated area of weakness. Managed Care Provider says there has been some mild confusion as well. Patient denies this. - Related Data Home Medications Medication Instructions Recorded Confirmed Aspirin EC [Ecotrin Low Dose] 81 mg PO DAILY 09/20/18 08/01/19 Ensure 1 can PO TID 09/20/18 08/01/19 Ferrous Sulfate [Iron (65 MG 325 mg PO DAILY 09/20/18 08/01/19 Elemental)] Calcium Carbonate/Vitamin D3 1 tab PO DAILY 08/01/19 08/01/19 [Calcium 500-Vit D3 200 Tablet] Furosemide [Lasix] 20 mg PO BID 08/01/19 08/01/19 Ipratropium-Albuterol Nebulize 3 ml INHALATION RT-TID 08/01/19 08/01/19 [Duoneb 0.5 mg-3 mg/3 ml Soln] Previous Rx's Medication Instructions Recorded Apixaban [Eliquis] 2.5 mg PO BID #60 tablet 08/01/16 Atorvastatin [Lipitor] 80 mg PO HS #30 tab 08/01/16 Nitroglycerin Sl Tabs [Nitrostat] 0.4 mg SUBLINGUAL Q5M PRN #25 tab 08/01/16 Pantoprazole [Protonix] 40 mg PO AC-BRKFST #30 tablet. 08/01/16 Allergies Allergy/AdvReac Type Severity Reaction Status Date / Time No Known Allergies Allergy Verified 08/01/19 14:59 Review of Systems ROS Statement: Those systems with pertinent positive or pertinent negative responses have been documented in the HPI. ROS Other: All systems not noted in ROS Statement are negative. Constitutional: Denies: fever Eyes: Denies: eye pain ENT: Denies: ear pain Respiratory: Denies: cough Cardiovascular: Denies: chest pain Endocrine: Reports: fatigue Gastrointestinal: Denies: abdominal pain Genitourinary: Denies: dysuria Musculoskeletal: Denies: back pain Skin: Denies: rash Neurological: Reports: as per HPI Past Medical History Past Medical History: Coronary Artery Disease (CAD), Cancer, Heart Failure, COPD, CVA/TIA, Myocardial Infarction (PR) Additional Past Medical History / Comment(s): pt is rt hand dominant. Patient reports remote history of myocardial infarction back in 1978 and since then he had not seen or followed up with cardiology. then 07-22-16.had 2nd mi -heart cath w/stent, "slight stroke 1998 no residual", skin cancer resected. Oral Cancer Last Myocardial Infarction Date:: 07/22/2016 History of Any Multi-Drug Resistant Organisms: None Reported Past Surgical History: Heart Catheterization With Stent Additional Past Surgical History / Comment(s): 1998 left carotid , 07-22-16 hea rt cath w/ stent rca Past Anesthesia/Blood Transfusion Reactions: No Reported Reaction Date of Last Stent Placement:: 07-22-16 Past Psychological History: No Psychological Hx Reported Smoking Status: Former smoker Past Alcohol Use History: None Reported Past Drug Use History: None Reported - Past Family History Mother Family Medical History: Cancer Additional Family Medical History / Comment(s): from Lung CA, was a smoker Father Additional Family Medical History / Comment(s): from alcoholism General Exam Limitations: no limitations General appearance: alert, in no apparent distress, cachectic Eye exam: Present: other (Severe edema right periorbital region) ENT exam: Present: other (Right preorbital edema. Skin and struck show abnormality from just below the eye to the right mandible including a hole in the cheek that does extend into the oral cavity. Patient has limited ability to open his mouth.) Neck exam: Present: other (Left lateral upper neck swelling approximately 3 x 4 cm) Respiratory exam: Present: normal lung sounds bilaterally Cardiovascular Exam: Present: regular rate, normal rhythm GI/Abdominal exam: Present: soft. Absent: tenderness Extremities exam: Present: normal inspection Neurological exam: Present: alert, oriented X3, other (Limited facial movement secondary to abnormal growths.) Expanded Motor strength exam: RUE: 5, LUE: 5, RLE: 5, LLE: 5 Psychiatric exam: Present: normal affect, normal mood Skin exam: Present: normal color Course Vital Signs 08/01/19 08/01/19 08/01/19 12:24 13:42 15:10 Temperature 97.7 F Pulse Rate 114 H 62 74 Respiratory 20 18 16 Rate Blood Pressure 110/79 100/67 87/55 O2 Sat by Pulse 95 100 95 Oximetry - Reevaluation(s) Reevaluation #1: 08/01/19 15:19 There is concern for sepsis diagnosed at 1515. Blood culture ordered. Lactic acid will be ordered however this will possibly be abnormally high with patient's known condition. Fluid bolus ordered. IV antibiotics will be ordered. EKG Findings - EKG Comments: EKG Findings:: Sinus rhythm at 69. PVC present. SD 136. QRS 102. QT 422. QTC 452. Normal axis. Septal Q waves. Borderline lateral T wave inversion. Medical Decision Making - Medical Decision Making Case was discussed with Dr. Velasquez with oncology who does have concern for infectious process causing hallucinations and does recommend admission with IV antibiotics. There is concern for possible pneumonia on chest x-ray. IV antibiotics will be started. Case also discussed with Dr. Tafoya, who will admit covering for Dr. Wandy Castillo. - Lab Data Result diagrams: 08/01/19 12:56 08/01/19 12:56 Lab Results 08/01/19 08/01/19 08/01/19 Range/Units 12:56 12:56 12:56 WBC 14.1 H (3.8-10.6) k/uL RBC 3.18 L (4.30-5.90) m/uL Hgb 9.4 L (13.0-17.5) gm/dL Hct 29.4 L (39.0-53.0) % MCV 92.6 (80.0-100.0) fL MCH 29.7 (25.0-35.0) pg MCHC 32.1 (31.0-37.0) g/dL RDW 15.6 H (11.5-15.5) % Plt Count 313 (150-450) k/uL Neutrophils % 92 % Lymphocytes % 3 % Monocytes % 3 % Eosinophils % 1 % Basophils % 0 % Neutrophils # 13.0 H (1.3-7.7) k/uL Lymphocytes # 0.5 L (1.0-4.8) k/uL Monocytes # 0.4 (0-1.0) k/uL Eosinophils # 0.1 (0-0.7) k/uL Basophils # 0.0 (0-0.2) k/uL PT 11.7 (9.0-12.0) sec INR 1.2 H (<1.2) APTT 31.5 H (22.0-30.0) sec Sodium 137 (137-145) mmol/L Potassium 4.0 (3.5-5.1) mmol/L Chloride 99 (98-107) mmol/L Carbon Dioxide 29 (22-30) mmol/L Anion Gap 9 mmol/L BUN 23 H (9-20) mg/dL Creatinine 0.92 (0.66-1.25) mg/dL Est GFR (CKD-EPI)AfAm 88 (>60 ml/min/1.73 sqM) Est GFR (CKD-EPI)NonAf 76 (>60 ml/min/1.73 sqM) Glucose 107 H (74-99) mg/dL Calcium 10.3 H (8.4-10.2) mg/dL Magnesium 2.3 (1.6-2.3) mg/dL Total Bilirubin 1.1 (0.2-1.3) mg/dL AST 38 (17-59) U/L ALT 43 (4-49) U/L Alkaline Phosphatase 127 H (38-126) U/L Total Protein 7.4 (6.3-8.2) g/dL Albumin 3.4 L (3.5-5.0) g/dL - Radiology Data Radiology results: image reviewed (Chest x-ray shows right upper lobe infiltrate. Some cardiomegaly and effusions, suspect CHF. Exclude metastatic nodule. Brain CT shows no acute intercranial abnormality. Soft tissue swelling and induration right side of the face with large soft tissue deficit.) Critical Care Time Critical Care Time: Yes Total Critical Care Time: 33 Disposition Clinical Impression: Pneumonia, Sepsis, Hallucinations, Oral-mouth cancer Disposition: ADMITTED IP TO THIS [facility] Condition: Serious Is patient prescribed a controlled substance at d/c from ED?: No Referrals: Gian Monzon DO [Primary Care Provider] - 1-2 days Decision Time: 15:21
[2019-08-01 13:09] LABS: Basophils % (A) 0 %; Eosinophils # (A) 0.1 k/uL (0-0.7); Eosinophils % (A) 1 %; HCT 29.4 % (39.0-53.0); HGB 9.4 gm/dL (13.0-17.5); Lymphocytes # (A) 0.5 k/uL (1.0-4.8); Lymphocytes % (A) 3 %; MCH 29.7 pg (25.0-35.0); MCHC 32.1 g/dL (31.0-37.0); MCV 92.6 fL (80.0-100.0); Mean Platelet Volume 7.6; Monocytes # (A) 0.4 k/uL (0-1.0); Monocytes % (A) 3 %; Neutrophils % (A) 92 %; Platelet Count 313 k/uL (150-450); RBC 3.18 m/uL (4.30-5.90); RDW 15.6 % (11.5-15.5); WBC 14.1 k/uL (3.8-10.6)
[2019-08-01 13:18] LABS: INR 1.2 (<1.2); Partial Thromboplastin Time 31.5 sec (22.0-30.0); Prothrombin Time 11.7 sec (9.0-12.0)
[2019-08-01 13:27] LABS: Albumin 3.4 g/dL (3.5-5.0); Calcium 10.3 mg/dL (8.4-10.2); Magnesium 2.3 mg/dL (1.6-2.3); Total Bilirubin 1.1 mg/dL (0.2-1.3); Total Protein 7.4 g/dL (6.3-8.2)
--- NOTE | 2019-08-01 14:10 | XR ---
EXAMINATION TYPE: XR chest 2V DATE OF EXAM: 08/01/2019 COMPARISON: Most recent chest X-Ray June 25, 2019. Most recent CT July 07, 2019 HISTORY: History of stage IV oral cancer with weakness. TECHNIQUE: Frontal and lateral views of the chest are obtained. FINDINGS: There is a background advanced emphysematous change and cardiomegaly with persistent small right greater than left pleural effusions and associated bibasilar atelectasis and/or infiltrate. Ne w increased interstitial markings and patchy opacity right upper lung. The osseous structures remain demineralized. IMPRESSION: Suspect CHF exacerbation and there is cardiomegaly with small right greater than left bi lateral pleural effusions and mild interstitial edema increased from prior. In addition there is new or focal right upper lung infiltrate is not present. Underlying enlarging metastatic nodule cannot be excluded.
--- NOTE | 2019-08-01 14:14 | CT ---
EXAMINATION TYPE: CT brain wo/w con DATE OF EXAM: 08/01/2019 COMPARISON: NONE HISTORY: hallucinations, history of squamous cell carcinoma of the mouth CT DLP: 2166.4 mGycm Automated exposure control for dose reduction was used. FINDINGS: There is a large soft tissue defect in the left cheek. There is gross soft tissue swelling and indura tion involving the left cheek. There is subcutaneous air extending into the pterygoid fossa on the ri ght. I understand this patient has squamous cell carcinoma. I could not exclude infection in the deep soft tissues of the right side of face. There are generalized changes of sulcal prominence and ventriculomegaly, compatible with atrophic belkys nge. There is mild, diffuse periventricular white matter lucency, compatible with mild, chronic ische nelson change. There is no mass effect, midline shift or intracranial blood. Findings intravenous administration of contrast, I see no abnormal enhancement. There is complete opacification of the right maxillary sinus. There is some mucosal thickening involv ing the right sphenoid sinus. The left mastoid air cells clear. There is fluid in the right mastoid. The bony calvarium is intact. IMPRESSION: 1. NO ACUTE INTRACRANIAL ABNORMALITY. 2. MILD DEGENERATIVE CHANGE. 3. MILD, CHRONIC SINUS MUCOSAL DISEASE. 4. SOFT TISSUE SWELLING AND INDURATION INVOLVING THE RIGHT SIDE OF THE FACE WITH A LARGE SOFT TISSUE DEFECT MAY BE POSTSURGICAL. THE PRESENCE OF BUBBLES OF AIR WITHIN THE DEEP SOFT TISSUES MAKES IT IMPO SSIBLE TO EXCLUDE A DEEP INFECTION.
[2019-08-01] MEDS ORDERED: SODIUM CHLORIDE 0.9% 500 ML 500 ML IV STA (15:18)
[2019-08-01] MEDS ORDERED: PNEUMONIA PROTOCOL UTILIZED 1 EACH MISC PO PRN (15:23)
[2019-08-01] MEDS ORDERED: IPRATROPIUM-ALBUTEROL 3 ML NEB INHALATION PRN (15:23)
[2019-08-01] MEDS ORDERED: PIPERACILLIN-TAZOBACTAM 3.375 GM in SODIUM CHLORIDE 0.9% 100 ML IVPB STA (15:23)
[2019-08-01] MEDS ORDERED: LEVOFLOXACIN 750MG-D5W PMX 750 MG in DEXTROSE/WATER 1 150ML.BAG IVPB STA (15:23)
[2019-08-01 15:26] LABS: Appearance,Urine Clear (Clear); Bilirubin,Urine Negative (Negative); Blood,Urine Negative (Negative); Color,Urine Light Yellow; Glucose,Urine (UA) Negative (Negative); Ketones,Urine Negative (Negative); Leukocyte Esterase,Urine Negative (Negative); Nitrite,Urine Negative (Negative); PH, Urine 7.5 (5.0-8.0); Protein,Urine Negative (Negative); Specific Gravity,Urine 1.017 (1.001-1.035); Urobilinogen,Urine <2.0 mg/dL (<2.0)
[2019-08-01] MEDS: SODIUM CHLORIDE 0.9% 1,000 ML IV SCH (17:29)
[2019-08-02] MEDS: PIPERACILLIN-TAZOBACTAM 3.375 GM in SODIUM CHLORIDE 0.9% 100 ML IVPB SCH ×4 (00:14→23:27)
[2019-08-02] MEDS: SODIUM CHLORIDE 0.9% 1,000 ML IV SCH ×2 (00:16→16:18)
[2019-08-02] MEDS ORDERED: NITROGLYCERIN SL TABS 0.4 MG TAB SUBLINGUAL PRN (00:29)
[2019-08-02] MEDS ORDERED: ALPRAZolam 0.25 MG TAB PO PRN (00:31)
[2019-08-02] MEDS ORDERED: TEMAZEPAM 15 MG CAP PO PRN (00:31)
[2019-08-02] MEDS ORDERED: HYDROcodone/APAP 5-325MG 1 EACH TAB PO PRN (00:31)
[2019-08-02] MEDS ORDERED: ACETAMINOPHEN TAB 500 MG TAB PO PRN (00:31)
--- NOTE | 2019-08-02 07:04 | HP ---
HISTORY AND PHYSICAL DATE OF SERVICE: 08/01/2019 CHIEF COMPLAINTS: Not feeling well, weakness, hallucinations. HISTORY OF PRESENT ILLNESS: This 83-year-old gentleman with a past medical history of multiple medical problems including CAD, history of CHF, COPD, CVA, TIA, myocardial infarction, CAD, stent being followed Dr. Monzon in the outpatient setting also had squamous cell carcinoma of the mouth on the right side. The patient had multiple radiations. The patient was recently started Keytruda. The patient had significant right eye swelling also, but currently the family has noted that the patient is having dizziness, hallucinations, weakness, and the patient's p.o. intake appears to be poor also and the patient also apparently felt dizzy. Patient came to [facility] and multiple lesions in the chest x-ray was noted along with new onset right upper lobe pneumonia with sepsis. Patient was given IV fluid boluses. The patient was transferred to medical floor for further evaluation at this time. Lactic acid level was 2.7 and 2.9 on repeat at this time. Multiple consultations are in progress at this time. There is no history of any fever, rigors. No history of headache, loss of consciousness, seizures at this time. PAST MEDICAL HISTORY: History of squamous cell carcinoma of the mouth right side, history of CAD, stent, CHF, COPD, CVA, TIA, history of myocardial infarction. MEDICATIONS: Medications prior home medications are: 1. Protonix 40 mg with breakfast. 2. Nitrostat 0.4 sublingual p.r.n. 3. DuoNeb t.i.d. 4. Lasix 20 mg p.o. b.i.d. 5. Iron 325 mg p.o. daily. 6. Ensure I can t.i.d. 7. Vitamin D3 1 tablet daily. 8. Lipitor 80 mg at bedtime. 9. Ecotrin 81 mg daily. 10.Eliquis 2.5 mg b.i.d. ALLERGIES: Allergies are none. FAMILY HISTORY: History of lung cancer in family. SOCIAL HISTORY: Previous history of smoking. No history of current smoking or alcohol intake. REVIEW OF SYSTEMS: ENT: No diminished hearing or diminished vision. CARDIOVASCULAR SYSTEM: As mentioned earlier. RESPIRATORY SYSTEM: As mentioned earlier. GI: No nausea, vomiting, diarrhea. : No dysuria. NERVOUS SYSTEM: No numbness or weakness. ALLERGY/IMMUNOLOGY: No asthma or hay fever. MUSCULOSKELETAL: As mentioned earlier. HEMATOLOGY: No history of anemia. ENDOCRINE: No history of diabetes or hypothyroidism. CONSTITUTIONAL: As mentioned earlier. DERMATOLOGY: Negative. RHEUMATOLOGY: Negative. PSYCHIATRY: As mentioned earlier. PHYSICAL EXAMINATION: The patient is alert and oriented x3. Pulse 64, blood pressure 114/60, respiration 18, temperature 98 degrees, pulse ox 96% on room air. HEENT: Conjunctivae normal. NECK: No jugular venous distention. CARDIOVASCULAR: S1, S2 muffled. RESPIRATORY: Breath sounds diminished at the bases. A few scattered rhonchi and crackles. ABDOMEN: Soft, scaphoid, nontender. No mass palpable. LEGS: No edema, no swelling. NERVOUS SYSTEM: Diffusely weak and emaciated. Examination of the face significant ulceration with necrotic areas on the right face, significant ulceration also significant swelling of the right eye, which is also puffed up also with periorbital swelling. LAB INVESTIGATIONS: WBC 14.1, hemoglobin 9.4, INR 1.2. Lactate lactic acid 2.7. ASSESSMENT: 1. Right upper lobe pneumonia possibly aspiration with sepsis, present on admission. 2. Increased WBC. 3. Anemia, normocytic anemia of malignancy. 4. 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 5. Elevated lactic acid secondary to sepsis. 6. Hypercalcemia, mild secondary to dehydration. 7. History of coronary artery disease, stent. 8. History of congestive heart failure. 9. History of chronic obstructive pulmonary disease. 10.History of cerebrovascular accident, transient ischemic attack. 11.History of myocardial infarction. 12.Severe protein-calorie malnutrition with body mass index of 13.9. 13.History of transient ischemic attack. 14.History of carotid stenosis. 15.Remote history of nicotine dependence. RECOMMENDATIONS AND DISCUSSION: This 83-year-old gentleman who presented with multiple complex medical issues, at this time I recommend broad-spectrum IV antibiotics, IV Zosyn will be initiated, and I would also recommend cautious IV fluids. Consult Oncology, Infectious Disease and resume the home medications. The overall prognosis is extremely guarded because of multiple complex medical issues and the patient has significant difficulties with the malignancy with extending of the ulcerations and necrotic areas also. The patient most likely has an aspiration pneumonia and the patient also severely emaciated with BMI of 13.9. The code status is undetermined at this time. We will discuss with family to make the final decision regarding the code status. Otherwise, currently the prognosis remains extremely guarded. See orders for further details. Further recommendations to follow. A copy of dictation forwarded to Dr. Monzon who is the primary physician. PAUL / DIANE: [id number] /
[2019-08-02] MEDS: IPRATROPIUM-ALBUTEROL 3 ML NEB INHALATION SCH ×3 (07:17→19:40)
[2019-08-02] MEDS: PANTOPRAZOLE 40 MG TABLET PO SCH (07:53)
[2019-08-02] MEDS: ASPIRIN 81 MG PO SCH (07:54)
[2019-08-02] MEDS: APIXABAN 2.5 MG TABLET PO SCH ×2 (07:54→21:04)
[2019-08-02] MEDS: FERROUS SULFATE 325 MG TAB PO SCH (07:54)
[2019-08-02] MEDS: CALCIUM CARB-VIT D 500MG-200UN 1 EACH TAB PO SCH (07:54)
--- NOTE | 2019-08-02 08:35 | P.CONS ---
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 He had biopsy at [facility], staging PET scan revealed evidence of bilateral cervical cervical node disease. Due to comorbidities and poor performance status radiation therapy was recommended, completed 03/23/19. Shortly after this he noticed an enlarging lesion with ulceration on the right cheek, mass in the buccal mucosa and an enlarging left neck mass. He does have difficulty opening his mouth, he has surprisingly been tolerating liquids, he unfortunately continues to lose weight. He is weak, sits most of the time, he has a friend who is his caregiver. Palliative care vs single agent pembrolizumab discussed. Pt wanted to try treatment, 1st dose of keytruda on 07/20. Patient was seen for follow-up last week, concerns about the look of the tumor, with some areas looking a little bit larger. It was felt that this was tumor destruction and subsequent inflammation. Patient's tumors seem to be more necrotic, the swelling and irritation around his eye is actually improved as of today. Unfortunately though, patient's oral intake is not adequate enough on his own, lacking nutrition to heal. Patient denies fevers, chills, he swallows what he can, he denies symptoms of aspiration, unusual cough, he does not complain of pain, nausea, abdominal discomfort, acute changes in bowel or bladder habits, bleeding, swelling, rashes. Review of Systems 14 point ROS is negative except as stated in HPI Past Medical History Past Medical History: Coronary Artery Disease (CAD), Cancer, Heart Failure, COPD, CVA/TIA, Myocardial Infarction (SD) Additional Past Medical History / Comment(s): pt is rt hand dominant. Patient reports remote history of myocardial infarction back in 1978 and since then he had not seen or followed up with cardiology. then 07-22-16.had 2nd mi -heart cath w/stent, "slight stroke 1998 no residual", skin cancer resected. Oral Cancer with radiation 21 treatments Last Myocardial Infarction Date:: 07/22/2016 History of Any Multi-Drug Resistant Organisms: None Reported Past Surgical History: Heart Catheterization With Stent Additional Past Surgical History / Comment(s): 1998 left carotid , 07-22-16 heart cath w/ stent rca Past Anesthesia/Blood Transfusion Reactions: No Reported Reaction Date of Last Stent Placement:: 07-22-16 Past Psychological History: No Psychological Hx Reported Additional Psychological History / Comment(s): pt lives with his adopted daughter idalia Smoking Status: Former smoker Past Alcohol Use History: None Reported Additional Past Alcohol Use History / Comment(s): started smoking cigaretts in 194 -smoked 2 ppd. quit cigaretts in 1983 and started to smoke cigars(10) per day (did'nt inhale) and quit those 07-22-16. used to heavy beer drinker but quit 1983. Past Drug Use History: None Reported - Past Family History Mother Family Medical History: Cancer Additional Family Medical History / Comment(s): from Lung CA, was a smoker Father Additional Family Medical History / Comment(s): from alcoholism Medications and Allergies Home Medications Medication Instructions Recorded Confirmed Type Apixaban [Eliquis] 2.5 mg PO BID #60 tablet 08/01/16 08/01/19 Rx Atorvastatin [Lipitor] 80 mg PO HS #30 tab 08/01/16 08/01/19 Rx Nitroglycerin Sl Tabs [Nitrostat] 0.4 mg SUBLINGUAL Q5M PRN #25 tab 08/01/16 08/01/19 Rx Pantoprazole [Protonix] 40 mg PO AC-BRKFST #30 tablet. 08/01/16 08/01/19 Rx Aspirin EC [Ecotrin Low Dose] 81 mg PO DAILY 09/20/18 08/01/19 History Ensure 1 can PO TID 09/20/18 08/01/19 History Ferrous Sulfate [Iron (65 MG 325 mg PO DAILY 09/20/18 08/01/19 History Elemental)] Calcium Carbonate/Vitamin D3 1 tab PO DAILY 08/01/19 08/01/19 History [Calcium 500-Vit D3 200 Tablet] Furosemide [Lasix] 20 mg PO BID 08/01/19 08/01/19 History Ipratropium-Albuterol Nebulize 3 ml INHALATION RT-TID 08/01/19 08/01/19 History [Duoneb 0.5 mg-3 mg/3 ml Soln] Allergies Allergy/AdvReac Type Severity Reaction Status Date / Time No Known Allergies Allergy Verified 08/01/19 14:59 Physical Exam Vitals: Vital Signs Temp Pulse Pulse Pulse Resp BP BP 08/02/19 07:29 64 08/02/19 07:15 60 08/02/19 05:00 97.7 F 56 L 20 08/01/19 22:29 97.4 F L 56 L 24 99/54 08/01/19 17:43 98.0 F 64 18 114/60 08/01/19 17:08 68 113/88 08/01/19 16:33 66 16 112/63 08/01/19 16:19 72 111/78 08/01/19 16:00 16 08/01/19 15:49 97.5 F L 75 16 105/74 08/01/19 15:10 74 16 87/55 08/01/19 13:42 62 18 100/67 08/01/19 12:24 97.7 F 114 H 20 110/79 BP Pulse Ox 08/02/19 07:29 08/02/19 07:15 08/02/19 05:00 102/67 100 08/01/19 22:29 98 08/01/19 17:43 96 08/01/19 17:08 99 08/01/19 16:33 97 08/01/19 16:19 08/01/19 16:00 08/01/19 15:49 100 08/01/19 15:10 95 08/01/19 13:42 100 08/01/19 12:24 95 Intake and Output 08/01/19 08/02/19 08/02/19 22:59 06:59 14:59 Intake Total 700 200 Balance 700 200 Intake: Oral 700 200 Other: Voiding Method Urinal Urinal # Voids 1 2 Weight 42.638 kg - Constitutional General appearance: cooperative, no acute distress, thin - EENT right eye only able to open slightly due to swelling and tumor, small amt purulent drainage Right cheek and inferior to mandible consumed with tumor, much of which is starting to necrose left neck mass about 5-6 cm round, softer, fixed Eyes: anicteric sclerae ENT: hearing grossly normal - Neck Neck: lymphadenopathy - Respiratory Respiratory: bilateral: diminished - Cardiovascular Rhythm: regular Heart sounds: normal: S1, S2 Abnormal Heart Sounds: no systolic murmur, no diastolic murmur, no rub, no S3 Gallop, no S4 Gallop, no click, no other leg Peripheral Edema: bilateral: None - Gastrointestinal General gastrointestinal: no absent bowel sounds, no decreased bowel sounds, no distended, no hepatomegaly, no hyperactive bowel sounds, normal bowel sounds, no organomegaly, no rigid, scaphoid, soft, no splenomegaly, no tenderness, no umbilical hernia, no ventral hernia - Integumentary see head/neck - Musculoskeletal Musculoskeletal: generalized weakness, strength equal bilaterally - Psychiatric Psychiatric: A&O x's 3, appropriate affect, intact judgment & insight Results CBC & Chem 7: 08/01/19 12:56 08/01/19 12:56 Labs: Abnormal Lab Results - Last 24 Hours (Table) 08/01/19 08/01/19 08/01/19 Range/Units 12:56 12:56 12:56 WBC 14.1 H (3.8-10.6) k/uL RBC 3.18 L (4.30-5.90) m/uL Hgb 9.4 L (13.0-17.5) gm/dL Hct 29.4 L (39.0-53.0) % RDW 15.6 H (11.5-15.5) % Neutrophils # 13.0 H (1.3-7.7) k/uL Lymphocytes # 0.5 L (1.0-4.8) k/uL INR 1.2 H (<1.2) APTT 31.5 H (22.0-30.0) sec BUN 23 H (9-20) mg/dL Glucose 107 H (74-99) mg/dL Plasma Lactic Acid David (0.7-2.0) mmol/L Calcium 10.3 H (8.4-10.2) mg/dL Alkaline Phosphatase 127 H (38-126) U/L Albumin 3.4 L (3.5-5.0) g/dL 08/01/19 08/01/19 Range/Units 12:56 20:01 WBC (3.8-10.6) k/uL RBC (4.30-5.90) m/uL Hgb (13.0-17.5) gm/dL Hct (39.0-53.0) % RDW (11.5-15.5) % Neutrophils # (1.3-7.7) k/uL Lymphocytes # (1.0-4.8) k/uL INR (<1.2) APTT (22.0-30.0) sec BUN (9-20) mg/dL Glucose (74-99) mg/dL Plasma Lactic Acid David 2.7 H* 2.9 H* (0.7-2.0) mmol/L Calcium (8.4-10.2) mg/dL Alkaline Phosphatase (38-126) U/L Albumin (3.5-5.0) g/dL Chest x-ray: report reviewed CT Scan - head: report reviewed Assessment and Plan (1) Protein-calorie malnutrition, severe Narrative/Plan: Dietitian consulted. Will contact family and plan for meeting to discuss options for feeding Current Visit: Yes Status: Acute Priority: High Code(s): E43 - UNSPECIFIED SEVERE PROTEIN-CALORIE MALNUTRITION SNOMED Code(s): 436949346 (2) Dehydration Narrative/Plan: IV fluids Pt to be given oral intake to tolerance Current Visit: Yes Status: Acute Priority: High Code(s): E86.0 - DEHYDRATION SNOMED Code(s): 78611307 (3) Squamous cell cancer of buccal mucosa Narrative/Plan: S/P 1st cycle of immunotherapy. Pt tolerated the treatment very well. [place] that the changes in the tumor are actually symptoms of tumor destruction but, too early to tell for certain. Plan would be to continue immunotherapy if pt wishes Current Visit: Yes Status: Acute Priority: High Code(s): C06.0 - MALIGNANT NEOPLASM OF CHEEK MUCOSA SNOMED Code(s): 936297549 Plan: Ca++ mildly elevated: Hydration, monitor Leukocytosis, left shift: stable when compared to CBC in office Normocytic, normochromic anemia: Will check iron and nutritional studies Dr Attests: I have performed H&P and developed impression and plan of care for pt, discussed with dictator. I agree with dictated note, documented as a scribe.
[2019-08-02] MEDS ORDERED: NON FORMULARY DRUG (Ensure 1 CAN) PO SCH (09:00)
--- NOTE | 2019-08-02 09:31 | XR ---
EXAMINATION TYPE: XR chest 2V DATE OF EXAM: 08/02/2019 COMPARISON: CT July 07, 2019. Chest x-ray yesterday. HISTORY: History of throat cancer with pneumonia progress study. TECHNIQUE: Frontal and lateral views of the chest are obtained. FINDINGS: The osseous structures remain demineralized. There is cardiomegaly with small right greate r than left pleural effusions. There is bilateral chronic emphysematous change with moderate2 to mj re biapical pleural/parenchymal scarring and persistent right upper lung increased opacity slightly m ore nodular in configuration corresponding to subcentimeter nodule on CT posterior right upper lobe a xial image 21. No new focal airspace opacity or pneumothorax. Janett B lines in the periphery are see n. Curvilinear calcification left lung base noted corresponds to left ventricular apical calcificatio n on CT. IMPRESSION: No significant interval change from most recent x-ray. Suspect CHF exacerbation observed cardiomegaly with small right greater than left pleural effusions and mild interstitial edema redemo nstrated. More suspicious focal right upper lobe infiltrate is thought present. This is in the region of recent suspicious subcentimeter nodule raising concern for metastatic disease. Background chronic emphysematous and parenchymal fibrotic changes.
[2019-08-02 11:44] VITALS: BMI 13.8
[2019-08-02] MEDS ORDERED: LEVOFLOXACIN 750MG-D5W PMX 750 MG in DEXTROSE/WATER 1 150ML.BAG IVPB SCH (15:00)
--- NOTE | 2019-08-02 17:43 | PN ---
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 The patient has significant ulceration of the right cheek, also. Past medical history reviewed. REVIEW OF SYSTEMS: CARDIOVASCULAR SYSTEM: No angina, palpitations. RESPIRATORY SYSTEM: As mentioned earlier. GI: As mentioned earlier. : No dysuria or retention. NERVOUS SYSTEM: No numbness, weakness. CURRENT MEDICATIONS: Reviewed. They include: 1. Tylenol p.r.n. 2. Tingley 5 mg q.6 p.r.n. 3. DuoNeb q.i.d. and p.r.n. 4. Xanax 0.25 t.i.d. 5. Eliquis 2.5 mg b.i.d. 6. Aspirin 81 mg daily. 7. Lipitor 80 mg at bedtime. 8. [place] with vitamin D. 9. Iron sulfate. 10.Lasix 20 mg p.o. b.i.d. 11.Levaquin. 12.Nitrostat. 13.Protonix. 14.Zosyn IV. 15.Restoril. PHYSICAL EXAMINATION: Patient is alert and oriented x3. Pulse 59, blood pressure 112/66, respirations 16, temperature 97.4, pulse ox 98% on room air. HEENT: Conjunctivae normal. NECK: No jugular venous distention. CARDIOVASCULAR SYSTEM: S1, S2 muffled. RESPIRATORY SYSTEM: Breath sounds diminished at the bases. Bilateral scattered rhonchi and crackles. ABDOMEN: Soft, non-tender. LEGS: No edema. No swelling. NERVOUS SYSTEM: No focal deficit. LABS: WBC 14.1 and lactic acid 2.9. BMI is 13.9. ASSESSMENT: 1. Right upper lobe pneumonia, possibly aspiration with sepsis, present on admission. 2. Increased white count. 3. Anemia, normocytic; anemia of malignancy. 4. 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 5. Elevated lactic acid secondary to sepsis. 6. Hypercalcemia secondary to dehydration. 7. History of coronary artery disease, stent. 8. History of congestive heart failure, ejection fraction unknown. 9. History of chronic obstructive pulmonary disease. 10.Cerebrovascular accident, transient ischemic attack. 11.History of myocardial infarction. 12.Severe protein-calorie malnutrition with body mass index of 13.9. 13.History of transient ischemic attack. 14.History of carotid stenosis. 15.Remote history of nicotine dependence. 16.NO CODE, NO CPR, NO VENT. RECOMMENDATIONS AND DISCUSSION: In this 83-year-old gentleman who presented with multiple complex medical issues, we will monitor the patient closely, continue the current medications, continue symptomatic treatment. Otherwise at this time I would recommend continuing the antibiotics. Follow the cultures. PT/OT evaluation. Continue to monitor. Overall prognosis extremely guarded because of multiple complex medical issues. Further recommendations to follow. MMODL / IJN: [id number] /
[2019-08-02] MEDS: FUROSEMIDE 20 MG TAB PO SCH (21:04)
[2019-08-02] MEDS: ATORVASTATIN 80 MG TAB PO SCH (21:04)
--- NOTE | 2019-08-03 00:07 | P.CONS ---
History of Present Illness - Reason for Consult Consult date: 08/02/19 sepsis Requesting physician: Emily Werner - Chief Complaint weakness and mental status changes x 1 day - History of Present Illness Patient is 83-year-old male with a past medical history significant for right buccal invasive squamous cell carcinoma and also 2019 with evidence of metastatic disease for which the patient did have radiation therapy completed in March 2019 patient presenting to [facility] ER yesterday with chief complaints of dizziness and hallucination that apparently started yesterday the day before presentation to the hospital. They feel patient has been feeling dizzy and did have a decreased oral intake along with weakness no vomiting denies high-grade fever no chest pain shortness of breath or cough no vomiting or diarrhea with the symptom the patient presented to hospital on arrival to the ER the patient has been afebrile lactic acid mildly rated 2.8 white count was 14.1 creatinine was normal urine has been negative the patient did have a chest x-ray which shows a suspect CHF exacerbation cardiomegaly with small right greater than left bilateral pleural effusion CT of the brain did not show any acute intracranial abnormality did shows right side of the face with a large soft tissue defect made postsurgical patient has been admitted to the hospital and possible consideration for the PEG tube placement he has been started on Zosyn infectious was consulted for recommendation regarding his elevated white count lactic acid and concern for possible sepsis Review of Systems Positive point has been mentioned in HPI rest of the systems are negative Past Medical History Past Medical History: Coronary Artery Disease (CAD), Cancer, Heart Failure, C OPD, CVA/TIA, Myocardial Infarction ([place]) Additional Past Medical History / Comment(s): pt is rt hand dominant. Patient reports remote history of myocardial infarction back in 1978 and since then he had not seen or followed up with cardiology. then 07-22-16.had 2nd mi -heart cath w/stent, "slight stroke 1998 no residual", skin cancer resected. Oral Cancer with radiation 21 treatments Last Myocardial Infarction Date:: 07/22/2016 History of Any Multi-Drug Resistant Organisms: None Reported Past Surgical History: Heart Catheterization With Stent Additional Past Surgical History / Comment(s): 1998 left carotid , 07-22-16 heart cath w/ stent rca Past Anesthesia/Blood Transfusion Reactions: No Reported Reaction Date of Last Stent Placement:: 07-22-16 Past Psychological History: No Psychological Hx Reported Additional Psychological History / Comment(s): pt lives with his adopted daughter idalia Smoking Status: Former smoker Past Alcohol Use History: None Reported Additional Past Alcohol Use History / Comment(s): started smoking cigaretts in 1944 -smoked 2 ppd. quit cigaretts in 1983 and started to smoke cigars(10) per day (did'nt inhale) and quit those 2--17. used to heavy beer drinker but quit 1983. Past Drug Use History: None Reported - Past Family History Mother Family Medical History: Cancer Additional Family Medical History / Comment(s): from Lung CA, was a smoker Father Additional Family Medical History / Comment(s): from alcoholism Medications and Allergies Home Medications Medication Instructions Recorded Confirmed Type Apixaban [Eliquis] 2.5 mg PO BID #60 tablet 08/01/16 08/01/19 Rx Atorvastatin [Lipitor] 80 mg PO HS #30 tab 08/01/16 08/01/19 Rx Nitroglycerin Sl Tabs [Nitrostat] 0.4 mg SUBLINGUAL Q5M PRN #25 tab 08/01/16 08/01/19 Rx Pantoprazole [Protonix] 40 mg PO AC-BRKFST #30 tablet.dr 08/01/16 08/01/19 Rx Aspirin EC [Ecotrin Low Dose] 81 mg PO DAILY 09/20/18 08/01/19 History Ensure 1 can PO TID 09/20/18 08/01/19 History Ferrous Sulfate [Iron (65 MG 325 mg PO DAILY 09/20/18 08/01/19 History Elemental)] Calcium Carbonate/Vitamin D3 1 tab PO DAILY 08/01/19 08/01/19 History [Calcium 500-Vit D3 200 Tablet] Furosemide [Lasix] 20 mg PO BID 08/01/19 08/01/19 History Ipratropium-Albuterol Nebulize 3 ml INHALATION RT-TID 08/01/19 08/01/19 History [Duoneb 0.5 mg-3 mg/3 ml Soln] Allergies Allergy/AdvReac Type Severity Reaction Status Date / Time No Known Allergies Allergy Verified 08/01/19 14:59 Physical Exam Vitals: Vital Signs Temp Pulse Pulse Pulse Resp BP BP 08/02/19 07:29 64 08/02/19 07:15 60 08/02/19 05:00 97.7 F 56 L 20 08/01/19 22:29 97.4 F L 56 L 24 99/54 08/01/19 17:43 98.0 F 64 18 114/60 08/01/19 17:08 68 113/88 08/01/19 16:33 66 16 112/63 08/01/19 16:19 72 111/78 08/01/19 16:00 16 08/01/19 15:49 97.5 F L 75 16 105/74 08/01/19 15:10 74 16 87/55 08/01/19 13:42 62 18 100/67 08/01/19 12:24 97.7 F 114 H 20 110/79 BP Pulse Ox 08/02/19 07:29 08/02/19 07:15 08/02/19 05:00 102/67 100 08/01/19 22:29 98 08/01/19 17:43 96 08/01/19 17:08 99 08/01/19 16:33 97 08/01/19 16:19 08/01/19 16:00 08/01/19 15:49 100 08/01/19 15:10 95 08/01/19 13:42 100 08/01/19 12:24 95 Intake and Output 08/01/19 08/02/19 08/02/19 22:59 06:59 14:59 Intake Total 700 200 Balance 700 200 Intake: Oral 700 200 Other: Voiding Method Urinal Urinal # Voids 1 2 Weight 42.638 kg GENERAL DESCRIPTION: Elderly male lying in bed, no distress. No tachypnea or accessory muscle of respiration use. HEENT: Shows Pallor , no scleral icterus. Oral mucous membrane is dry. Destructive lesion to the right maxillary area with swelling involving the right maxilla and the periorbital area no foul-smelling drainage NECK: Trachea central, no thyromegaly. LUNGS: Unlabored breathing. Clear to auscultation anteriorly. No wheeze or crackle. HEART: S1, S2, regular rate and rhythm. ABDOMEN: Soft, no tenderness , guarding or rigidity EXTREMITIES: No edema of feet. SKIN: No rash, no masses palpable. NEUROLOGICAL: The patient is awake, alert, oriented x3, mood and affect normal. Results CBC & Chem 7: 08/01/19 12:56 08/01/19 12:56 Labs: Abnormal Lab Results - Last 24 Hours (Table) 08/01/19 08/01/19 08/01/19 Range/Units 12:56 12:56 12:56 WBC 14.1 H (3.8-10.6) k/uL RBC 3.18 L (4.30-5.90) m/uL Hgb 9.4 L (13.0-17.5) gm/dL Hct 29.4 L (39.0-53.0) % RDW 15.6 H (11.5-15.5) % Neutrophils # 13.0 H (1.3-7.7) k/uL Lymphocytes # 0.5 L (1.0-4.8) k/uL INR 1.2 H (<1.2) APTT 31.5 H (22.0-30.0) sec BUN 23 H (9-20) mg/dL Glucose 107 H (74-99) mg/dL Plasma Lactic Acid David (0.7-2.0) mmol/L Calcium 10.3 H (8.4-10.2) mg/dL Alkaline Phosphatase 127 H (38-126) U/L Albumin 3.4 L (3.5-5.0) g/dL 08/01/19 08/01/19 Range/Units 12:56 20:01 WBC (3.8-10.6) k/uL RBC (4.30-5.90) m/uL Hgb (13.0-17.5) gm/dL Hct (39.0-53.0) % RDW (11.5-15.5) % Neutrophils # (1.3-7.7) k/uL Lymphocytes # (1.0-4.8) k/uL INR (<1.2) APTT (22.0-30.0) sec BUN (9-20) mg/dL Glucose (74-99) mg/dL Plasma Lactic Acid David 2.7 H* 2.9 H* (0.7-2.0) mmol/L Calcium (8.4-10.2) mg/dL Alkaline Phosphatase (38-126) U/L Albumin (3.5-5.0) g/dL Assessment and Plan Assessment: patient presenting to the hospital with confusion and mental status changes in this patient who did have a history of invasive ductal cell carcinoma with significant destructive lesion of his maxillary area for which the patient has completed radiation therapy he did have elevated white count and lactic acid possibly related to his destructive malignancy as clinically no definite focus of infection in this patient with no fever or any localizing sign or symptom of infection (1) Leukocytosis Current Visit: Yes Status: Acute Code(s): D72.829 - ELEVATED WHITE BLOOD CELL COUNT, UNSPECIFIED SNOMED Code(s): 194182158 Plan: 1-May continue Zosyn at this point waiting for the culture to finalize 2-IV fluid We will follow on clinical condition and cultures to further adjust medication if needed Thank you for this consultation we will follow the patient along with you Time with Patient: Greater than 30
[2019-08-03] MEDS: FUROSEMIDE 20 MG TAB PO SCH ×2 (07:20→20:43)
[2019-08-03] MEDS: PIPERACILLIN-TAZOBACTAM 3.375 GM in SODIUM CHLORIDE 0.9% 100 ML IVPB SCH ×2 (07:20→15:08)
[2019-08-03] MEDS: FERROUS SULFATE 325 MG TAB PO SCH (07:20)
[2019-08-03] MEDS: APIXABAN 2.5 MG TABLET PO SCH ×2 (07:20→20:43)
[2019-08-03] MEDS: ASPIRIN 81 MG PO SCH (07:20)
[2019-08-03] MEDS: CALCIUM CARB-VIT D 500MG-200UN 1 EACH TAB PO SCH (07:20)
[2019-08-03] MEDS: PANTOPRAZOLE 40 MG TABLET PO SCH (07:20)
[2019-08-03] MEDS: SODIUM CHLORIDE 0.9% 1,000 ML IV SCH (07:22)
[2019-08-03] MEDS: IPRATROPIUM-ALBUTEROL 3 ML NEB INHALATION SCH ×3 (08:25→20:33)
[2019-08-03 09:44] LABS: Basophils % (A) 0 %; Eosinophils # (A) 0.2 k/uL (0-0.7); Eosinophils % (A) 1 %; Hypochromasia Marked; Lymphocytes # (A) 0.5 k/uL (1.0-4.8); Lymphocytes % (A) 3 %; MCH 30.2 pg (25.0-35.0); MCV 97.4 fL (80.0-100.0); Macrocytosis Slight; Mean Platelet Volume 7.9; Monocytes # (A) 0.5 k/uL (0-1.0); Monocytes % (A) 4 %; Neutrophils # (A) 13.9 k/uL (1.3-7.7); Neutrophils % (A) 91 %; Platelet Count 291 k/uL (150-450); RBC 2.97 m/uL (4.30-5.90); RDW 15.7 % (11.5-15.5); WBC 15.3 k/uL (3.8-10.6)
[2019-08-03 10:00] LABS: African American GFR (CKD) >90 (>60 ml/min/1.73 sqM); Anion Gap 11 mmol/L; Blood Urea Nitrogen 16 mg/dL (9-20); Calcium 9.1 mg/dL (8.4-10.2); Carbon Dioxide 22 mmol/L (22-30); Chloride 105 mmol/L (98-107); Glucose 134 mg/dL (74-99); Non-African American GFR(CKD) 78 (>60 ml/min/1.73 sqM); Potassium 3.4 mmol/L (3.5-5.1); Sodium 138 mmol/L (137-145)
--- NOTE | 2019-08-03 12:23 | P.PN ---
Subjective Progress Note Date: 08/03/19 Principal diagnosis: Aspiration pneumonia, malnutrition secondary to malignancy In f/u today pt is smiling, happy and positive, he denies pain, MAISHA, progressive cough, he feels he can open his eye more, the mass on the left neck feels smaller and softer to him, the submandibular lesions feel smaller too. He is tolerating oral intake, thinks more today Objective - Vital Signs Vital signs: Vital Signs Temp 98.7 F 08/03/19 05:43 Pulse 66 08/03/19 11:49 Resp 16 08/03/19 05:43 BP 101/42 08/03/19 05:43 Pulse Ox 98 08/03/19 05:43 Intake & Output 08/02/19 08/03/19 08/03/19 18:59 06:59 18:59 Output Total 300 Balance -300 Weight 42.638 kg Output: Urine 300 Other: Voiding Method Urinal Urinal Urinal # Voids 2 # Bowel Movements 0 1 - Constitutional General appearance: Present: cooperative, no acute distress - EENT EENT Comment(s): right face and submandibular necrotic tumor, left neck mass Eyes: Present: anicteric sclerae, EOMI ENT: Present: hearing grossly normal - Neck Neck: Present: lymphadenopathy - Respiratory Respiratory: bilateral: CTA, diminished - Cardiovascular Heart sounds: normal: S1, S2 Abnormal Heart Sounds: Absent: systolic murmur, diastolic murmur, rub, S3 Gallop, S4 Gallop, click, other - Peripheral edema leg Peripheral Edema: bilateral: None - Gastrointestinal General gastrointestinal: Present: normal bowel sounds, scaphoid, soft - Integumentary Integumentary Comment(s): tumor breakdown of the cheek and neck area - Musculoskeletal Musculoskeletal: Present: generalized weakness, strength equal bilaterally - Psychiatric Psychiatric: Present: A&O x's 3, appropriate affect, intact judgment & insight - Allied health notes Allied health notes reviewed: ST - Labs CBC & Chem 7: 08/03/19 08:49 08/03/19 08:49 Labs: Abnormal Lab Results - Last 24 Hours (Table) 08/03/19 08/03/19 Range/Units 08:49 08:49 WBC 15.3 H (3.8-10.6) k/uL RBC 2.97 L (4.30-5.90) m/uL Hgb 9.0 L (13.0-17.5) gm/dL Hct 29.0 L (39.0-53.0) % RDW 15.7 H (11.5-15.5) % Neutrophils # 13.9 H (1.3-7.7) k/uL Lymphocytes # 0.5 L (1.0-4.8) k/uL Potassium 3.4 L (3.5-5.1) mmol/L Glucose 134 H (74-99) mg/dL Microbiology - Last 24 Hours (Table) 08/01/19 15:20 Blood Culture - Preliminary Blood No Growth after 24 hours Assessment and Plan (1) Protein-calorie malnutrition, severe Narrative/Plan: Dietitian consulted. Current Visit: Yes Status: Acute Priority: High Code(s): E43 - UNSPECIFIED SEVERE PROTEIN-CALORIE MALNUTRITION SNOMED Code(s): 032757871 (2) Dehydration Current Visit: Yes Status: Acute Priority: High Code(s): E86.0 - DEHYDRATION SNOMED Code(s): 60405269 (3) Squamous cell cancer of buccal mucosa Narrative/Plan: S/P 1st cycle of immunotherapy. Pt tolerated the treatment very well. [place] that the changes in the tumor are actually symptoms of tumor destruction but, too early to tell for certain. Plan would be to continue immunotherapy if pt wishes Current Visit: Yes Status: Acute Priority: High Code(s): C06.0 - MALIGNANT NEOPLASM OF CHEEK MUCOSA SNOMED Code(s): 250691222 Plan: Ca++ mildly elevated: resolved Leukocytosis, left shift: stable when compared to CBC in office, slightly increased today Normocytic, normochromic anemia: Will check iron and nutritional studies-added to todays lab draw Spoke with pt daughter last night. She confirmed that pt and his brother agreed that tube feeding was not something pt wants. Agree with pt choice. Pt has met with Dietitian and Speech therapy. He was encouraged to take their recommendations for optimal oral intake. We discussed risk for aspiration pneumonia and pt understands. We spoke of ongoing immunotherapy as long as pt is strong enough to do so-he actually tolerated treatment very well. He understands that he will be evaluated prior to treatments and recommendations to continue or hold will be made. We reviewed palliative care as a reasonable and valuable service, he is open to meeting with palliative care team, discussed with Case Manger who will facilitate meeting. Pt remains pleasant and positive. He is on no pain. We will continue as long as there is benefit and risk remains minimal. Attests: I have performed H&P and developed impression and plan of care for pt, discussed with dictator. I agree with dictated note, documented as a scribe.
--- NOTE | 2019-08-03 14:51 | FL ---
EXAMINATION TYPE: FL barium swallow w video DATE OF EXAM: 08/03/2019 MODIFIED SWALLOW / DEGLUTITION STUDY CLINICAL HISTORY: Dysphagia. Head and neck cancer TECHNIQUE: Deglutition study is performed utilizing thin liquid barium and barium thick applesauce. 58 seconds of fluoroscopy time was utilized with 0 fluoroscopic images saved as the examination was v ideo recorded. COMPARISON: None. FINDINGS: The oral and pharyngeal phases show satisfactory initiation and propagation nearly each swa llow however one episode of premature spill and delayed epiglottic closure was seen with the thin con sistency only. Normal mastication is seen with solid modalities tested. There is no evidence of pen etration or aspiration with any modality tested. No significant pharyngeal residue was appreciated. IMPRESSION: No evidence of laryngeal penetration or aspiration. Please refer to speech therapist not es for further details if necessary.
[2019-08-03] MEDS ORDERED: POTASSIUM CHLORIDE ER 20 MEQ TAB.ER PO STA (15:12)
--- NOTE | 2019-08-03 15:22 | P.PN ---
Subjective Progress Note Date: 08/03/19 Principal diagnosis: This is an 83-year-old male who was recently admitted with possible pneumonia and overall not feeling well and is being closely monitored. 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 Oncology is following. Patient underwent a modified barium swallow today showing no signs of aspiration and no evidence of laryngeal penetration. Patient has been eating a little more today and tolerating and is currently on a dysphagia level I pured diet. Infectious disease is following as well. Blood cultures thus far remain negative and will obtain a wound culture of the right cheek ulceration. Patient currently remains on Levaquin and Zosyn and will continue at this time. Currently no reports of chest pain, shortness of breath, or palpitations. Patient is afebrile. No reports of nausea or vomiting and patient is tolerating diet as mentioned previously. Objective - Vital Signs Vital signs: Vital Signs Temp 98.7 F 08/03/19 05:43 Pulse 66 08/03/19 11:49 Resp 16 08/03/19 05:43 BP 101/42 08/03/19 05:43 Pulse Ox 98 08/03/19 05:43 Intake & Output 08/02/19 08/03/19 08/03/19 18:59 06:59 18:59 Output Total 300 Balance -300 Weight 42.638 kg Output: Urine 300 Other: Voiding Method Urinal Urinal Urinal # Voids 2 # Bowel Movements 0 1 - Exam Gen: This is a 83-year-old male sitting up in bed, awake and alert and oriented 3, thin built. HEENT: Head is atraumatic, normocephalic. Pupils equal, round. Sclerae is anicteric. Right cheek ulceration noted NECK: Supple. No JVD. No lymphadenopathy. No thyromegaly. LUNGS: Diminished breath sounds at the bases with some mild bilateral scattered rhonchi and crackles noted. HEART: S1, S2 are muffled ABDOMEN: Soft. Bowel sounds are present. No masses. No tenderness. EXTREMITIES: No pedal edema. No calf tenderness. NEUROLOGICAL: Patient is awake, alert and oriented x3. Cranial nerves 2 through 12 are grossly intact. - Labs CBC & Chem 7: 08/03/19 08:49 08/03/19 08:49 Labs: Abnormal Lab Results - Last 24 Hours (Table) 08/03/19 08/03/19 Range/Units 08:49 08:49 WBC 15.3 H (3.8-10.6) k/uL RBC 2.97 L (4.30-5.90) m/uL Hgb 9.0 L (13.0-17.5) gm/dL Hct 29.0 L (39.0-53.0) % RDW 15.7 H (11.5-15.5) % Neutrophils # 13.9 H (1.3-7.7) k/uL Lymphocytes # 0.5 L (1.0-4.8) k/uL Potassium 3.4 L (3.5-5.1) mmol/L Glucose 134 H (74-99) mg/dL Microbiology - Last 24 Hours (Table) 08/01/19 15:20 Blood Culture - Preliminary Blood No Growth after 24 hours Assessment and Plan Assessment: Right upper lobe pneumonia, possibly aspiration with sepsis, present on admission Increased white blood count Anemia, normocytic, 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, significant facial swelling, status post radiation therapy Elevated lactic acidosis secondary to sepsis Hypercalcemia secondary to dehydration History of coronary artery disease, stent history of congestive heart failure, ejection fraction unknown History of chronic obstructive pulmonary disease Cerebrovascular accident, TIA History of myocardial infarction Severe protein calorie malnutrition with a body mass index of 13.9 History of TIA History of carotid stenosis Remote history of nicotine dependence No code, no CPR, no vent Recommendations and discussion: Recommend to continue current medications, management, and symptomatic treatment. Continue with IV antibiotics in the form of Levaquin and Zosyn. Inf ectious disease is following. Will obtain a culture of the left cheek ulceration. Oncology is following as well. Patient to continue on a dysphagia 1 pureed Diet as he underwent modified barium swallow showing no aspiration. Due to multiple complex medical issues, prognosis is guarded. PT/OT to follow. Will continue to monitor closely. Further recommendations to follow.
[2019-08-03] MEDS: ATORVASTATIN 80 MG TAB PO SCH (20:43)
--- NOTE | 2019-08-03 21:05 | PN ---
PROGRESS NOTE DATE OF SERVICE: 08/03/2019. REASON FOR FOLLOWUP: Possible pneumonia and leukocytosis. INTERVAL HISTORY: The patient is currently afebrile. The patient says he is feeling slightly better today. He was able to take some of his food and able to swallow it. Denies having any choking on the food. No vomiting or any diarrhea. Denies any worsening pain to the right cheek area. PHYSICAL EXAMINATION: Blood pressure is 95/55 with a pulse of 73, temperature 98.1. He is 98% on room air. General description is an elderly male up in the bed in no distress. HEENT EXAMINATION: Did have a right cheek destructive tumor with a little bit of swelling. No significant redness. LUNGS: Unlabored breathing. Decreased breath sounds at the bases. No wheeze. HEART: S1, S2. Regular rate and rhythm. ABDOMEN: Soft. No tenderness. LABS: Hemoglobin 9, white count 15.3, BUN of 16, creatinine 0.89. DIAGNOSTIC IMPRESSION AND PLAN: Patient with right buccal invasive squamous cell carcinoma with destructive lesion of the right cheek area, admitted to the hospital with difficulty swallowing and inability to keep anything down, with concern for possible pneumonitis. The patient is covered with Zosyn. White count has showed an upward trend. Will be monitored closely. Continue with supportive care. MMODL / IJN: [id number] /
[2019-08-04] MEDS: PIPERACILLIN-TAZOBACTAM 3.375 GM in SODIUM CHLORIDE 0.9% 100 ML IVPB SCH ×2 (00:18→08:19)
[2019-08-04] MEDS: SODIUM CHLORIDE 0.9% 1,000 ML IV SCH (02:21)
[2019-08-04 06:27] VITALS: BP 103/46; RESP 16; TEMP 99.1
[2019-08-04] MEDS: IPRATROPIUM-ALBUTEROL 3 ML NEB INHALATION SCH ×2 (07:35→13:10)
[2019-08-04 07:43] VITALS: PULSE 73
[2019-08-04] MEDS: CALCIUM CARB-VIT D 500MG-200UN 1 EACH TAB PO SCH (08:19)
[2019-08-04] MEDS: PANTOPRAZOLE 40 MG TABLET PO SCH (08:19)
[2019-08-04] MEDS: FERROUS SULFATE 325 MG TAB PO SCH (08:19)
[2019-08-04] MEDS: FUROSEMIDE 20 MG TAB PO SCH (08:19)
[2019-08-04] MEDS: APIXABAN 2.5 MG TABLET PO SCH (08:20)
[2019-08-04] MEDS: ASPIRIN 81 MG PO SCH (08:20)
[2019-08-04 09:41] LABS: Basophils % (A) 0 %; Eosinophils # (A) 0.2 k/uL (0-0.7); Eosinophils % (A) 1 %; HCT 29.5 % (39.0-53.0); Hypochromasia Slight; Lymphocytes # (A) 0.7 k/uL (1.0-4.8); Lymphocytes % (A) 5 %; MCH 29.1 pg (25.0-35.0); MCHC 30.5 g/dL (31.0-37.0); MCV 95.3 fL (80.0-100.0); Mean Platelet Volume 7.9; Monocytes # (A) 0.4 k/uL (0-1.0); Monocytes % (A) 3 %; Neutrophils # (A) 12.8 k/uL (1.3-7.7); Neutrophils % (A) 90 %; Platelet Count 311 k/uL (150-450); RBC 3.09 m/uL (4.30-5.90); RDW 15.9 % (11.5-15.5); WBC 14.2 k/uL (3.8-10.6)
[2019-08-04 09:54] LABS: Calcium 9.5 mg/dL (8.4-10.2); Potassium 3.5 mmol/L (3.5-5.1)
--- NOTE | 2019-08-04 10:50 | P.PN ---
Subjective Progress Note Date: 08/04/19 Principal diagnosis: Aspiration pneumonia, malnutrition secondary to malignancy In f/u today pt continues to be positive, feeling a little tired as he has just been up with staff and around the room a bit, he denies pain, coughing, difficulty in breathing, he is continuing to tolerate small to moderate amounts of oral intake. He has been seen by Speech Therapy as well as Dietitian. Objective - Vital Signs Vital signs: Vital Signs Temp 99.1 F 08/04/19 06:26 Pulse 73 08/04/19 07:43 Resp 16 08/04/19 08:00 BP 103/46 08/04/19 06:26 Pulse Ox 98 08/04/19 06:26 Intake & Output 08/03/19 08/04/19 08/04/19 18:59 06:59 18:59 Intake Total 680 Balance 680 Intake: Oral 340 Other 340 Other: Voiding Method Urinal Urinal Urinal # Voids 1 # Bowel Movements 1 1 - Constitutional General appearance: Present: cooperative, no acute distress, thin - EENT Eyes: Present: anicteric sclerae ENT: Present: hearing grossly normal - Respiratory Details: respirations even and unlabored - Cardiovascular Details: skin warm and dry, radial pulses 2+ - Neurologic Neurologic: Present: CNII-XII intact - Musculoskeletal Musculoskeletal: Present: generalized weakness, strength equal bilaterally - Psychiatric Psychiatric: Present: A&O x's 3, appropriate affect, intact judgment & insight - Labs CBC & Chem 7: 08/04/19 08:33 08/04/19 08:33 Labs: Abnormal Lab Results - Last 24 Hours (Table) 08/04/19 08/04/19 Range/Units 08:33 08:33 WBC 14.2 H (3.8-10.6) k/uL RBC 3.09 L (4.30-5.90) m/uL Hgb 9.0 L (13.0-17.5) gm/dL Hct 29.5 L (39.0-53.0) % MCHC 30.5 L (31.0-37.0) g/dL RDW 15.9 H (11.5-15.5) % Neutrophils # 12.8 H (1.3-7.7) k/uL Lymphocytes # 0.7 L (1.0-4.8) k/uL Glucose 109 H (74-99) mg/dL Microbiology - Last 24 Hours (Table) 08/03/19 Unknown Gram Stain - Preliminary Face Wound Culture - Preliminary Chantell albicans 08/01/19 15:20 Blood Culture - Preliminary Blood No Growth after 48 hours - Imaging and Cardiology Videofluoroscopic swallow eval report reviewed Assessment and Plan (1) Protein-calorie malnutrition, severe Narrative/Plan: Dietitian consulted for High-calorie, small amount, modified texture diet for patient situation. Discussed the case briefly with Dietitian today. 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 Pt tolerated the treatment very well. [place] that the changes in the tumor are actually symptoms of tumor destruction but, too early to tell for certain. Plan would be to continue immunotherapy if pt wishes. Appt in chart for the same. He will be evaluated prior to any medication administration for PS and risk vs benefit of immunotherapy administration Current Visit: Yes Status: Acute Priority: High Code(s): C06.0 - MALIGNANT NEOPLASM OF CHEEK MUCOSA SNOMED Code(s): 943864328 Plan: Ca++ mildly elevated: resolved Leukocytosis, left shift: stable when compared to CBC in office, improved slightly today Normocytic, normochromic anemia: Will check iron and nutritional studies-added to todays lab draw Pt remains pleasant and positive. He is on no pain. We will continue treatments as long as there is benefit and risk remains minimal.
--- NOTE | 2019-08-04 12:42 | PN ---
PROGRESS NOTE DATE OF SERVICE: 08/04/2019 REASON FOR FOLLOWUP: Possible pneumonia. INTERVAL HISTORY: The patient is currently afebrile. He has been breathing comfortably. He was able to have some of his breakfast. He did have some cough, though but no worsening and no diarrhea. PHYSICAL EXAMINATION: Blood pressure 103/46, pulse of 73, temperature 99.1. He is 98% on room air. General description is an elderly male, up in the chair in no distress. RESPIRATORY SYSTEM: Unlabored breathing. Decreased breath sounds at bases, no wheeze. HEART: S1, S2. Regular rate and rhythm. ABDOMEN: Soft, no tenderness. LABS: White count 14,000, swallow evaluation shows no evidence of laryngeal irritation or aspiration. DIAGNOSTIC IMPRESSION AND PLAN: 1. Patient with right invasive squamous cell carcinoma with significant destructive changes in the hospital. 2. with concern for possible aspiration though the fluoroscopic swallow has been negative. Patient is on Zosyn and can be transitioned to a course of oral Augmentin to finish a course of therapy. Will monitor clinical course closely. MMODL / IJN: [id number] /
--- NOTE | 2019-08-04 12:48 | P.DS ---
Providers Date of admission: 08/01/19 15:23 Expected date of discharge: 08/04/19 Attending physician: Sammy Tafoya Consults: 08/01/19 15:24 Consult Physician Urgent Consulting Provider: Munira Hayden Consult Reason/Comments: Oncological care Do you want consulting provider notified?: Already Contacted 08/02/19 00:30 Consult Physician Routine Consulting Provider: Wali Vargas Consult Reason/Comments: sepsis Do you want consulting provider notified?: Yes Primary care physician: Gian Monzon [facility] Course: Final diagnosis Right upper lobe pneumonia, possibly aspiration with sepsis, present on admission Increased white blood count Anemia, normocytic, 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, significant facial swelling, status post radiation therapy Elevated lactic acidosis secondary to sepsis Hypercalcemia secondary to dehydration History of coronary artery disease, stent history of congestive heart failure, ejection fraction unknown History of chronic obstructive pulmonary disease Cerebrovascular accident, TIA History of myocardial infarction Severe protein calorie malnutrition with a body mass index of 13.9 History of TIA History of carotid stenosis Remote history of nicotine dependence No code, no CPR, no vent Discharge disposition Patient is being discharged in a stable condition with guarded prognosis to home and will follow up with Dr. Monzon in the outpatient setting. Patient will also follow-up with oncology in the outpatient setting as discussed and scheduled. Patient will continue on a short course of oral antibiotics in the form of Augmentin twice daily for the next 10 days. Patient will also be continuing with Diflucan for the next 4 days. Total time taken is 35 minutes. History of present illness This is an 83-year-old male who was recently admitted with possible pneumonia and was being closely monitored. Patient also is known to have a significant history of squamous cell carcinoma of the oral cavity along with ulceration of the right cheek. Patient continued to have some increase in swelling and was causing difficulty in swallowing and inability to see of the right side. Currently patient states that the swelling has decreased of the right cheek and patient underwent modified barium swallow showing no penetration and/or aspiration and patient is being maintained on a pured diet and tolerating well. Patient will continue with this diet and the outpatient setting. Patient will also follow-up with oncology as discussed and scheduled as he has been receiving treatment for this squamous cell carcinoma. Patient was maintained on IV antibiotics in the form of Levaquin and Zosyn and will continue with oral Augmentin 875 mg twice daily for the next 10 days. Patient had a culture done of the cheek which is showing Chantell albicans and will continue on a short course of Diflucan for the next 4 days. Infectious disease was following. Currently no reports of chest pain, shortness of breath, or palpitations. Patient is afebrile. No reports of nausea or vomiting and patient is tolerating diet. Patient does have a slight white count which is trending down and discussed with the patient about following up with repeat blood work in the next 2-3 days to monitor this. Currently patient's condition is stable and is ready for discharge today. On exam vital signs are stable. Temp is 99.1F, pulse is 73, respirations are 16, blood pressure is 103/46, oxygen saturation is 98% on room air. Cardio S1, S2 are muffled. Respiratory system shows diminished breath sounds at the bases with no wheezing or rhonchi noted. Abdomen is soft, thin, nontender. Nervous system shows no focal deficits. Please refer to medication reconciliation sheet for a list of medications. Patient Condition at Discharge: Stable Plan - Discharge Summary Discharge Rx Participant: No New Discharge Prescriptions: New Amoxic-Pot Clav 875-125Mg [Augmentin 875-125] 1 tab PO Q12HR 10 Days #20 tab Fluconazole [Diflucan] 100 mg PO DAILY 5 Days #5 tab Continue Apixaban [Eliquis] 2.5 mg PO BID #60 tablet Atorvastatin [Lipitor] 80 mg PO HS #30 tab Nitroglycerin Sl Tabs [Nitrostat] 0.4 mg SUBLINGUAL Q5M PRN #25 tab PRN Reason: Chest Pain Pantoprazole [Protonix] 40 mg PO AC-BRKFST #30 tablet. Ensure 1 can PO TID Aspirin EC [Ecotrin Low Dose] 81 mg PO DAILY Ferrous Sulfate [Iron (65 MG Elemental)] 325 mg PO DAILY Furosemide [Lasix] 20 mg PO BID Calcium Carbonate/Vitamin D3 [Calcium 500-Vit D3 200 Tablet] 1 tab PO DAILY Ipratropium-Albuterol Nebulize [Duoneb 0.5 mg-3 mg/3 ml Soln] 3 ml INHALATION RT-TID Discharge Medication List Apixaban [Eliquis] 2.5 mg PO BID #60 tablet 08/01/16 [Rx] Atorvastatin [Lipitor] 80 mg PO HS #30 tab 08/01/16 [Rx] Nitroglycerin Sl Tabs [Nitrostat] 0.4 mg SUBLINGUAL Q5M PRN #25 tab 08/01/16 [Rx] Pantoprazole [Protonix] 40 mg PO AC-BRKFST #30 tablet. 08/01/16 [Rx] Aspirin EC [Ecotrin Low Dose] 81 mg PO DAILY 09/20/18 [History] Ensure 1 can PO TID 09/20/18 [History] Ferrous Sulfate [Iron (65 MG Elemental)] 325 mg PO DAILY 09/20/18 [History] Calcium Carbonate/Vitamin D3 [Calcium 500-Vit D3 200 Tablet] 1 tab PO DAILY 08/01/19 [History] Furosemide [Lasix] 20 mg PO BID 08/01/19 [History] Ipratropium-Albuterol Nebulize [Duoneb 0.5 mg-3 mg/3 ml Soln] 3 ml INHALATION RT-TID 08/01/19 [History] Amoxic-Pot Clav 875-125Mg [Augmentin 875-125] 1 tab PO Q12HR 10 Days #20 tab 08/04/19 [Rx] Fluconazole [Diflucan] 100 mg PO DAILY 5 Days #5 tab 08/04/19 [Rx] Follow up Appointment(s)/Referral(s): iGan Monzon DO [Primary Care Provider] - 1-2 days Dean Hall MD [STAFF PHYSICIAN] - 08/10/19 1:30 pm (THIS IS FOR TREATMENT. GOING TO KEEP APPT FOR [facility] ) Ambulatory/Diagnostic Orders: Basic Metabolic Panel [LAB.AMB] Time Frame: 2 Days, Location: None Selected Complete Blood Count w/diff [LAB.AMB] Time Frame: 2 Days, Location: None Selected Activity/Diet/Wound Care/Special Instructions: Activity Limited until follow-up Continue current pured Diet an increase oral intake as tolerated Follow-up with primary care provider upon discharge Follow-up with oncology in the outpatient setting Continue with antibiotics until finished Discharge Disposition: HOME WITH HOME HEALTH SERVICES
[2019-08-04] MEDS ORDERED: LEVOFLOXACIN 750MG-D5W PMX 750 MG in DEXTROSE/WATER 1 150ML.BAG IVPB SCH (14:00)
[2019-08-04 18:14] LABS: % Iron Saturation 7.59 (15.00-50.00); Ferritin 315.6 ng/mL (22.0-322.0)
[2019-08-06 07:38] LABS: Methylmalonic Acid 0.35 umol/L (<0.40)
== END 2019-08-04 14:13 | disposition home or self-care (01) | DRG 871 ==
LOC: EC 12:23 → 6NMEDSUR 15:23
PROVIDERS: ADMIT Internal Medicine; ATTEND Internal Medicine
DX: A41.9 Sepsis, unspecified organism (principal); J69.0 Pneumonitis due to inhalation of food and vomit; E43 Unspecified severe protein-calorie malnutrition; R64 Cachexia; E87.2 Acidosis; C77.0 Secondary and unspecified malignant neoplasm of lymph nodes of head, face and neck; Z68.1 Body mass index [BMI] 19.9 or less, adult; R44.3 Hallucinations, unspecified; C06.0 Malignant neoplasm of cheek mucosa; D63.0 Anemia in neoplastic disease; I50.9 Heart failure, unspecified; Z66 Do not resuscitate; E86.0 Dehydration; R13.10 Dysphagia, unspecified; E83.52 Hypercalcemia; J44.9 Chronic obstructive pulmonary disease, unspecified; I25.10 Atherosclerotic heart disease of native coronary artery without angina pectoris; I25.2 Old myocardial infarction; Z79.01 Long term (current) use of anticoagulants; Z79.82 Long term (current) use of aspirin; Z79.899 Other long term (current) drug therapy; Z71.3 Dietary counseling and surveillance; Z92.3 Personal history of irradiation; Z87.891 Personal history of nicotine dependence; Z86.73 Personal history of transient ischemic attack (TIA), and cerebral infarction without residual deficits; Z95.5 Presence of coronary angioplasty implant and graft; Z85.828 Personal history of other malignant neoplasm of skin; Z98.890 Other specified postprocedural states; Z86.79 Personal history of other diseases of the circulatory system; Z80.1 Family history of malignant neoplasm of trachea, bronchus and lung; Z81.1 Family history of alcohol abuse and dependence
CPT/HCPCS: 36415; 70470; 71046; 74230; 80048; 80053; 81003; 82607; 82728; 82747; 83540; 83550; 83605; 83735; 83921; 85025; 85610; 85730; 87040; 87070; 87205; 93005; 94640; 96361; 96365; 96368; 99291

== ENCOUNTER 2019-08-05 12:48 | Inpatient (IN) | payer OTHER, MEDICARE ==
--- NOTE | 2019-08-05 14:04 | ED ---
General Adult HPI - General Chief complaint: Recheck/Abnormal Lab/Rx Stated complaint: recheck - facial swelling Time Seen by Provider: 08/05/19 13:21 Source: patient Mode of arrival: wheelchair Limitations: no limitations - History of Present Illness Initial comments: Dictation was produced using [employer] dictation software. please excuse any gramma tical, word or spelling errors. Chief Complaint: 83-year-old male past medical history of facial cancer presents with fall, increased facial swelling and difficulty eating. History of Present Illness: Patient is an 83-year-old male he has extensive history of facial cancer. Patient has undergone approximately 17 radiation treatments. His oncologist is Dr. Womack. Patient was recently admitted to the hospital for chief complaint of weakness and hallucinations. He was discharged yesterday. Presents back to the emergency department accompanied with railroad repairer. There is concern that patient is too weak to be at home. Caretakers having difficulty feeding patient. Patient also has been very weak and unsteady on his feet. He was concerned that perhaps patient is to be disposition to rehab facility. Patient states that he woke up this morning with significant facial swelling. He reports that her resolved slightly. Patient able to communicate. Denies any pain complaints at this time. He suffered a fall yesterday evening. He was sitting in his chair when all of a sudden railroad repairer heard a loud that. Patient states that he did strike his head. The ROS documented in this emergency department record has been reviewed and confirmed by me. Those systems with pertinent positive or negative responses have been documented in the HPI. All other systems are other negative and/or noncontributory. PHYSICAL EXAM: General Impression: Alert and oriented x3, not in acute distress HEENT: There is some necrotic mass noted to the right cheek area with surrounding erythema. Patient swelling to the right eyelids is extensive enough that patient has significant facial weakness and unable to control the left lateral mouth. Cardiovascular: Heart regular rate and rhythm, S1&S2 audible, no murmurs, rubs or gallops Chest: Lungs clear to auscultation bilaterally, no rhonchi, no wheeze, no rales Abdomen: Bowel sounds present, abdomen soft, non-tender, non-distended, no or ganomegaly Musculoskeletal: Pulses present and equal in all extremities, no peripheral edema Motor: no focal deficits noted Neurological: CN II-XII grossly intact, no focal motor or sensory deficits noted Skin: Intact with no visualized rashes Psych: Normal affect and mood ED course: 83-year-old male with extensive facial cancer presents after fall, worsening debility. Vital signs upon arrival shows blood pressure 74/41. Repeat vital signs shows blood pressure 108/85 without any intervention. Initial blood pressure is likely secondary to air. Laboratory evaluation obtained. Increase white blood cell count of 18.1 which is increased since 14 from yesterday. Hemoglobin 8.8. Metabolic panel is unremarkable. Pelvis x-ray chest x-ray computed tomography scan of the head and C-spine does not reveal any acute traumatic injuries. She is resting comfortably at bedside. Given patient's condition believe he should be admitted with plans for rehabilitation. Patient barely can open his mouth and doesn't have a feeding tube. Discussed patient case with Dr. Werner who is will to accept patient's care. EKG interpretation: Ventricular rate 83, sinus rhythm with PVCs. OK interval 142, QRS 110, QTc 472. No OK prolongation, no QTC prolongation, no ST or T-wave changes noted. EKG compared to 08/01/2019 showing no changes. Overall, this EKG is unremarkable - Related Data Home Medications Medication Instructions Recorded Confirmed Aspirin EC [Ecotrin Low Dose] 81 mg PO DAILY 09/20/18 08/01/19 Ensure 1 can PO TID 09/20/18 08/01/19 Ferrous Sulfate [Iron (65 MG 325 mg PO DAILY 09/20/18 08/01/19 Elemental)] Calcium Carbonate/Vitamin D3 1 tab PO DAILY 08/01/19 08/01/19 [Calcium 500-Vit D3 200 Tablet] Furosemide [Lasix] 20 mg PO BID 08/01/19 08/01/19 Ipratropium-Albuterol Nebulize 3 ml INHALATION RT-TID 08/01/19 08/01/19 [Duoneb 0.5 mg-3 mg/3 ml Soln] Previous Rx's Medication Instructions Recorded Apixaban [Eliquis] 2.5 mg PO BID #60 tablet 08/01/16 Atorvastatin [Lipitor] 80 mg PO HS #30 tab 08/01/16 Nitroglycerin Sl Tabs [Nitrostat] 0.4 mg SUBLINGUAL Q5M PRN #25 tab 08/01/16 Pantoprazole [Protonix] 40 mg PO LEANN-BRKFST #30 tablet. 08/01/16 Amoxic-Pot Clav 875-125Mg 1 tab PO Q12HR 10 Days #20 tab 08/04/19 [Augmentin 875-125] Fluconazole [Diflucan] 100 mg PO DAILY 5 Days #5 tab 08/04/19 Allergies Allergy/AdvReac Type Severity Reaction Status Date / Time No Known Allergies Allergy Verified 08/01/19 14:59 Review of Systems ROS Statement: Those systems with pertinent positive or pertinent negative responses have been documented in the HPI. ROS Other: All systems not noted in ROS Statement are negative. Past Medical History Past Medical History: Coronary Artery Disease (CAD), Cancer, Heart Failure, [place] PD, CVA/TIA, Myocardial Infarction ([place]) Additional Past Medical History / Comment(s): Patient reports remote history of myocardial infarction back in 1978 and since then he had not seen or followed up with cardiology. then 07-22-16.had 2nd mi -heart cath w/stent, "slight stroke 1998 no residual", skin cancer resected. Oral Cancer with radiation 21 treatments Last Myocardial Infarction Date:: 07/22/2016 History of Any Multi-Drug Resistant Organisms: None Reported Past Surgical History: Heart Catheterization With Stent Additional Past Surgical History / Comment(s): 1998 left carotid , 07-22-16 heart cath w/ stent rca Past Anesthesia/Blood Transfusion Reactions: No Reported Reaction Date of Last Stent Placement:: 07-22-16 Past Psychological History: No Psychological Hx Reported Smoking Status: Former smoker Past Alcohol Use History: None Reported Past Drug Use History: None Reported - Past Family History Mother Family Medical History: Cancer Additional Family Medical History / Comment(s): from Lung CA, was a smoker Father Additional Family Medical History / Comment(s): from alcoholism General Exam Limitations: no limitations Course Vital Signs 08/05/19 08/05/19 08/05/19 12:50 13:10 13:20 Temperature 97.6 F Pulse Rate 75 95 83 Respiratory 16 15 17 Rate Blood Pressure 74/41 98/69 108/85 O2 Sat by Pulse 98 97 96 Oximetry 08/05/19 14:41 Temperature 98.6 F Pulse Rate 65 Respiratory 18 Rate Blood Pressure 97/56 O2 Sat by Pulse 99 Oximetry Medical Decision Making - Lab Data Result diagrams: 08/05/19 14:35 08/05/19 14:35 Lab Results 08/05/19 08/05/19 08/05/19 Range/Units 14:35 14:35 14:35 WBC 18.1 H (3.8-10.6) k/uL RBC 2.99 L (4.30-5.90) m/uL Hgb 8.8 L (13.0-17.5) gm/dL Hct 27.8 L (39.0-53.0) % MCV 93.0 (80.0-100.0) fL MCH 29.3 (25.0-35.0) pg MCHC 31.6 (31.0-37.0) g/dL RDW 16.2 H (11.5-15.5) % Plt Count 318 (150-450) k/uL Neutrophils % 94 % Lymphocytes % 2 % Monocytes % 2 % Eosinophils % 1 % Basophils % 0 % Neutrophils # 17.0 H (1.3-7.7) k/uL Lymphocytes # 0.4 L (1.0-4.8) k/uL Monocytes # 0.4 (0-1.0) k/uL Eosinophils # 0.1 (0-0.7) k/uL Basophils # 0.0 (0-0.2) k/uL Hypochromasia Slight Anisocytosis Slight Sodium 137 (137-145) mmol/L Potassium 3.7 (3.5-5.1) mmol/L Chloride 104 (98-107) mmol/L Carbon Dioxide 23 (22-30) mmol/L Anion Gap 10 mmol/L BUN 17 (9-20) mg/dL Creatinine 0.87 (0.66-1.25) mg/dL Est GFR (CKD-EPI)AfAm >90 (>60 ml/min/1.73 sqM) Est GFR (CKD-EPI)NonAf 79 (>60 ml/min/1.73 sqM) Glucose 110 H (74-99) mg/dL Plasma Lactic Acid David 1.8 (0.7-2.0) mmol/L Calcium 9.8 (8.4-10.2) mg/dL Magnesium 2.1 (1.6-2.3) mg/dL Disposition Clinical Impression: Debility Disposition: ADMITTED IP TO THIS HOSP Condition: Fair Is patient prescribed a controlled substance at d/c from ED?: No Referrals: Gian Monzon DO [Primary Care Provider] - 1-2 days Decision Time: 15:18
--- NOTE | 2019-08-05 14:27 | CT ---
EXAMINATION TYPE: CT brain cspine wo con DATE OF EXAM: 08/05/2019 COMPARISON: 08/01/2019 and 07/07/2019 HISTORY: 83-year-old male pain after fall CT DLP: 1193.3 mGycm Automated exposure control for dose reduction was used. Technique: Examination of the head was done in axial plane without intravenous contrast. Coronal and sagittal reconstructions performed. CT of the cervical spine was obtained in axial plane without intravenous injection of contrast mater ial. Coronal and sagittal reformatted images were obtained from the axial views for evaluation of f ractures, spinal alignment and canal. FINDINGS: Head: There is no evidence of acute intracranial hemorrhage, acute ischemic changes, mass, mass-effect, or extra-axial fluid collection. There is no effacement of cerebral sulci or basal subarachnoid cister ns. There is no hydrocephalus. There is no midline shift. Price-white matter distinction is preserv ed. Redemonstrated abnormal thickening along the right periorbital and right side of the face and lower s kull. Mild to moderate mucosal thickening ethmoid air cells and visualized maxillary sinuses. Orbits and globes appear intact. Moderate generalized supratentorial volume loss. Mild ventricular prominence secondary to central cer ebral atrophy. At the scattered calcifications within the carotid siphons. No calvarial fracture. Fluid trapped within the right mastoid air cells. Cervical spine: Marked generalized anasarca change. Large heterogeneous 5.5 cm mass along the left lateral upper neck . Moderate to advanced emphysematous change in the upper lungs with prominent biapical pleural parenc hymal scarring. Some of this opacity, particularly on the anterior left apex measures 1.7 cm and is n ew from 12/30/2018. Moderate to advanced disc/endplate degenerative change throughout. Hypertrophic facet and uncovertebral joint arthropathy. No cranial cervical junction abnormality, predental space widening, or prevertebral soft tissue swell ing. Grade 1 anterolisthesis at C4-C5 and C7-T1. Disc osteophyte complex formation results in [id number] spinal canal stenoses at C3-C7 levels. No acute fracture seen of the cervical. Sagittal and coronal reformatted images confirm above findings. COMBINED IMPRESSION: 1. Moderate generalized atrophy. No acute intracranial abnormality seen. Fluid within the right masto id air cells. Correlate to exclude mastoiditis. 2. Moderate to advanced multilevel spondylotic change. No acute fracture of the cervical spine. 3. Abnormal soft tissue along the right side of the face and right periorbital region suggests underl konstantin neoplasm as seen on 08/01/2019. This seems to be largely new compared to the PET/CT of 12/30/2018. 4. Large 5.5 cm mass along the left lateral upper neck, probably a metastatic lymph node, enlarged fr om 12/30/2018. 5. Moderate to advanced emphysema in the visualized upper lungs. There is a new 1.7 cm opacity in the left apex compared to 12/30/2018 and increased from 07/07/2019 suggestive of metastatic disease.
--- NOTE | 2019-08-05 14:28 | XR ---
EXAMINATION TYPE: XR chest 1V portable DATE OF EXAM: 08/05/2019 Comparison: 08/02/2019 Clinical History: 83-year-old male with fall and pain Findings: Heart mildly enlarged. Atherosclerotic arch calcifications. Biapical pleural-parenchymal scarring wit h underlying emphysema. Small right greater than left pleural effusions. The lung bases are partially excluded. Underlying nodularity seen on CT cervical spine of the same day and CT body of 07/07/2019 no t well depicted radiographically. Impression: COPD, cardiomegaly, and small effusions. Known underlying nodules, likely metastatic disease are not well depicted radiographically.
--- NOTE | 2019-08-05 14:29 | XR ---
EXAMINATION TYPE: XR pelvis AP view DATE OF EXAM: 08/05/2019 COMPARISON: NONE HISTORY: 83-year-old male with fall and pain TECHNIQUE: Single AP view FINDINGS: Extensive bowel gas obscures the sacrum. Mild degenerative change of the hips. No acute fra cture of the proximal femur on either side. Pubic symphysis appears intact. IMPRESSION: Extensive bowel gas obscuring the sacrum. Mild degenerative change of both hips. No displaced fractur e seen.
[2019-08-05 14:49] LABS: Anisocytosis Slight; Basophils % (A) 0 %; Eosinophils # (A) 0.1 k/uL (0-0.7); Eosinophils % (A) 1 %; HCT 27.8 % (39.0-53.0); HGB 8.8 gm/dL (13.0-17.5); Hypochromasia Slight; Lymphocytes # (A) 0.4 k/uL (1.0-4.8); Lymphocytes % (A) 2 %; MCH 29.3 pg (25.0-35.0); MCHC 31.6 g/dL (31.0-37.0); Mean Platelet Volume 7.6; Monocytes # (A) 0.4 k/uL (0-1.0); Monocytes % (A) 2 %; Neutrophils % (A) 94 %; Platelet Count 318 k/uL (150-450); RBC 2.99 m/uL (4.30-5.90); RDW 16.2 % (11.5-15.5); WBC 18.1 k/uL (3.8-10.6)
[2019-08-05 15:03] LABS: African American GFR (CKD) >90 (>60 ml/min/1.73 sqM); Anion Gap 10 mmol/L; Blood Urea Nitrogen 17 mg/dL (9-20); Calcium 9.8 mg/dL (8.4-10.2); Carbon Dioxide 23 mmol/L (22-30); Chloride 104 mmol/L (98-107); Glucose 110 mg/dL (74-99); Magnesium 2.1 mg/dL (1.6-2.3); Non-African American GFR(CKD) 79 (>60 ml/min/1.73 sqM); Potassium 3.7 mmol/L (3.5-5.1); Sodium 137 mmol/L (137-145)
[2019-08-05] MEDS ORDERED: ACETAMINOPHEN TAB 325 MG TAB PO PRN (15:18)
[2019-08-05] MEDS ORDERED: NALOXONE 0.4 MG/ML 1 ML VIAL IV PRN (15:18)
[2019-08-05] MEDS: SODIUM CHLORIDE 0.9% 1,000 ML IV SCH (16:11)
[2019-08-05] MEDS ORDERED: IPRATROPIUM-ALBUTEROL 3 ML NEB INHALATION PRN (16:53)
[2019-08-05 17:21] LABS: Glucose,Whole Blood 99 mg/dL (75-99)
[2019-08-05] MEDS: INSULIN ASPART (NovoLOG) 100 UNIT/ML VIAL SQ SCH ×2 (17:24→20:50)
--- NOTE | 2019-08-05 17:34 | HP ---
HISTORY AND PHYSICAL DATE OF SERVICE: 08/05/2019 CHIEF COMPLAINTS: Change in mental status, weakness and facial swelling. 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 Monzon in the outpatient setting, was recently admitted with right upper lobe pneumonia. Patient was given antibiotics. Patient improved significantly. Patient was wanting to go home, and the patient was discharged home. According to to the nurse behavioral health care, the patient became obtunded; the patient was complaining of being weak, and the patient had significant facial swelling. The patient was taken to [facility] and admitted for evaluation and treatment. Sepsis was suspected. There is no history of any fever, rigor or chills. No history of headache, loss of consciousness, seizures. The patient is unable to give a coherent history. Most of the history is taken from my discussion with the staff, ER physician, review of the chart as well as discussion with the nurse behavioral health care at the bedside. The patient's brother is his legal guardian. PAST MEDICAL HISTORY: History of CAD, history of oral cancer, history of CHF, history of COPD, CVA, TIA, myocardial infarction. HOME MEDICATIONS: 1. Protonix 40 mg daily. 2. Nitrostat 0.4 sublingually p.r.n. 3. DuoNeb t.i.d. 4. Lasix 20 mg p.o. b.i.d. 5. Diflucan 100 mg daily. 6. Iron 320 mg daily. 7. Ensure 1 can t.i.d. 8. Calcium with vitamin D daily. 9. Lipitor 80 mg daily. 10.Ecotrin 81 mg daily. 11.Eliquis 2.5 mg daily. 12.Amoxicillin 875 mg p.o. b.i.d. ALLERGIES: NONE. Family history, social history, review of systems could not be taken because of the patient's change in mental status. PHYSICAL EXAMINATION: The patient is stuporous. Pulse 65, blood pressure 97/56, respiration 18, temperature 98.6, pulse ox 99% on room air. HEENT: Conjunctivae normal. 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 NECK: No jugular venous distention. No carotid bruit. No lymph node enlargement. CARDIOVASCULAR SYSTEM: S1, S2 muffled. No S3. No S4. RESPIRATORY SYSTEM: Breath sounds diminished at the bases. Bilateral scattered rhonchi and crackles. ABDOMEN: Soft, non-tender. No mass palpable. LEGS: No edema. No swelling. NERVOUS SYSTEM: Diffusely weak and emaciated. A full exam was not possible. SKIN: No ulcer, rash, bleeding. Otherwise as mentioned earlier. JOINTS: No active deforming arthropathy. LYMPHATICS: No lymph node palpable in neck, axillae or groin. LABS: WBC 18.2, hemoglobin is 8.8. ASSESSMENT: 1. Significant right facial swelling with possible cellulitis and sepsis. 2. Change in mental status, acute metabolic encephalopathy secondary to sepsis. 3. Increased white count. 4. Anemia, normocytic; anemia of chronic disease. 5. History of oral squamous cell carcinoma. 6. History of recent right upper lobe pneumonia, possibly aspiration. 7. History of congestive heart failure, ejection fraction unknown. 8. Chronic obstructive pulmonary disease. 9. Cerebrovascular accident, transient ischemic attack. 10.History of myocardial infarction. 11.History of cerebrovascular accident. 12.History of coronary artery disease, stent. 13.History of nicotine dependence. 14.Severe protein-calorie malnutrition with body mass index of 14.7. 15.NO CODE, NO CPR, NO VENT. RECOMMENDATIONS AND DISCUSSION: In this 83-year-old gentleman who presented with multiple complex medical issues, at this time I recommend to continue current medications, continue with symptomatic treatment. Will initiate broad-spectrum IV antibiotics, bronchodilators. Resume the home medications. PT/OT evaluation. Social work consultation. The patient is currently NO CODE per discussion with the legal guardian during the last admission, but otherwise the patient's condition is also not improving. Will discuss with Hematology/Oncology regarding the further course of action. The prognosis once again is extremely guarded because of multiple complex medical issues. Further recommendations to follow. A copy of this dictation is being forwarded to Dr. Monzon, who is the primary physician. MMODL / IJN: [id number] /
[2019-08-05] MEDS: methylPREDNISolone SOD SUCCI 125 MG/2 ML VIAL IV SCH ×2 (17:52→23:17)
[2019-08-05] MEDS: PIPERACILLIN-TAZOBACTAM 3.375 GM in SODIUM CHLORIDE 0.9% 100 ML IVPB SCH ×2 (17:52→23:28)
[2019-08-05] MEDS: IPRATROPIUM-ALBUTEROL 3 ML NEB INHALATION SCH (20:29)
[2019-08-05 20:37] LABS: Glucose,Whole Blood 113 mg/dL (75-99)
[2019-08-05] MEDS: HEPARIN SODIUM,PORCINE 5,000 UNIT/ML 1 ML VIAL SQ SCH (20:55)
[2019-08-06] MEDS: methylPREDNISolone SOD SUCCI 125 MG/2 ML VIAL IV SCH ×4 (05:16→23:14)
[2019-08-06 06:57] LABS: Glucose,Whole Blood 155 mg/dL (75-99)
[2019-08-06] MEDS: IPRATROPIUM-ALBUTEROL 3 ML NEB INHALATION SCH ×4 (07:47→19:57)
[2019-08-06 09:07] LABS: Anisocytosis Slight; Basophils % (A) 0 %; Eosinophils % (A) 0 %; HCT 26.7 % (39.0-53.0); HGB 8.3 gm/dL (13.0-17.5); Hypochromasia Slight; Lymphocytes # (A) 0.2 k/uL (1.0-4.8); Lymphocytes % (A) 2 %; MCH 29.2 pg (25.0-35.0); Mean Platelet Volume 7.8; Monocytes # (A) 0.1 k/uL (0-1.0); Monocytes % (A) 1 %; Neutrophils # (A) 10.8 k/uL (1.3-7.7); Neutrophils % (A) 97 %; Platelet Count 275 k/uL (150-450); RBC 2.84 m/uL (4.30-5.90); RDW 16.3 % (11.5-15.5); WBC 11.2 k/uL (3.8-10.6)
[2019-08-06] MEDS: INSULIN ASPART (NovoLOG) 100 UNIT/ML VIAL SQ SCH ×4 (09:35→20:33)
[2019-08-06 09:39] LABS: Calcium 9.5 mg/dL (8.4-10.2); Potassium 3.6 mmol/L (3.5-5.1)
[2019-08-06] MEDS: PIPERACILLIN-TAZOBACTAM 3.375 GM in SODIUM CHLORIDE 0.9% 100 ML IVPB SCH ×3 (09:56→23:14)
[2019-08-06] MEDS: HEPARIN SODIUM,PORCINE 5,000 UNIT/ML 1 ML VIAL SQ SCH ×2 (09:57→20:34)
[2019-08-06 11:54] LABS: Glucose,Whole Blood 220 mg/dL (75-99)
[2019-08-06 16:06] VITALS: BMI 14.7
--- NOTE | 2019-08-06 16:33 | PN ---
PROGRESS NOTE DATE OF SERVICE: 08/06/2019 This 83-year-old gentleman admitted with change in mental status and weakness had facial swelling and surrounding cellulitis; also had possible sepsis, present on admission. Patient was given broad-spectrum IV antibiotics. Sensorium has improved significantly. Today the patient is much more alert. Complains of pain. Facial swelling is still persisting. The patient is NO CODE NO CPR and the patient's brother, who is the power of banking attorney, has also discussed with me at this time at length, and the possibility of either palliative care or hospice also is a consideration. At this time PT/OT is evaluating the patient. Oral intake is improving. No chest pain. No palpitation. PHYSICAL EXAMINATION: Alert and oriented x2. The pulse is 54, blood pressure 94/58, respiration 16, temperature 97.6, pulse ox 94% on 2 L. HEENT: Conjunctivae normal. NECK: No jugular venous distention. CARDIOVASCULAR SYSTEM: S1, S2 muffled. RESPIRATORY SYSTEM: Breath sounds diminished at the bases. A few scattered rhonchi and crackles. ABDOMEN: Soft, non-tender. No mass palpable. LEGS: No edema. No swelling. NERVOUS SYSTEM: No focal deficit. LABS: Labs at this time show WBC 11.2, hemoglobin 8.3, sodium 140, potassium 3.6. ASSESSMENT: 1. Significant right facial swelling with possible cellulitis with sepsis, present on admission. 2. Change in mental status, acute metabolic encephalopathy with sepsis, present on admission. 3. Increased white count. 4. Anemia, normocytic; anemia of chronic disease. 5. 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 6. History of recent upper lobe pneumonia, probably aspiration. 7. History of oral squamous cell carcinoma. 8. History of congestive heart failure, ejection fraction unknown. 9. Chronic obstructive pulmonary disease. 10.Cerebrovascular accident, transient ischemic attack. 11.History of myocardial infarction. 12.History of cerebrovascular accident. 13.History of coronary artery disease, stent. 14.History of nicotine dependence. 15.Severe protein-calorie malnutrition with a body mass index of 14.7. 16.NO CODE, NO CPR, NO VENT. RECOMMENDATIONS AND DISCUSSION: I recommend to continue current medications, continue with the monitoring, symptomatic treatment. Otherwise, as mentioned earlier, discussed hospice and palliative care with the family. Family will discuss the case with the case management team for further evaluation and treatment. Once again, the prognosis is extremely guarded because of multiple complex medical issues. We will follow the patient closely with Hematology/Oncology as well. PAUL / DIANE: [id number] /
[2019-08-06 16:52] LABS: Glucose,Whole Blood 144 mg/dL (75-99)
[2019-08-06 20:27] LABS: Glucose,Whole Blood 154 mg/dL (75-99)
[2019-08-06] MEDS: SODIUM CHLORIDE 0.9% 1,000 ML IV SCH (20:34)
--- NOTE | 2019-08-07 00:15 | P.CONS ---
History of Present Illness - Reason for Consult Consult date: 08/06/19 MS changes, Oral cancer - History of Present Illness Mister Zapata is an 83-year-old male patient who was initially diagnosed with right buccal invasive squamous cell carcinoma in December 2018. He had biopsy at [facility], staging PET scan revealed evidence of bilateral cervical cervical node disease. Due to comorbidities and poor performance status radiation therapy was recommended, completed 03/23/19. Shortly after this he noticed an enlarging lesion with ulceration on the right cheek, mass in the buccal mucosa and an enlarging left neck mass. He does have difficulty opening his mouth, he has surprisingly been tolerating liquids, he unfortunately continues to lose weight. He is weak, sits most of the time, he has a friend who is his caregiver. Palliative care vs single agent pembro lizumab discussed. Pt wanted to try treatment, 1st dose of keytruda on 07/20. Patient was seen for follow-up subsequently, concerns about the look of the tumor, with some areas looking a little bit larger. It was felt that this was tumor destruction and subsequent inflammation. Pt was subsequently admitted with progressive weakness and failure to thrive. He was seen in consult Patient's tumors seem to be more necrotic, the swelling and irritation around his eye is actually improved as of today. Unfortunately though, patient's oral intake is not adequate enough on his own, lacking nutrition to heal .and feeding tube discussed. The patient refused the same. This was discussed with his brother who is the POA, and his daughter. The patient actually did reasonably well on swallowing test with liquids. He was discharged yesterday. The patient's caregiver, his brother, subsequently noted the patient to be confused and lethargic. He therefore brought the patient back to the hospital. On evaluation it was felt that the patient could likely be developing sepsis, and was started on hydration and antibiotics with improvement. Consult was placed for further evaluation and recommendations Review of Systems Constitutional: Reports chronic pain, Reports fatigue, Reports weakness, Reports weight loss Eyes: right decreased vision (due to rt eye swelling) Ears, nose, mouth and throat: Reports as per HPI, Reports dysphagia, Reports mouth pain, Reports nasal congestion, Reports neck lump Cardiovascular: Reports decreased exercise tolerance Respiratory: Reports congestion, Denies cough Gastrointestinal: Reports as per HPI Genitourinary: Reports as per HPI Musculoskeletal: Reports muscle weakness Integumentary: Reports as per HPI (necrotic tumor rt side of face with superficial ulcers, through and through breakdown at least 2 areas), Reports lesions Neurological: Reports change in mentation, Reports change in speech, Reports weakness Psychiatric: Reports confusion Endocrine: Reports fatigue, Reports weight change Hematologic/Lymphatic: Reports as per HPI, Reports lymphadenopathy Past Medical History Past Medical History: Coronary Artery Disease (CAD), Cancer, Heart Failure, COPD, CVA/TIA, Myocardial Infarction ([place]) Additional Past Medical History / Comment(s): Patient reports remote history of myocardial infarction back in 1978 and since then he had not seen or followed up with cardiology. then 07-22-16.had 2nd mi -heart cath w/stent, "slight stroke 1998 no residual", skin cancer resected. Oral Cancer with radiation 21 treatments Last Myocardial Infarction Date:: 07/22/2016 History of Any Multi-Drug Resistant Organisms: None Reported Past Surgical History: Heart Catheterization With Stent Additional Past Surgical History / Comment(s): 1998 left carotid , 07-22-16 heart cath w/ stent rca Past Anesthesia/Blood Transfusion Reactions: No Reported Reaction Date of Last Stent Placement:: 07-22-16 Past Psychological History: No Psychological Hx Reported Additional Psychological History / Comment(s): pt lives with his adopted annamaria friedman Smoking Status: Former smoker Past Alcohol Use History: None Reported Additional Past Alcohol Use History / Comment(s): started smoking cigaretts in 1944 -smoked 2 ppd. quit cigaretts in 1983 and started to smoke cigars(10) per day (did'nt inhale) and quit those 07-22-16. used to heavy beer drinker but quit 1983. Past Drug Use History: None Reported - Past Family History Mother Family Medical History: Cancer Additional Family Medical History / Comment(s): from Lung CA, was a smoker Father Additional Family Medical History / Comment(s): from alcoholism Medications and Allergies Home Medications Medication Instructions Recorded Confirmed Type Apixaban [Eliquis] 2.5 mg PO BID #60 tablet 08/01/16 08/05/19 Rx Atorvastatin [Lipitor] 80 mg PO HS #30 tab 08/01/16 08/05/19 Rx Nitroglycerin Sl Tabs [Nitrostat] 0.4 mg SUBLINGUAL Q5M PRN #25 tab 08/01/16 08/05/19 Rx Pantoprazole [Protonix] 40 mg PO AC-BRKFST #30 tablet.dr 08/01/16 08/05/19 Rx Aspirin EC [Ecotrin Low Dose] 81 mg PO DAILY 09/20/18 08/05/19 History Ensure 1 can PO TID 09/20/18 08/05/19 History Ferrous Sulfate [Iron (65 MG 325 mg PO DAILY 09/20/18 08/05/19 History Elemental)] Calcium Carbonate/Vitamin D3 1 tab PO DAILY 08/01/19 08/05/19 History [Calcium 500-Vit D3 200 Tablet] Furosemide [Lasix] 20 mg PO DAILY 08/01/19 08/05/19 History Ipratropium-Albuterol Nebulize 3 ml INHALATION RT-TID 08/01/19 08/05/19 History [Duoneb 0.5 mg-3 mg/3 ml Soln] Amoxic-Pot Clav 875-125Mg 1 tab PO Q12HR 10 Days #20 tab 08/04/19 08/05/19 Rx [Augmentin 875-125] Fluconazole [Diflucan] 100 mg PO DAILY 08/05/19 08/05/19 History Allergies Allergy/AdvReac Type Severity Reaction Status Date / Time No Known Allergies Allergy Verified 08/05/19 18:38 Physical Exam Vitals: Vital Signs Temp Pulse Pulse Resp BP Pulse Ox 08/06/19 20:39 97.9 F 55 L 20 101/62 94 L 08/06/19 20:09 64 08/06/19 19:57 68 08/06/19 16:17 56 L 08/06/19 16:03 52 L 08/06/19 12:45 97.6 F 54 L 16 94/58 94 L 08/06/19 04:43 97.5 F L 61 12 92/52 98 Intake and Output 08/06/19 08/06/19 08/06/19 06:59 14:59 22:59 Intake Total 788 663 0753 Balance 306 675 9068 Intake: Intake, IV Titration 160 100 100 Amount Piperacillin-Tazobactam 3 100 100 .375 gm In Sodium Chloride 0.9% 100 ml @ 25 mls/hr IVPB Q8HR [facility] Rx# :[id number] Sodium Chloride 0.9% 1, 160 000 ml @ 20 mls/hr IV . Q24H [facility] Rx#:[id number] Oral 1080 Other: Voiding Method Urinal Urinal Diaper # Voids 1 Weight 43.998 kg - Constitutional General appearance: no acute distress - EENT Large necrotic tumor involving most of right side of face, with superficial ulcers, and at least 2 areas of through and through breakdown exposing oral cavity to outside. Poor dentition. oral opening quite limited on right Eyes: poor dentition ENT: pharyngeal erythema - Neck Neck: lymphadenopathy (large fixed mass left lower neck) Thyroid: bilateral: normal size - Respiratory Respiratory: bilateral: diminished - Cardiovascular Rhythm: regular Heart sounds: normal: S1, S2 - Gastrointestinal General gastrointestinal: normal bowel sounds, soft - Integumentary changes right side of face as described above - Neurologic Neurologic: CNII-XII intact - Musculoskeletal Musculoskeletal: generalized weakness, strength equal bilaterally - Psychiatric Psychiatric: A&O x's 3, appropriate affect Results CBC & Chem 7: 08/06/19 08:06 08/06/19 08:06 Labs: Abnormal Lab Results - Last 24 Hours (Table) 08/06/19 08/06/19 08/06/19 Range/Units 06:55 08:06 08:06 WBC 11.2 H (3.8-10.6) k/uL RBC 2.84 L (4.30-5.90) m/uL Hgb 8.3 L (13.0-17.5) gm/dL Hct 26.7 L (39.0-53.0) % RDW 16.3 H (11.5-15.5) % Neutrophils # 10.8 H (1.3-7.7) k/uL Lymphocytes # 0.2 L (1.0-4.8) k/uL BUN 22 H (9-20) mg/dL Glucose 135 H (74-99) mg/dL POC Glucose (mg/dL) 155 H (75-99) mg/dL 08/06/19 08/06/19 08/06/19 Range/Units 11:52 16:50 20:26 WBC (3.8-10.6) k/uL RBC (4.30-5.90) m/uL Hgb (13.0-17.5) gm/dL Hct (39.0-53.0) % RDW (11.5-15.5) % Neutrophils # (1.3-7.7) k/uL Lymphocytes # (1.0-4.8) k/uL BUN (9-20) mg/dL Glucose (74-99) mg/dL POC Glucose (mg/dL) 220 H 144 H 154 H (75-99) mg/dL Comments: pelvis and C spine x-ray reports reviewed Chest x-ray: report reviewed Assessment and Plan (1) Sepsis Narrative/Plan: The patient presented with recurrent weakness, mental status changes and falls. Case was discussed with the admitting service. Clinically it is felt that the patient was septic, with the source either the facial wound, or possibly the lung, given his risk for pneumonia, aspiration or otherwise. The patient is improved with antibiotic and hydration. Cultures are pending. Defer to the admitting service and other consultants for management. Current Visit: No Status: Acute Code(s): A41.9 - SEPSIS, UNSPECIFIED ORGANISM SNOMED Code(s): 28275443 (2) Oral-mouth cancer Narrative/Plan: Diagnostic and therapeutic circumstances as described. Management options and prognosis had been discussed in detail with the patient and his family last admission. the patient had stated that he wanted to continue treatment if possible, assuming treatment was effective. The patient has now been readmitted. Case was discussed with the admitting service. His caregivers have stated that they are unable to take care of him at home, and want to explore the option of transfer to ECF on discharge. It was discussed with the patient that in that case he will not be able to get active treatment while in the ECF. He was thus advised that if his performance status were to improve with [facility], he could potentially resume active treatment if he can be discharged from the ECF. However, if his performance status continued to decline, then we would recommend consideration of comfort care/hospice. The patient expressed understanding and was agreeable to the same. This plan was also discussed with the admitting service. Current Visit: No Status: Acute Code(s): C06.9 - MALIGNANT NEOPLASM OF MOUTH, UNSPECIFIED SNOMED Code(s): 005820971 (3) Debility Narrative/Plan: Multifactorial, and progressive. A major issue is poor nutrition, along with cancer cachexia. Feeding tube had been discussed with the patient but he has refused. He wishes to continue doing the best he can with orals, with a clear understanding that this could actually lead to progressive deterioration. As noted, caregivers have indicated that they cannot take care of him at home. ECF placement is being discussed. Current Visit: Yes Status: Acute Code(s): R53.81 - OTHER MALAISE SNOMED Code(s): 88870396 Plan: Anemia - this appears to be anemia of malignancy. Hemoglobin is in the same range, about 8-9. Continue to monitor and transfuse for hemoglobin less than 7 defer to the admitting service and other consultants for management of his other medical problems
[2019-08-07] MEDS: methylPREDNISolone SOD SUCCI 125 MG/2 ML VIAL IV SCH ×4 (05:05→23:32)
[2019-08-07 07:16] LABS: Glucose,Whole Blood 191 mg/dL (75-99)
[2019-08-07 07:25] LABS: Anisocytosis Slight; Basophils % (A) 0 %; Eosinophils % (A) 0 %; HCT 24.5 % (39.0-53.0); HGB 7.7 gm/dL (13.0-17.5); Hypochromasia Slight; Lymphocytes # (A) 0.3 k/uL (1.0-4.8); Lymphocytes % (A) 2 %; MCH 29.4 pg (25.0-35.0); MCHC 31.3 g/dL (31.0-37.0); MCV 93.9 fL (80.0-100.0); Mean Platelet Volume 7.9; Monocytes # (A) 0.1 k/uL (0-1.0); Monocytes % (A) 1 %; Neutrophils # (A) 12.2 k/uL (1.3-7.7); Neutrophils % (A) 96 %; Platelet Count 264 k/uL (150-450); RBC 2.61 m/uL (4.30-5.90); RDW 16.3 % (11.5-15.5); WBC 12.7 k/uL (3.8-10.6)
[2019-08-07] MEDS: IPRATROPIUM-ALBUTEROL 3 ML NEB INHALATION SCH ×4 (07:39→21:17)
[2019-08-07 08:06] LABS: Calcium 9.4 mg/dL (8.4-10.2); Potassium 3.5 mmol/L (3.5-5.1)
[2019-08-07] MEDS: INSULIN ASPART (NovoLOG) 100 UNIT/ML VIAL SQ SCH ×4 (09:14→21:00)
[2019-08-07] MEDS: HEPARIN SODIUM,PORCINE 5,000 UNIT/ML 1 ML VIAL SQ SCH ×2 (09:15→21:32)
[2019-08-07] MEDS: PIPERACILLIN-TAZOBACTAM 3.375 GM in SODIUM CHLORIDE 0.9% 100 ML IVPB SCH ×3 (09:15→23:32)
[2019-08-07 11:40] LABS: Glucose,Whole Blood 337 mg/dL (75-99)
[2019-08-07] MEDS: SODIUM CHLORIDE 0.9% 1,000 ML IV SCH (16:12)
[2019-08-07 16:52] LABS: Glucose,Whole Blood 210 mg/dL (75-99)
--- NOTE | 2019-08-07 20:21 | PN ---
PROGRESS NOTE DATE OF SERVICE: 08/07/2019 This 83-year-old gentleman who was admitted with significant right facial swelling with some cellulitis and sepsis, is being closely monitored at this time. The patient is on empiric antibiotics. Patient history of significant malignancy also. PT/OT will evaluate the patient closely. Possibly palliative care is also being planned ( ) probably Friday. No chest pain, no palpitation. EXAM: Alert and oriented x2. Pulse 65, blood pressure 90/42, respirations 16, temperature 97.2, pulse ox 100 percent on room air. HEENT: Conjunctivae normal. Oral mucosa moist. Right sided significant swelling and periorbital swelling present. NECK: No jugular venous distention. No lymph node enlargement. CARDIOVASCULAR: S1, S2. RESPIRATORY: Diminished breath sounds at the bases. Scattered rhonchi and crackles. ABDOMEN: Soft, nontender. LEGS: No edema, no swelling. NERVOUS SYSTEM: No focal deficits. LABS: WBC 12.2, hemoglobin 7.7, sodium 130, potassium 3.5. ASSESSMENT: 1. Significant right facial swelling with possible cellulitis and sepsis, present on admission. 2. Change in mental status, acute metabolic encephalopathy, sepsis, present on admission. 3. Increased WBC. 4. Anemia, normocytic anemia of chronic disease. 5. 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 6. History of recent upper lobe pneumonia, possibly aspiration. 7. History of oral squamous cell carcinoma. 8. History of congestive heart failure, ejection fraction unknown. 9. History of chronic obstructive pulmonary disease. 10.History of cerebrovascular accident/transient ischemic attack history. 11.History of myocardial infarction. 12.History of coronary artery disease, stent. 13.History of nicotine dependence. 14.Severe protein calorie malnutrition with BMI of 14.7. 15.NO CODE, NO CPR, NO VENT. RECOMMENDATIONS AND DISCUSSION: I recommend to continue current management and continue symptomatic treatment. Continue the broad-spectrum IV antibiotics. PT, OT evaluation. Otherwise possible ECF rehab or palliative care. Guarded prognosis. Further recommendations to follow. MMODL / GARTHN: [id number] /
[2019-08-07 20:29] LABS: Glucose,Whole Blood 118 mg/dL (75-99)
[2019-08-08] MEDS: methylPREDNISolone SOD SUCCI 125 MG/2 ML VIAL IV SCH ×4 (05:51→23:11)
[2019-08-08 06:55] LABS: Glucose,Whole Blood 174 mg/dL (75-99)
[2019-08-08] MEDS: INSULIN ASPART (NovoLOG) 100 UNIT/ML VIAL SQ SCH ×4 (07:26→20:53)
[2019-08-08] MEDS: PIPERACILLIN-TAZOBACTAM 3.375 GM in SODIUM CHLORIDE 0.9% 100 ML IVPB SCH ×4 (07:27→23:11)
[2019-08-08] MEDS: HEPARIN SODIUM,PORCINE 5,000 UNIT/ML 1 ML VIAL SQ SCH ×2 (07:27→20:53)
[2019-08-08 08:07] LABS: Anisocytosis Slight; Basophils % (A) 0 %; Eosinophils % (A) 0 %; HCT 22.6 % (39.0-53.0); HGB 7.3 gm/dL (13.0-17.5); Hypochromasia Slight; Lymphocytes # (A) 0.2 k/uL (1.0-4.8); Lymphocytes % (A) 1 %; MCH 30.5 pg (25.0-35.0); MCHC 32.3 g/dL (31.0-37.0); MCV 94.4 fL (80.0-100.0); Monocytes # (A) 0.3 k/uL (0-1.0); Monocytes % (A) 2 %; Neutrophils % (A) 97 %; Platelet Count 239 k/uL (150-450); RBC 2.39 m/uL (4.30-5.90); RDW 16.4 % (11.5-15.5); WBC 13.4 k/uL (3.8-10.6)
[2019-08-08 08:19] LABS: African American GFR (CKD) >90 (>60 ml/min/1.73 sqM); Anion Gap 7 mmol/L; Blood Urea Nitrogen 32 mg/dL (9-20); Calcium 9.1 mg/dL (8.4-10.2); Carbon Dioxide 24 mmol/L (22-30); Chloride 104 mmol/L (98-107); Glucose 130 mg/dL (74-99); Non-African American GFR(CKD) 80 (>60 ml/min/1.73 sqM); Potassium 2.9 mmol/L (3.5-5.1); Sodium 135 mmol/L (137-145)
[2019-08-08] MEDS: IPRATROPIUM-ALBUTEROL 3 ML NEB INHALATION SCH ×4 (08:19→19:56)
[2019-08-08 11:28] LABS: Glucose,Whole Blood 196 mg/dL (75-99)
[2019-08-08] MEDS: POTASSIUM CHLORIDE 20 MEQ in WATER FOR INJECTION 1 100ML.BAG IVPB SCH ×2 (11:57→14:24)
[2019-08-08] MEDS: POTASSIUM CHLORIDE ER 20 MEQ TAB.ER PO SCH ×3 (11:58→16:21)
[2019-08-08] MEDS ORDERED: POTASSIUM CHLORIDE 2 MEQ/ML 20 ML VIAL IVPB SCH (12:00)
[2019-08-08 12:41] VITALS: RESP 16
[2019-08-08] MEDS: SODIUM CHLORIDE 0.9% 1,000 ML IV SCH (16:21)
[2019-08-08 17:32] LABS: Glucose,Whole Blood 218 mg/dL (75-99)
[2019-08-08 20:41] LABS: Glucose,Whole Blood 205 mg/dL (75-99)
--- NOTE | 2019-08-08 21:49 | PN ---
PROGRESS NOTE DATE OF SERVICE: 08/08/2019 This 83-year-old gentleman who was admitted with significant ulceration is being closely monitored at this time. The patient also had possible sepsis present on admission. No chest pain. No palpitations. No fever. The p.o. intake is improving at this time. PAST MEDICAL HISTORY: Reviewed. REVIEW OF SYSTEMS: Cardiovascular system as mentioned earlier. Respiratory: As mentioned earlier. GI: As mentioned earlier. Central nervous system: No numbness or weakness. CURRENT MEDICATIONS: Reviewed and include: 1. Tylenol 650 q.6h p.r.n. 2. DuoNeb q.i.d. and p.r.n. 3. Heparin. 4. NovoLog. 5. Solu-Medrol. 6. Narcan. 7. Zosyn. 8. Doses are reviewed. PHYSICAL EXAM: Alert and oriented x2. The pulse is 69, blood pressure 97/56, respirations 16, temperature 97.4, pulse ox 100 percent on room air. HEENT: Conjunctivae normal. NECK: No JVD. CARDIOVASCULAR: S1, S2 muffled. RESPIRATIONS: Breath sounds diminished in the bases. No rhonchi. No crackles. ABDOMEN: Soft, nontender. LEGS: No edema. No swelling. CENTRAL NERVOUS SYSTEM: No focal deficits. Examination of the right cheek significant ulceration, necrotic areas and swelling also present. LABS: WBC 13.2, hemoglobin 7.3, sodium 135, potassium 2.9. Please also note the patient has severe hypokalemia also. ASSESSMENT: 1. Significant right facial swelling and possible cellulitis and sepsis, present on admission related to buccal malignancy. 2. Change in mental status acute metabolic encephalopathy with sepsis present on admission. 3. Increased WBC. 4. Severe hypokalemia. 5. Anemia, normocytic anemia of chronic disease. 6. 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 7. History of recent upper lobe pneumonia, possibly aspiration. 8. History of oral squamous cell carcinoma. 9. History of congestive heart failure, ejection fraction unknown. 10.History of chronic obstructive pulmonary disease. 11.History of cerebrovascular accident, transient ischemic attack. 12.History of myocardial infarction. 13.History of coronary artery disease, stent. 14.History of nicotine dependence. 15.Severe protein calorie malnutrition with BMI of 14.7. 16.NO CODE, NO CPR, NO VENT. RECOMMENDATIONS AND DISCUSSION: Recommend to continue current medications, management and symptomatic treatment. Otherwise, replace potassium. Give IV 40 mg x2 and p.o. x2 and then repeat IV x2 and p.o. x3 and repeat potassium in the morning. Otherwise, PT/OT evaluation, possible ECF rehab. The possibility of palliative care also discussed with the patient and family who understands and agrees. Further recommendations to follow. Once again the prognosis guarded. Further recommendations to follow. MMODL / IJN: [id number] /
[2019-08-09] MEDS: methylPREDNISolone SOD SUCCI 125 MG/2 ML VIAL IV SCH ×2 (04:56→12:38)
[2019-08-09 05:45] VITALS: BP 99/54; PULSE 74; TEMP 97
[2019-08-09 06:55] LABS: Glucose,Whole Blood 183 mg/dL (75-99)
[2019-08-09] MEDS: INSULIN ASPART (NovoLOG) 100 UNIT/ML VIAL SQ SCH ×2 (08:06→12:36)
[2019-08-09] MEDS: PIPERACILLIN-TAZOBACTAM 3.375 GM in SODIUM CHLORIDE 0.9% 100 ML IVPB SCH (08:07)
[2019-08-09] MEDS: HEPARIN SODIUM,PORCINE 5,000 UNIT/ML 1 ML VIAL SQ SCH (08:07)
[2019-08-09 10:06] LABS: African American GFR (CKD) >90 (>60 ml/min/1.73 sqM); Anion Gap 9 mmol/L; Blood Urea Nitrogen 31 mg/dL (9-20); Calcium 9.6 mg/dL (8.4-10.2); Carbon Dioxide 20 mmol/L (22-30); Chloride 107 mmol/L (98-107); Glucose 80 mg/dL (74-99); Non-African American GFR(CKD) 80 (>60 ml/min/1.73 sqM); Potassium 5.1 mmol/L (3.5-5.1); Sodium 136 mmol/L (137-145)
[2019-08-09 10:18] LABS: Anisocytosis Slight; Basophils % (A) 0 %; Eosinophils % (A) 0 %; HCT 26.9 % (39.0-53.0); HGB 8.5 gm/dL (13.0-17.5); Hypochromasia Slight; Lymphocytes # (A) 0.2 k/uL (1.0-4.8); Lymphocytes % (A) 1 %; MCH 30.2 pg (25.0-35.0); MCHC 31.7 g/dL (31.0-37.0); MCV 95.4 fL (80.0-100.0); Mean Platelet Volume 8.3; Monocytes # (A) 0.2 k/uL (0-1.0); Monocytes % (A) 1 %; Neutrophils # (A) 14.5 k/uL (1.3-7.7); Neutrophils % (A) 98 %; Platelet Count 265 k/uL (150-450); RBC 2.82 m/uL (4.30-5.90); RDW 16.6 % (11.5-15.5); WBC 14.9 k/uL (3.8-10.6)
[2019-08-09] MEDS: IPRATROPIUM-ALBUTEROL 3 ML NEB INHALATION SCH (10:47)
[2019-08-09 11:56] LABS: Glucose,Whole Blood 78 mg/dL (75-99)
[2019-08-09] MEDS: SODIUM CHLORIDE 0.9% 1,000 ML IV SCH (12:42)
[2019-08-09] MEDS ORDERED: NYSTATIN 100,000 UNIT/ML SUSP 500,000 UNIT/5 ML CUP PO SCH (13:00)
--- NOTE | 2019-08-09 13:17 | P.DS ---
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 Change in mental status, acute metabolic encephalopathy with sepsis, present on admission Increased WBC Severe hypokalemia Anemia, normocytic anemia of chronic disease 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 Patient will follow-up with Dr. Cornell upon discharge. Patient will continue with a short course of oral antibiotics in the form of Augmentin for the next 10 days along with nystatin swish and swallow and then may discontinue. Patient will also continue on a prednisone taper in the outpatient setting. Total time taken is 35 minutes. History of present illness This is an 83-year-old male who was recently admitted with significant ulcerations to the right cheek along with weakness and sepsis, present on admission and was being closely monitored. Infectious disease was following. Patient was treated with antibiotics in the form of IV Zosyn and will be transitioned oral Augmentin twice daily for the next 10 days and then may discontinue. Patient was also seen and evaluated by speech and swallow recommending to continue with pured diet and no straws. Patient was also found to have some mild thrush of the oral cavity and will continue on nystatin oral swish and swallow 4 times daily. Patient continued to be weak and unable to intake very much due to the significant swelling of the oral cavity and face and family and caregivers at home were unable to care for him and will be going to [facility] for continuous care. Currently no reports of chest pain, shortness of breath, or palpitations. Patient is afebrile. No reports of nausea or vomiting and patient is tolerating diet. Patient and family will further discuss palliative care in the outpatient setting. Guarded prognosis. On exam vital signs are stable. Temp is 96.5F, pulse is 84, respirations are 17, blood pressure is 134/84, oxygen saturation is 100% on room air. Cardio S1, S2 are muffled. Respiratory shows diminished breath sounds at the bases with a few scattered rhonchi noted. Some mild expiratory wheezing noted. Abdomen is soft and nontender. Nervous system shows mild diffuse weakness. Please refer to medication reconciliation sheet for a list of medications. Patient Condition at Discharge: Fair Plan - Discharge Summary Discharge Rx Participant: No New Discharge Prescriptions: New Ipratropium-Albuterol Nebulize [Duoneb 0.5 mg-3 mg/3 ml Soln] 3 ml INHALATION RT-QID ml Ipratropium-Albuterol Nebulize [Duoneb 0.5 mg-3 mg/3 ml Soln] 3 ml INHALATION RT-QID PRN ml PRN Reason: Shortness Of Breath Or Wheezing Nystatin 100,000 Unit/ml Susp [Mycostatin Oral Susp] 500,000 unit PO QID ml INSULIN ASPART (NovoLOG) [NovoLOG (formulary)] 0 unit SQ ACHS vial predniSONE 10 mg PO DIRECTED #30 tab Acetaminophen Tab [Tylenol] 650 mg PO Q6HR PRN tab PRN Reason: Mild Pain Or Fever > 100.5 Continue Apixaban [Eliquis] 2.5 mg PO BID #60 tablet Atorvastatin [Lipitor] 80 mg PO HS #30 tab Nitroglycerin Sl Tabs [Nitrostat] 0.4 mg SUBLINGUAL Q5M PRN #25 tab PRN Reason: Chest Pain Pantoprazole [Protonix] 40 mg PO AC-BRKFST #30 tablet. Ensure 1 can PO TID Ferrous Sulfate [Iron (65 MG Elemental)] 325 mg PO DAILY Furosemide [Lasix] 20 mg PO DAILY Calcium Carbonate/Vitamin D3 [Calcium 500-Vit D3 200 Tablet] 1 tab PO DAILY Amoxic-Pot Clav 875-125Mg [Augmentin 875-125] 1 tab PO Q12HR 10 Days #20 tab Discontinued Aspirin EC [Ecotrin Low Dose] 81 mg PO DAILY Ipratropium-Albuterol Nebulize [Duoneb 0.5 mg-3 mg/3 ml Soln] 3 ml INHALATION RT-TID Fluconazole [Diflucan] 100 mg PO DAILY Discharge Medication List Apixaban [Eliquis] 2.5 mg PO BID #60 tablet 08/01/16 [Rx] Atorvastatin [Lipitor] 80 mg PO HS #30 tab 08/01/16 [Rx] Nitroglycerin Sl Tabs [Nitrostat] 0.4 mg SUBLINGUAL Q5M PRN #25 tab 08/01/16 [Rx] Pantoprazole [Protonix] 40 mg PO AC-BRKFST #30 tablet. 08/01/16 [Rx] Ensure 1 can PO TID 09/20/18 [History] Ferrous Sulfate [Iron (65 MG Elemental)] 325 mg PO DAILY 09/20/18 [History] Calcium Carbonate/Vitamin D3 [Calcium 500-Vit D3 200 Tablet] 1 tab PO DAILY 08/01/19 [History] Furosemide [Lasix] 20 mg PO DAILY 08/01/19 [History] Amoxic-Pot Clav 875-125Mg [Augmentin 875-125] 1 tab PO Q12HR 10 Days #20 tab 08/04/19 [Rx] Acetaminophen Tab [Tylenol] 650 mg PO Q6HR PRN tab 08/09/19 [Rx] INSULIN ASPART (NovoLOG) [NovoLOG (formulary)] 0 unit SQ ACHS vial 08/09/19 [Rx] Ipratropium-Albuterol Nebulize [Duoneb 0.5 mg-3 mg/3 ml Soln] 3 ml INHALATION RT-QID ml 08/09/19 [Rx] Ipratropium-Albuterol Nebulize [Duoneb 0.5 mg-3 mg/3 ml Soln] 3 ml INHALATION RT-QID PRN ml 08/09/19 [Rx] Nystatin 100,000 Unit/ml Susp [Mycostatin Oral Susp] 500,000 unit PO QID ml 08/09/19 [Rx] predniSONE 10 mg PO DIRECTED #30 tab 08/09/19 [Rx] Follow up Appointment(s)/Referral(s): Gian Cornell DO [Primary Care Provider] - 1-2 days Activity/Diet/Wound Care/Special Instructions: Patient is going to [facility] Activity as tolerated Continue with antibiotics for the next 10 days Continue with nystatin oral swish and swallow for the next 10 days Follow-up with primary care provider upon discharge Continue current diet of pured diet and no straws Discharge Disposition: TRANSFER TO SNF/ECF
== END 2019-08-09 15:00 | DRG 871 ==
LOC: EC 12:48 → 5NMEDONC 15:18
PROVIDERS: ADMIT Hospitalist; ATTEND Hospitalist
DX: A41.9 Sepsis, unspecified organism (principal); G93.41 Metabolic encephalopathy; E43 Unspecified severe protein-calorie malnutrition; Z68.1 Body mass index [BMI] 19.9 or less, adult; R64 Cachexia; K12.2 Cellulitis and abscess of mouth; I25.10 Atherosclerotic heart disease of native coronary artery without angina pectoris; Z66 Do not resuscitate; D63.8 Anemia in other chronic diseases classified elsewhere; R62.7 Adult failure to thrive; E87.6 Hypokalemia; J44.9 Chronic obstructive pulmonary disease, unspecified; C06.9 Malignant neoplasm of mouth, unspecified; Z87.01 Personal history of pneumonia (recurrent); Z79.82 Long term (current) use of aspirin; Z79.01 Long term (current) use of anticoagulants; I25.2 Old myocardial infarction; Z95.5 Presence of coronary angioplasty implant and graft; Z98.890 Other specified postprocedural states; Z87.891 Personal history of nicotine dependence; Z80.1 Family history of malignant neoplasm of trachea, bronchus and lung; Z79.899 Other long term (current) drug therapy; Z86.73 Personal history of transient ischemic attack (TIA), and cerebral infarction without residual deficits
CPT/HCPCS: 36415; 70450; 71045; 72125; 72170; 80048; 83605; 83735; 85025; 93005; 94640; 94760; 99285